=== PATIENT | female | born 1985 | race African-American/Black ===

== ENCOUNTER 2016-10-27 09:13 | Emergency (ER) | payer OTHER ==
[2016-10-27 09:18] VITALS: BP 109/67; PULSE 83; RESP 20; TEMP 98.7
--- NOTE | 2016-10-27 09:30 | ED ---
ENT HPI - General Chief complaint: Dental/Oral Stated complaint: Tooth Pain Time Seen by Provider: 10/27/16 09:19 Source: patient, RN notes reviewed Mode of arrival: ambulatory Limitations: no limitations - History of Present Illness Initial comments: 31-year-old female presents emergency Department chief complaint right lower dental pain. Patient states has been vomiting for last week. Patient states she's had all her teeth extracted except for one on the right lower she states that is cracked out and states that she feels it may be infected. Patient states she does wear dentures but cannot wear her lower because of the pain. Patient has fever or chills. Patient states that she is seen at [facility]. - Related Data Home Medications Medication Instructions Recorded Confirmed Acetaminophen Tab [Tylenol Tab] 1,000 mg PO Q6HR PRN 10/27/16 10/27/16 Previous Rx's Medication Instructions Recorded Acetaminophen-Codeine 300-30mg 1 tab PO Q4H PRN #20 tablet 10/27/16 [Tylenol #3] Penicillin V Potassium [Pen Vee K] 500 mg PO QID #40 tab 10/27/16 Allergies Allergy/AdvReac Type Severity Reaction Status Date / Time No Known Allergies Allergy Verified 10/27/16 09:35 Review of Systems ROS Statement: Those systems with pertinent positive or pertinent negative responses have been documented in the HPI. ROS Other: All systems not noted in ROS Statement are negative. Past Medical History Past Medical History: No Reported History Additional Past Medical History / Comment(s): UMBILCAL HERNIA History of Any Multi-Drug Resistant Organisms: None Reported Past Surgical History: Section Past Psychological History: No Psychological Hx Reported Smoking Status: Current every day smoker Past Alcohol Use History: None Reported Past Drug Use History: None Reported General Exam Limitations: no limitations General appearance: alert, in no apparent distress Head exam: Present: atraumatic, normocephalic, normal inspection ENT exam: Present: mucous membranes moist, TM's normal bilaterally, normal external ear exam. Absent: normal exam, normal oropharynx (Edentulous, right lower tooth fracture noted) Neck exam: Present: normal inspection, full ROM. Absent: tenderness, meningismus, lymphadenopathy Respiratory exam: Present: normal lung sounds bilaterally. Absent: respiratory distress, wheezes, rales, rhonchi, stridor Cardiovascular Exam: Present: regular rate, normal rhythm, normal heart sounds. Absent: systolic murmur, diastolic murmur, rubs, gallop, clicks Neurological exam: Present: alert, oriented X3, CN II-XII intact Skin exam: Present: warm, dry, intact, normal color. Absent: rash Course Vital Signs 10/27/16 09:14 Temperature 98.7 F Pulse Rate 83 Respiratory 20 Rate Blood Pressure 109/67 O2 Sat by Pulse 100 Oximetry Medical Decision Making - Medical Decision Making Patient presented for dental pain. She has a dental fracture and possible dental infection. Patient was placed on antibiotics, pain medication. She is advised follow-up with her dentist return parameters were discussed. Disposition Clinical Impression: Fracture of tooth, Toothache Disposition: HOME SELF-CARE Condition: Stable Instructions: Toothache (ED) Additional Instructions: Please return to the Emergency Department if symptoms worsen or any other concerns. Follow-up with your dentist as directed. Prescriptions: Acetaminophen-Codeine 300-30mg [Tylenol #3] 1 tab PO Q4H PRN #20 tablet PRN Reason: pain Penicillin V Potassium [Pen Vee K] 500 mg PO QID #40 tab Referrals: None,Stated [Primary Care Provider] - 1-2 days Time of Disposition: 09:30
== END 2016-10-27 09:35 | disposition home or self-care (01) ==
LOC: EC 09:13
DX: S02.5XXA Fracture of tooth (traumatic), initial encounter for closed fracture (principal); F17.200 Nicotine dependence, unspecified, uncomplicated; X58.XXXA Exposure to other specified factors, initial encounter
CPT/HCPCS: 99282

== ENCOUNTER 2016-12-07 12:24 | Emergency (ER) | payer OTHER ==
[2016-12-07 12:28] VITALS: BP 127/68; PULSE 91; RESP 16; TEMP 98.5
[2016-12-07] MEDS ORDERED: ACET/COD 300 MG/30 MG STARTER PACK 6 TAB BTL PO STA (12:39)
[2016-12-07] MEDS ORDERED: PENICILLIN VK 500MG STARTER 4 TAB BTL PO STA (12:39)
--- NOTE | 2016-12-07 12:43 | ED ---
ENT HPI - General Chief complaint: Dental/Oral Stated complaint: Tooth Pain Time Seen by Provider: 12/07/16 12:29 Source: patient, RN notes reviewed, old records reviewed Mode of arrival: ambulatory Limitations: no limitations - History of Present Illness Initial comments: Physical is 31-year-old female presents emergency Department chief complaint of right lower dental pain. Patient reports that she's had all of her teeth pulled it does wear dentures. She reports that over the past month and a half she's noticed that her wisdom tooth is came in and is cracked. She states that she does see a dentist in [place]. She reports that she has to find transportation unable to get to her appointment. She reports that she's had this been taking Motrin and Tylenol but is not helping with the pain. She was recently here for the same dental pain and was given prescription of antibiotic and pain medication. Patient reports she has completed the antibiotic was concerned that it is now still infected. Patient would just like to have the tooth pulled out. Patient denies any fever or chills, trismus, chest pain, shortness breath, nausea, vomiting or fevers. - Related Data Home Medications Medication Instructions Recorded Confirmed Acetaminophen Tab [Tylenol Tab] 1,000 mg PO Q6HR PRN 10/27/16 12/07/16 Previous Rx's Medication Instructions Recorded Acetaminophen-Codeine 300-30mg 1 tab PO Q6H PRN #15 tablet 12/07/16 [Tylenol #3] Penicillin V Potassium [Pen Vee K] 500 mg PO QID #40 tab 12/07/16 Allergies Allergy/AdvReac Type Severity Reaction Status Date / Time No Known Allergies Allergy Verified 12/07/16 12:26 Review of Systems ROS Statement: Those systems with pertinent positive or pertinent negative responses have been documented in the HPI. ROS Other: All systems not noted in ROS Statement are negative. Past Medical History Past Medical History: No Reported History Additional Past Medical History / Comment(s): UMBILCAL HERNIA History of Any Multi-Drug Resistant Organisms: None Reported Past Surgical History: Section Past Psychological History: No Psychological Hx Reported Smoking Status: Current every day smoker Past Alcohol Use History: None Reported Past Drug Use History: None Reported General Exam - General Exam Comments Initial Comments: Well-appearing 31-year-old female. No acute distress. Limitations: no limitations General appearance: alert, in no apparent distress Head exam: Present: atraumatic, normocephalic, normal inspection Eye exam: Present: normal appearance, PERRL, EOMI. Absent: scleral icterus, conjunctival injection, periorbital swelling ENT exam: Present: normal exam, mucous membranes moist. Absent: normal oropharynx (Patient has all of her teeth over the lower mouth pulled, except to tooth #32 is exposed and cracked.) Neck exam: Present: normal inspection. Absent: tenderness, meningismus, lymphadenopathy Respiratory exam: Present: normal lung sounds bilaterally. Absent: respiratory distress, wheezes, rales, rhonchi, stridor Cardiovascular Exam: Present: regular rate, normal rhythm, normal heart sounds. Absent: systolic murmur, diastolic murmur, rubs, gallop, clicks GI/Abdominal exam: Present: soft, normal bowel sounds. Absent: distended, tenderness, guarding, rebound, rigid Extremities exam: Present: normal inspection, full ROM, normal capillary refill. Absent: tenderness, pedal edema, joint swelling, calf tenderness Back exam: Present: normal inspection Neurological exam: Present: alert, oriented X3, CN II-XII intact Psychiatric exam: Present: normal affect, normal mood Skin exam: Present: warm, dry, intact, normal color. Absent: rash Course Vital Signs 12/07/16 12:26 Temperature 98.5 F Pulse Rate 91 Respiratory 16 Rate Blood Pressure 127/68 O2 Sat by Pulse 99 Oximetry Medical Decision Making - Medical Decision Making Patient is 31-year-old female presenting to the emergency department for pain. She was seen a month ago for similar complaint. Patient exposed exposed tooth # 32 and it is cracked. Has all the rest of her teeth pulled. Discussion is follow-up with dental clinic to have her tooth removed completely. Patient also advised to do teabags over the tooth. She will be discharged with pain medication and antibiotics. Discussed following up with the dentist surgeon as soon as possible. Patient agrees to treatment plan will comply. Return parameters were discussed. Disposition Clinical Impression: Pain, dental, Broken or cracked tooth, nontraumatic Disposition: HOME SELF-CARE Condition: Good Instructions: Toothache (ED) Additional Instructions: [facility] [id number] [place] [address] [phone] (existing clients only) For new clients: [phone] 1st consult: $50 (includes Xrays) Usually 30% less then private dentist for visits after. [employer] Have to pay $50 for Xrays anmd rest is covered. [phone] Prescriptions: Acetaminophen-Codeine 300-30mg [Tylenol #3] 1 tab PO Q6H PRN #15 tablet PRN Reason: Pain Penicillin V Potassium [Pen Vee K] 500 mg PO QID #40 tab Referrals: None,Stated [Primary Care Provider] - 1-2 days Fauzia Michel MD [STAFF PHYSICIAN] - 1-2 days Time of Disposition: 12:42
== END 2016-12-07 12:55 | disposition home or self-care (01) ==
LOC: EC 12:24
DX: K03.81 Cracked tooth (principal); K08.89 Other specified disorders of teeth and supporting structures; F17.200 Nicotine dependence, unspecified, uncomplicated
CPT/HCPCS: 99283

== ENCOUNTER 2017-01-02 11:52 | Emergency (ER) | payer OTHER ==
[2017-01-02 12:13] VITALS: BP 113/62; PULSE 70; RESP 16; TEMP 99.1
[2017-01-02] MEDS ORDERED: KETOROLAC 60 MG/2 ML VIAL IM STA (13:07)
[2017-01-02] MEDS ORDERED: ORPHENADRINE 30 MG/ML 2 ML VIAL IM STA (13:07)
--- NOTE | 2017-01-02 13:29 | ED ---
General Adult HPI - General Chief complaint: Back Pain/Injury Stated complaint: Back pain/injury Time Seen by Provider: 01/02/17 13:03 Source: patient, RN notes reviewed Mode of arrival: ambulatory Limitations: no limitations - History of Present Illness Initial comments: 31 yo female presents to the ER with cc of low back pain. Patient has a history of back pain and states she was catching her son and she noticed some back pain. This originally started on Thursday. She states she has tried over the counter medications without much relief. She denies any loss of bowel or bladder function. She denies any saddle anesthesia. she states it feel much like when her back has flared up in the past. She denies any actual trauma to the back it was simply catching her son. She denies any other injuries or symptoms. Patient denies any recent fever, chills, shortness of breath, chest pain, abdominal pain, nausea vomiting, numbness or tingling, dysuria or hematuria, constipation or diarrhea, headaches or visual changes, or any other current symptoms. - Related Data Home Medications Medication Instructions Recorded Confirmed Acetaminophen Tab [Tylenol Tab] 1,000 mg PO Q6HR PRN 10/27/16 12/07/16 Previous Rx's Medication Instructions Recorded Acetaminophen-Codeine 300-30mg 1 tab PO Q6H PRN #15 tablet 12/07/16 [Tylenol #3] Penicillin V Potassium [Pen Vee K] 500 mg PO QID #40 tab 12/07/16 Ibuprofen [Motrin] 600 mg PO Q6HR PRN #20 tab 01/02/17 Orphenadrine [Norflex] 100 mg PO Q12H #10 tablet.er 01/02/17 Allergies Allergy/AdvReac Type Severity Reaction Status Date / Time No Known Allergies Allergy Verified 01/02/17 12:10 Review of Systems ROS Statement: Those systems with pertinent positive or pertinent negative responses have been documented in the HPI. ROS Other: All systems not noted in ROS Statement are negative. Past Medical History Past Medical History: No Reported History Additional Past Medical History / Comment(s): UMBILCAL HERNIA History of Any Multi-Drug Resistant Organisms: None Reported Past Surgical History: Section Past Psychological History: No Psychological Hx Reported Smoking Status: Current every day smoker Past Alcohol Use History: None Reported Past Drug Use History: None Reported General Exam Limitations: no limitations General appearance: alert, in no apparent distress ENT exam: Present: normal exam, mucous membranes moist Neck exam: Present: normal inspection. Absent: tenderness, meningismus, lymphadenopathy Respiratory exam: Present: normal lung sounds bilaterally. Absent: respiratory distress, wheezes, rales, rhonchi, stridor Cardiovascular Exam: Present: regular rate, normal rhythm, normal heart sounds. Absent: systolic murmur, diastolic murmur, rubs, gallop, clicks Back exam: Present: normal inspection, full ROM, tenderness (lower lumbnar vertebra), vertebral tenderness. Absent: CVA tenderness (R), CVA tenderness (L) , muscle spasm, paraspinal tenderness, rash noted Neurological exam: Present: alert, oriented X3 Skin exam: Present: warm, dry, intact, normal color. Absent: rash Course Vital Signs 01/02/17 12:10 Temperature 99.1 F Pulse Rate 70 Respiratory 16 Rate Blood Pressure 113/62 O2 Sat by Pulse 100 Oximetry Medical Decision Making - Medical Decision Making 31 yo female presents with cc of what appears to be a lumbar strain. patient states it is much like her normal back pain. We treated patient with torodal and norflex and has had some improvement. We will discharged the patient home. discussed return parameters and follow up. all questions have been answered. patient in agreement with discharge. Disposition Clinical Impression: Lumbar strain Disposition: HOME SELF-CARE Condition: Stable Instructions: Lower Back Exercises (ED), Low Back Strain (ED) Additional Instructions: Please use medication as discussed. Please follow up with family doctor if symptoms have not improved over the next two days. Please return to the emergency room if your symptoms increase or worsen or for any other concerns. Prescriptions: Ibuprofen [Motrin] 600 mg PO Q6HR PRN #20 tab PRN Reason: Pain Orphenadrine [Norflex] 100 mg PO Q12H #10 tablet.er Referrals: Fauzia Michel MD [STAFF PHYSICIAN] - 1-2 days Time of Disposition: 13:28
== END 2017-01-02 13:40 | disposition home or self-care (01) ==
LOC: EC 11:52
DX: S39.012A Strain of muscle, fascia and tendon of lower back, initial encounter (principal); F17.200 Nicotine dependence, unspecified, uncomplicated; X58.XXXA Exposure to other specified factors, initial encounter
CPT/HCPCS: 99283; 96372 ×2; J2360; J1885

== ENCOUNTER 2017-02-11 09:23 | Emergency (ER) | payer OTHER ==
[2017-02-11 09:28] VITALS: RESP 20
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
[2017-02-11] MEDS ORDERED: IBUPROFEN 800 MG TAB PO STA (10:33)
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
[2017-02-11 10:49] VITALS: BP 126/56; PULSE 71; TEMP 98.1
--- NOTE | 2017-02-12 08:30 | CDI ---
Documentation Clarification OP Dear Espinoza Francisco, PAC Please do addendum to ED report for need a contusion location Thank you, Isaiah Valencia Double Back Operator If you have any questions, please contact Engineering Technologist at [phone] [facility]
== END 2017-02-11 10:45 | disposition home or self-care (01) ==
LOC: EC 09:23
DX: S06.0X0A Concussion without loss of consciousness, initial encounter (principal); S00.83XA Contusion of other part of head, initial encounter; S40.021A Contusion of right upper arm, initial encounter; B00.9 Herpesviral infection, unspecified; F17.200 Nicotine dependence, unspecified, uncomplicated; Y04.2XXA Assault by strike against or bumped into by another person, initial encounter
CPT/HCPCS: 70450; 99284

== ENCOUNTER 2017-04-07 15:46 | Emergency (ER) | payer OTHER ==
[2017-04-07 15:51] VITALS: RESP 18
[2017-04-07] MEDS ORDERED: IBUPROFEN 600 MG TAB PO STA (16:44)
[2017-04-07] MEDS ORDERED: ACETAMINOPHEN TAB 500 MG TAB PO STA (16:44)
--- NOTE | 2017-04-07 16:48 | ED ---
General Adult HPI - General Chief complaint: Abdominal Pain Stated complaint: headache, nausea, back pain Time Seen by Provider: 04/07/17 15:50 Source: patient, RN notes reviewed Mode of arrival: wheelchair Limitations: no limitations - History of Present Illness Initial comments: This is a 31-year-old female presents to the emergency department complaining of right upper quadrant and right flank pain. Patient states started last night and has continued today. Patient states she became nauseous and has vomited multiple times. Patient denies any diarrhea. Patient denies any chest pain difficulty breathing shortness of breath per patient denies any cough. Patient denies any dysuria hematuria or urinary frequency. Patient denies any back pain. Patient denies any neck stiffness or neck pain. Patient denies any rashes lesions. - Related Data Home Medications Medication Instructions Recorded Confirmed Ibuprofen [Motrin] 400 mg PO Q6HR PRN 04/07/17 04/07/17 Naproxen Sodium [Aleve] 440 mg PO Q12HR PRN 04/07/17 04/07/17 Previous Rx's Medication Instructions Recorded Ondansetron [Zofran] 4 mg PO Q6H PRN #10 tab 04/07/17 Sulfamethox-Tmp 800-160Mg [Bactrim 1 each PO Q12HR #14 tab 04/07/17 DS 800-160 mg] Allergies Allergy/AdvReac Type Severity Reaction Status Date / Time No Known Allergies Allergy Verified 04/07/17 16:45 Review of Systems ROS Statement: Those systems with pertinent positive or pertinent negative responses have been documented in the HPI. ROS Other: All systems not noted in ROS Statement are negative. Past Medical History Past Medical History: No Reported History Additional Past Medical History / Comment(s): UMBILCAL HERNIA History of Any Multi-Drug Resistant Organisms: None Reported Past Surgical History: Section Past Psychological History: No Psychological Hx Reported Smoking Status: Current every day smoker Past Alcohol Use History: None Reported Past Drug Use History: None Reported General Exam - General Exam Comments Initial Comments: GENERAL: Patient is well-developed and well-nourished. Patient is nontoxic and well- hydrated and is in mild distress. ENT: Neck is soft and supple. No significant lymphadenopathy is noted. Oropharynx is clear. Moist mucous membranes. Neck has full range of motion without eliciting any pain. EYES: The sclera were anicteric and conjunctiva were pink and moist. Extraocular movements were intact and pupils were equal round and reactive to light. Eyelids were unremarkable. PULMONARY: Unlabored respirations. Good breath sounds bilaterally. No audible rales rhonchi or wheezing was noted. CARDIOVASCULAR: There is a regular rate and rhythm without any murmurs gallops or rubs. ABDOMEN: Minimal right upper quadrant pain no rebound or guarding. No palpable organomegaly was noted. There is no palpable pulsatile mass. SKIN: Skin is clear with no lesions or rashes and otherwise unremarkable. NEUROLOGIC: Patient is alert and oriented x3. Cranial nerves II through XII are grossly intact. Motor and sensory are also intact. Normal speech, volume and content. Symmetrical smile. MUSCULOSKELETAL: Normal extremities with adequate strength and full range of motion. No lower extremity swelling or edema. No calf tenderness. LYMPHATICS: No significant lymphadenopathy is noted PSYCHIATRIC: Normal psychiatric evaluation. Limitations: no limitations Course Vital Signs 04/07/17 04/07/17 04/07/17 15:48 16:42 17:17 Temperature 99.8 F H 101.3 F H Pulse Rate 111 H 95 Respiratory 18 Rate Blood Pressure 99/64 O2 Sat by Pulse 100 Oximetry 04/07/17 17:57 Temperature 101.2 F H Pulse Rate 94 Respiratory Rate Blood Pressure O2 Sat by Pulse Oximetry Medical Decision Making - Lab Data Result diagrams: 04/07/17 17:06 04/07/17 17:06 Lab Results 04/07/17 04/07/17 04/07/17 Range/Units 17:06 17:06 17:06 WBC 5.3 (3.8-10.6) k/uL RBC 4.20 (3.80-5.40) m/uL Hgb 12.3 (11.4-16.0) gm/dL Hct 36.7 (34.0-46.0) % MCV 87.5 (80.0-100.0) fL MCH 29.3 (25.0-35.0) pg MCHC 33.5 (31.0-37.0) g/dL RDW 12.9 (11.5-15.5) % Plt Count 286 (150-450) k/uL Neutrophils % 66 % Lymphocytes % 18 % Monocytes % 7 % Eosinophils % 5 % Basophils % 1 % Neutrophils # 3.5 (1.3-7.7) k/uL Lymphocytes # 0.9 L (1.0-4.8) k/uL Monocytes # 0.4 (0-1.0) k/uL Eosinophils # 0.3 (0-0.7) k/uL Basophils # 0.0 (0-0.2) k/uL Sodium 134 L (137-145) mmol/L Potassium 4.1 (3.5-5.1) mmol/L Chloride 100 (98-107) mmol/L Carbon Dioxide 29 (22-30) mmol/L Anion Gap 5 mmol/L BUN 11 (7-17) mg/dL Creatinine 0.80 (0.52-1.04) mg/dL Est GFR (MDRD) Af Amer >60 (>60 ml/min/1.73 sqM) Est GFR (MDRD) Non-Af >60 (>60 ml/min/1.73 sqM) Glucose 78 (74-99) mg/dL Plasma Lactic Acid Raza 1.0 (0.7-2.0) mmol/L Calcium 8.8 (8.4-10.2) mg/dL Total Bilirubin 0.4 (0.2-1.3) mg/dL AST 59 H (14-36) U/L ALT 67 H (9-52) U/L Alkaline Phosphatase 74 (38-126) U/L Total Protein 6.5 (6.3-8.2) g/dL Albumin 3.6 (3.5-5.0) g/dL Urine Color Urine Appearance (Clear) Urine pH (5.0-8.0) Ur Specific [place] (1.001-1.035) Urine Protein (Negative) Urine Glucose (UA) (Negative) Urine Ketones (Negative) Urine Blood (Negative) Urine Nitrite (Negative) Urine Bilirubin (Negative) Urine Urobilinogen (<2.0) mg/dL Ur Leukocyte Esterase (Negative) Urine RBC (0-5) /hpf Urine WBC (0-5) /hpf Ur Squamous Epith Cells (0-4) /hpf Urine Mucus (None) /hpf Influenza Type A RNA (Not Detectd) Influenza Type B (PCR) (Not Detectd) 04/07/17 04/07/17 Range/Units 17:06 17:06 WBC (3.8-10.6) k/uL RBC (3.80-5.40) m/uL Hgb (11.4-16.0) gm/dL Hct (34.0-46.0) % MCV (80.0-100.0) fL MCH (25.0-35.0) pg MCHC (31.0-37.0) g/dL RDW (11.5-15.5) % Plt Count (150-450) k/uL Neutrophils % % Lymphocytes % % Monocytes % % Eosinophils % % Basophils % % Neutrophils # (1.3-7.7) k/uL Lymphocytes # (1.0-4.8) k/uL Monocytes # (0-1.0) k/uL Eosinophils # (0-0.7) k/uL Basophils # (0-0.2) k/uL Sodium (137-145) mmol/L Potassium (3.5-5.1) mmol/L Chloride (98-107) mmol/L Carbon Dioxide (22-30) mmol/L Anion Gap mmol/L BUN (7-17) mg/dL Creatinine (0.52-1.04) mg/dL Est GFR (MDRD) Af Amer (>60 ml/min/1.73 sqM) Est GFR (MDRD) Non-Af (>60 ml/min/1.73 sqM) Glucose (74-99) mg/dL Plasma Lactic Acid Raza (0.7-2.0) mmol/L Calcium (8.4-10.2) mg/dL Total Bilirubin (0.2-1.3) mg/dL AST (14-36) U/L ALT (9-52) U/L Alkaline Phosphatase (38-126) U/L Total Protein (6.3-8.2) g/dL Albumin (3.5-5.0) g/dL Urine Color Yellow Urine Appearance Cloudy H (Clear) Urine pH 5.5 (5.0-8.0) Ur Specific [place] 1.017 (1.001-1.035) Urine Protein 1+ H (Negative) Urine Glucose (UA) Negative (Negative) Urine Ketones Negative (Negative) Urine Blood Trace H (Negative) Urine Nitrite Negative (Negative) Urine Bilirubin Negative (Negative) Urine Urobilinogen <2.0 (<2.0) mg/dL Ur Leukocyte Esterase Large H (Negative) Urine RBC 5 (0-5) /hpf Urine WBC 40 H (0-5) /hpf Ur Squamous Epith Cells 7 H (0-4) /hpf Urine Mucus Few H (None) /hpf Influenza Type A RNA Not Detected (Not Detectd) Influenza Type B (PCR) Not Detected (Not Detectd) Disposition Clinical Impression: Urinary tract infection, Vomiting Disposition: HOME SELF-CARE Condition: Good Instructions: Urinary Tract Infection in Women (ED) Prescriptions: Ondansetron [Zofran] 4 mg PO Q6H PRN #10 tab PRN Reason: Nausea And Vomiting Sulfamethox-Tmp 800-160Mg [Bactrim DS 800-160 mg] 1 each PO Q12HR #14 tab Referrals: Asael Cardona MD [STAFF PHYSICIAN] - 1-2 days Time of Disposition: 19:02
[2017-04-07] MEDS: SODIUM CHLORIDE 0.9% 500 ML IV SCH (17:07)
[2017-04-07 17:23] LABS: Basophils % (A) 1 %; CH 29.9; CHCM 34.4; Eosinophils # (A) 0.3 k/uL (0-0.7); Eosinophils % (A) 5 %; HCT 36.7 % (34.0-46.0); HGB 12.3 gm/dL (11.4-16.0); Luc # (Auto) 0.16; Luc % (Auto) 3; Lymphocytes # (A) 0.9 k/uL (1.0-4.8); Lymphocytes % (A) 18 %; MCH 29.3 pg (25.0-35.0); MCHC 33.5 g/dL (31.0-37.0); MCV 87.5 fL (80.0-100.0); Mean Platelet Volume 7.4; Monocytes # (A) 0.4 k/uL (0-1.0); Monocytes % (A) 7 %; Neutrophils # (A) 3.5 k/uL (1.3-7.7); Neutrophils % (A) 66 %; RDW 12.9 % (11.5-15.5); WBC 5.3 k/uL (3.8-10.6); WBC (Perox) 5.56
[2017-04-07 17:27] LABS: Appearance,Urine Cloudy (Clear); Bilirubin,Urine Negative (Negative); Glucose,Urine (UA) Negative (Negative); Ketones,Urine Negative (Negative); Leukocyte Esterase,Urine Large (Negative); Mucus,Urine Few /hpf; Nitrite,Urine Negative (Negative); PH, Urine 5.5 (5.0-8.0); Particle Count 6961; Protein,Urine 1+ (Negative); RBC,Urine 5 /hpf (0-5); Specific Gravity,Urine 1.017 (1.001-1.035); Squamous Epithelial Cell,Urine 7 /hpf (0-4); UA Billing (MACRO vs. MICRO) MICRO; Urobilinogen,Urine <2.0 mg/dL (<2.0); WBC,Urine 40 /hpf (0-5)
[2017-04-07 17:45] LABS: ALT 67 U/L (9-52); AST 59 U/L (14-36); Alkaline Phosphatase 74 U/L (38-126); Anion Gap 5 mmol/L; Blood Urea Nitrogen 11 mg/dL (7-17); Calcium 8.8 mg/dL (8.4-10.2); Carbon Dioxide 29 mmol/L (22-30); Chloride 100 mmol/L (98-107); Glucose 78 mg/dL (74-99); Non-African American GFR(MDRD) >60 (>60 ml/min/1.73 sqM); Potassium 4.1 mmol/L (3.5-5.1); Sodium 134 mmol/L (137-145); Total Protein 6.5 g/dL (6.3-8.2)
[2017-04-07 18:03] LABS: Total Bilirubin 0.4 mg/dL (0.2-1.3)
[2017-04-07] MEDS ORDERED: cefTRIAXone IN SWFI 1,000 MG/10 ML SYRINGE IVP STA (18:20)
[2017-04-07] MEDS ORDERED: HYDROmorphone 1 MG/ML 1 ML SYRINGE IVP STA (18:25)
[2017-04-07] MEDS ORDERED: HYDROmorphone 0.5 MG/0.5 ML SYRINGE IVP STA (18:31)
[2017-04-07 19:20] VITALS: BP 98/53; PULSE 91; TEMP 101.1
== END 2017-04-07 19:20 | disposition home or self-care (01) ==
LOC: EC 15:46
DX: N39.0 Urinary tract infection, site not specified (principal); R11.2 Nausea with vomiting, unspecified; R51 Headache; F17.200 Nicotine dependence, unspecified, uncomplicated
CPT/HCPCS: 36415; 80053; 83605; 85025; 81001; 87040; 87086; 87502; 99284; 96374; 96375; 96361; J0696; J1170

== ENCOUNTER 2017-06-18 18:23 | Emergency (ER) | payer OTHER ==
[2017-06-18 18:50] VITALS: BP 138/81; PULSE 79; RESP 18; TEMP 98.5
--- NOTE | 2017-06-18 19:10 | ED ---
Upper Extremity HPI - General Chief Complaint: Extremity Injury, Upper Stated Complaint: RT ARM INJURY FROM FALL Time Seen by Provider: 06/18/17 18:53 Source: patient, RN notes reviewed Mode of arrival: ambulatory Limitations: no limitations - History of Present Illness Initial Comments: This is a 32-year-old female who presents to the emergency department with chief complaint of right wrist injury. Patient states that at approximately 3 PM this afternoon she was shoveling snow. She slipped on a patch of ice and fell landing on her right forearm. Patient states that pain is localized to the ulnar aspect of her right wrist and forearm. She describes the pain as a pulling sensation with any movement she makes. She denies any other injuries or trauma. Denies fever, chills, chest pain, shortness of breath, abdominal pain, nausea or vomiting, numbness or tingling, headache or vision changes. - Related Data Home Medications Medication Instructions Recorded Confirmed Acetaminophen [Tylenol Extra 1,000 mg PO BID PRN 06/18/17 06/18/17 Strength] Ibuprofen [Advil] 200 mg PO Q8HR PRN 06/18/17 06/18/17 Allergies Allergy/AdvReac Type Severity Reaction Status Date / Time No Known Allergies Allergy Verified 06/18/17 19:07 Review of Systems ROS Statement: Those systems with pertinent positive or pertinent negative responses have been documented in the HPI. ROS Other: All systems not noted in ROS Statement are negative. Past Medical History Past Medical History: No Reported History Additional Past Medical History / Comment(s): UMBILCAL HERNIA History of Any Multi-Drug Resistant Organisms: None Reported Past Surgical History: Section Past Psychological History: No Psychological Hx Reported Smoking Status: Current every day smoker Past Alcohol Use History: None Reported Past Drug Use History: None Reported General Exam - General Exam Comments Initial Comments: General: Awake and alert, well-developed; in no apparent distress. HEENT: Head atraumatic, normocephalic. Pupils are equal, round and reactive to light. Extraocular movements intact. Oropharynx moist without erythema or exudate. Neck: Supple. Normal ROM. Cardiovascular: Regular rate and rhythm. No murmurs, rubs or gallops. Chest symmetrical. Respiratory: Lungs clear to auscultation bilaterally. No wheezes, rales or rhonchi. Normal respiratory effort with no use of accessory muscles. Musculoskeletal: Normal active range of motion of right hand, wrist and elbow. There is tenderness on palpation of the ulnar aspect of right wrist. No snuffbox tenderness. Sensation is intact. Radial pulses are 2+ equal and palpable bilaterally. No swelling, erythema or bruising noted. Skin: [place], warm and dry without rashes or lesions. Neurological: Alert and oriented x3. CN II-XII grossly intact. Speech is fluent and answers are appropriate. No focal neuro deficits. Psychiatric: Normal mood and affect. No overt signs of depression or anxiety noted. Limitations: no limitations Course Vital Signs 06/18/17 18:47 Temperature 98.5 F Pulse Rate 79 Respiratory 18 Rate Blood Pressure 138/81 O2 Sat by Pulse 100 Oximetry Medical Decision Making - Medical Decision Making This is a 32-year-old female who presents to the emergency department with chief complaint of right wrist injury. Patient has complete normal range of motion of right upper extremity. There is no swelling or contusions noted. Sensation is intact. Radial pulses are 2+ equal and palpable bilaterally. Denies snuffbox tenderness. No obvious deformities. X-rays revealed no acute fractures or dislocations of the right hand, wrist, forearm or elbow. Patient requests narcotic medication. This is not warranted and patient was upset about this. She is displaying pain-medication seeking behavior. She is in no acute distress. She states that she will be going to [facility] for more x- rays. She will be discharged home. - Radiology Data Radiology results: report reviewed Right hand x-ray impression: There is no acute fracture or dislocation in the right hand. X-ray right forearm impression: There is no acute fracture or dislocation seen in the right radius or ulna. Disposition Clinical Impression: Contusion of right forearm Disposition: HOME SELF-CARE Condition: Good Instructions: Contusion in Adults (ED) Additional Instructions: Please follow up with primary care provider within 1-2 days. Return to emergency department if symptoms should worsen or any concerns arise. Referrals: None,Stated [Primary Care Provider] - 1-2 days Time of Disposition: 19:40
--- NOTE | 2017-06-18 19:14 | XR ---
EXAMINATION TYPE: XR forearm RT DATE OF EXAM: 06/18/2017 CLINICAL HISTORY: Pain after fall injury TECHNIQUE: Two views of the right forearm are obtained. COMPARISON: None. FINDINGS: There is no acute fracture or dislocation seen in the right radius or ulna. The right elb ow and wrist joints appear within normal limits. The overlying soft tissue appears within normal [place] its. IMPRESSION: There is no acute fracture or dislocation seen in the right radius or ulna.
--- NOTE | 2017-06-18 19:15 | XR ---
EXAMINATION TYPE: XR hand complete RT DATE OF EXAM: 06/18/2017 CLINICAL HISTORY: Right hand pain after fall injury today TECHNIQUE: Frontal, lateral and oblique images of the right hand are obtained. COMPARISON: Right hand xray November 08, 2014 FINDINGS: Incomplete extension of phalanges makes evaluation slightly suboptimal. There is no acute f racture/dislocation evident in the right hand. The joint spaces in the right hand appear within addy l limits. The overlying soft tissue appears unremarkable. IMPRESSION: There is no acute fracture or dislocation in the right hand.
[2017-06-18] MEDS ORDERED: IBUPROFEN 600 MG TAB PO STA (19:32)
== END 2017-06-18 19:46 | disposition home or self-care (01) ==
LOC: EC 18:23
DX: S50.11XA Contusion of right forearm, initial encounter (principal); F17.200 Nicotine dependence, unspecified, uncomplicated; W00.0XXA Fall on same level due to ice and snow, initial encounter; Y93.H1 Activity, digging, shoveling and raking; Y92.009 Unspecified place in unspecified non-institutional (private) residence as the place of occurrence of the external cause
CPT/HCPCS: 99283

== ENCOUNTER 2017-10-11 09:49 | Emergency (ER) | payer OTHER ==
[2017-10-11] MEDS ORDERED: cefTRIAXone 250 MG VIAL IM STA (11:13)
[2017-10-11] MEDS ORDERED: metroNIDAZOLE 500 MG TAB PO STA (11:14)
[2017-10-11] MEDS ORDERED: AZITHROMYCIN 500 MG TAB PO STA (11:14)
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
[2017-10-11 11:56] LABS: Appearance,Urine Cloudy (Clear); Bacteria,Urine Rare /hpf; Bilirubin,Urine Negative (Negative); Blood,Urine Negative (Negative); Budding Yeast,Urine Few /hpf; Color,Urine Yellow; Glucose,Urine (UA) Negative (Negative); Ketones,Urine Trace (Negative); Leukocyte Esterase,Urine Large (Negative); Mucus,Urine Many /hpf; Nitrite,Urine Negative (Negative); PH, Urine 5.5 (5.0-8.0); Protein,Urine Trace (Negative); RBC,Urine 7 /hpf (0-5); Specific Gravity,Urine 1.012 (1.001-1.035); Squamous Epithelial Cell,Urine 7 /hpf (0-4); Urobilinogen,Urine <2.0 mg/dL (<2.0); WBC,Urine 83 /hpf (0-5)
[2017-10-11 12:32] LABS: Hepatitis A AB IgM Index 0.01; Hepatitis A Antibody IgM NEGATIVE
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
[2017-10-11 13:28] VITALS: BP 127/62; PULSE 70; RESP 16; TEMP 98.2
[2017-10-12 13:44] LABS: Hepatitis B Core IgM Non-Reactive (Non-Reactive)
== END 2017-10-11 13:25 | disposition home or self-care (01) ==
LOC: EC 09:49
DX: S20.211A Contusion of right front wall of thorax, initial encounter (principal); S50.12XA Contusion of left forearm, initial encounter; S50.11XA Contusion of right forearm, initial encounter; S80.02XA Contusion of left knee, initial encounter; S70.11XA Contusion of right thigh, initial encounter; T76.21XA Adult sexual abuse, suspected, initial encounter; F17.200 Nicotine dependence, unspecified, uncomplicated
CPT/HCPCS: 36415; 80074; 81001; 81025; 71101; 99284; 96372; J0696

== ENCOUNTER 2018-02-24 09:23 | Emergency (ER) | payer OTHER ==
[2018-02-24] MEDS ORDERED: IPRATROPIUM-ALBUTEROL 3 ML NEB INHALATION STA (09:47)
--- NOTE | 2018-02-24 09:49 | ED ---
General Adult HPI - General Chief complaint: Upper Respiratory Infection Stated complaint: SOB Time Seen by Provider: 02/24/18 09:37 Source: patient, RN notes reviewed, old records reviewed Mode of arrival: wheelchair Limitations: no limitations - History of Present Illness Initial comments: Patient is a 32-year-old female presents emergency room states she will cough and congestion and body aches for the past week. Patient states that she's been taking ibuprofen with little relief. She reports she has pain and feels a tightness in her chest taking a deep breath. She does report she is a smoker. She states that she's had sinus congestion and sore throat.Patient denies any recent fever, chills, chest pain, back pain, abdominal pain, nausea vomiting, numbness or tingling, dysuria or hematuria, constipation or diarrhea, headaches or visual changes, or any other current symptoms - Related Data Home Medications Medication Instructions Recorded Confirmed Ibuprofen [Advil] 200 mg PO Q8HR PRN 06/18/17 02/24/18 Previous Rx's Medication Instructions Recorded Albuterol Inhaler [Ventolin Hfa 1 - 2 puff INHALATION RT-Q6H PRN 02/24/18 Inhaler] #1 inhaler Azithromycin [Zithromax] 250 mg PO DIRECTED #6 tab 02/24/18 Promethazine/Dextromethorphan 5 ml PO TID #120 ml 02/24/18 [Phenergan DM Syrup] predniSONE 50 mg PO DAILY #5 tab 02/24/18 Allergies Allergy/AdvReac Type Severity Reaction Status Date / Time No Known Allergies Allergy Verified 02/24/18 09:52 Review of Systems ROS Statement: Those systems with pertinent positive or pertinent negative responses have been documented in the HPI. ROS Other: All systems not noted in ROS Statement are negative. Past Medical History Past Medical History: No Reported History Additional Past Medical History / Comment(s): UMBILCAL HERNIA History of Any Multi-Drug Resistant Organisms: None Reported Past Surgical History: Section Past Psychological History: No Psychological Hx Reported Smoking Status: Current every day smoker Past Alcohol Use History: None Reported Past Drug Use History: None Reported General Exam - General Exam Comments Initial Comments: 32-year-old female. Alert and oriented. No significant distress. Limitations: no limitations General appearance: alert, in no apparent distress Head exam: Present: atraumatic, normocephalic, normal inspection Eye exam: Present: normal appearance, PERRL, EOMI. Absent: scleral icterus, conjunctival injection, periorbital swelling ENT exam: Present: normal exam, mucous membranes moist Neck exam: Present: normal inspection. Absent: tenderness, meningismus, lymphadenopathy Respiratory exam: Present: wheezes, other (Tender palpation over the right mid ribs.). Absent: normal lung sounds bilaterally, respiratory distress, rales, rhonchi, stridor Cardiovascular Exam: Present: regular rate, normal rhythm, normal heart sounds. Absent: systolic murmur, diastolic murmur, rubs, gallop, clicks GI/Abdominal exam: Present: soft, normal bowel sounds. Absent: distended, tenderness, guarding, rebound, rigid Extremities exam: Present: normal inspection, full ROM, normal capillary refill. Absent: tenderness, pedal edema, joint swelling, calf tenderness Back exam: Present: normal inspection Neurological exam: Present: alert Psychiatric exam: Present: normal affect, normal mood Skin exam: Present: warm, dry, intact, normal color. Absent: rash Course Vital Signs 02/24/18 02/24/18 02/24/18 09:24 10:11 10:28 Temperature 98.2 F Pulse Rate 95 104 H 98 Respiratory 18 20 Rate Blood Pressure 117/78 O2 Sat by Pulse 100 Oximetry Medical Decision Making - Medical Decision Making Patient is a 32-year-old female present to cough congestion shortness of breath. Patient reports right-sided mid back pain. Vital signs are stable. She states she has just diffuse body aches. Chest x-ray shows evidence of a right middle lobe pneumonia. She was given DuoNeb treatment. Patient will be given IM Rocephin, Solu-Medrol and by mouth and ago with codeine for coughing. I discussed the Patient needs to follow-up with primary care provider. We'll put the Patient on azithromycin and prolonged steroid. Discussed return parameters. - Radiology Data Radiology results: report reviewed Findings suspicious for medial segment right middle lobe pneumonia. Disposition Clinical Impression: Right middle lobe pneumonia Disposition: HOME SELF-CARE Condition: Good Additional Instructions: Advised tp follow-up with primary care physician. Return to emergency department if any alarming signs or symptoms occur. Prescriptions: Albuterol Inhaler [Ventolin Hfa Inhaler] 1 - 2 puff INHALATION RT-Q6H PRN #1 inhaler PRN Reason: Shortness Of Breath Azithromycin [Zithromax] 250 mg PO DIRECTED #6 tab predniSONE 50 mg PO DAILY #5 tab Promethazine/Dextromethorphan [Phenergan DM Syrup] 5 ml PO TID #120 ml Is patient prescribed a controlled substance at d/c from ED?: No Referrals: None,Stated [Primary Care Provider] - 1-2 days Rae Curiel MD [REFERRING] - 1-2 days Time of Disposition: 11:05
[2018-02-24] MEDS ORDERED: IBUPROFEN 600 MG TAB PO STA (09:56)
[2018-02-24] MEDS ORDERED: ACETAMINOPHEN TAB 325 MG TAB PO STA (09:56)
--- NOTE | 2018-02-24 10:25 | XR ---
EXAMINATION TYPE: XR chest 2V DATE OF EXAM: 02/24/2018 COMPARISON: 10/11/2017 HISTORY: 32-year-old female pain, shortness of breath, cough TECHNIQUE: PA and lateral views FINDINGS: The cardiomediastinal silhouette, aorta, and pulmonary vasculature are within normal limits. Silhouet ting of the right heart margin with increased medial right basilar opacity. No pleural effusion or pn eumothorax. IMPRESSION: Findings suspicious for medial segmental right middle lobe pneumonia.
[2018-02-24] MEDS ORDERED: cefTRIAXone 1,000 MG VIAL (IM USE) IM STA (10:38)
[2018-02-24] MEDS ORDERED: PROMETHAZ-COD 6.25-10 MG/5 ML 5 ML CUP PO STA (11:01)
[2018-02-24 11:27] VITALS: BP 127/87; PULSE 75; RESP 18; TEMP 98
== END 2018-02-24 11:25 | disposition home or self-care (01) ==
LOC: EC 09:23
DX: J18.1 Lobar pneumonia, unspecified organism (principal); F17.200 Nicotine dependence, unspecified, uncomplicated
CPT/HCPCS: 94640; 71046; 99285; 96372; J0696

== ENCOUNTER 2018-08-20 13:08 | Emergency (ER) | payer OTHER ==
[2018-08-20 13:20] VITALS: TEMP 98
--- NOTE | 2018-08-20 13:30 | ED ---
Overdose HPI - General Chief Complaint: Overdose Stated Complaint: OVERDOSE Time Seen by Provider: 08/20/18 13:25 Source: patient, EMS, RN notes reviewed, old records reviewed Mode of arrival: EMS Limitations: no limitations - History of Present Illness Initial Comments: This is a 33-year-old female the ER for evaluation. Patient resents today for evaluation regards to possible overdose. Concern of taking too many Flexeril. Patient has severe dental disease dental caries and lost all teeth but does have one tooth that she thinks may be now infected. Right back molar. Patient took for Flexeril denies any other taking medication no Tylenol no drugs or alcohol. Patient states she took this for pain but then became nervous tried to induce vomiting. Patient otherwise feels fine aside from anxiety at taking the medication. MD Complaint: accidental overdose (flexeril) -: hour(s) Intent: unknown (pain contyol tooth pain) How Overdose Was Discovered: called 911 Context: Accidental Overdose: medication error Treatments Prior to Arrival: none - Related Data Home Medications Medication Instructions Recorded Confirmed Flexeril Unknown Dose 4 tab PO ONCE 08/20/18 08/20/18 Previous Rx's Medication Instructions Recorded Penicillin V Potassium [Pen Vee K] 500 mg PO QID #40 tablet 08/20/18 Allergies Allergy/AdvReac Type Severity Reaction Status Date / Time No Known Allergies Allergy Verified 08/20/18 13:27 Review of Systems ROS Statement: Those systems with pertinent positive or pertinent negative responses have been documented in the HPI. ROS Other: All systems not noted in ROS Statement are negative. Past Medical History Past Medical History: No Reported History Additional Past Medical History / Comment(s): UMBILCAL HERNIA History of Any Multi-Drug Resistant Organisms: None Reported Past Surgical History: Section Past Psychological History: No Psychological Hx Reported Smoking Status: Current every day smoker Past Alcohol Use History: None Reported Past Drug Use History: None Reported General Exam Limitations: no limitations General appearance: alert, in no apparent distress Head exam: Present: atraumatic, normocephalic, normal inspection Eye exam: Present: normal appearance, PERRL, EOMI. Absent: scleral icterus, conjunctival injection, periorbital swelling ENT exam: Present: normal exam, mucous membranes moist Neck exam: Present: normal inspection. Absent: tenderness, meningismus, lymphadenopathy Respiratory exam: Present: normal lung sounds bilaterally. Absent: respiratory distress, wheezes, rales, rhonchi, stridor Cardiovascular Exam: Present: regular rate, normal rhythm, normal heart sounds. Absent: systolic murmur, diastolic murmur, rubs, gallop, clicks GI/Abdominal exam: Present: soft, normal bowel sounds. Absent: distended, tenderness, guarding, rebound, rigid Extremities exam: Present: normal inspection, full ROM, normal capillary refill. Absent: tenderness, pedal edema, joint swelling, calf tenderness Back exam: Present: normal inspection Neurological exam: Present: alert, oriented X3, CN II-XII intact Psychiatric exam: Present: normal affect, normal mood Skin exam: Present: warm, dry, intact, normal color. Absent: rash Course Vital Signs 08/20/18 13:12 Temperature 98 F Pulse Rate 79 Respiratory 18 Rate Blood Pressure 138/97 O2 Sat by Pulse 97 Oximetry - Reevaluation(s) Reevaluation #1: 08/20/18 13:57 Medical record reviewed Reevaluation #2: 08/20/18 13:57 Patient remains in no distress with no complaints Medical Decision Making - Medical Decision Making 33 female the ER for evaluation. Patient resents today for evaluation of taking too much flexeril. Patient be treated for dental abscess and can be discharged home - EKG Data -: EKG Interpreted by Me (EKG shows sinus rhythm rate of 73, MA 1:30, QRS 74, QTC 423) Disposition Clinical Impression: Accidental drug ingestion, Dental abscess Disposition: HOME SELF-CARE Condition: Good Instructions (If sedation given, give patient instructions): Dental Abscess (ED), Cyclobenzaprine (By mouth) Prescriptions: Penicillin V Potassium [Pen Vee K] 500 mg PO QID #40 tablet Is patient prescribed a controlled substance at d/c from ED?: No Referrals: Asael Cardona MD [Primary Care Provider] - 1-2 days
[2018-08-20] MEDS ORDERED: SODIUM CHLORIDE 0.9% 1,000 ML IV STA (13:48)
[2018-08-20] MEDS ORDERED: KETOROLAC 30 MG/ML 1 ML VIAL IVP STA (13:49)
[2018-08-20] MEDS ORDERED: AMPICILLIN-SULBACTAM 3 GM in SODIUM CHLORIDE 0.9% 100 ML IVPB STA (13:49)
[2018-08-20] MEDS ORDERED: ACET/COD 300 MG/30 MG STARTER PACK 6 TAB BTL PO STA (13:50)
[2018-08-20 14:36] LABS: Basophils % (A) 0 %; Eosinophils # (A) 0.1 k/uL (0-0.7); Eosinophils % (A) 1 %; HCT 36.4 % (34.0-46.0); HGB 12.5 gm/dL (11.4-16.0); Lymphocytes # (A) 1.5 k/uL (1.0-4.8); Lymphocytes % (A) 13 %; MCH 30.5 pg (25.0-35.0); MCHC 34.4 g/dL (31.0-37.0); MCV 88.7 fL (80.0-100.0); Mean Platelet Volume 7.1; Monocytes # (A) 0.4 k/uL (0-1.0); Monocytes % (A) 4 %; Neutrophils # (A) 8.8 k/uL (1.3-7.7); Neutrophils % (A) 80 %; Platelet Count 439 k/uL (150-450); RDW 14.1 % (11.5-15.5)
[2018-08-20 14:44] LABS: ALT 19 U/L (9-52); AST 18 U/L (14-36); Acetaminophen <10.0 ug/mL; Albumin 3.1 g/dL (3.5-5.0); Alcohol <10 mg/dL; Alkaline Phosphatase 59 U/L (38-126); Anion Gap 2 mmol/L; Blood Urea Nitrogen 8 mg/dL (7-17); Carbon Dioxide 28 mmol/L (22-30); Chloride 109 mmol/L (98-107); Creatine Kinase 137 U/L (30-135); Glucose 77 mg/dL (74-99); Lipase 40 U/L (23-300); Potassium 4.7 mmol/L (3.5-5.1); Salicylate <1.0 mg/dL; Sodium 139 mmol/L (137-145); Total Bilirubin 0.4 mg/dL (0.2-1.3); Total Protein 5.3 g/dL (6.3-8.2)
[2018-08-20 15:07] LABS: Amphetamine Screen,Urine Not Detected (NotDetected); Barbiturate Screen,Urine Not Detected (NotDetected); Benzodiazepines Screen,Urine Not Detected (NotDetected); Cocaine Screen,Urine Not Detected (NotDetected); Methadone Screen, Urine Not Detected (NotDetected); Opiate Screen,Urine Detected (NotDetected); Oxycodone Screen, Urine Not Detected (NotDetected); Phencyclidine Screen,Urine Not Detected (NotDetected); Tricyclic Antidepressant,Urine Not Detected (NotDetected); Urn Cannabinoid Scrn Detected (NotDetected)
[2018-08-20 15:54] VITALS: BP 129/84; PULSE 72; RESP 17
== END 2018-08-20 15:56 | disposition home or self-care (01) ==
LOC: EC 13:08
DX: K04.7 Periapical abscess without sinus (principal); T48.1X5A Adverse effect of skeletal muscle relaxants [neuromuscular blocking agents], initial encounter; F41.9 Anxiety disorder, unspecified; F17.200 Nicotine dependence, unspecified, uncomplicated; Z79.899 Other long term (current) drug therapy
CPT/HCPCS: 36415; 93005; 80053; 82550; 83690; 85025; 81025; 80306; 83520 ×2; 99285; 96365; 96375; 96361; G0480; J1885; J0295; 80320

== ENCOUNTER 2018-08-29 08:36 | Emergency (ER) | payer OTHER ==
[2018-08-29 08:52] VITALS: BP 120/76; PULSE 95; RESP 18; TEMP 98.5
[2018-08-29] MEDS ORDERED: ACET/COD 300 MG/30 MG STARTER PACK 6 TAB BTL PO STA (09:17)
[2018-08-29] MEDS ORDERED: PENICILLIN VK 500MG STARTER 4 TAB BTL PO STA (09:17)
--- NOTE | 2018-08-29 09:17 | ED ---
ENT HPI - General Chief complaint: Dental/Oral Stated complaint: med refill Time Seen by Provider: 08/29/18 09:02 Source: patient, RN notes reviewed Mode of arrival: ambulatory Limitations: no limitations - History of Present Illness Initial comments: 33-year-old female presented emergency from for recheck abdominal pain. Patient reports that she has a dentist appointment this upcoming week. Patient states she was not able to be seen because of sure week with Easter. Patient was given penicillin and codeine. Patient states that she is out. Patient reports no fevers or chills. She has right lower dental pain. - Related Data Home Medications Medication Instructions Recorded Confirmed Flexeril Unknown Dose 4 tab PO ONCE 08/20/18 08/20/18 Previous Rx's Medication Instructions Recorded Penicillin V Potassium [Pen Vee K] 500 mg PO QID #40 tablet 08/20/18 Penicillin V Potassium [Pen Vee K] 500 mg PO QID #40 tablet 08/29/18 Allergies Allergy/AdvReac Type Severity Reaction Status Date / Time No Known Allergies Allergy Verified 08/20/18 13:27 Review of Systems ROS Statement: Those systems with pertinent positive or pertinent negative responses have been documented in the HPI. ROS Other: All systems not noted in ROS Statement are negative. Past Medical History Past Medical History: No Reported History Additional Past Medical History / Comment(s): UMBILCAL HERNIA History of Any Multi-Drug Resistant Organisms: None Reported Past Surgical History: Section Past Psychological History: No Psychological Hx Reported Smoking Status: Current every day smoker Past Alcohol Use History: None Reported Past Drug Use History: None Reported General Exam Limitations: no limitations General appearance: alert, in no apparent distress Head exam: Present: atraumatic, normocephalic, normal inspection Eye exam: Present: normal appearance, PERRL, EOMI. Absent: scleral icterus, conjunctival injection, periorbital swelling ENT exam: Present: mucous membranes moist. Absent: normal oropharynx (Essentially edentulous, right lower dental fracture no abscess) Neck exam: Present: normal inspection, full ROM. Absent: tenderness, meningismus, lymphadenopathy Respiratory exam: Present: normal lung sounds bilaterally. Absent: respiratory distress, wheezes, rales, rhonchi, stridor Cardiovascular Exam: Present: regular rate, normal rhythm, normal heart sounds. Absent: systolic murmur, diastolic murmur, rubs, gallop, clicks Course Vital Signs 08/29/18 08:49 Temperature 98.5 F Pulse Rate 95 Respiratory 18 Rate Blood Pressure 120/76 O2 Sat by Pulse 98 Oximetry Medical Decision Making - Medical Decision Making 33-year-old female presented for dental pain. Patient be continued on antibiotics and follow-up with dentist this week. Return parameters were discussed. Disposition Clinical Impression: Fracture of tooth, Dental abscess Disposition: HOME SELF-CARE Condition: Stable Instructions (If sedation given, give patient instructions): Toothache (ED) Additional Instructions: Please return to the Emergency Department if symptoms worsen or any other concerns. Prescriptions: Penicillin V Potassium [Pen Vee K] 500 mg PO QID #40 tablet Is patient prescribed a controlled substance at d/c from ED?: No Referrals: Asael Cardona MD [Primary Care Provider] - 1-2 days Time of Disposition: 09:17
== END 2018-08-29 09:43 | disposition home or self-care (01) ==
LOC: EC 08:36
DX: S02.5XXA Fracture of tooth (traumatic), initial encounter for closed fracture (principal); K04.7 Periapical abscess without sinus; Z76.0 Encounter for issue of repeat prescription; F17.200 Nicotine dependence, unspecified, uncomplicated; Z79.899 Other long term (current) drug therapy; X58.XXXA Exposure to other specified factors, initial encounter
CPT/HCPCS: 99281

== ENCOUNTER 2018-11-13 13:09 | Emergency (ER) | payer OTHER ==
[2018-11-13] MEDS ORDERED: SODIUM CHLORIDE 0.9% 1,000 ML IV STA (13:49)
--- NOTE | 2018-11-13 13:50 | ED ---
Abdominal Pain HPI - General Chief Complaint: Abdominal Pain Stated Complaint: Abd Pain/Low Back Pain Time Seen by Provider: 11/13/18 13:43 Source: patient, RN notes reviewed, old records reviewed Mode of arrival: ambulatory Limitations: no limitations - History of Present Illness Initial Comments: This is a 33-year-old female the ER for nonspecific abdominal pain. Patient has presentation for evaluation of bowel pain no history of similar complaints. No history of abdominal surgery sites for . Patient has mild nausea no vomiting no change in bowel movements. No fevers. MD Complaint: abdominal pain -: days(s) Location: diffuse, epigastric, suprapubic Radiation: RUQ, epigastric, suprapubic Migration to: no migration Severity: mild Severity scale (1-10): 2 Quality: aching Consistency: constant Improves With: nothing, bowel movement - Related Data Home Medications Medication Instructions Recorded Confirmed Ibuprofen [Motrin] 800 mg PO Q6H PRN 11/13/18 11/13/18 Allergies Allergy/AdvReac Type Severity Reaction Status Date / Time No Known Allergies Allergy Verified 11/13/18 14:24 Review of Systems ROS Statement: Those systems with pertinent positive or pertinent negative responses have been documented in the HPI. ROS Other: All systems not noted in ROS Statement are negative. Past Medical History Past Medical History: No Reported History Additional Past Medical History / Comment(s): UMBILCAL HERNIA History of Any Multi-Drug Resistant Organisms: None Reported Past Surgical History: Section Past Psychological History: No Psychological Hx Reported Smoking Status: Current every day smoker Past Alcohol Use History: None Reported Past Drug Use History: None Reported General Exam Limitations: no limitations General appearance: alert, in no apparent distress Head exam: Present: atraumatic, normocephalic, normal inspection Eye exam: Present: normal appearance, PERRL, EOMI. Absent: scleral icterus, conjunctival injection, periorbital swelling ENT exam: Present: normal exam, mucous membranes moist Neck exam: Present: normal inspection. Absent: tenderness, meningismus, lymphadenopathy Respiratory exam: Present: normal lung sounds bilaterally. Absent: respiratory distress, wheezes, rales, rhonchi, stridor Cardiovascular Exam: Present: regular rate, normal rhythm, normal heart sounds. Absent: systolic murmur, diastolic murmur, rubs, gallop, clicks GI/Abdominal exam: Present: soft, normal bowel sounds. Absent: distended, tenderness, guarding, rebound, rigid Extremities exam: Present: normal inspection, full ROM, normal capillary refill. Absent: tenderness, pedal edema, joint swelling, calf tenderness Back exam: Present: normal inspection Neurological exam: Present: alert, oriented X3, CN II-XII intact Psychiatric exam: Present: normal affect, normal mood Skin exam: Present: warm, dry, intact, normal color. Absent: rash Course Vital Signs 11/13/18 11/13/18 11/13/18 13:32 15:26 16:14 Temperature 98.6 F 97.5 F L Pulse Rate 84 63 Respiratory 16 16 18 Rate Blood Pressure 126/83 144/87 O2 Sat by Pulse 100 100 Oximetry 11/13/18 17:00 Temperature Pulse Rate 67 Respiratory 16 Rate Blood Pressure 145/98 O2 Sat by Pulse 100 Oximetry Medical Decision Making - Medical Decision Making 23 female with nonspecific abdominal pain. CT are negative. labwork is normal patient can be discharged home - Lab Data Result diagrams: 11/13/18 14:25 11/13/18 14:25 Lab Results 11/13/18 11/13/18 11/13/18 Range/Units 14:25 14:25 14:25 WBC 7.0 (3.8-10.6) k/uL RBC 4.19 (3.80-5.40) m/uL Hgb 12.4 (11.4-16.0) gm/dL Hct 37.0 (34.0-46.0) % MCV 88.3 (80.0-100.0) fL MCH 29.5 (25.0-35.0) pg MCHC 33.4 (31.0-37.0) g/dL RDW 13.7 (11.5-15.5) % Plt Count 374 (150-450) k/uL Neutrophils % 56 % Lymphocytes % 34 % Monocytes % 4 % Eosinophils % 3 % Basophils % 0 % Neutrophils # 3.9 (1.3-7.7) k/uL Lymphocytes # 2.4 (1.0-4.8) k/uL Monocytes # 0.3 (0-1.0) k/uL Eosinophils # 0.2 (0-0.7) k/uL Basophils # 0.0 (0-0.2) k/uL Sodium 138 (137-145) mmol/L Potassium 5.3 H (3.5-5.1) mmol/L Chloride 107 (98-107) mmol/L Carbon Dioxide 27 (22-30) mmol/L Anion Gap 4 mmol/L BUN 12 (7-17) mg/dL Creatinine 0.62 (0.52-1.04) mg/dL Est GFR (CKD-EPI)AfAm >90 (>60 ml/min/1.73 sqM) Est GFR (CKD-EPI)NonAf >90 (>60 ml/min/1.73 sqM) Glucose 90 (74-99) mg/dL Plasma Lactic Acid Raza (0.7-2.0) mmol/L Calcium 8.9 (8.4-10.2) mg/dL Total Bilirubin 0.5 (0.2-1.3) mg/dL AST 28 (14-36) U/L ALT 21 (9-52) U/L Alkaline Phosphatase 59 (38-126) U/L Total Protein 6.1 L (6.3-8.2) g/dL Albumin 3.6 (3.5-5.0) g/dL Amylase 32 (30-110) U/L Lipase 28 (23-300) U/L Urine Color Urine Appearance (Clear) Urine pH (5.0-8.0) Ur Specific [place] (1.001-1.035) Urine Protein (Negative) Urine Glucose (UA) (Negative) Urine Ketones (Negative) Urine Blood (Negative) Urine Nitrite (Negative) Urine Bilirubin (Negative) Urine Urobilinogen (<2.0) mg/dL Ur Leukocyte Esterase (Negative) Urine HCG, Qual Not Detected (Not Detectd) Hepatitis A IgM Ab Hep Bs Antigen (Non-Reactive) Hep B Core IgM Ab (Non-Reactive) Hep C IgG Ab (Non-Reactive) 11/13/18 11/13/18 11/13/18 Range/Units 14:25 14:25 14:25 WBC (3.8-10.6) k/uL RBC (3.80-5.40) m/uL Hgb (11.4-16.0) gm/dL Hct (34.0-46.0) % MCV (80.0-100.0) fL MCH (25.0-35.0) pg MCHC (31.0-37.0) g/dL RDW (11.5-15.5) % Plt Count (150-450) k/uL Neutrophils % % Lymphocytes % % Monocytes % % Eosinophils % % Basophils % % Neutrophils # (1.3-7.7) k/uL Lymphocytes # (1.0-4.8) k/uL Monocytes # (0-1.0) k/uL Eosinophils # (0-0.7) k/uL Basophils # (0-0.2) k/uL Sodium (137-145) mmol/L Potassium (3.5-5.1) mmol/L Chloride (98-107) mmol/L Carbon Dioxide (22-30) mmol/L Anion Gap mmol/L BUN (7-17) mg/dL Creatinine (0.52-1.04) mg/dL Est GFR (CKD-EPI)AfAm (>60 ml/min/1.73 sqM) Est GFR (CKD-EPI)NonAf (>60 ml/min/1.73 sqM) Glucose (74-99) mg/dL Plasma Lactic Acid Raza 0.6 L (0.7-2.0) mmol/L Calcium (8.4-10.2) mg/dL Total Bilirubin (0.2-1.3) mg/dL AST (14-36) U/L ALT (9-52) U/L Alkaline Phosphatase (38-126) U/L Total Protein (6.3-8.2) g/dL Albumin (3.5-5.0) g/dL Amylase (30-110) U/L Lipase (23-300) U/L Urine Color Light Yellow Urine Appearance Clear (Clear) Urine pH 8.0 (5.0-8.0) Ur Specific [place] 1.010 (1.001-1.035) Urine Protein Negative (Negative) Urine Glucose (UA) Negative (Negative) Urine Ketones Negative (Negative) Urine Blood Negative (Negative) Urine Nitrite Negative (Negative) Urine Bilirubin Negative (Negative) Urine Urobilinogen <2.0 (<2.0) mg/dL Ur Leukocyte Esterase Negative (Negative) Urine HCG, Qual (Not Detectd) Hepatitis A IgM Ab Hep Bs Antigen Non-Reactive (Non-Reactive) Hep B Core IgM Ab Non-Reactive (Non-Reactive) Hep C IgG Ab Non-Reactive (Non-Reactive) 07/06/19 Range/Units 17:15 WBC (3.8-10.6) k/uL RBC (3.80-5.40) m/uL Hgb (11.4-16.0) gm/dL Hct (34.0-46.0) % MCV (80.0-100.0) fL MCH (25.0-35.0) pg MCHC (31.0-37.0) g/dL RDW (11.5-15.5) % Plt Count (150-450) k/uL Neutrophils % % Lymphocytes % % Monocytes % % Eosinophils % % Basophils % % Neutrophils # (1.3-7.7) k/uL Lymphocytes # (1.0-4.8) k/uL Monocytes # (0-1.0) k/uL Eosinophils # (0-0.7) k/uL Basophils # (0-0.2) k/uL Sodium (137-145) mmol/L Potassium (3.5-5.1) mmol/L Chloride (98-107) mmol/L Carbon Dioxide (22-30) mmol/L Anion Gap mmol/L BUN (7-17) mg/dL Creatinine (0.52-1.04) mg/dL Est GFR (CKD-EPI)AfAm (>60 ml/min/1.73 sqM) Est GFR (CKD-EPI)NonAf (>60 ml/min/1.73 sqM) Glucose (74-99) mg/dL Plasma Lactic Acid Raza (0.7-2.0) mmol/L Calcium (8.4-10.2) mg/dL Total Bilirubin (0.2-1.3) mg/dL AST (14-36) U/L ALT (9-52) U/L Alkaline Phosphatase (38-126) U/L Total Protein (6.3-8.2) g/dL Albumin (3.5-5.0) g/dL Amylase (30-110) U/L Lipase (23-300) U/L Urine Color Urine Appearance (Clear) Urine pH (5.0-8.0) Ur Specific [place] (1.001-1.035) Urine Protein (Negative) Urine Glucose (UA) (Negative) Urine Ketones (Negative) Urine Blood (Negative) Urine Nitrite (Negative) Urine Bilirubin (Negative) Urine Urobilinogen (<2.0) mg/dL Ur Leukocyte Esterase (Negative) Urine HCG, Qual (Not Detectd) Hepatitis A IgM Ab NEGATIVE Hep Bs Antigen (Non-Reactive) Hep B Core IgM Ab (Non-Reactive) Hep C IgG Ab (Non-Reactive) - Radiology Data Radiology results: report reviewed (CT head and pelvis and ultrasound right upper quadrant negative for acute disease), image reviewed Disposition Clinical Impression: Abdominal pain Disposition: HOME SELF-CARE Condition: Good Instructions (If sedation given, give patient instructions): Abdominal Pain (ED) Is patient prescribed a controlled substance at d/c from ED?: No Referrals: Asael Cardona MD [Primary Care Provider] - 1-2 days
[2018-11-13] MEDS ORDERED: KETOROLAC 30 MG/ML 1 ML VIAL IVP STA (13:57)
[2018-11-13] MEDS ORDERED: MORPHINE SULFATE 4 MG/ML SYRINGE IVP STA ×2 (13:57→16:41)
[2018-11-13 14:46] LABS: Basophils % (A) 0 %; Eosinophils # (A) 0.2 k/uL (0-0.7); Eosinophils % (A) 3 %; HGB 12.4 gm/dL (11.4-16.0); Lymphocytes # (A) 2.4 k/uL (1.0-4.8); Lymphocytes % (A) 34 %; MCH 29.5 pg (25.0-35.0); MCHC 33.4 g/dL (31.0-37.0); MCV 88.3 fL (80.0-100.0); Mean Platelet Volume 6.8; Monocytes # (A) 0.3 k/uL (0-1.0); Monocytes % (A) 4 %; Neutrophils # (A) 3.9 k/uL (1.3-7.7); Neutrophils % (A) 56 %; Platelet Count 374 k/uL (150-450); RBC 4.19 m/uL (3.80-5.40); RDW 13.7 % (11.5-15.5)
[2018-11-13 14:49] LABS: Appearance,Urine Clear (Clear); Bilirubin,Urine Negative (Negative); Blood,Urine Negative (Negative); Color,Urine Light Yellow; Glucose,Urine (UA) Negative (Negative); Ketones,Urine Negative (Negative); Leukocyte Esterase,Urine Negative (Negative); Nitrite,Urine Negative (Negative); Protein,Urine Negative (Negative); Urobilinogen,Urine <2.0 mg/dL (<2.0)
[2018-11-13 14:59] LABS: ALT 21 U/L (9-52); AST 28 U/L (14-36); African American GFR (CKD) >90 (>60 ml/min/1.73 sqM); Albumin 3.6 g/dL (3.5-5.0); Alkaline Phosphatase 59 U/L (38-126); Amylase 32 U/L (30-110); Anion Gap 4 mmol/L; Blood Urea Nitrogen 12 mg/dL (7-17); Calcium 8.9 mg/dL (8.4-10.2); Carbon Dioxide 27 mmol/L (22-30); Chloride 107 mmol/L (98-107); Glucose 90 mg/dL (74-99); Lipase 28 U/L (23-300); Sodium 138 mmol/L (137-145); Total Bilirubin 0.5 mg/dL (0.2-1.3); Total Protein 6.1 g/dL (6.3-8.2)
[2018-11-13 15:14] LABS: Potassium 5.3 mmol/L (3.5-5.1)
--- NOTE | 2018-11-13 15:48 | US ---
EXAMINATION TYPE: US gallbladder DATE OF EXAM: 11/13/2018 COMPARISON: NONE CLINICAL HISTORY: Pain. RUQ pain EXAM MEASUREMENTS: Liver Length: 17.9 cm Gallbladder Wall: 0.2 cm CBD: 0.3 cm Right Kidney: 11.9 x 4.5 x 4.6 cm Pancreas: wnl Liver: wnl Gallbladder: Hydropic 11.8 cm no stones seen. Evidence for sonographic Zelaya's sign: No CBD: wnl Right Kidney: wnl IMPRESSION: No gallstones or dilated ducts. No gallbladder wall thickening. Negative exam.
[2018-11-13 16:15] VITALS: TEMP 97.5
--- NOTE | 2018-11-13 16:33 | CT ---
EXAMINATION TYPE: CT abdomen pelvis w con DATE OF EXAM: 11/13/2018 COMPARISON: None HISTORY: Abdominal pain and nausea CT DLP: 653.6 mGycm Automated exposure control for dose reduction was used. TECHNIQUE: Helical acquisition of images was performed from the lung bases through the pelvis. CONTRAST: Performed without Oral Contrast and with IV Contrast, patient injected with 100 mL of Isovue 300. FINDINGS: There is mild subsegmental atelectasis at the left lung base. Heart size is normal. spleen stomach pancreas appear normal. Bile ducts are not dilated. There is mild periportal edema in the liver. There is no adrenal mass. Kidneys show satisfactory contrast opacification. There is no hydronephrosi s. Ureters are not dilated. There is no retroperitoneal adenopathy. There is no ascites. Bladder distends smoothly. Uterus is ant everted. There is no evidence of free air. There is no inguinal hernia. There is no sign of a pelvic mass. There is no mesenteric edema. Lumbar spine is intact. Bony pelvis is intact. There is no intestinal wall thickening. IMPRESSION: THERE IS PERIPORTAL EDEMA THAT COULD RELATE TO HEPATITIS. NO DILATED DUCTS.
[2018-11-13 17:11] VITALS: BP 145/98; PULSE 67; RESP 16
[2018-11-13 17:59] LABS: Hepatitis A AB IgM Index 0.02; Hepatitis A Antibody IgM NEGATIVE
[2018-11-13] MEDS ORDERED: ACET/COD 300 MG/30 MG STARTER PACK 6 TAB BTL PO STA (18:11)
[2018-11-13] MEDS ORDERED: ONDANSETRON 4 MG ODT STARTER PACK 2 TAB BTL PO STA (18:11)
[2018-11-13 22:48] LABS: Hepatitis B Core IgM Non-Reactive (Non-Reactive)
== END 2018-11-13 18:15 | disposition home or self-care (01) ==
LOC: EC 13:09
DX: R10.84 Generalized abdominal pain (principal); R11.0 Nausea; F17.200 Nicotine dependence, unspecified, uncomplicated; Z87.19 Personal history of other diseases of the digestive system
CPT/HCPCS: 36415; 80053; 80074; 82150; 83605; 83690; 85025; 81003; 81025; 87086; 87077; 87186; 76705; 74177; 99285; 96374; 96375; 96376; 96361 ×3; J2270; J1885; S0119; Q9967

== ENCOUNTER 2019-01-26 08:39 | Emergency (ER) | payer OTHER ==
[2019-01-26 08:53] VITALS: RESP 18; TEMP 98
[2019-01-26] MEDS ORDERED: ONDANSETRON 4 MG/2 ML VIAL IVP STA (09:53)
[2019-01-26] MEDS ORDERED: SODIUM CHLORIDE 0.9% 1,000 ML IV STA (09:53)
[2019-01-26] MEDS ORDERED: diphenhydrAMINE 50 MG/ML 1 ML VIAL IVP STA (09:53)
[2019-01-26] MEDS ORDERED: KETOROLAC 30 MG/ML 1 ML VIAL IVP STA (09:53)
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
[2019-01-26] MEDS ORDERED: traMADol 50 MG STARTER PACK 3 TAB BTL PO STA (11:53)
[2019-01-26 12:11] VITALS: BP 112/70; PULSE 78
== END 2019-01-26 12:10 | disposition home or self-care (01) ==
LOC: EC 08:39
DX: H92.02 Otalgia, left ear (principal); R51 Headache; F17.200 Nicotine dependence, unspecified, uncomplicated; Z87.820 Personal history of traumatic brain injury
CPT/HCPCS: 81025; 99284; 96374; 96375 ×2; 96361; J1200; J2405; J1885

== ENCOUNTER 2019-02-22 07:11 | Emergency (ER) | payer OTHER ==
[2019-02-22 07:16] VITALS: TEMP 98.8
[2019-02-22] MEDS ORDERED: METOCLOPRAMIDE 5 MG/ML 2 ML VIAL IVP STA (07:27)
[2019-02-22] MEDS ORDERED: SODIUM CHLORIDE 0.9% 1,000 ML IV STA (07:27)
[2019-02-22] MEDS ORDERED: KETOROLAC 30 MG/ML 1 ML VIAL IVP STA (07:27)
[2019-02-22] MEDS ORDERED: diphenhydrAMINE 50 MG/ML 1 ML VIAL IVP STA (07:27)
[2019-02-22] MEDS ORDERED: DEXAMETHASONE SOD PHOSPHATE 10 MG/ML 1 ML VIAL IV STA (07:28)
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
[2019-02-22 08:01] LABS: Basophils % (A) 1 %; Eosinophils # (A) 0.2 k/uL (0-0.7); Eosinophils % (A) 3 %; HCT 36.8 % (34.0-46.0); HGB 12.2 gm/dL (11.4-16.0); Lymphocytes # (A) 1.6 k/uL (1.0-4.8); Lymphocytes % (A) 33 %; MCH 29.8 pg (25.0-35.0); MCHC 33.2 g/dL (31.0-37.0); MCV 89.8 fL (80.0-100.0); Mean Platelet Volume 6.9; Monocytes # (A) 0.2 k/uL (0-1.0); Monocytes % (A) 4 %; Neutrophils # (A) 2.8 k/uL (1.3-7.7); Neutrophils % (A) 56 %; Platelet Count 257 k/uL (150-450); RDW 11.9 % (11.5-15.5); WBC 4.9 k/uL (3.8-10.6)
[2019-02-22 08:11] LABS: ALT 19 U/L (9-52); AST 18 U/L (14-36); African American GFR (CKD) >90 (>60 ml/min/1.73 sqM); Albumin 3.9 g/dL (3.5-5.0); Alkaline Phosphatase 61 U/L (38-126); Anion Gap 6 mmol/L; Blood Urea Nitrogen 11 mg/dL (7-17); Calcium 9.4 mg/dL (8.4-10.2); Carbon Dioxide 29 mmol/L (22-30); Chloride 104 mmol/L (98-107); Glucose 89 mg/dL (74-99); Potassium 3.9 mmol/L (3.5-5.1); Sodium 139 mmol/L (137-145); Total Bilirubin 0.5 mg/dL (0.2-1.3); Total Protein 6.7 g/dL (6.3-8.2)
[2019-02-22] MEDS ORDERED: traMADol 50 MG STARTER PACK 3 TAB BTL PO STA (08:44)
[2019-02-22 08:50] VITALS: BP 101/73; PULSE 73; RESP 16
== END 2019-02-22 08:48 | disposition home or self-care (01) ==
LOC: EC 07:11
DX: R51 Headache (principal); R11.0 Nausea; F17.200 Nicotine dependence, unspecified, uncomplicated; Z87.828 Personal history of other (healed) physical injury and trauma; Z86.69 Personal history of other diseases of the nervous system and sense organs; Z53.29 Procedure and treatment not carried out because of patient's decision for other reasons
CPT/HCPCS: 36415; 80053; 85025; 81025; 99283; 96374; 96375 ×3; 96361; J1200; J1100; J2765; J1885

== ENCOUNTER 2019-02-23 09:22 | Emergency (ER) | payer OTHER ==
[2019-02-23 09:35] VITALS: TEMP 98
[2019-02-23] MEDS ORDERED: SODIUM CHLORIDE 0.9% 500 ML 500 ML IV ONE (10:25)
[2019-02-23] MEDS ORDERED: METOCLOPRAMIDE 5 MG/ML 2 ML VIAL IVP STA (10:25)
[2019-02-23] MEDS ORDERED: diphenhydrAMINE 50 MG/ML 1 ML VIAL IVP STA (10:25)
[2019-02-23] MEDS ORDERED: KETOROLAC 30 MG/ML 1 ML VIAL IVP STA (10:25)
--- NOTE | 2019-02-23 11:23 | ED ---
Headache HPI - General Chief Complaint: Headache Stated Complaint: headache-revisit Time Seen by Provider: 02/23/19 09:55 Mode of arrival: ambulatory Limitations: no limitations - History of Present Illness Initial Comments: 33-year-old female presents emergency room for evaluation of headache. Patient states that she has had chronic migraines after multiple head injuries. Patient states she has not had a head injury over one year. Patient states that this is very typical of her headaches. She states is aching all over. She states she become sensitive to sounds and has some nausea. Patient denies any sudden onset of headache or this being the worst headache of her life she states she has had much worse headaches in the past. Patient states that she usually takes t ramadol for the pain and this helped she states she is out of this medication. Patient states the headache has been ongoing for 3 days. Patient states when this occurs she comes to emergency department for migraine cocktail usually takes it away. Patient states it didn't work for short amount time yesterday. Patient states she does have a scheduled appointment with her primary care provider. Patient denies any speech changes weakness of the upper or lower extremities gait changes vision loss diplopia neck pain or stiffness denies any fevers upper rest or symptoms. Remaining review of systems negative. Upon arrival patient appears well-nourished signs of acute distress. - Related Data Home Medications Medication Instructions Recorded Confirmed Acetaminophen Tab [Tylenol Tab] 1,000 mg PO Q6HR PRN 01/26/19 02/23/19 Ibuprofen [Motrin Ib] 800 mg PO Q6H PRN 01/26/19 02/23/19 traMADol HCL [Ultram] 50 mg PO BID PRN 02/23/19 02/23/19 Allergies Allergy/AdvReac Type Severity Reaction Status Date / Time No Known Allergies Allergy Verified 02/23/19 10:14 Review of Systems ROS Statement: Those systems with pertinent positive or pertinent negative responses have been documented in the HPI. ROS Other: All systems not noted in ROS Statement are negative. Past Medical History Past Medical History: No Reported History Additional Past Medical History / Comment(s): UMBILCAL HERNIA History of Any Multi-Drug Resistant Organisms: ESBL Date of last positivie culture/infection: 11/13/18 MDRO Source:: ESBL URINE Past Surgical History: Section Past Psychological History: No Psychological Hx Reported Smoking Status: Current every day smoker Past Alcohol Use History: Occasional Past Drug Use History: None Reported General Exam - General Exam Comments Initial Comments: General: The patient is awake and alert, in no distress, and does not appear acutely ill. Eye: +3 mm pupils are equal, round and reactive to light, extra-ocular movements are intact. No nystagmus. There is normal conjunctiva bilaterally. No signs of icterus. Ears, nose, mouth and throat: There are moist mucous membranes and no oral lesions. Neck: The neck is supple, there is no tenderness or JVD. Cardiovascular: There is a regular rate and rhythm. No murmur, rub or gallop is appreciated. Respiratory: Lungs are clear to auscultation, respirations are non-labored, breath sounds are equal. No wheezes, stridor, rales, or rhonchi. Musculoskeletal: Normal ROM, no tenderness. Strength 5/5. Sensation intact. Radial pulses equal bilaterally 2+. Neurological: A&O x 3. CN II-XII intact, There are no obvious motor or sensory deficits. Finger to nose [id number] smooth and coordinated. Gait shows no signs of ataxia. No pronator drift. No nuchal rigidity. Full strength of the upper and lower extremities equal comparison bilaterally with full sensation without deficits of the upper or lower extremities Skin: Skin is warm and dry and no rashes or lesions are noted. Psychiatric: Cooperative, appropriate mood & affect, normal judgment. Limitations: no limitations Course Vital Signs 02/23/19 09:32 Temperature 98 F Pulse Rate 79 Respiratory 18 Rate Blood Pressure 127/77 O2 Sat by Pulse 100 Oximetry Medical Decision Making - Medical Decision Making Very well-appearing 33-year-old female presents emergency department for evaluation of headache. Patient states very typical of her chronic headaches that she gets up to 3 times a week. Patientstates she usually he takes tramadol and is out of this medication. Patient states she was seen here yesterday for this complaint. She states it did go away and then it came back gradually. Patient states that she is not is concerned about the headache but feels she needs her medication. Patient refuses CT. Patient is no focal deficits. Patient appears well no signs of nuchal irritation. After administration of medication patient states her headache is gone requesting discharge. Discussed case with attending provider patient discharged appearing well return parameters and follow-up discussed. Disposition Clinical Impression: Headache Disposition: HOME SELF-CARE Condition: Good Instructions (If sedation given, give patient instructions): Acute Headache (ED) Additional Instructions: Please use medication as discussed. Please follow-up with family doctor in the next 2 days-recommend outpatient MRI. Please return to emergency room if the symptoms increase or worsen or for any other concerns. Is patient prescribed a controlled substance at d/c from ED?: No Referrals: Asael Cardona MD [Primary Care Provider] - 1-2 days Time of Disposition: 11:31
[2019-02-23] MEDS ORDERED: traMADol 50 MG STARTER PACK 3 TAB BTL PO STA (11:31)
[2019-02-23 12:03] VITALS: BP 145/76; PULSE 80; RESP 16
== END 2019-02-23 12:02 | disposition home or self-care (01) ==
LOC: EC 09:22
DX: R51 Headache (principal); R11.0 Nausea; F17.200 Nicotine dependence, unspecified, uncomplicated
CPT/HCPCS: 99283; 96374; 96375 ×2; 96361; J1200; J2765; J1885

== ENCOUNTER 2019-02-28 16:04 | Emergency (ER) | payer OTHER ==
[2019-02-28 16:30] VITALS: BP 144/93; PULSE 87; RESP 16; TEMP 98.5
[2019-02-28] MEDS ORDERED: KETOROLAC 60 MG/2 ML VIAL IM STA (17:12)
[2019-02-28] MEDS ORDERED: ACET/COD 300 MG/30 MG STARTER PACK 6 TAB BTL PO STA (17:12)
--- NOTE | 2019-02-28 17:17 | ED ---
Headache HPI - General Chief Complaint: Headache Stated Complaint: chronic migraines Time Seen by Provider: 02/28/19 16:47 Mode of arrival: ambulatory Limitations: no limitations - History of Present Illness Initial Comments: Patient is a 33-year-old female presenting to emergency Department with complaints of a headache 2 days. Patient has history of migraines and has been in the ER 2 times this month for same complaint. Patient is currently seeing her PCP for these headaches and was recently prescribed a short course of tramadol which did help with her headaches. Patient states she called her PCP today who were not able to help her and so she came back to the ER. Patient states she did not take the prescription as she thought she was told to take at and she is not able to get a refill on the prescription until . Patient denies any recent trauma to her head or falls. Patient states she has tried Tylenol and Motrin at home without relief of symptoms. Patient denies fever, chills, nausea, vomiting. Patient does have a follow-up with her PCP in 2 weeks. Patient has no other complaints at this time. Upon arrival to ER, vital signs are stable. - Related Data Home Medications Medication Instructions Recorded Confirmed Acetaminophen Tab [Tylenol Tab] 1,000 mg PO Q6HR PRN 01/26/19 02/28/19 Ibuprofen [Motrin Ib] 800 mg PO Q6H PRN 01/26/19 02/28/19 Naproxen Sodium [Aleve] 220 mg PO BID PRN 02/28/19 02/28/19 Allergies Allergy/AdvReac Type Severity Reaction Status Date / Time No Known Allergies Allergy Verified 02/28/19 16:30 Review of Systems ROS Statement: Those systems with pertinent positive or pertinent negative responses have been documented in the HPI. ROS Other: All systems not noted in ROS Statement are negative. Past Medical History Past Medical History: No Reported History Additional Past Medical History / Comment(s): UMBILCAL HERNIA. MIGRAINES History of Any Multi-Drug Resistant Organisms: ESBL Date of last positivie culture/infection: 11/13/18 MDRO Source:: ESBL URINE Past Surgical History: Section Past Psychological History: No Psychological Hx Reported Smoking Status: Current every day smoker Past Alcohol Use History: Occasional Past Drug Use History: None Reported General Exam - General Exam Comments Initial Comments: GENERAL: Well-appearing, well-nourished and in no acute distress. HEAD: Atraumatic, normocephalic. EYES: Pupils equal round and reactive to light, extraocular movements intact, sclera anicteric, conjunctiva are normal. ENT: TMs normal, nares patent, oropharynx clear without exudates. Moist mucous membranes. NECK: Normal range of motion, supple without lymphadenopathy or JVD. LUNGS: Breath sounds clear to auscultation bilaterally and equal. No wheezes rales or rhonchi. HEART: Regular rate and rhythm without murmurs, rubs or gallops. ABDOMEN: Soft, nontender, normoactive bowel sounds. No guarding, no rebound. No masses appreciated. EXTREMITIES: Normal range of motion, no pitting or edema. No clubbing or cyanosis. NEUROLOGICAL: Cranial nerves II through XII grossly intact. Normal speech, normal gait. PSYCH: Normal mood, normal affect. SKIN: Warm, Dry, normal turgor, no rashes or lesions noted. Limitations: no limitations Course Vital Signs 02/28/19 16:25 Temperature 98.5 F Pulse Rate 87 Respiratory 16 Rate Blood Pressure 144/93 O2 Sat by Pulse 98 Oximetry Medical Decision Making - Medical Decision Making Patient is a 33-year-old female presenting with a headache that is chronic nature. Patient is seeing her PCP for migraines. Patient has been in the ER twice previously in the last month for same complaint. Patient has follow-up appointment with her PCP in 2 weeks. Patient will be given Toradol as well as a Tylenol 3 starter pack in the ER. Patient is still refusing a CT of her head. Exam is normal today. Vital signs are normal. Patient is stable for discharge at this time. Patient is in agreement with this plan of care. Return parameters were discussed with the patient and she verbalized understanding. Disposition Clinical Impression: Headache Disposition: HOME SELF-CARE Condition: Stable Instructions (If sedation given, give patient instructions): Acute Headache ( ED) Additional Instructions: Please return to the Emergency Department if symptoms worsen or any other concerns. Follow-up with PCP as discussed. Is patient prescribed a controlled substance at d/c from ED?: No Referrals: Asael Cardona MD [Primary Care Provider] - 1-2 days
== END 2019-02-28 17:33 | disposition home or self-care (01) ==
LOC: EC 16:04
DX: G43.909 Migraine, unspecified, not intractable, without status migrainosus (principal); F17.200 Nicotine dependence, unspecified, uncomplicated
CPT/HCPCS: 96372; 99283; J1885

== ENCOUNTER 2019-03-14 10:07 | Emergency (ER) | payer OTHER ==
[2019-03-14 10:12] VITALS: BP 147/96; PULSE 88; RESP 20; TEMP 98.3
[2019-03-14] MEDS ORDERED: KETOROLAC 30 MG/ML 1 ML VIAL IVP STA (10:23)
[2019-03-14] MEDS ORDERED: SODIUM CHLORIDE 0.9% 1,000 ML IV STA (10:23)
--- NOTE | 2019-03-14 10:27 | ED ---
Headache HPI - General Chief Complaint: Headache Stated Complaint: JOSUE, headache Time Seen by Provider: 03/14/19 10:13 Mode of arrival: ambulatory Limitations: no limitations - History of Present Illness Initial Comments: Patient is a 33-year-old female presenting to emergency Department with complaints of a headache 4 days. Patient has been in the ER previous occasions for similar headache. Patient states she tried taking a leave for the last few days which has not helped. Patient is also complaining of mild shortness of breath that started 2 days ago. Patient states she noticed when she was walking upstairs that she was trying to catch her breath. Patient denies history of asthma or upper respiratory type symptoms. She has been sneezing a lot the last few days but no coughing, congestion, fever, chills. Patient also states she has some mild abdominal discomfort that started yesterday. Admits to history of 2 sections, and no other abdominal surgeries. Has had regular bowel movements. Patient denies nausea, vomiting, diarrhea. Patient has no other complaints at this time. Upon arrival to ER, vital signs are stable. - Related Data Home Medications Medication Instructions Recorded Confirmed Acetaminophen Tab [Tylenol Tab] 1,000 mg PO Q6HR PRN 01/26/19 03/14/19 Naproxen Sodium [Aleve] 220 mg PO BID PRN 02/28/19 03/14/19 traMADol HCL [Ultram] 50 mg PO TID PRN 03/14/19 03/14/19 Allergies Allergy/AdvReac Type Severity Reaction Status Date / Time No Known Allergies Allergy Verified 03/14/19 11:13 Review of Systems ROS Statement: Those systems with pertinent positive or pertinent negative responses have been documented in the HPI. ROS Other: All systems not noted in ROS Statement are negative. Past Medical History Past Medical History: No Reported History Additional Past Medical History / Comment(s): UMBILCAL HERNIA. MIGRAINES History of Any Multi-Drug Resistant Organisms: ESBL Date of last positivie culture/infection: 11/13/18 MDRO Source:: ESBL URINE Past Surgical History: Section Past Psychological History: No Psychological Hx Reported Smoking Status: Current every day smoker Past Alcohol Use History: Occasional Past Drug Use History: None Reported General Exam - General Exam Comments Initial Comments: GENERAL: Well-appearing, well-nourished and in no acute distress. HEAD: Atraumatic, normocephalic. EYES: Pupils equal round and reactive to light, extraocular movements intact, sclera anicteric, conjunctiva are normal. ENT: TMs normal, nares patent, oropharynx clear without exudates. Moist mucous membranes. NECK: Normal range of motion, supple without lymphadenopathy or JVD. LUNGS: Breath sounds clear to auscultation bilaterally and equal. No wheezes rales or rhonchi. HEART: Regular rate and rhythm without murmurs, rubs or gallops. ABDOMEN: Mild epigastric, right-sided abdominal discomfort. No right lower quadrant or left lower quadrant or suprapubic pain. Soft, normoactive bowel sounds. No guarding, no rebound. No masses appreciated. EXTREMITIES: Normal range of motion, no pitting or edema. No clubbing or cyanosis. NEUROLOGICAL: Cranial nerves II through XII grossly intact. Normal speech, normal gait. PSYCH: Normal mood, normal affect. SKIN: Warm, Dry, normal turgor, no rashes or lesions noted. Limitations: no limitations Course Vital Signs 03/14/19 10:09 Temperature 98.3 F Pulse Rate 88 Respiratory 20 Rate Blood Pressure 147/96 O2 Sat by Pulse 100 Oximetry Medical Decision Making - Medical Decision Making Patient is a 33 and her female presenting with a headache 4 days. Patient has been seen in the ER for the same complaint. Patient has been following up with her PCP and is waiting to get into a neurologist. Patient also states she has had some mild shortness of breath last 2 days going up and down stairs. Patient denies cough, fever, chills, nausea, vomiting. Patient is also complaining of mild epigastric and right-sided abdominal pain. Lab work is unremarkable today, including UA. Chest x-ray reveals no acute processes. Patient was given fluids, pain medication and reports improvement in symptoms. Patient is requesting to be discharged. Patient is requesting a referral to neurologist. Patient is stable for discharge at this time. Patient was given a Tylenol 3 starter pack for her headaches and will follow up with neurology. Patient is in agreement with this plan of care. Return parameters were discussed with the patient she verbalized understanding. Case discussed with Dr. Jiménez. - Lab Data Result diagrams: 03/14/19 10:56 03/14/19 10:56 Lab Results 03/14/19 03/14/19 03/14/19 Range/Units 10:56 10:56 10:56 WBC 7.6 (3.8-10.6) k/uL RBC 4.07 (3.80-5.40) m/uL Hgb 12.5 (11.4-16.0) gm/dL Hct 35.9 (34.0-46.0) % MCV 88.0 (80.0-100.0) fL MCH 30.6 (25.0-35.0) pg MCHC 34.8 (31.0-37.0) g/dL RDW 11.9 (11.5-15.5) % Plt Count 358 (150-450) k/uL Neutrophils % 64 % Lymphocytes % 27 % Monocytes % 5 % Eosinophils % 1 % Basophils % 0 % Neutrophils # 4.8 (1.3-7.7) k/uL Lymphocytes # 2.1 (1.0-4.8) k/uL Monocytes # 0.4 (0-1.0) k/uL Eosinophils # 0.1 (0-0.7) k/uL Basophils # 0.0 (0-0.2) k/uL Sodium 139 (137-145) mmol/L Potassium 4.1 (3.5-5.1) mmol/L Chloride 104 (98-107) mmol/L Carbon Dioxide 25 (22-30) mmol/L Anion Gap 10 mmol/L BUN 10 (7-17) mg/dL Creatinine 0.64 (0.52-1.04) mg/dL Est GFR (CKD-EPI)AfAm >90 (>60 ml/min/1.73 sqM) Est GFR (CKD-EPI)NonAf >90 (>60 ml/min/1.73 sqM) Glucose 84 (74-99) mg/dL Calcium 9.6 (8.4-10.2) mg/dL Total Bilirubin 0.8 (0.2-1.3) mg/dL AST 21 (14-36) U/L ALT 18 (9-52) U/L Alkaline Phosphatase 75 (38-126) U/L Total Protein 7.6 (6.3-8.2) g/dL Albumin 4.4 (3.5-5.0) g/dL Urine Color Urine Appearance (Clear) Urine pH (5.0-8.0) Ur Specific Herrick (1.001-1.035) Urine Protein (Negative) Urine Glucose (UA) (Negative) Urine Ketones (Negative) Urine Blood (Negative) Urine Nitrite (Negative) Urine Bilirubin (Negative) Urine Urobilinogen (<2.0) mg/dL Ur Leukocyte Esterase (Negative) Urine RBC (0-5) /hpf Urine WBC (0-5) /hpf Ur Squamous Epith Cells (0-4) /hpf Urine HCG, Qual Not Detected (Not Detectd) 03/14/19 Range/Units 10:56 WBC (3.8-10.6) k/uL RBC (3.80-5.40) m/uL Hgb (11.4-16.0) gm/dL Hct (34.0-46.0) % MCV (80.0-100.0) fL MCH (25.0-35.0) pg MCHC (31.0-37.0) g/dL RDW (11.5-15.5) % Plt Count (150-450) k/uL Neutrophils % % Lymphocytes % % Monocytes % % Eosinophils % % Basophils % % Neutrophils # (1.3-7.7) k/uL Lymphocytes # (1.0-4.8) k/uL Monocytes # (0-1.0) k/uL Eosinophils # (0-0.7) k/uL Basophils # (0-0.2) k/uL Sodium (137-145) mmol/L Potassium (3.5-5.1) mmol/L Chloride (98-107) mmol/L Carbon Dioxide (22-30) mmol/L Anion Gap mmol/L BUN (7-17) mg/dL Creatinine (0.52-1.04) mg/dL Est GFR (CKD-EPI)AfAm (>60 ml/min/1.73 sqM) Est GFR (CKD-EPI)NonAf (>60 ml/min/1.73 sqM) Glucose (74-99) mg/dL Calcium (8.4-10.2) mg/dL Total Bilirubin (0.2-1.3) mg/dL AST (14-36) U/L ALT (9-52) U/L Alkaline Phosphatase (38-126) U/L Total Protein (6.3-8.2) g/dL Albumin (3.5-5.0) g/dL Urine Color Yellow Urine Appearance Clear (Clear) Urine pH 7.5 (5.0-8.0) Ur Specific Herrick 1.008 (1.001-1.035) Urine Protein Negative (Negative) Urine Glucose (UA) Negative (Negative) Urine Ketones Negative (Negative) Urine Blood Moderate H (Negative) Urine Nitrite Negative (Negative) Urine Bilirubin Negative (Negative) Urine Urobilinogen <2.0 (<2.0) mg/dL Ur Leukocyte Esterase Negative (Negative) Urine RBC >182 H (0-5) /hpf Urine WBC 3 (0-5) /hpf Ur Squamous Epith Cells <1 (0-4) /hpf Urine HCG, Qual (Not Detectd) Disposition Clinical Impression: Headache, Abdominal pain Disposition: HOME SELF-CARE Condition: Stable Instructions (If sedation given, give patient instructions): Acute Headache (ED) Additional Instructions: Please return to the Emergency Department if symptoms worsen or any other concerns. Follow -Up with neurology as discussed. Is patient prescribed a controlled substance at d/c from ED?: No Referrals: Asael Cardona MD [Primary Care Provider] - 1-2 days Tiffany Herrera MD [STAFF PHYSICIAN] - 1-2 days
[2019-03-14 11:19] LABS: Basophils % (A) 0 %; Eosinophils # (A) 0.1 k/uL (0-0.7); Eosinophils % (A) 1 %; HCT 35.9 % (34.0-46.0); HGB 12.5 gm/dL (11.4-16.0); Lymphocytes # (A) 2.1 k/uL (1.0-4.8); Lymphocytes % (A) 27 %; MCH 30.6 pg (25.0-35.0); MCHC 34.8 g/dL (31.0-37.0); Mean Platelet Volume 6.1; Monocytes # (A) 0.4 k/uL (0-1.0); Monocytes % (A) 5 %; Neutrophils # (A) 4.8 k/uL (1.3-7.7); Neutrophils % (A) 64 %; Platelet Count 358 k/uL (150-450); RBC 4.07 m/uL (3.80-5.40); RDW 11.9 % (11.5-15.5); WBC 7.6 k/uL (3.8-10.6)
[2019-03-14] MEDS ORDERED: ONDANSETRON 4 MG/2 ML VIAL IVP STA (11:23)
[2019-03-14] MEDS ORDERED: MORPHINE SULFATE 2 MG/ML SYRINGE IVP ONE (11:23)
[2019-03-14 11:40] LABS: Appearance,Urine Clear (Clear); Bilirubin,Urine Negative (Negative); Blood,Urine Moderate (Negative); Color,Urine Yellow; Glucose,Urine (UA) Negative (Negative); Ketones,Urine Negative (Negative); Leukocyte Esterase,Urine Negative (Negative); Nitrite,Urine Negative (Negative); PH, Urine 7.5 (5.0-8.0); Protein,Urine Negative (Negative); RBC,Urine >182 /hpf (0-5); Specific Gravity,Urine 1.008 (1.001-1.035); Squamous Epithelial Cell,Urine <1 /hpf (0-4); Urobilinogen,Urine <2.0 mg/dL (<2.0)
--- NOTE | 2019-03-14 12:02 | XR ---
EXAMINATION TYPE: XR chest 2V DATE OF EXAM: 03/14/2019 COMPARISON: 02/24/2018 TECHNIQUE: PA and lateral views submitted. HISTORY: Shortness of breath FINDINGS: The lungs are clear and there is no pneumothorax, pleural effusion, or focal pneumonia. No overt fa ilure. Heart size normal. IMPRESSION: 1. No acute process.
[2019-03-14] MEDS ORDERED: PANTOPRAZOLE 40 MG/10 ML VIAL IVP STA (12:17)
[2019-03-14 12:27] LABS: ALT 18 U/L (9-52); AST 21 U/L (14-36); African American GFR (CKD) >90 (>60 ml/min/1.73 sqM); Albumin 4.4 g/dL (3.5-5.0); Alkaline Phosphatase 75 U/L (38-126); Anion Gap 10 mmol/L; Blood Urea Nitrogen 10 mg/dL (7-17); Calcium 9.6 mg/dL (8.4-10.2); Carbon Dioxide 25 mmol/L (22-30); Chloride 104 mmol/L (98-107); Glucose 84 mg/dL (74-99); Potassium 4.1 mmol/L (3.5-5.1); Sodium 139 mmol/L (137-145); Total Bilirubin 0.8 mg/dL (0.2-1.3); Total Protein 7.6 g/dL (6.3-8.2)
[2019-03-14] MEDS ORDERED: ACET/COD 300 MG/30 MG STARTER PACK 6 TAB BTL PO STA (12:43)
== END 2019-03-14 13:05 | disposition home or self-care (01) ==
LOC: EC 10:07
DX: R51 Headache (principal); R10.13 Epigastric pain; R06.02 Shortness of breath; K42.9 Umbilical hernia without obstruction or gangrene; F17.200 Nicotine dependence, unspecified, uncomplicated; Z86.69 Personal history of other diseases of the nervous system and sense organs
CPT/HCPCS: 36415; 80053; 85025; 81001; 81025; 71046; 99284; 96374; 96375 ×3; 96361; J2405; J1885; J2270; C9113

== ENCOUNTER 2019-03-17 11:38 | Emergency (ER) | payer OTHER ==
[2019-03-17] MEDS ORDERED: SODIUM CHLORIDE 0.9% 1,000 ML IV STA (12:37)
[2019-03-17] MEDS ORDERED: KETOROLAC 30 MG/ML 1 ML VIAL IVP STA (12:37)
[2019-03-17] MEDS ORDERED: METOCLOPRAMIDE 5 MG/ML 2 ML VIAL IVP STA (12:37)
[2019-03-17] MEDS ORDERED: ACETAMINOPHEN TAB 500 MG TAB PO STA (12:37)
[2019-03-17] MEDS ORDERED: IPRATROPIUM-ALBUTEROL 3 ML NEB INHALATION STA (12:39)
[2019-03-17] MEDS ORDERED: methylPREDNISolone SOD SUCCI 125 MG/2 ML VIAL IV STA (12:39)
[2019-03-17 13:22] LABS: Basophils # (A) 0.1 k/uL (0-0.2); Basophils % (A) 1 %; Eosinophils # (A) 0.1 k/uL (0-0.7); Eosinophils % (A) 1 %; HCT 35.8 % (34.0-46.0); HGB 12.3 gm/dL (11.4-16.0); Lymphocytes # (A) 1.3 k/uL (1.0-4.8); Lymphocytes % (A) 17 %; MCH 30.2 pg (25.0-35.0); MCHC 34.3 g/dL (31.0-37.0); MCV 87.9 fL (80.0-100.0); Mean Platelet Volume 6.7; Monocytes # (A) 0.4 k/uL (0-1.0); Monocytes % (A) 5 %; Neutrophils # (A) 5.6 k/uL (1.3-7.7); Neutrophils % (A) 75 %; Platelet Count 329 k/uL (150-450); RBC 4.07 m/uL (3.80-5.40); RDW 11.8 % (11.5-15.5); WBC 7.5 k/uL (3.8-10.6)
[2019-03-17 13:28] LABS: ALT 21 U/L (9-52); AST 20 U/L (14-36); African American GFR (CKD) >90 (>60 ml/min/1.73 sqM); Albumin 4.2 g/dL (3.5-5.0); Alkaline Phosphatase 71 U/L (38-126); Anion Gap 8 mmol/L; Blood Urea Nitrogen 7 mg/dL (7-17); Calcium 9.7 mg/dL (8.4-10.2); Carbon Dioxide 28 mmol/L (22-30); Chloride 103 mmol/L (98-107); Glucose 84 mg/dL (74-99); Potassium 4.8 mmol/L (3.5-5.1); Sodium 139 mmol/L (137-145); Total Bilirubin 0.5 mg/dL (0.2-1.3); Total Protein 7.2 g/dL (6.3-8.2)
--- NOTE | 2019-03-17 13:50 | XR ---
EXAMINATION TYPE: XR chest 2V DATE OF EXAM: 03/17/2019 COMPARISON: Chest x-ray 3 days ago. HISTORY: Cough for 2 days. TECHNIQUE: Frontal and lateral views of the chest are obtained. FINDINGS: There is no focal air space opacity, pleural effusion, or pneumothorax seen. The cardiac silhouette size is within normal limits. The osseous structures are intact. IMPRESSION: No suspicious acute pulmonary process. No significant change from prior.
[2019-03-17] MEDS ORDERED: ACET/COD 300 MG/30 MG STARTER PACK 6 TAB BTL PO STA (14:22)
--- NOTE | 2019-03-17 14:22 | ED ---
Headache HPI - General Chief Complaint: Headache Stated Complaint: Cough, Headache Time Seen by Provider: 03/17/19 12:15 Source: RN notes reviewed, old records reviewed Mode of arrival: ambulatory Limitations: no limitations - History of Present Illness Initial Comments: 33 year old female with cough, headache, fever and congestion. Was seen in ED 2 days ago and Dx with viral syndrome. Patient complains of migraine and hx of migraines. PAtient has no fever at this time. Denies vomiting, visual changes, chest pain, or back pain. MD Complaint: headache, "migraine" - Related Data Home Medications Medication Instructions Recorded Confirmed Acetaminophen Tab [Tylenol Tab] 1,000 mg PO Q6HR PRN 01/26/19 03/14/19 Naproxen Sodium [Aleve] 220 mg PO BID PRN 02/28/19 03/14/19 traMADol HCL [Ultram] 50 mg PO TID PRN 03/14/19 03/14/19 Previous Rx's Medication Instructions Recorded Azithromycin [Zithromax Z-pack] 250 mg PO DIRECTED #6 tab 03/17/19 predniSONE 10 mg PO DAILY #15 tab 03/17/19 Allergies Allergy/AdvReac Type Severity Reaction Status Date / Time No Known Allergies Allergy Verified 03/17/19 11:42 Review of Systems ROS Statement: Those systems with pertinent positive or pertinent negative responses have been documented in the HPI. ROS Other: All systems not noted in ROS Statement are negative. Past Medical History Past Medical History: No Reported History Additional Past Medical History / Comment(s): UMBILCAL HERNIA. MIGRAINES History of Any Multi-Drug Resistant Organisms: ESBL Date of last positivie culture/infection: 11/13/18 MDRO Source:: ESBL URINE Past Surgical History: Section Past Psychological History: No Psychological Hx Reported Smoking Status: Current every day smoker Past Alcohol Use History: Occasional Past Drug Use History: None Reported General Exam - General Exam Comments Initial Comments: 33 year old female, no distress. Limitations: no limitations General appearance: alert, in no apparent distress Head exam: Present: atraumatic, normocephalic, normal inspection Eye exam: Present: normal appearance, PERRL, EOMI. Absent: scleral icterus, conjunctival injection, periorbital swelling ENT exam: Present: normal exam, mucous membranes moist Neck exam: Present: normal inspection. Absent: tenderness, meningismus, lymphadenopathy Respiratory exam: Present: normal lung sounds bilaterally. Absent: respiratory distress, wheezes, rales, rhonchi, stridor Cardiovascular Exam: Present: regular rate, normal rhythm, normal heart sounds. Absent: systolic murmur, diastolic murmur, rubs, gallop, clicks Neurological exam: Present: alert, oriented X3, CN II-XII intact Psychiatric exam: Present: normal affect, normal mood Skin exam: Present: warm, dry, intact, normal color. Absent: rash Course Vital Signs 03/17/19 03/17/19 03/17/19 11:39 13:32 13:41 Temperature 98.3 F Pulse Rate 88 84 81 Respiratory 20 Rate Blood Pressure 115/78 O2 Sat by Pulse 99 Oximetry 03/17/19 14:44 Temperature 98.2 F Pulse Rate 89 Respiratory 18 Rate Blood Pressure 122/70 O2 Sat by Pulse 100 Oximetry Medical Decision Making - Medical Decision Making 33 year old female presents today for concern for migraine and cough. Patient given migraine cocktail and feels better. Some minor wheezing noted, given douneb with improvement of cough. CXR shows no acute process. patient will be started on steriods and antibiotics for bronchitis. Discussed return parameter discussed. - Lab Data Result diagrams: 03/17/19 13:10 03/17/19 13:10 Lab Results 03/17/19 03/17/19 Range/Units 13:10 13:10 WBC 7.5 (3.8-10.6) k/uL RBC 4.07 (3.80-5.40) m/uL Hgb 12.3 (11.4-16.0) gm/dL Hct 35.8 (34.0-46.0) % MCV 87.9 (80.0-100.0) fL MCH 30.2 (25.0-35.0) pg MCHC 34.3 (31.0-37.0) g/dL RDW 11.8 (11.5-15.5) % Plt Count 329 (150-450) k/uL Neutrophils % 75 % Lymphocytes % 17 % Monocytes % 5 % Eosinophils % 1 % Basophils % 1 % Neutrophils # 5.6 (1.3-7.7) k/uL Lymphocytes # 1.3 (1.0-4.8) k/uL Monocytes # 0.4 (0-1.0) k/uL Eosinophils # 0.1 (0-0.7) k/uL Basophils # 0.1 (0-0.2) k/uL Sodium 139 (137-145) mmol/L Potassium 4.8 (3.5-5.1) mmol/L Chloride 103 (98-107) mmol/L Carbon Dioxide 28 (22-30) mmol/L Anion Gap 8 mmol/L BUN 7 (7-17) mg/dL Creatinine 0.68 (0.52-1.04) mg/dL Est GFR (CKD-EPI)AfAm >90 (>60 ml/min/1.73 sqM) Est GFR (CKD-EPI)NonAf >90 (>60 ml/min/1.73 sqM) Glucose 84 (74-99) mg/dL Calcium 9.7 (8.4-10.2) mg/dL Total Bilirubin 0.5 (0.2-1.3) mg/dL AST 20 (14-36) U/L ALT 21 (9-52) U/L Alkaline Phosphatase 71 (38-126) U/L Total Protein 7.2 (6.3-8.2) g/dL Albumin 4.2 (3.5-5.0) g/dL 03/17/19 17:30 EKG shows normal sinus rhythm, nonspecific to the valley. Abnormal EKG noted. Ventricular rate of 83 bpm. Verbal is 134 seconds. Respirations 80 ms. QT QTC 34/421 ms. - Radiology Data Radiology results: report reviewed Normal CXR, negative for acute process. Disposition Clinical Impression: Headache, Bronchitis Disposition: HOME SELF-CARE Condition: Good Instructions (If sedation given, give patient instructions): Migraine Headache (ED), Acute Bronchitis (ED) Additional Instructions: Please use medication as discussed. Please follow up with family doctor if symptoms have not improved over the next two days. Please return to the emergency room if your symptoms increase or worsen or for any other concerns. Prescriptions: predniSONE 10 mg PO DAILY #15 tab Azithromycin [Zithromax Z-pack] 250 mg PO DIRECTED #6 tab Is patient prescribed a controlled substance at d/c from ED?: No Referrals: Asael Cardona MD [Primary Care Provider] - 1-2 days Time of Disposition: 14:21
[2019-03-17 14:45] VITALS: BP 122/70; PULSE 89; RESP 18; TEMP 98.2
== END 2019-03-17 14:52 | disposition home or self-care (01) ==
LOC: EC 11:38
DX: J40 Bronchitis, not specified as acute or chronic (principal); R51 Headache; F17.200 Nicotine dependence, unspecified, uncomplicated; Z86.69 Personal history of other diseases of the nervous system and sense organs
CPT/HCPCS: 36415; 94640; 80053; 85025; 71046; 99284; 96374; 96375 ×2; 96361; J2765; J2930; J1885

== ENCOUNTER 2019-04-03 12:49 | Emergency (ER) | payer OTHER ==
[2019-04-03 13:07] VITALS: BP 112/70; PULSE 81; RESP 18; TEMP 99.1
[2019-04-03] MEDS ORDERED: KETOROLAC 60 MG/2 ML VIAL IM STA (13:29)
[2019-04-03] MEDS ORDERED: ACET/COD 300 MG/30 MG STARTER PACK 6 TAB BTL PO STA (13:29)
--- NOTE | 2019-04-03 13:31 | ED ---
Headache HPI - General Chief Complaint: Headache Stated Complaint: Headache Time Seen by Provider: 04/03/19 13:11 Mode of arrival: ambulatory Limitations: no limitations - History of Present Illness Initial Comments: 33-year-old female presenting today for chief complaint of headache. Patient states she has chronic headaches. She states there is no changes today she states began yesterday. Patient states she is out of her tramadol. Patient states that her primary care provider discharged her from her practice from coming to the emergency department for headaches and medications. Patient states that she has had many previous imaging studies of her brain she states that they never find anything wrong and she is refusing any imaging studies today. Patient requesting one IM shot Toradol and then to be discharged as she is with her children. Patient denies fever or neck stiffness beats changes weakness of the upper or lower extremities changes in cognition or memory patient denies any other complaints. Patient appears well but arousable nontoxic vital signs stable - Related Data Home Medications Medication Instructions Recorded Confirmed Acetaminophen Tab [Tylenol Tab] 1,000 mg PO Q6HR PRN 01/26/19 03/14/19 Naproxen Sodium [Aleve] 220 mg PO BID PRN 02/28/19 03/14/19 traMADol HCL [Ultram] 50 mg PO TID PRN 03/14/19 03/14/19 Previous Rx's Medication Instructions Recorded Azithromycin [Zithromax Z-pack] 250 mg PO DIRECTED #6 tab 03/17/19 predniSONE 10 mg PO DAILY #15 tab 03/17/19 Biotin 300 mcg PO DAILY 30 Days #30 tablet 04/03/19 Multivitamin [Multivitamins Adult 1 each PO DAILY 30 Days #30 tablet 04/03/19 Gummies] Allergies Allergy/AdvReac Type Severity Reaction Status Date / Time No Known Allergies Allergy Verified 04/03/19 13:07 Review of Systems ROS Statement: Those systems with pertinent positive or pertinent negative responses have been documented in the HPI. ROS Other: All systems not noted in ROS Statement are negative. Past Medical History Past Medical History: No Reported History Additional Past Medical History / Comment(s): UMBILCAL HERNIA. MIGRAINES History of Any Multi-Drug Resistant Organisms: ESBL Date of last positivie culture/infection: 11/13/18 MDRO Source:: ESBL URINE Past Surgical History: Section Past Psychological History: No Psychological Hx Reported Smoking Status: Current every day smoker Past Alcohol Use History: Occasional Past Drug Use History: None Reported General Exam - General Exam Comments Initial Comments: General: The patient is awake and alert, in no distress, and does not appear acutely ill. Eye: +3 mm pupils are equal, round and reactive to light, extra-ocular movements are intact. No nystagmus. There is normal conjunctiva bilaterally. No signs of icterus. Ears, nose, mouth and throat: There are moist mucous membranes and no oral lesions. Neck: The neck is supple, there is no tenderness or JVD. Cardiovascular: There is a regular rate and rhythm. No murmur, rub or gallop is appreciated. Respiratory: Lungs are clear to auscultation, respirations are non-labored, breath sounds are equal. No wheezes, stridor, rales, or rhonchi. Musculoskeletal: Normal ROM, no tenderness. Strength 5/5. Sensation intact. Pulses equal bilaterally 2+. Neurological: A&O x 3. CN II-XII intact , There are no obvious motor or sensory deficits. Coordination appears grossly intact. Speech is normal. Skin: Skin is warm and dry and no rashes or lesions are noted. Psychiatric: Cooperative, appropriate mood & affect, normal judgment. Limitations: no limitations Course Vital Signs 04/03/19 04/03/19 13:04 13:48 Temperature 99.1 F 99.1 F Pulse Rate 81 81 Respiratory 18 18 Rate Blood Pressure 112/70 112/70 O2 Sat by Pulse 99 99 Oximetry Medical Decision Making - Medical Decision Making 33-year-old female presented for headache. Patient was treated symptomatically. Patient refused any imaging studies or further evaluation she states "there is never anything wrong" "this is my typical [place]" denies sudden onset of this being the worst headache of her life. No focal neurological deficits patient appears well and nontoxic no nuchal irritation. Patient given IM Toradol. Started pack of Tylenol No. 3 return parameters were discussed the patient was discharged appearing well Disposition Clinical Impression: Chronic headaches Disposition: HOME SELF-CARE Condition: Good Instructions (If sedation given, give patient instructions): Acute Headache (ED) Additional Instructions: Please use medication as discussed. Please follow-up with family doctor in the next 2 days.. Please return to emergency room if the symptoms increase or worsen or for any other concerns. Prescriptions: Biotin 300 mcg PO DAILY 30 Days #30 tablet Multivitamin [Multivitamins Adult Gummies] 1 each PO DAILY 30 Days #30 tablet Is patient prescribed a controlled substance at d/c from ED?: No Referrals: None,Stated [Primary Care Provider] - 1-2 days [facility] [NON-STAFF] - 1-2 days Time of Disposition: 13:31
== END 2019-04-03 13:48 | disposition home or self-care (01) ==
LOC: EC 12:49
DX: R51 Headache (principal); F17.200 Nicotine dependence, unspecified, uncomplicated; Z86.69 Personal history of other diseases of the nervous system and sense organs; Z53.29 Procedure and treatment not carried out because of patient's decision for other reasons
CPT/HCPCS: 99283; 96372; J1885

== ENCOUNTER 2019-04-15 13:54 | Emergency (ER) | payer OTHER ==
[2019-04-15 14:10] VITALS: RESP 16
[2019-04-15] MEDS ORDERED: KETOROLAC 30 MG/ML 1 ML VIAL IVP STA (14:59)
[2019-04-15] MEDS ORDERED: SODIUM CHLORIDE 0.9% 1,000 ML IV STA ×2 (14:59)
[2019-04-15] MEDS ORDERED: ONDANSETRON 4 MG/2 ML VIAL IVP STA (14:59)
[2019-04-15 15:53] LABS: Basophils % (A) 0 %; Eosinophils # (A) 0.2 k/uL (0-0.7); Eosinophils % (A) 5 %; HCT 33.3 % (34.0-46.0); HGB 11.3 gm/dL (11.4-16.0); Lymphocytes # (A) 2.2 k/uL (1.0-4.8); Lymphocytes % (A) 42 %; MCH 30.1 pg (25.0-35.0); MCHC 34.1 g/dL (31.0-37.0); MCV 88.3 fL (80.0-100.0); Monocytes # (A) 0.3 k/uL (0-1.0); Monocytes % (A) 6 %; Neutrophils # (A) 2.3 k/uL (1.3-7.7); Neutrophils % (A) 45 %; Platelet Count 329 k/uL (150-450); RBC 3.77 m/uL (3.80-5.40); RDW 12.2 % (11.5-15.5); WBC 5.2 k/uL (3.8-10.6)
[2019-04-15 16:01] LABS: INR 0.9 (<1.2); Prothrombin Time 9.8 sec (9.0-12.0)
[2019-04-15 16:03] LABS: Appearance,Urine Clear (Clear); Bilirubin,Urine Negative (Negative); Blood,Urine Large (Negative); Color,Urine Light Red; Glucose,Urine (UA) Negative (Negative); Ketones,Urine Negative (Negative); Leukocyte Esterase,Urine Trace (Negative); Nitrite,Urine Negative (Negative); Protein,Urine 1+ (Negative); RBC,Urine >182 /hpf (0-5); Specific Gravity,Urine 1.012 (1.001-1.035); Urobilinogen,Urine <2.0 mg/dL (<2.0); WBC,Urine 65 /hpf (0-5)
--- NOTE | 2019-04-15 16:04 | XR ---
EXAMINATION TYPE: XR KUB DATE OF EXAM: 04/15/2019 3:59 PM CLINICAL HISTORY: Right flank pain and hematuria. Abdominal pain for order. TECHNIQUE: Two Upright KUB images of the abdomen are obtained. COMPARISON: CT November 13, 2018. FINDINGS: Scattered gas is seen in non-distended stomach and small bowel loops. Gas and fecal materia l is seen in non-distended colon. There is no visceromegaly, pneumoperitoneum, or abnormal calcificat ion appreciated. The lung bases are clear and the osseous structures are intact. IMPRESSION: Overall nonobstructive bowel gas pattern. No definitive nephrolithiasis.
[2019-04-15] MEDS ORDERED: MORPHINE SULFATE 4 MG/ML SYRINGE IVP STA (16:06)
[2019-04-15 16:10] LABS: ALT 19 U/L (9-52); AST 21 U/L (14-36); African American GFR (CKD) >90 (>60 ml/min/1.73 sqM); Albumin 3.7 g/dL (3.5-5.0); Alkaline Phosphatase 77 U/L (38-126); Amylase 37 U/L (30-110); Anion Gap 4 mmol/L; Blood Urea Nitrogen 6 mg/dL (7-17); Calcium 9.3 mg/dL (8.4-10.2); Carbon Dioxide 31 mmol/L (22-30); Chloride 103 mmol/L (98-107); Glucose 99 mg/dL (74-99); Non-African American GFR(CKD) >90 (>60 ml/min/1.73 sqM); Potassium 4.4 mmol/L (3.5-5.1); Sodium 138 mmol/L (137-145); Total Bilirubin 0.3 mg/dL (0.2-1.3); Total Protein 6.4 g/dL (6.3-8.2)
--- NOTE | 2019-04-15 16:27 | ED ---
Abdominal Pain HPI - General Chief Complaint: Abdominal Pain Stated Complaint: Urinating blood Time Seen by Provider: 04/15/19 14:53 Source: patient, RN notes reviewed, old records reviewed Mode of arrival: ambulatory Limitations: no limitations - History of Present Illness Initial Comments: Patient is a 33-year-old female presents return today and she would've nausea and vomiting and right-sided flank pain and dysuria as well as bloody urine. LMP was this week. She has been having bloody urine for 2 days, and initially thought it was related to end of menstrual cycle. She denies history of kidney stones. She is here with 2 sons. - Related Data Home Medications Medication Instructions Recorded Confirmed Acetaminophen Tab [Tylenol Tab] 1,000 mg PO Q6HR PRN 01/26/19 03/14/19 Naproxen Sodium [Aleve] 220 mg PO BID PRN 02/28/19 03/14/19 traMADol HCL [Ultram] 50 mg PO TID PRN 03/14/19 03/14/19 Previous Rx's Medication Instructions Recorded Azithromycin [Zithromax Z-pack] 250 mg PO DIRECTED #6 tab 03/17/19 predniSONE 10 mg PO DAILY #15 tab 03/17/19 Biotin 300 mcg PO DAILY 30 Days #30 tablet 04/03/19 Multivitamin [Multivitamins Adult 1 each PO DAILY 30 Days #30 tablet 04/03/19 Gummies] Cephalexin [Keflex] 500 mg PO Q6H #40 cap 04/15/19 HYDROcodone/APAP 5-325MG [[place] 1 tab PO Q6HR PRN 3 Days #12 tab 04/15/19 5-325] Ketorolac [Toradol] 10 mg PO Q6HR #12 tab 04/15/19 Ondansetron Odt [Zofran Odt] 4 mg PO Q8HR PRN #12 tab 04/15/19 Allergies Allergy/AdvReac Type Severity Reaction Status Date / Time No Known Allergies Allergy Verified 04/03/19 13:07 Review of Systems ROS Statement: Those systems with pertinent positive or pertinent negative responses have been documented in the HPI. ROS Other: All systems not noted in ROS Statement are negative. Past Medical History Past Medical History: No Reported History Additional Past Medical History / Comment(s): UMBILCAL HERNIA. MIGRAINES History of Any Multi-Drug Resistant Organisms: ESBL Date of last positivie culture/infection: 11/13/18 MDRO Source:: ESBL URINE Past Surgical History: Section Past Psychological History: No Psychological Hx Reported Smoking Status: Current every day smoker Past Alcohol Use History: Occasional Past Drug Use History: None Reported General Exam - General Exam Comments Initial Comments: 33 year old female, mild to moderate discomfort. Limitations: no limitations General appearance: alert, in no apparent distress Head exam: Present: atraumatic, normocephalic, normal inspection Eye exam: Present: normal appearance, PERRL, EOMI. Absent: scleral icterus, conjunctival injection, periorbital swelling ENT exam: Present: normal exam, mucous membranes moist Neck exam: Present: normal inspection. Absent: tenderness, meningismus, lymphadenopathy Respiratory exam: Present: normal lung sounds bilaterally. Absent: respiratory distress, wheezes, rales, rhonchi, stridor Cardiovascular Exam: Present: regular rate, normal rhythm, normal heart sounds. Absent: systolic murmur, diastolic murmur, rubs, gallop, clicks GI/Abdominal exam: Present: soft, tenderness (R cva and Rlq tenderness), normal bowel sounds. Absent: distended, guarding, rebound, rigid Extremities exam: Present: normal inspection, full ROM, normal capillary refill. Absent: tenderness, pedal edema, joint swelling, calf tenderness Back exam: Present: normal inspection Neurological exam: Present: alert, oriented X3, CN II-XII intact Psychiatric exam: Present: normal affect, normal mood Course Vital Signs 04/15/19 04/15/19 14:07 18:04 Temperature 98.1 F 98 F Pulse Rate 83 76 Respiratory 16 16 Rate Blood Pressure 109/74 112/70 O2 Sat by Pulse 100 98 Oximetry Medical Decision Making - Medical Decision Making 33 year old female with hematuria, R sided flank pain. Given IV fluids and labs obtained. UA is frankly bloody. Culture to be completed, given IV rocephin.CT shows no sign of renal stone, however on my interpretation there may be a 3mm stone at R UVJ. Discussed findings with Dr. Dinero. Patient can be treated with pain medication and follow up with PCP and urology. - Lab Data Result diagrams: 04/15/19 15:27 04/15/19 15:27 Lab Results 04/15/19 04/15/19 04/15/19 Range/Units 15:27 15:27 15:27 WBC 5.2 (3.8-10.6) k/uL RBC 3.77 L (3.80-5.40) m/uL Hgb 11.3 L (11.4-16.0) gm/dL Hct 33.3 L (34.0-46.0) % MCV 88.3 (80.0-100.0) fL MCH 30.1 (25.0-35.0) pg MCHC 34.1 (31.0-37.0) g/dL RDW 12.2 (11.5-15.5) % Plt Count 329 (150-450) k/uL Neutrophils % 45 % Lymphocytes % 42 % Monocytes % 6 % Eosinophils % 5 % Basophils % 0 % Neutrophils # 2.3 (1.3-7.7) k/uL Lymphocytes # 2.2 (1.0-4.8) k/uL Monocytes # 0.3 (0-1.0) k/uL Eosinophils # 0.2 (0-0.7) k/uL Basophils # 0.0 (0-0.2) k/uL PT 9.8 (9.0-12.0) sec INR 0.9 (<1.2) APTT 26.0 (22.0-30.0) sec Sodium 138 (137-145) mmol/L Potassium 4.4 (3.5-5.1) mmol/L Chloride 103 (98-107) mmol/L Carbon Dioxide 31 H (22-30) mmol/L Anion Gap 4 mmol/L BUN 6 L (7-17) mg/dL Creatinine 0.60 (0.52-1.04) mg/dL Est GFR (CKD-EPI)AfAm >90 (>60 ml/min/1.73 sqM) Est GFR (CKD-EPI)NonAf >90 (>60 ml/min/1.73 sqM) Glucose 99 (74-99) mg/dL Calcium 9.3 (8.4-10.2) mg/dL Total Bilirubin 0.3 (0.2-1.3) mg/dL AST 21 (14-36) U/L ALT 19 (9-52) U/L Alkaline Phosphatase 77 (38-126) U/L Total Protein 6.4 (6.3-8.2) g/dL Albumin 3.7 (3.5-5.0) g/dL Amylase 37 (30-110) U/L Lipase 44 (23-300) U/L Urine Color Urine Appearance (Clear) Urine pH (5.0-8.0) Ur Specific [place] (1.001-1.035) Urine Protein (Negative) Urine Glucose (UA) (Negative) Urine Ketones (Negative) Urine Blood (Negative) Urine Nitrite (Negative) Urine Bilirubin (Negative) Urine Urobilinogen (<2.0) mg/dL Ur Leukocyte Esterase (Negative) Urine RBC (0-5) /hpf Urine WBC (0-5) /hpf Urine HCG, Qual (Not Detectd) 04/15/19 04/15/19 Range/Units 15:27 15:27 WBC (3.8-10.6) k/uL RBC (3.80-5.40) m/uL Hgb (11.4-16.0) gm/dL Hct (34.0-46.0) % MCV (80.0-100.0) fL MCH (25.0-35.0) pg MCHC (31.0-37.0) g/dL RDW (11.5-15.5) % Plt Count (150-450) k/uL Neutrophils % % Lymphocytes % % Monocytes % % Eosinophils % % Basophils % % Neutrophils # (1.3-7.7) k/uL Lymphocytes # (1.0-4.8) k/uL Monocytes # (0-1.0) k/uL Eosinophils # (0-0.7) k/uL Basophils # (0-0.2) k/uL PT (9.0-12.0) sec INR (<1.2) APTT (22.0-30.0) sec Sodium (137-145) mmol/L Potassium (3.5-5.1) mmol/L Chloride (98-107) mmol/L Carbon Dioxide (22-30) mmol/L Anion Gap mmol/L BUN (7-17) mg/dL Creatinine (0.52-1.04) mg/dL Est GFR (CKD-EPI)AfAm (>60 ml/min/1.73 sqM) Est GFR (CKD-EPI)NonAf (>60 ml/min/1.73 sqM) Glucose (74-99) mg/dL Calcium (8.4-10.2) mg/dL Total Bilirubin (0.2-1.3) mg/dL AST (14-36) U/L ALT (9-52) U/L Alkaline Phosphatase (38-126) U/L Total Protein (6.3-8.2) g/dL Albumin (3.5-5.0) g/dL Amylase (30-110) U/L Lipase (23-300) U/L Urine Color Light Red Urine Appearance Clear (Clear) Urine pH 8.0 (5.0-8.0) Ur Specific [place] 1.012 (1.001-1.035) Urine Protein 1+ H (Negative) Urine Glucose (UA) Negative (Negative) Urine Ketones Negative (Negative) Urine Blood Large H (Negative) Urine Nitrite Negative (Negative) Urine Bilirubin Negative (Negative) Urine Urobilinogen <2.0 (<2.0) mg/dL Ur Leukocyte Esterase Trace H (Negative) Urine RBC >182 H (0-5) /hpf Urine WBC 65 H (0-5) /hpf Urine HCG, Qual Not Detected (Not Detectd) - Radiology Data Radiology results: report reviewed CT shows No sign of renal stone or obstruction, negative exam. KUB shows normal bowel gas pattern. Disposition Clinical Impression: UTI (urinary tract infection), Right flank pain Disposition: HOME SELF-CARE Condition: Good Instructions (If sedation given, give patient instructions): Flank Pain (ED) Additional Instructions: Please use medication as discussed. Please follow up with family doctor if symptoms have not improved over the next two days. Please return to the emergency room if your symptoms increase or worsen or for any other concerns. Prescriptions: Cephalexin [Keflex] 500 mg PO Q6H #40 cap HYDROcodone/APAP 5-325MG [[place] 5-325] 1 tab PO Q6HR PRN 3 Days #12 tab PRN Reason: Pain Ketorolac [Toradol] 10 mg PO Q6HR #12 tab Ondansetron Odt [Zofran Odt] 4 mg PO Q8HR PRN #12 tab PRN Reason: Pain Is patient prescribed a controlled substance at d/c from ED?: No Referrals: None,Stated [Primary Care Provider] - 1-[address] MD [STAFF PHYSICIAN] - 1-2 days Time of Disposition: 17:47
[2019-04-15] MEDS ORDERED: cefTRIAXone IN SWFI 1,000 MG/10 ML SYRINGE IVP STA (17:11)
[2019-04-15] MEDS ORDERED: MORPHINE SULFATE 2 MG/ML SYRINGE IVP ONE (17:11)
--- NOTE | 2019-04-15 17:35 | CT ---
EXAMINATION TYPE: CT abdomen pelvis wo con DATE OF EXAM: 04/15/2019 COMPARISON: 11/13/2018 HISTORY: Right sided pain with hematuria. CT DLP: 551.5 mGycm Automated exposure control for dose reduction was used. Multiple axial sections were obtained from the diaphragm to the floor the pelvis with no contrast. Lung bases are clear. There is no pleural effusion. Liver spleen pancreas appear normal. Bile ducts a re not dilated. There is no adrenal mass. Kidneys have normal size and contour. I see no hydronephrosis. Ureters are not dilated. There is no retroperitoneal adenopathy. Bladder is almost empty. There is no inguinal he rnia. Uterus is anteverted. There is no free fluid in the pelvis. There is no mesenteric edema. There is no ascites or free air. Cecum is in the midline pelvis. Append ix is not clearly seen. There is no sign of thickened appendix. There is broad-based umbilical hernia that contains fat and transverse colon. There is no sign of a bowel obstruction. Lumbar vertebra have normal alignment. Disc spaces are fairly normal. Posterior elements are intact. Bony pelvis is intact. IMPRESSION: No evidence of renal stone or obstruction. No sign of appendicitis. Negative exam.
[2019-04-15 18:04] VITALS: BP 112/70; PULSE 76; TEMP 98
== END 2019-04-15 18:10 | disposition home or self-care (01) ==
LOC: EC 13:54
DX: N39.0 Urinary tract infection, site not specified (principal); R11.2 Nausea with vomiting, unspecified; F17.200 Nicotine dependence, unspecified, uncomplicated; Z53.20 Procedure and treatment not carried out because of patient's decision for unspecified reasons
CPT/HCPCS: 99285; 96374; 96375 ×3; 96376; 96361; 36415; 80053; 82150; 83690; 85025; 85610; 81001; 85730; 81025; 87086; 74018; 74176; J2270 ×2; J2405; J0696; J1885

== ENCOUNTER 2019-06-06 10:09 | Emergency (ER) | payer OTHER ==
[2019-06-06 10:29] VITALS: BP 121/72; PULSE 69; TEMP 98.2
[2019-06-06] MEDS ORDERED: MORPHINE SULFATE 4 MG/ML SYRINGE IM STA (11:06)
[2019-06-06] MEDS ORDERED: METOCLOPRAMIDE 5 MG/ML 2 ML VIAL IM STA (11:06)
[2019-06-06] MEDS ORDERED: ACET/COD 300 MG/30 MG STARTER PACK 6 TAB BTL PO STA (11:06)
[2019-06-06 11:10] VITALS: RESP 20
--- NOTE | 2019-06-06 11:16 | ED ---
General Adult HPI - General Chief complaint: Headache Stated complaint: Headache Time Seen by Provider: 06/06/19 10:37 Source: patient, RN notes reviewed Mode of arrival: ambulatory Limitations: no limitations - History of Present Illness Initial comments: Patient is a pleasant 34-year-old female presenting to the emergency Department with complaints of headache. Onset of headache was a day or so ago. Headache is similar to previous migraines. Headache is moderate at this time. Patient states normally she takes Ultram or Tylenol 3 however does not have a primary care physician and requests this. Patient also requests a pain shot. No weakness or confusion. Patient has mild nausea however is not severe and does not want any medicine for this. Patient has had a couple episodes of diarrhea. Patient does have family member also with GI symptoms. Patient refuses IV fluids or blood work and just request pain medicine and discharged. Patient is here with her son who is also being evaluated. - Related Data Home Medications Medication Instructions Recorded Confirmed Acetaminophen Tab [Tylenol Tab] 1,000 mg PO Q6HR PRN 01/26/19 03/14/19 Naproxen Sodium [Aleve] 220 mg PO BID PRN 02/28/19 03/14/19 traMADol HCL [Ultram] 50 mg PO TID PRN 03/14/19 03/14/19 Previous Rx's Medication Instructions Recorded Azithromycin [Zithromax Z-pack] 250 mg PO DIRECTED #6 tab 03/17/19 predniSONE 10 mg PO DAILY #15 tab 03/17/19 Biotin 300 mcg PO DAILY 30 Days #30 tablet 04/03/19 Multivitamin [Multivitamins Adult 1 each PO DAILY 30 Days #30 tablet 04/03/19 Gummies] Cephalexin [Keflex] 500 mg PO Q6H #40 cap 04/15/19 HYDROcodone/APAP 5-325MG [[place] 1 tab PO Q6HR PRN 3 Days #12 tab 04/15/19 5-325] Ketorolac [Toradol] 10 mg PO Q6HR #12 tab 04/15/19 Ondansetron Odt [Zofran Odt] 4 mg PO Q8HR PRN #12 tab 04/15/19 Allergies Allergy/AdvReac Type Severity Reaction Status Date / Time No Known Allergies Allergy Verified 04/03/19 13:07 Review of Systems ROS Statement: Those systems with pertinent positive or pertinent negative responses have been documented in the HPI. ROS Other: All systems not noted in ROS Statement are negative. Constitutional: Denies: fever Eyes: Denies: eye pain ENT: Denies: ear pain Respiratory: Denies: cough Cardiovascular: Denies: chest pain Endocrine: Denies: fatigue Gastrointestinal: Reports: nausea, diarrhea. Denies: abdominal pain Genitourinary: Denies: dysuria Musculoskeletal: Denies: back pain Skin: Denies: rash Neurological: Reports: headache. Denies: weakness, confusion Past Medical History Past Medical History: No Reported History Additional Past Medical History / Comment(s): UMBILCAL HERNIA. MIGRAINES History of Any Multi-Drug Resistant Organisms: ESBL Date of last positivie culture/infection: 11/13/18 MDRO Source:: ESBL URINE Past Surgical History: Section Past Psychological History: No Psychological Hx Reported Smoking Status: Current every day smoker Past Alcohol Use History: Occasional Past Drug Use History: None Reported General Exam Limitations: no limitations General appearance: alert, in no apparent distress Head exam: Present: normocephalic Eye exam: Present: normal appearance, PERRL, EOMI ENT exam: Present: normal oropharynx Neck exam: Present: normal inspection Respiratory exam: Present: normal lung sounds bilaterally Cardiovascular Exam: Present: regular rate, normal rhythm GI/Abdominal exam: Present: soft, hernia (Small umbilical hernia that is easily reduced and nontender). Absent: tenderness Extremities exam: Present: normal inspection Neurological exam: Present: alert, oriented X3, CN II-XII intact. Absent: motor sensory deficit Expanded Neurological exam: Present: protecting the airway Speech: Present: fluid speech Cranial nerves: EOM's Intact: Normal Motor strength exam: RUE: 5, LUE: 5, RLE: 5, LLE: 5 Eye Response: (4) open spontaneously Motor Response: (6) obeys commands Verbal Response: (5) oriented Psychiatric exam: Present: normal affect, normal mood Skin exam: Present: normal color Course Vital Signs 06/06/19 10:25 Temperature 98.2 F Pulse Rate 69 Respiratory 18 Rate Blood Pressure 121/72 O2 Sat by Pulse 100 Oximetry Disposition Clinical Impression: Headache Disposition: HOME SELF-CARE Condition: Stable Instructions (If sedation given, give patient instructions): Migraine Headache (ED) Additional Instructions: Please follow-up with primary care physician in the next couple days for recheck. Return for increased pain, vomiting, weakness, uncontrolled diarrhea, worsening symptoms or other concerns. Is patient prescribed a controlled substance at d/c from ED?: No Referrals: Silvio Juarez [STAFF PHYSICIAN] - 1-2 days Jayson Nunes MD [STAFF PHYSICIAN] - 1-2 days Rae Curiel MD [REFERRING] - 1-2 days Time of Disposition: 11:15
== END 2019-06-06 11:55 | disposition home or self-care (01) ==
LOC: EC 10:09
DX: R51 Headache (principal); R11.0 Nausea; R19.7 Diarrhea, unspecified; K42.9 Umbilical hernia without obstruction or gangrene; F17.200 Nicotine dependence, unspecified, uncomplicated
CPT/HCPCS: 99283; 96372 ×2; J2270; J2765

== ENCOUNTER 2019-10-06 10:50 | Emergency (ER) | payer OTHER ==
[2019-10-06 11:04] VITALS: RESP 16; TEMP 97.8
[2019-10-06] MEDS ORDERED: SODIUM CHLORIDE 0.9% 500 ML 500 ML IV STA (11:04)
--- NOTE | 2019-10-06 11:23 | ED ---
General Adult HPI - General Chief complaint: Abdominal Pain Stated complaint: Abd pain Time Seen by Provider: 10/06/19 10:57 Source: patient, EMS, RN notes reviewed, old records reviewed Mode of arrival: EMS Limitations: no limitations - History of Present Illness Initial comments: 34-year-old female presenting for evaluation of lower abdominal pain and hematuria. Patient states her symptoms have been present for the past 4 days. She states that she has history of kidney stone. She denies significant flank pain. States the pain may be slightly worse on the left than the right. She reports dysuria. No vaginal discharge or vaginal bleeding. She denies current . She states she has had hematuria in the past. Pain is bilateral lower abdominal pain. No fever or chills. No vomiting. No diarrhea, normal bowel movements. - Related Data Home Medications Medication Instructions Recorded Confirmed Acetaminophen Tab [Tylenol Tab] 1,000 mg PO Q6HR PRN 01/26/19 03/14/19 Naproxen Sodium [Aleve] 220 mg PO BID PRN 02/28/19 03/14/19 traMADol HCL [Ultram] 50 mg PO TID PRN 03/14/19 03/14/19 Previous Rx's Medication Instructions Recorded Azithromycin [Zithromax Z-pack] 250 mg PO DIRECTED #6 tab 03/17/19 predniSONE 10 mg PO DAILY #15 tab 03/17/19 Biotin 300 mcg PO DAILY 30 Days #30 tablet 04/03/19 Multivitamin [Multivitamins Adult 1 each PO DAILY 30 Days #30 tablet 04/03/19 Gummies] Cephalexin [Keflex] 500 mg PO Q6H #40 cap 04/15/19 HYDROcodone/APAP 5-325MG [[place] 1 tab PO Q6HR PRN 3 Days #12 tab 04/15/19 5-325] Ketorolac [Toradol] 10 mg PO Q6HR #12 tab 04/15/19 Ondansetron Odt [Zofran Odt] 4 mg PO Q8HR PRN #12 tab 04/15/19 Cephalexin [Keflex] 500 mg PO Q12HR #20 cap 10/06/19 Ibuprofen [Motrin] 600 mg PO Q8HR PRN #24 tab 10/06/19 Allergies Allergy/AdvReac Type Severity Reaction Status Date / Time No Known Allergies Allergy Verified 04/03/19 13:07 Review of Systems ROS Statement: Those systems with pertinent positive or pertinent negative responses have been documented in the HPI. ROS Other: All systems not noted in ROS Statement are negative. Past Medical History Past Medical History: No Reported History Additional Past Medical History / Comment(s): UMBILCAL HERNIA. MIGRAINES History of Any Multi-Drug Resistant Organisms: ESBL Date of last positivie culture/infection: 11/13/18 MDRO Source:: ESBL URINE Past Surgical History: Section Past Psychological History: No Psychological Hx Reported Smoking Status: Current every day smoker Past Alcohol Use History: Occasional Past Drug Use History: None Reported General Exam Limitations: no limitations General appearance: alert, in no apparent distress Head exam: Present: atraumatic, normocephalic Eye exam: Present: normal appearance, PERRL ENT exam: Present: normal exam Neck exam: Present: normal inspection. Absent: tenderness, meningismus Respiratory exam: Present: normal lung sounds bilaterally. Absent: respiratory distress, wheezes Cardiovascular Exam: Present: regular rate, normal rhythm GI/Abdominal exam: Present: soft, tenderness (Mild lower abdominal tenderness). Absent: distended, guarding, rebound Extremities exam: Present: normal inspection, normal capillary refill. Absent: pedal edema, calf tenderness Back exam: Present: normal inspection. Absent: CVA tenderness (R), CVA tenderness (L) Neurological exam: Present: alert, oriented X3, CN II-XII intact. Absent: motor sensory deficit Psychiatric exam: Present: normal affect, normal mood Skin exam: Present: warm, dry, intact. Absent: cyanosis, diaphoretic Course Vital Signs 10/06/19 11:01 Temperature 97.8 F Pulse Rate 76 Respiratory 16 Rate Blood Pressure 121/71 O2 Sat by Pulse 99 Oximetry - Reevaluation(s) Reevaluation #1: 10/06/19 11:22 CT from April 2019, no hydronephrosis, no kidney stone, no significant abnormality. Medical Decision Making - Medical Decision Making 34-year-old female presenting with hematuria, lower abdominal pain. She is well-appearing, stable vitals, minimal tenderness, no rebound or guarding. Urinalysis is consistent with hematuria, concern for possible hemorrhagic cystitis. X-ray negative for obstruction or free air. CT results from April 2019 reviewed, there was no stone or acute findings at that time. I did discuss the findings with the patient and recommended that she follow up with her primary care physician and urologist. She started on antibiotic and given Motrin for pain. - Lab Data Result diagrams: 10/06/19 11:11 10/06/19 11:11 Lab Results 10/06/19 10/06/19 10/06/19 Range/Units 11:11 11:11 11:11 WBC 7.6 (3.8-10.6) k/uL RBC 3.86 (3.80-5.40) m/uL Hgb 11.9 (11.4-16.0) gm/dL Hct 34.2 (34.0-46.0) % MCV 88.4 (80.0-100.0) fL MCH 30.9 (25.0-35.0) pg MCHC 35.0 (31.0-37.0) g/dL RDW 12.6 (11.5-15.5) % Plt Count 369 (150-450) k/uL Neutrophils % 63 % Lymphocytes % 28 % Monocytes % 5 % Eosinophils % 2 % Basophils % 0 % Neutrophils # 4.8 (1.3-7.7) k/uL Lymphocytes # 2.1 (1.0-4.8) k/uL Monocytes # 0.4 (0-1.0) k/uL Eosinophils # 0.2 (0-0.7) k/uL Basophils # 0.0 (0-0.2) k/uL PT (9.0-12.0) sec INR (<1.2) APTT (22.0-30.0) sec Sodium (137-145) mmol/L Potassium (3.5-5.1) mmol/L Chloride (98-107) mmol/L Carbon Dioxide (22-30) mmol/L Anion Gap mmol/L BUN (7-17) mg/dL Creatinine (0.52-1.04) mg/dL Est GFR (CKD-EPI)AfAm (>60 ml/min/1.73 sqM) Est GFR (CKD-EPI)NonAf (>60 ml/min/1.73 sqM) Glucose (74-99) mg/dL Calcium (8.4-10.2) mg/dL Total Bilirubin (0.2-1.3) mg/dL AST (14-36) U/L ALT (4-34) U/L Alkaline Phosphatase (38-126) U/L Total Protein (6.3-8.2) g/dL Albumin (3.5-5.0) g/dL Amylase (30-110) U/L Lipase (23-300) U/L Urine Color Light Red Urine Appearance Clear (Clear) Urine pH 6.5 (5.0-8.0) Ur Specific [place] 1.016 (1.001-1.035) Urine Protein 1+ H (Negative) Urine Glucose (UA) Negative (Negative) Urine Ketones Negative (Negative) Urine Blood Large H (Negative) Urine Nitrite Negative (Negative) Urine Bilirubin Negative (Negative) Urine Urobilinogen <2.0 (<2.0) mg/dL Ur Leukocyte Esterase Moderate H (Negative) Urine RBC >182 H (0-5) /hpf Urine WBC 3 (0-5) /hpf Ur Squamous Epith Cells 2 (0-4) /hpf Urine Bacteria Rare H (None) /hpf Urine HCG, Qual Not Detected (Not Detectd) 10/06/19 10/06/19 Range/Units 11:11 11:11 WBC (3.8-10.6) k/uL RBC (3.80-5.40) m/uL Hgb (11.4-16.0) gm/dL Hct (34.0-46.0) % MCV (80.0-100.0) fL MCH (25.0-35.0) pg MCHC (31.0-37.0) g/dL RDW (11.5-15.5) % Plt Count (150-450) k/uL Neutrophils % % Lymphocytes % % Monocytes % % Eosinophils % % Basophils % % Neutrophils # (1.3-7.7) k/uL Lymphocytes # (1.0-4.8) k/uL Monocytes # (0-1.0) k/uL Eosinophils # (0-0.7) k/uL Basophils # (0-0.2) k/uL PT 10.0 (9.0-12.0) sec INR 1.0 (<1.2) APTT 24.5 (22.0-30.0) sec Sodium 135 L (137-145) mmol/L Potassium 5.2 H (3.5-5.1) mmol/L Chloride 104 (98-107) mmol/L Carbon Dioxide 27 (22-30) mmol/L Anion Gap 4 mmol/L BUN 15 (7-17) mg/dL Creatinine 0.67 (0.52-1.04) mg/dL Est GFR (CKD-EPI)AfAm >90 (>60 ml/min/1.73 sqM) Est GFR (CKD-EPI)NonAf >90 (>60 ml/min/1.73 sqM) Glucose 89 (74-99) mg/dL Calcium 9.1 (8.4-10.2) mg/dL Total Bilirubin 0.7 (0.2-1.3) mg/dL AST 24 (14-36) U/L ALT 15 (4-34) U/L Alkaline Phosphatase 79 (38-126) U/L Total Protein 7.0 (6.3-8.2) g/dL Albumin 4.0 (3.5-5.0) g/dL Amylase 51 (30-110) U/L Lipase 73 (23-300) U/L Urine Color Urine Appearance (Clear) Urine pH (5.0-8.0) Ur Specific [place] (1.001-1.035) Urine Protein (Negative) Urine Glucose (UA) (Negative) Urine Ketones (Negative) Urine Blood (Negative) Urine Nitrite (Negative) Urine Bilirubin (Negative) Urine Urobilinogen (<2.0) mg/dL Ur Leukocyte Esterase (Negative) Urine RBC (0-5) /hpf Urine WBC (0-5) /hpf Ur Squamous Epith Cells (0-4) /hpf Urine Bacteria (None) /hpf Urine HCG, Qual (Not Detectd) Disposition Clinical Impression: Abdominal pain, Hematuria Disposition: HOME SELF-CARE Condition: Good Instructions (If sedation given, give patient instructions): Abdominal Pain (ED), Hematuria (ED) Prescriptions: Cephalexin [Keflex] 500 mg PO Q12HR #20 cap Ibuprofen [Motrin] 600 mg PO Q8HR PRN #24 tab PRN Reason: Pain Is patient prescribed a controlled substance at d/c from ED?: No Referrals: Asael Cardona MD [Primary Care Provider] - 1-2 days Tristan Farah MD [STAFF PHYSICIAN] - 1-2 days Time of Disposition: 12:19
[2019-10-06] MEDS ORDERED: KETOROLAC 30 MG/ML 1 ML VIAL IVP STA (11:26)
--- NOTE | 2019-10-06 11:36 | XR ---
EXAMINATION TYPE: XR KUB DATE OF EXAM: 10/06/2019 Comparison: 04/15/2019 Clinical History: 34-year-old female abdominal pain Findings: Lung bases are clear. No evidence for free intraperitoneal air. No dilated small bowel or air-fluid levels. Scattered mild to moderate stool with air extending distally to the rectum. No suspicious calcifications. Impression: No evidence for free air or bowel obstruction. [id number] stool.
[2019-10-06 11:49] LABS: Partial Thromboplastin Time 24.5 sec (22.0-30.0)
[2019-10-06 11:51] LABS: Basophils % (A) 0 %; Eosinophils # (A) 0.2 k/uL (0-0.7); Eosinophils % (A) 2 %; HCT 34.2 % (34.0-46.0); HGB 11.9 gm/dL (11.4-16.0); Lymphocytes # (A) 2.1 k/uL (1.0-4.8); Lymphocytes % (A) 28 %; MCH 30.9 pg (25.0-35.0); MCV 88.4 fL (80.0-100.0); Mean Platelet Volume 8.1; Monocytes # (A) 0.4 k/uL (0-1.0); Monocytes % (A) 5 %; Neutrophils # (A) 4.8 k/uL (1.3-7.7); Neutrophils % (A) 63 %; Platelet Count 369 k/uL (150-450); RBC 3.86 m/uL (3.80-5.40); RDW 12.6 % (11.5-15.5); WBC 7.6 k/uL (3.8-10.6)
[2019-10-06 11:53] LABS: ALT 15 U/L (4-34); AST 24 U/L (14-36); African American GFR (CKD) >90 (>60 ml/min/1.73 sqM); Alkaline Phosphatase 79 U/L (38-126); Amylase 51 U/L (30-110); Anion Gap 4 mmol/L; Blood Urea Nitrogen 15 mg/dL (7-17); Calcium 9.1 mg/dL (8.4-10.2); Carbon Dioxide 27 mmol/L (22-30); Chloride 104 mmol/L (98-107); Glucose 89 mg/dL (74-99); Non-African American GFR(CKD) >90 (>60 ml/min/1.73 sqM); Potassium 5.2 mmol/L (3.5-5.1); Sodium 135 mmol/L (137-145); Total Bilirubin 0.7 mg/dL (0.2-1.3)
[2019-10-06 11:59] LABS: Appearance,Urine Clear (Clear); Bacteria,Urine Rare /hpf; Bilirubin,Urine Negative (Negative); Blood,Urine Large (Negative); Color,Urine Light Red; Glucose,Urine (UA) Negative (Negative); Ketones,Urine Negative (Negative); Leukocyte Esterase,Urine Moderate (Negative); Nitrite,Urine Negative (Negative); PH, Urine 6.5 (5.0-8.0); Protein,Urine 1+ (Negative); RBC,Urine >182 /hpf (0-5); Specific Gravity,Urine 1.016 (1.001-1.035); Squamous Epithelial Cell,Urine 2 /hpf (0-4); Urobilinogen,Urine <2.0 mg/dL (<2.0); WBC,Urine 3 /hpf (0-5)
[2019-10-06 12:56] VITALS: BP 132/76; PULSE 86
== END 2019-10-06 12:55 | disposition home or self-care (01) ==
LOC: EC 10:50
DX: R10.31 Right lower quadrant pain (principal); R10.32 Left lower quadrant pain; R31.9 Hematuria, unspecified; R30.0 Dysuria; F17.200 Nicotine dependence, unspecified, uncomplicated; Z87.19 Personal history of other diseases of the digestive system; Z87.442 Personal history of urinary calculi
CPT/HCPCS: 36415; 80053; 82150; 83690; 85025; 85610; 85730; 81001; 81025; 74018; 99285; 96374; 96361; J1885

== ENCOUNTER 2020-02-23 16:56 | Emergency (ER) | payer OTHER ==
[2020-02-23 17:21] VITALS: TEMP 98.9
[2020-02-23] MEDS ORDERED: SODIUM CHLORIDE 0.9% 1,000 ML IV ONE (17:28)
[2020-02-23 18:06] LABS: Basophils # (A) 0.1 k/uL (0-0.2); Basophils % (A) 1 %; Eosinophils # (A) 0.3 k/uL (0-0.7); Eosinophils % (A) 3 %; HGB 13.7 gm/dL (11.4-16.0); Lymphocytes # (A) 2.5 k/uL (1.0-4.8); Lymphocytes % (A) 27 %; MCH 31.3 pg (25.0-35.0); MCHC 34.3 g/dL (31.0-37.0); MCV 91.2 fL (80.0-100.0); Mean Platelet Volume 7.2; Monocytes # (A) 0.3 k/uL (0-1.0); Monocytes % (A) 4 %; Neutrophils % (A) 65 %; Platelet Count 337 k/uL (150-450); RBC 4.38 m/uL (3.80-5.40); WBC 9.2 k/uL (3.8-10.6)
[2020-02-23 18:13] LABS: Appearance,Urine Clear (Clear); Bilirubin,Urine Negative (Negative); Blood,Urine Large (Negative); Color,Urine Yellow; Glucose,Urine (UA) Negative (Negative); Ketones,Urine Negative (Negative); Leukocyte Esterase,Urine Moderate (Negative); Mucus,Urine Rare /hpf; Nitrite,Urine Negative (Negative); Potassium 4.7 mmol/L (3.5-5.1); Protein,Urine Trace (Negative); RBC,Urine 88 /hpf (0-5); Specific Gravity,Urine 1.016 (1.001-1.035); Squamous Epithelial Cell,Urine 3 /hpf (0-4); Urobilinogen,Urine <2.0 mg/dL (<2.0); WBC,Urine 21 /hpf (0-5)
[2020-02-23 18:14] LABS: ALT 13 U/L (4-34); AST 23 U/L (14-36); African American GFR (CKD) >90 (>60 ml/min/1.73 sqM); Albumin 4.3 g/dL (3.5-5.0); Alkaline Phosphatase 81 U/L (38-126); Anion Gap 6 mmol/L; Blood Urea Nitrogen 13 mg/dL (7-17); Calcium 9.9 mg/dL (8.4-10.2); Carbon Dioxide 30 mmol/L (22-30); Chloride 102 mmol/L (98-107); Glucose 116 mg/dL (74-99); Non-African American GFR(CKD) >90 (>60 ml/min/1.73 sqM); Sodium 138 mmol/L (137-145); Total Bilirubin 0.3 mg/dL (0.2-1.3); Total Protein 7.2 g/dL (6.3-8.2)
--- NOTE | 2020-02-23 18:27 | ED ---
General Adult HPI - General Chief complaint: Vaginal Bleeding Stated complaint: Poss Miscarriage Time Seen by Provider: 02/23/20 17:28 Source: patient, RN notes reviewed Mode of arrival: ambulatory Limitations: no limitations - History of Present Illness Initial comments: 34-year-old female presents to the emergency room for vaginal bleeding. Patient reports that her periods are irregular. Patient last had a period in December. She reports that today she is having vaginal bleeding 2 days. States it is not heavy but she is concerned she could have been as she did not have a period for a few months. Patient denies any abdominal pain, does admit to mild cramping at times.Patient has no other complaints at this time including shortness of breath, chest pain, abdominal pain, nausea or vomiting, headache, or visual changes. - Related Data Home Medications Medication Instructions Recorded Confirmed Acetaminophen Tab [Tylenol Tab] 1,000 mg PO Q6HR PRN 01/26/19 03/14/19 Naproxen Sodium [Aleve] 220 mg PO BID PRN 02/28/19 03/14/19 traMADol HCL [Ultram] 50 mg PO TID PRN 03/14/19 03/14/19 Previous Rx's Medication Instructions Recorded Azithromycin [Zithromax Z-pack (6 250 mg PO DIRECTED #6 tab 03/17/19 tabs)] predniSONE 10 mg PO DAILY #15 tab 03/17/19 Biotin 300 mcg PO DAILY 30 Days #30 tablet 04/03/19 Multivitamin [Multivitamins Adult 1 each PO DAILY 30 Days #30 tablet 04/03/19 Gummies] Cephalexin [Keflex] 500 mg PO Q6H #40 cap 04/15/19 HYDROcodone/APAP 5-325MG [[place] 1 tab PO Q6HR PRN 3 Days #12 tab 04/15/19 5-325] Ketorolac [Toradol] 10 mg PO Q6HR #12 tab 04/15/19 Ondansetron Odt [Zofran Odt] 4 mg PO Q8HR PRN #12 tab 04/15/19 Cephalexin [Keflex] 500 mg PO Q12HR #20 cap 10/06/19 Ibuprofen [Motrin] 600 mg PO Q8HR PRN #24 tab 10/06/19 Allergies Allergy/AdvReac Type Severity Reaction Status Date / Time No Known Allergies Allergy Verified 02/23/20 17:22 Review of Systems ROS Statement: Those systems with pertinent positive or pertinent negative responses have been documented in the HPI. ROS Other: All systems not noted in ROS Statement are negative. Past Medical History Past Medical History: No Reported History Additional Past Medical History / Comment(s): UMBILCAL HERNIA. MIGRAINES History of Any Multi-Drug Resistant Organisms: ESBL Date of last positivie culture/infection: 11/13/18 MDRO Source:: ESBL URINE Past Surgical History: Section Past Psychological History: No Psychological Hx Reported Smoking Status: Current every day smoker Past Alcohol Use History: Occasional Past Drug Use History: None Reported General Exam Limitations: no limitations General appearance: alert, in no apparent distress Head exam: Present: atraumatic, normocephalic, normal inspection Eye exam: Present: normal appearance, PERRL, EOMI. Absent: scleral icterus, conjunctival injection, periorbital swelling ENT exam: Present: normal exam, mucous membranes moist Neck exam: Present: normal inspection, full ROM. Absent: tenderness, meningismus, lymphadenopathy Respiratory exam: Present: normal lung sounds bilaterally. Absent: respiratory distress, wheezes, rales, rhonchi, stridor Cardiovascular Exam: Present: regular rate, normal rhythm, normal heart sounds. Absent: systolic murmur, diastolic murmur, rubs, gallop, clicks GI/Abdominal exam: Present: soft, normal bowel sounds. Absent: distended, ten derness, guarding, rebound, rigid Course Vital Signs 02/23/20 17:19 Temperature 98.9 F Pulse Rate 97 Respiratory 20 Rate Blood Pressure 132/84 O2 Sat by Pulse 100 Oximetry Medical Decision Making - Medical Decision Making Vitals are stable. CBC is unremarkable. Hemoglobin is 13.7. CMP is unremarkable. Urinalysis does show 8 red blood cells which is likely related to vaginal bleeding. White blood cells likely reflexive of red blood cells. Urine culture pending. Note urinary symptoms. HCG is negative. Patient likely experiencing her menstrual cycle. She will follow up with primary care. She will return here for any worsening symptoms. - Lab Data Result diagrams: 02/23/20 17:34 02/23/20 17:34 Lab Results 02/23/20 02/23/20 02/23/20 Range/Units 17:34 17:34 17:34 WBC 9.2 (3.8-10.6) k/uL RBC 4.38 (3.80-5.40) m/uL Hgb 13.7 (11.4-16.0) gm/dL Hct 40.0 (34.0-46.0) % MCV 91.2 (80.0-100.0) fL MCH 31.3 (25.0-35.0) pg MCHC 34.3 (31.0-37.0) g/dL RDW 12.0 (11.5-15.5) % Plt Count 337 (150-450) k/uL Neutrophils % 65 % Lymphocytes % 27 % Monocytes % 4 % Eosinophils % 3 % Basophils % 1 % Neutrophils # 6.0 (1.3-7.7) k/uL Lymphocytes # 2.5 (1.0-4.8) k/uL Monocytes # 0.3 (0-1.0) k/uL Eosinophils # 0.3 (0-0.7) k/uL Basophils # 0.1 (0-0.2) k/uL Sodium (137-145) mmol/L Potassium (3.5-5.1) mmol/L Chloride (98-107) mmol/L Carbon Dioxide (22-30) mmol/L Anion Gap mmol/L BUN (7-17) mg/dL Creatinine (0.52-1.04) mg/dL Est GFR (CKD-EPI)AfAm (>60 ml/min/1.73 sqM) Est GFR (CKD-EPI)NonAf (>60 ml/min/1.73 sqM) Glucose (74-99) mg/dL Calcium (8.4-10.2) mg/dL Total Bilirubin (0.2-1.3) mg/dL AST (14-36) U/L ALT (4-34) U/L Alkaline Phosphatase (38-126) U/L Total Protein (6.3-8.2) g/dL Albumin (3.5-5.0) g/dL Urine Color Yellow Urine Appearance Clear (Clear) Urine pH 6.0 (5.0-8.0) Ur Specific [place] 1.016 (1.001-1.035) Urine Protein Trace H (Negative) Urine Glucose (UA) Negative (Negative) Urine Ketones Negative (Negative) Urine Blood Large H (Negative) Urine Nitrite Negative (Negative) Urine Bilirubin Negative (Negative) Urine Urobilinogen <2.0 (<2.0) mg/dL Ur Leukocyte Esterase Moderate H (Negative) Urine RBC 88 H (0-5) /hpf Urine WBC 21 H (0-5) /hpf Ur Squamous Epith Cells 3 (0-4) /hpf Urine Mucus Rare H (None) /hpf Urine HCG, Qual Not Detected (Not Detectd) 02/23/20 Range/Units 17:34 WBC (3.8-10.6) k/uL RBC (3.80-5.40) m/uL Hgb (11.4-16.0) gm/dL Hct (34.0-46.0) % MCV (80.0-100.0) fL MCH (25.0-35.0) pg MCHC (31.0-37.0) g/dL RDW (11.5-15.5) % Plt Count (150-450) k/uL Neutrophils % % Lymphocytes % % Monocytes % % Eosinophils % % Basophils % % Neutrophils # (1.3-7.7) k/uL Lymphocytes # (1.0-4.8) k/uL Monocytes # (0-1.0) k/uL Eosinophils # (0-0.7) k/uL Basophils # (0-0.2) k/uL Sodium 138 (137-145) mmol/L Potassium 4.7 (3.5-5.1) mmol/L Chloride 102 (98-107) mmol/L Carbon Dioxide 30 (22-30) mmol/L Anion Gap 6 mmol/L BUN 13 (7-17) mg/dL Creatinine 0.70 (0.52-1.04) mg/dL Est GFR (CKD-EPI)AfAm >90 (>60 ml/min/1.73 sqM) Est GFR (CKD-EPI)NonAf >90 (>60 ml/min/1.73 sqM) Glucose 116 H (74-99) mg/dL Calcium 9.9 (8.4-10.2) mg/dL Total Bilirubin 0.3 (0.2-1.3) mg/dL AST 23 (14-36) U/L ALT 13 (4-34) U/L Alkaline Phosphatase 81 (38-126) U/L Total Protein 7.2 (6.3-8.2) g/dL Albumin 4.3 (3.5-5.0) g/dL Urine Color Urine Appearance (Clear) Urine pH (5.0-8.0) Ur Specific [place] (1.001-1.035) Urine Protein (Negative) Urine Glucose (UA) (Negative) Urine Ketones (Negative) Urine Blood (Negative) Urine Nitrite (Negative) Urine Bilirubin (Negative) Urine Urobilinogen (<2.0) mg/dL Ur Leukocyte Esterase (Negative) Urine RBC (0-5) /hpf Urine WBC (0-5) /hpf Ur Squamous Epith Cells (0-4) /hpf Urine Mucus (None) /hpf Urine HCG, Qual (Not Detectd) Disposition Clinical Impression: Vaginal bleeding Disposition: HOME SELF-CARE Condition: Good Instructions (If sedation given, give patient instructions): Dysmenorrhea (ED) Additional Instructions: Please follow up with primary care in 1-2 days. Please return to the emergency room for any worsening symptoms. Is patient prescribed a controlled substance at d/c from ED?: No Referrals: Rae Curiel MD [REFERRING] - 1-2 days Time of Disposition: 18:27
[2020-02-23 18:41] VITALS: BP 127/65; PULSE 82; RESP 18
== END 2020-02-23 18:35 | disposition home or self-care (01) ==
LOC: EC 16:56
DX: N93.9 Abnormal uterine and vaginal bleeding, unspecified (principal); F17.200 Nicotine dependence, unspecified, uncomplicated
CPT/HCPCS: 36415; 80053; 81001; 81025; 85025; 87077; 87086; 87186; 96360; 99284

== ENCOUNTER 2020-05-22 18:04 | Emergency (ER) | payer OTHER ==
[2020-05-22 18:19] VITALS: RESP 18
[2020-05-22] MEDS ORDERED: SODIUM CHLORIDE 0.9% 1,000 ML IV STA (18:48)
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
[2020-05-22 19:38] LABS: Basophils % (A) 1 %; Eosinophils # (A) 0.1 k/uL (0-0.7); Eosinophils % (A) 2 %; HCT 35.1 % (34.0-46.0); HGB 12.4 gm/dL (11.4-16.0); Lymphocytes # (A) 2.4 k/uL (1.0-4.8); Lymphocytes % (A) 33 %; MCH 31.1 pg (25.0-35.0); MCHC 35.5 g/dL (31.0-37.0); MCV 87.8 fL (80.0-100.0); Monocytes # (A) 0.4 k/uL (0-1.0); Monocytes % (A) 6 %; Neutrophils # (A) 4.1 k/uL (1.3-7.7); Platelet Count 340 k/uL (150-450); WBC 7.2 k/uL (3.8-10.6)
[2020-05-22 19:47] LABS: HCG,Qualitative Serum Not Detected
[2020-05-22 19:48] LABS: ALT 9 U/L (4-34); AST 18 U/L (14-36); African American GFR (CKD) >90 (>60 ml/min/1.73 sqM); Albumin 4.2 g/dL (3.5-5.0); Alkaline Phosphatase 72 U/L (38-126); Anion Gap 8 mmol/L; Blood Urea Nitrogen 17 mg/dL (7-17); Calcium 9.5 mg/dL (8.4-10.2); Carbon Dioxide 25 mmol/L (22-30); Chloride 104 mmol/L (98-107); Glucose 86 mg/dL (74-99); Non-African American GFR(CKD) >90 (>60 ml/min/1.73 sqM); Potassium 4.3 mmol/L (3.5-5.1); Sodium 137 mmol/L (137-145); Total Bilirubin 0.7 mg/dL (0.2-1.3); Total Protein 7.2 g/dL (6.3-8.2)
[2020-05-22 19:59] LABS: Appearance,Urine Turbid (Clear); Bacteria,Urine Many /hpf; Bilirubin,Urine Negative (Negative); Blood,Urine Small (Negative); Color,Urine Yellow; Glucose,Urine (UA) Negative (Negative); Hyaline Casts,Urine 9 /lpf (0-2); Ketones,Urine Negative (Negative); Leukocyte Esterase,Urine Large (Negative); Mucus,Urine Few /hpf; Nitrite,Urine Positive (Negative); Protein,Urine 1+ (Negative); RBC,Urine 10 /hpf (0-5); Specific Gravity,Urine 1.018 (1.001-1.035); Squamous Epithelial Cell,Urine 13 /hpf (0-4); Urobilinogen,Urine <2.0 mg/dL (<2.0); WBC,Urine >182 /hpf (0-5)
[2020-05-22 20:28] LABS: Prothrombin Time 10.5 sec (9.0-12.0)
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
[2020-05-22] MEDS ORDERED: ACET/COD 300 MG/30 MG STARTER PACK 6 TAB BTL PO STA (20:58)
[2020-05-22] MEDS ORDERED: SULFAMETH-TMP DS STARTER PACK 2 TAB BTL PO STA (20:58)
[2020-05-22 21:10] VITALS: BP 107/53; PULSE 79; TEMP 98.7
== END 2020-05-22 21:05 | disposition home or self-care (01) ==
LOC: EC 18:04
DX: S16.1XXA Strain of muscle, fascia and tendon at neck level, initial encounter (principal); R07.81 Pleurodynia; M54.5 Low back pain; N39.0 Urinary tract infection, site not specified; F17.200 Nicotine dependence, unspecified, uncomplicated; V43.52XA Car driver injured in collision with other type car in traffic accident, initial encounter; Y93.89 Activity, other specified; Y92.410 Unspecified street and highway as the place of occurrence of the external cause
CPT/HCPCS: 36415; 80053; 85025; 85610; 85730; 81001; 81025; 84703; 72125; 70450; 71260; 74177; 99284; 96360; Q9967

== ENCOUNTER 2020-05-23 17:04 | Inpatient (IN) | payer MEDICAID, OTHER ==
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
[2020-05-23 19:14] LABS: Amphetamine Screen,Urine Detected (NotDetected); Barbiturate Screen,Urine Not Detected (NotDetected); Benzodiazepines Screen,Urine Not Detected (NotDetected); Cocaine Screen,Urine Not Detected (NotDetected); Methadone Screen, Urine Not Detected (NotDetected); Opiate Screen,Urine Detected (NotDetected); Oxycodone Screen, Urine Not Detected (NotDetected); Phencyclidine Screen,Urine Not Detected (NotDetected); Tricyclic Antidepressant,Urine Not Detected (NotDetected); Urn Cannabinoid Scrn Detected (NotDetected)
[2020-05-23] MEDS ORDERED: LORazepam 2 MG/ML INJ IM STA (19:33)
[2020-05-23] MEDS ORDERED: HALOPERIDOL LACTATE 5 MG/ML 1 ML VIAL IM STA (19:45)
[2020-05-23] MEDS ORDERED: MAGNESIUM HYDROXIDE 2,400 MG/10 ML CUP PO PRN (22:16)
[2020-05-23] MEDS ORDERED: MAG HYDROX/AL HYDROX/SIMETH 30 ML CUP PO PRN (22:16)
[2020-05-23] MEDS ORDERED: LORazepam 2 MG/ML INJ IM PRN (22:21)
[2020-05-23] MEDS ORDERED: HALOPERIDOL LACTATE 5 MG/ML 1 ML VIAL IM PRN (22:24)
--- NOTE | 2020-05-24 00:20 | P.PN ---
Progress Note - Text Progress Note Date: 05/23/20 notified by RN regarding new consult , however patient has bee heavily medicated and inappropriate for evaluation at this time
[2020-05-24 08:10] LABS: Basophils % (A) 1 %; Eosinophils # (A) 0.1 k/uL (0-0.7); Eosinophils % (A) 1 %; HCT 35.9 % (34.0-46.0); HGB 12.6 gm/dL (11.4-16.0); Lymphocytes # (A) 2.3 k/uL (1.0-4.8); Lymphocytes % (A) 27 %; MCH 31.1 pg (25.0-35.0); MCV 88.8 fL (80.0-100.0); Mean Platelet Volume 7.1; Monocytes # (A) 0.4 k/uL (0-1.0); Monocytes % (A) 4 %; Neutrophils # (A) 5.7 k/uL (1.3-7.7); Neutrophils % (A) 66 %; Platelet Count 372 k/uL (150-450); RBC 4.04 m/uL (3.80-5.40); WBC 8.7 k/uL (3.8-10.6)
[2020-05-24 08:29] LABS: ALT 12 U/L (4-34); AST 34 U/L (14-36); African American GFR (CKD) >90 (>60 ml/min/1.73 sqM); Albumin 4.3 g/dL (3.5-5.0); Alkaline Phosphatase 71 U/L (38-126); Anion Gap 7 mmol/L; Blood Urea Nitrogen 13 mg/dL (7-17); Calcium 9.7 mg/dL (8.4-10.2); Carbon Dioxide 27 mmol/L (22-30); Chloride 105 mmol/L (98-107); Cholesterol 200 mg/dL (<200); Glucose 96 mg/dL (74-99); HDL Cholesterol 40 mg/dL (40-60); LDL Cholesterol,Calculated 144 mg/dL (0-99); Non-African American GFR(CKD) >90 (>60 ml/min/1.73 sqM); Potassium 4.2 mmol/L (3.5-5.1); Sodium 139 mmol/L (137-145); Total Protein 7.2 g/dL (6.3-8.2); Triglycerides 78 mg/dL (<150)
[2020-05-24] MEDS: SULFAMETHOX-TMP 800-160MG 1 EACH TAB PO SCH ×2 (08:58→17:31)
[2020-05-24] MEDS: NICOTINE 14MG/24HR PATCH TRANSDERM SCH (08:58)
--- NOTE | 2020-05-24 09:36 | P.HP ---
Psychiatric H&P - . H&P Date: 05/24/20 History & Physical: I attempted to complete remission assessment this morning. She would not get out of bed and answered questions with the statement "I'm okay." She would not talk about the reason for admission, her psychiatric history or other elements of a psychiatric admission assessment. Allergies Allergy/AdvReac Type Severity Reaction Status Date / Time No Known Allergies Allergy Verified 05/23/20 17:15 Vital Signs Temp 97.9 F 05/23/20 23:11 Pulse 112 H 05/23/20 23:11 Resp 18 05/23/20 23:11 BP 109/68 05/23/20 23:11 Pulse Ox 95 05/23/20 23:11 Intake & Output 05/23/20 05/24/20 05/24/20 18:59 06:59 18:59 Weight 72.575 kg Laboratory Last Values WBC 8.7 k/uL (3.8-10.6) 05/24/20 07:15 RBC 4.04 m/uL (3.80-5.40) 05/24/20 07:15 Hgb 12.6 gm/dL (11.4-16.0) 05/24/20 07:15 Hct 35.9 % (34.0-46.0) 05/24/20 07:15 MCV 88.8 fL (80.0-100.0) 05/24/20 07:15 MCH 31.1 pg (25.0-35.0) 05/24/20 07:15 MCHC 35.0 g/dL (31.0-37.0) 05/24/20 07:15 RDW 12.0 % (11.5-15.5) 05/24/20 07:15 Plt Count 372 k/uL (150-450) 05/24/20 07:15 MPV 7.1 05/24/20 07:15 Neutrophils % 66 % 05/24/20 07:15 Lymphocytes % 27 % 05/24/20 07:15 Monocytes % 4 % 05/24/20 07:15 Eosinophils % 1 % 05/24/20 07:15 Basophils % 1 % 05/24/20 07:15 Neutrophils # 5.7 k/uL (1.3-7.7) 05/24/20 07:15 Lymphocytes # 2.3 k/uL (1.0-4.8) 05/24/20 07:15 Monocytes # 0.4 k/uL (0-1.0) 05/24/20 07:15 Eosinophils # 0.1 k/uL (0-0.7) 05/24/20 07:15 Basophils # 0.0 k/uL (0-0.2) 05/24/20 07:15 Sodium 139 mmol/L (137-145) 05/24/20 07:15 Potassium 4.2 mmol/L (3.5-5.1) 05/24/20 07:15 Chloride 105 mmol/L (98-107) 05/24/20 07:15 Carbon Dioxide 27 mmol/L (22-30) 05/24/20 07:15 Anion Gap 7 mmol/L 05/24/20 07:15 BUN 13 mg/dL (7-17) 05/24/20 07:15 Creatinine 0.79 mg/dL (0.52-1.04) 05/24/20 07:15 Est GFR (CKD-EPI)AfAm >90 (>60 ml/min/1.73 sqM) 05/24/20 07:15 Est GFR (CKD-EPI)NonAf >90 (>60 ml/min/1.73 sqM) 05/24/20 07:15 Glucose 96 mg/dL (74-99) 05/24/20 07:15 Calcium 9.7 mg/dL (8.4-10.2) 05/24/20 07:15 Total Bilirubin 1.0 mg/dL (0.2-1.3) 05/24/20 07:15 AST 34 U/L (14-36) 05/24/20 07:15 ALT 12 U/L (4-34) 05/24/20 07:15 Alkaline Phosphatase 71 U/L (38-126) 05/24/20 07:15 Total Protein 7.2 g/dL (6.3-8.2) 05/24/20 07:15 Albumin 4.3 g/dL (3.5-5.0) 05/24/20 07:15 Triglycerides 78 mg/dL (<150) 05/24/20 07:15 Cholesterol 200 mg/dL (<200) H 05/24/20 07:15 LDL Cholesterol, Calc 144 mg/dL (0-99) H 05/24/20 07:15 HDL Cholesterol 40 mg/dL (40-60) 05/24/20 07:15 TSH 1.150 mIU/L (0.465-4.680) 05/24/20 07:15 Urine HCG, Qual Not Detected (Not Detectd) 05/23/20 17:45 Urine Opiates Screen Detected (NotDetected) H 05/23/20 17:45 Ur Oxycodone Screen Not Detected (NotDetected) 05/23/20 17:45 Urine Methadone Screen Not Detected (NotDetected) 05/23/20 17:45 Ur Propoxyphene Screen Not Detected (NotDetected) 05/23/20 17:45 Ur Barbiturates Screen Not Detected (NotDetected) 05/23/20 17:45 U Tricyclic Antidepress Not Detected (NotDetected) 05/23/20 17:45 Ur Phencyclidine Scrn Not Detected (NotDetected) 05/23/20 17:45 Ur Amphetamines Screen Detected (NotDetected) H 05/23/20 17:45 U Methamphetamines Scrn Not Detected (NotDetected) 05/23/20 17:45 U Benzodiazepines Scrn Not Detected (NotDetected) 05/23/20 17:45 Urine Cocaine Screen Not Detected (NotDetected) 05/23/20 17:45 U Marijuana (THC) Screen Detected (NotDetected) H 05/23/20 17:45 Coronavirus (PCR) Not Detected (Not Detectd) 05/23/20 21:12 05/24/20 09:35
[2020-05-24] MEDS: ACETAMINOPHEN TAB 325 MG TAB PO PRN (13:18)
[2020-05-24 14:15] LABS: Hemoglobin A1C 5.3 % (4.0-6.0)
[2020-05-24] MEDS ORDERED: KETOROLAC 15 MG/ML 1 ML VIAL IM STA (15:31)
--- NOTE | 2020-05-24 15:46 | P.MDCNMH ---
History of Present Illness H&P Date: 05/24/20 History of presenting illness Patient is a 34-year-old female with no known reported past medical history. She currently admitted undergoing a psychiatric evaluation. We were consulted on this patient for continued medical management. Pt was assessed at bedside and reported that she believes in the "great awakening" and that "greater mueller are trying to kill me." Patient reports having auditory hallucinations, but denies visual or tactile hallucinations. She denies having any suicidal or homicidal ideations. Patient reports she was seen on 05/22/20 and diagnosed with a UTI and started on Bactrim. Patient reports having a headache, denies any changes in vision or hearing, chest pain or palpitations, shortness of breath, abdominal pain, or experiencing any urinary frequency, urgency, or dysuia. Labs: CBC and BMP unremarkable. Lipid profile revealing a total cholesterol of 200 and an LDL of 144. Urinalysis turbid, positive for protein, blood, nitrites, leukocytes, 10 RBCs and greater than 182 WBCs with moderate WBC clumps. Urine hCG negative for . Urine drug screen positive for opioids, amphetamines, and marijuana. Review of systems Pertinent positives and negatives as discussed in HPI a complete review of systems was performed and all other systems are negative. Physical exam: General: non toxic, no distress, appears at stated age Derm: warm, dry Head: atraumatic, normocephalic, symmetric Eyes: EOMI, no lid lag, anicteric sclera Mouth: no lip lesion, mucus membranes moist Cardiovascular: S1S2 reg, no murmur, positive posterior tibial pulses bilaterally, Lungs: CTA bilateral, no rhonchi, no rales , no accessory muscle use Abdominal: soft, nontender to palpation, no guarding, no appreciable organomegaly Ext: no gross muscle atrophy, no edema, no contractures Neuro: Speech clear Psych: Anxious was paranoid behaviors. Plan of care: Acute psychosis -Patient admitted for psychiatric evaluation presenting with acute psychosis talking about the "great awakening" and that "greater mueller are trying to kill me." Patient reports auditory hallucinations. -UDS was positive for opioids, amphetamines, and marijuana. -Acute psychosis being managed by psychiatry. UTI, uncomplicated -Continue Bactrim [id number] milligrams tablets twice daily x 3 more days. Hyperlipidemia -Lipid profile revealing total cholesterol of 200 and LDL of 144. -Patient being placed on a Cardiac diet and to be encouraged to follow with diet and exercise daily with reevaluation of lipid profile by her PCP in 6 months. CODE STATUS: Full code Home medications reviewed and ordered. A total of 35 minutes was spent in the care of this patient with more than 50% of the time being spent in counseling and care coordination. Past Medical History Past Medical History: No Reported History Additional Past Medical History / Comment(s): UMBILCAL HERNIA. MIGRAINES History of Any Multi-Drug Resistant Organisms: ESBL Date of last positivie culture/infection: 11/13/18 MDRO Source:: ESBL URINE Past Surgical History: Section Past Psychological History: No Psychological Hx Reported Smoking Status: Current every day smoker Past Alcohol Use History: Occasional Past Drug Use History: None Reported Medications and Allergies Home Medications Medication Instructions Recorded Confirmed Type Sulfamethox-Tmp 800-160Mg [Bactrim 1 tab PO BID 05/23/20 05/23/20 History DS 800-160 mg] Allergies Allergy/AdvReac Type Severity Reaction Status Date / Time No Known Allergies Allergy Verified 05/23/20 17:15 Physical Exam Vitals: Vital Signs Temp Pulse Pulse Resp BP BP Pulse Ox 05/24/20 13:21 99 96/61 05/24/20 11:03 98.0 F 05/23/20 23:11 97.9 F 112 H 18 109/68 95 05/23/20 17:11 99.0 F 67 18 110/76 98 Cranial Nerve Examination - Cranial Nerves Cranial Nerve II- Optic: Intact Cranial Nerve III- Oculomotor: Intact Cranial Nerve IV- Trochlear: Intact Cranial Nerve V- Trigeminal: Intact Cranial Nerve - Abducens: Intact Cranial Nerve VII- Facial: Intact Cranial Nerve VIII- Auditory: Intact Cranial Nerve IX- Glossopharyngeal: Intact Cranial Nerve X- Vagus: Intact Cranial Nerve XI- Accessory: Intact Cranial Nerve XII- Hypoglossal: Intact Results CBC & Chem 7: 05/24/20 07:15 05/24/20 07:15 Labs: Abnormal Lab Results - Last 24 Hours (Table) 05/23/20 05/24/20 Range/Units 17:45 07:15 Cholesterol 200 H (<200) mg/dL LDL Cholesterol, Calc 144 H (0-99) mg/dL Urine Opiates Screen Detected H (NotDetected) Ur Amphetamines Screen Detected H (NotDetected) U Marijuana (THC) Screen Detected H (NotDetected)
[2020-05-24] MEDS: LORazepam 1 MG TAB PO PRN (20:52)
[2020-05-25] MEDS: haloperidoL 5 MG TAB PO PRN ×2 (01:04→16:28)
[2020-05-25] MEDS: SULFAMETHOX-TMP 800-160MG 1 EACH TAB PO SCH ×2 (06:29→19:28)
[2020-05-25] MEDS: NICOTINE 14MG/24HR PATCH TRANSDERM SCH (09:42)
[2020-05-25] MEDS: ACETAMINOPHEN TAB 325 MG TAB PO PRN (11:03)
[2020-05-25] MEDS: LORazepam 1 MG TAB PO PRN (11:34)
--- NOTE | 2020-05-25 11:56 | P.PN ---
Progress Note - Text Progress Note Date: 05/25/20 Interval History: Patient was seen lying in her bed this morning and was directable and agreeable to speak with science writer in the office. Patient appeared to have poor hygiene and grooming and appeared to be responding to internal stimuli today. She appeared to attempt to cooperate with the interview today. She was fairly illogical and was religiously preoccupied during conversation. She had loose associations and her thought process. She spoke about "something being wrong" and question teddy cannon if he knew what was going on. When asked why she came to the hospital she was fairly vague and change the subject. She spoke about living in a congregational. She denied using any drugs however her UDS was positive for opiates amphetamines and THC. She claimed that her mood is "fine" and denies any depression or anxiety today. She was agreeable to take medications today. She has poor insight and judgment. At this time patient denies any suicidal or homical ideations, intent or plan. Patient denies any auditory, visual hallucinations. Mental Status Exam: General Appearance: Patient appears to be normal stature, stated age is alert, directable, and responding to internal stimuli. Poor hygiene and grooming. Behavior: Patient is calmly seated without any agitated behavior. Staring around the room. Speech: Patient's speech is fluent and nonpressured. Mood/Affect: Mood is "fine", affect is congruent and constricted. Suicidality/Homicidality: Patient denies having any suicidal or homicidal ideation intent or plan. Perceptions: Patient denies any visual hallucinations and denies any auditory hallucinations Though content/process: Patient is illogical with loose associations. She is religiously preoccupied endorses some paranoia. Bizarre content. Memory and concentration: AOX3, grossly intact for the purposes of this session. Poor attention span. Judgment and insight: Poor Assessment Psychosis unspecified, rule out secondary to substance abuse Cannabis use disorder Opioid use disorder Stimulant abuse Nicotine dependence Plan: -Patient continues to meet criteria for inpatient psychiatric admission for symptom stabilization and safety. Patient has not signed adult voluntary form and medication consent and was placed in patient's chart. -Medications: . Patient is agreeable to start paliperidone 3 mg daily for psychosis today. -When necessary Ativan and Haldol for agitation/aggression. -NRT - nicotine patch -SW on board for discharge planning. Encouraged the patient to participate in milieu. Patient will have deferral with bag repairer today.
[2020-05-25] MEDS: PALIPERIDONE 3 MG TAB.ER.24 PO SCH (14:55)
[2020-05-26] MEDS: SULFAMETHOX-TMP 800-160MG 1 EACH TAB PO SCH ×2 (06:58→17:00)
[2020-05-26] MEDS: LORazepam 1 MG TAB PO PRN ×2 (07:04→21:07)
[2020-05-26] MEDS: PALIPERIDONE 3 MG TAB.ER.24 PO SCH (09:08)
[2020-05-26] MEDS: NICOTINE 14MG/24HR PATCH TRANSDERM SCH (09:08)
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
[2020-05-26] MEDS: ACETAMINOPHEN TAB 325 MG TAB PO PRN (17:00)
[2020-05-27] MEDS: SULFAMETHOX-TMP 800-160MG 1 EACH TAB PO SCH ×2 (06:47→18:08)
[2020-05-27 07:14] VITALS: RESP 16
[2020-05-27] MEDS: PALIPERIDONE 3 MG TAB.ER.24 PO SCH (08:04)
[2020-05-27] MEDS: NICOTINE 14MG/24HR PATCH TRANSDERM SCH (08:04)
[2020-05-27] MEDS: LORazepam 1 MG TAB PO PRN ×2 (12:04→20:02)
--- NOTE | 2020-05-27 15:16 | P.PN ---
Progress Note - Text Progress Note Date: 05/27/20 Clinical Problems: Brief psychotic disorder, rule out substance-induced psychotic disorder, rule out schizophreniform disorder, rule out depressive disorder with psychotic features, rule out amphetamine use disorder, rule out opiate use disorder Interim history: I reviewed the medical record and interviewed the patient. She reported feeling more "upbeat" and confident. She remains focused on discharge. We reviewed the circumstances that led to this hospitalization. She talked about having a spiritual experience that she described as the "great awakening". She felt frightened and thought she was hearing God's voice. She denied that she had similar experiences in the past and experiencing continued auditory hallucinations. We also talked about results of urine drug screen. She alleged that she was taking "pain medications" for tooth problems. Before she left the interview she requested if she can I could provide her with some pain medications. She also admitted to using Adderall although alleging she only used Adderall "a couple times" to stay awake. She became tearful during interview she about her family and her experiences growing up. This discussion was somewhat disjointed and difficult to follow. Gen. team was that she felt as though she was misjudged and unloved. Mental status exam: She presented as a thin casually groomed [id number] female who looked younger than her stated age. She made eye contact and attended the interview. She had a sad facial expression. She showed no abnormality of psychomotor activity. Gait was slow but steady. Her speech was spontaneous with normal rate and rhythm. Her affect was depressed. She denied suicidal ideation, wishes homicidal ideation. She was feelings of helplessness but denied hopelessness or worthlessness. She ruminated about dental problems and dental pain. She did not express paranoid ideation or delusions. Her thinking was concrete. Associations were coherent and logical. She denied current hallucinations and did not appear to be responding to internal stimuli. Assessment: I am still concerned that the psychotic experiences may be related to abuse of opiates and/or psychostimulants. Overall, she is moderately mentally ill and much improved from admission. Plan: Continue inpatient treatment. Safety precautions. Continue Invega 3 mg daily. Haldol and/or Ativan for anxiety, agitation or aggression. Encourage participation in therapeutic groups and activities. Evaluate clinical status response to treatment daily basis.
[2020-05-27 17:21] LABS: Appearance,Urine Cloudy (Clear); Bacteria,Urine Rare /hpf; Bilirubin,Urine Negative (Negative); Blood,Urine Large (Negative); Color,Urine Yellow; Glucose,Urine (UA) Negative (Negative); Ketones,Urine Negative (Negative); Leukocyte Esterase,Urine Large (Negative); Mucus,Urine Occasional /hpf; Nitrite,Urine Negative (Negative); Protein,Urine Trace (Negative); RBC,Urine 5 /hpf (0-5); Specific Gravity,Urine 1.018 (1.001-1.035); Squamous Epithelial Cell,Urine 3 /hpf (0-4); WBC,Urine 49 /hpf (0-5)
[2020-05-27] MEDS: ACETAMINOPHEN TAB 325 MG TAB PO PRN (18:09)
[2020-05-28] MEDS: SULFAMETHOX-TMP 800-160MG 1 EACH TAB PO SCH (08:18)
[2020-05-28] MEDS: PALIPERIDONE 3 MG TAB.ER.24 PO SCH (08:18)
[2020-05-28] MEDS: NICOTINE 14MG/24HR PATCH TRANSDERM SCH (08:18)
[2020-05-28] MEDS: ACETAMINOPHEN TAB 325 MG TAB PO PRN (11:00)
--- NOTE | 2020-05-28 11:01 | P.PN ---
Progress Note - Text Progress Note Date: 05/28/20 Clinical Problems: Brief psychotic disorder, rule out substance-induced psychotic disorder, rule out schizophreniform disorder, rule out depressive disorder with psychotic features, rule out amphetamine use disorder, rule out opiate use disorder Interim history: I reviewed the medical record, interviewed the patient and discussed her treatment and treatment plan during team meeting. She continues dependent or substance use or substance use problems. She superficially acknowledges that the symptoms that brought of the hospitalization may be due to using the opiate pain medications and Adderall. She denies problems or concerns other than discharge. She denied feeling depressed or having thoughts of or suicide. She denied experiencing auditory, visual or olfactory hallucinations. She slept 7 hours last night. She attends therapeutic groups and activities. Mental status exam: She presented as a thin casually groomed -[place] woman who looked younger than her stated age. She made eye contact and attended the interview. She had a bright facial expression. She showed no abnormality of psychomotor activity. Gait was slow but steady. Her speech was spontaneous with normal rate and rhythm. Her affect was bright, stable and appropriate. She denied suicidal ideation, wishes homicidal ideation. She was feelings of helplessness but denied hopelessness or worthlessness. She did not express paranoid ideation or delusions. Her thinking was abstract and her associations were coherent and logical. She denied current hallucinations and did not appear to be responding to internal stimuli. Assessment: She's been mentally ill is much improved from admission. She continues to minimize her substance use and the relationship between the use and her presentation to the psychiatric unit. Plan: Plan for discharge on 05/29/2020. Safety precautions. Continue Invega 3 mg daily. Haldol and/or Ativan for anxiety, agitation or aggression. Encourage participation in therapeutic groups and activities. Evaluate clinical status response to treatment daily basis.
[2020-05-28] MEDS: LORazepam 1 MG TAB PO PRN ×2 (11:21→19:09)
[2020-05-28] MEDS ORDERED: IBUPROFEN 600 MG TAB PO PRN (12:31)
[2020-05-28 18:57] VITALS: TEMP 97.1
[2020-05-29] MEDS ORDERED: MELATONIN 5 MG TABLET PO SCH (01:30)
[2020-05-29] MEDS ORDERED: MELATONIN 5 MG TABLET PO PRN (02:28)
[2020-05-29 06:29] VITALS: PULSE 67
[2020-05-29 07:03] VITALS: BP 97/66
[2020-05-29] MEDS: NICOTINE 14MG/24HR PATCH TRANSDERM SCH (07:40)
[2020-05-29] MEDS: PALIPERIDONE 3 MG TAB.ER.24 PO SCH (07:40)
[2020-05-29] MEDS ORDERED: LORazepam 0.5 MG TAB PO PRN (08:41)
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
== END 2020-05-29 10:51 | disposition home or self-care (01) | DRG 897 ==
LOC: EC 17:04 → 3MHU 22:11
PROVIDERS: ADMIT Psychiatry & Neurology Psychiatry; ATTEND Psychiatry & Neurology Psychiatry
DX: F15.259 Other stimulant dependence with stimulant-induced psychotic disorder, unspecified (principal); R45.851 Suicidal ideations; E78.5 Hyperlipidemia, unspecified; F11.10 Opioid abuse, uncomplicated; F17.200 Nicotine dependence, unspecified, uncomplicated; Z56.0 Unemployment, unspecified; Z59.0 Homelessness; Z20.822 Contact with and (suspected) exposure to COVID-19
CPT/HCPCS: 80053; 80061; 80306; 81001; 81025; 82075; 83036; 84443; 85025; 87635; 96372; 99285

== ENCOUNTER 2020-06-13 13:53 | Emergency (ER) | payer OTHER ==
[2020-06-13 14:10] VITALS: BP 123/84; PULSE 65; RESP 16; TEMP 98.5
[2020-06-13] MEDS ORDERED: ACET/COD 300 MG/30 MG STARTER PACK 6 TAB BTL PO STA (14:25)
[2020-06-13] MEDS ORDERED: diphenhydrAMINE 50 MG CAP PO STA (14:25)
[2020-06-13] MEDS ORDERED: ONDANSETRON 4 MG ODT STARTER PACK 2 TAB BTL PO STA (14:25)
[2020-06-13] MEDS ORDERED: KETOROLAC 15 MG/ML 1 ML VIAL IM STA (14:25)
[2020-06-13] MEDS ORDERED: diphenhydrAMINE 25 MG CAP PO STA (14:43)
--- NOTE | 2020-06-13 14:49 | ED ---
Headache HPI - General Chief Complaint: Headache Stated Complaint: Headache/neck and back pain Time Seen by Provider: 06/13/20 14:15 Mode of arrival: ambulatory Limitations: no limitations - History of Present Illness Initial Comments: 35-year-old feel presented for chronic and daily headache neck pain and back pain. Patient states everyday she has headaches or neck pain and back pain she states some days are worse than others and she isn't presents to ER. Patient states this is not the worst headache of her life she's had much worse she denies sudden onset states this lasted for the past few days. Dull aching all over her head. She denies any vomiting fevers she states her neck isn't stiff just painful without new characteristics. Patient denies any new falls trauma or injuries. Does adequate hydration therapy she denies any history of aneurysms. Patient denies any weakness sensation deficits vision loss diplopia or dizziness facial asymmetry or speech changes. Patient states that she is working getting a primary care provider for treatment patient is no additional complaints upon arrival she appears well nontoxic - Related Data Previous Rx's Medication Instructions Recorded Melatonin 5 mg PO HS PRN #30 tablet 05/29/20 Nicotine 14Mg/24Hr Patch [Habitrol] 1 patch TRANSDERM DAILY patch 05/29/20 Nicotine 14Mg/24Hr Patch [Habitrol] 1 patch TRANSDERM DAILY #28 patch 05/29/20 Paliperidone [Invega] 3 mg PO DAILY #30 tab.er.24 05/29/20 Allergies Allergy/AdvReac Type Severity Reaction Status Date / Time No Known Allergies Allergy Verified 06/13/20 14:10 Review of Systems ROS Statement: Those systems with pertinent positive or pertinent negative responses have been documented in the HPI. ROS Other: All systems not noted in ROS Statement are negative. Past Medical History Past Medical History: No Reported History Additional Past Medical History / Comment(s): UMBILCAL HERNIA. MIGRAINES History of Any Multi-Drug Resistant Organisms: ESBL Date of last positivie culture/infection: 11/13/18 MDRO Source:: ESBL URINE Past Surgical History: Section Past Psychological History: No Psychological Hx Reported Smoking Status: Former smoker Past Alcohol Use History: Occasional Past Drug Use History: None Reported General Exam - General Exam Comments Initial Comments: General: The patient is awake and alert, in no distress Eye: +3 mm pupils are equal, round and reactive to light, extra-ocular movements are intact. No nystagmus. There is normal conjunctiva bilaterally. No signs of icterus. Ears, nose, mouth and throat: There are moist mucous membranes and no oral lesions. Neck: The neck is supple, there is no tenderness or JVD. Cardiovascular: There is a regular rate and rhythm. No murmur, rub or gallop is appreciated. Respiratory: Lungs are clear to auscultation, respirations are non-labored, breath sounds are equal. No wheezes, stridor, rales, or rhonchi. Musculoskeletal: Normal ROM, no tenderness. Strength 5/5. Sensation intact. Radial and DP pulses equal bilaterally 2+. Neurological: A&O x 3. CN II-XII intact, memory intact to immediately, int [facility] recall. Able to follow simple verbal. Able to name a common object (flashlight). High quality, labial (pa) and lingual (la) speech. Low quality posterior pharynx/larynx (ga) voice sounds. Able to express general knowledge (days in a week). No hemineglect or inattention noted. Finger agnosia (-) and spatially oriented (identified L index finger touched R shoulder with L index finger).Light touch sensation present over the face, chest, abdomen, back, UE bilaterally, and LE bilaterally. Able to localize point during point localization b/l and extinction. No visible bulk atrophy, hypertrophy, fasciculations, or myoclonus of the UE or LE b/l. Full PROM in UE and LE b/l. Bilateral muscle strength 5/5 for the following muscles: deltoid, biceps, triceps, brachioradialis, wrist extensors/flexor, hip flexor, hip abductors/adductors, hamstrings, quadriceps, feet dorsiflexors/plantar flexors. Finger to nose, finger to the examiners finger, and heel to ansari coordinated and accurate b/l. Coordinated and even demonstration of hand flip, finger to thumb, and toe tap b/l. Gait is coordinated and even in stride.(-) pronator drift. No nuchal rigidity. (-) Brudzinskis and Kernig signs. Skin: Skin is warm and dry and no rashes or lesions are noted. Psychiatric: Cooperative, appropriate mood & affect, normal judgment. Limitations: no limitations Course Vital Signs 06/13/20 14:08 Temperature 98.5 F Pulse Rate 65 Respiratory 16 Rate Blood Pressure 123/84 O2 Sat by Pulse 100 Oximetry Medical Decision Making - Medical Decision Making patient has chronic back pain neck pain and headaches. Denies any significant acute changes states the same characteristic she states sometimes my left long she comes to the ER. Patient is no focalized neurological deficits. She is afebrile. Patient symptomatically treated she is requesting discharge. Patient was discharged appearing well and provided neurology consultation given that she states she has headaches every day. Disposition Clinical Impression: Chronic headache, Chronic back pain, Chronic neck pain Disposition: HOME SELF-CARE Condition: Good Instructions (If sedation given, give patient instructions): Acute Headache (ED) Additional Instructions: Please use medication as discussed. Please follow-up with family doctor in the next 2 days, recommend outpatient neurology follow-up for daily headaches. Please return to emergency room if the symptoms increase or worsen or for any other concerns. Is patient prescribed a controlled substance at d/c from ED?: No Referrals: None,Stated [Primary Care Provider] - 1-2 days Mustapha Herrera MD [REFERRING] - 1-2 days [facility] [NON-STAFF] - 1-2 days Time of Disposition: 14:48
== END 2020-06-13 14:56 | disposition home or self-care (01) ==
LOC: EC 13:53
DX: G89.29 Other chronic pain (principal); R51.9 Headache, unspecified; M54.2 Cervicalgia; M54.9 Dorsalgia, unspecified; Z87.891 Personal history of nicotine dependence
CPT/HCPCS: 99283; 96372; J1885; S0119

== ENCOUNTER 2020-06-15 01:38 | Emergency (ER) | payer OTHER ==
[2020-06-15 01:48] VITALS: RESP 18
[2020-06-15] MEDS ORDERED: KETOROLAC 15 MG/ML 1 ML VIAL IVP STA (02:07)
[2020-06-15] MEDS ORDERED: diphenhydrAMINE 50 MG/ML 1 ML VIAL IVP STA (02:07)
[2020-06-15] MEDS ORDERED: SODIUM CHLORIDE 0.9% 1,000 ML IV ONE (02:07)
--- NOTE | 2020-06-15 03:21 | ED ---
Headache HPI - General Chief Complaint: Headache Stated Complaint: Headache Time Seen by Provider: 06/15/20 01:41 Mode of arrival: ambulatory Limitations: no limitations - History of Present Illness Initial Comments: This patient is 35-year-old woman who presents with complaint that she has had a recurrence of migraine headache. She states that she has chronic history of migraine headaches and that this one is similar to usual. She states that she believes is because [facility] the other one and they're will not give her any peace or quiet. When further questioned, the patient states that. She feels somewhat down but not depressed and she is not having any suicidal ideation. MD Complaint: headache -: hour(s) Onset Description: gradual Location: right, left, frontal Severity: moderate Quality: aching, similar to previous headaches Consistency: constant Improves With: nothing Worsens With: none Context: occurred at rest Associated Symptoms: photophobia, sensitivity to sound Treatments Prior to Arrival: none - Related Data Previous Rx's Medication Instructions Recorded Melatonin 5 mg PO HS PRN #30 tablet 05/29/20 Nicotine 14Mg/24Hr Patch [Habitrol] 1 patch TRANSDERM DAILY patch 05/29/20 Nicotine 14Mg/24Hr Patch [Habitrol] 1 patch TRANSDERM DAILY #28 patch 05/29/20 Paliperidone [Invega] 3 mg PO DAILY #30 tab.er.24 05/29/20 Allergies Allergy/AdvReac Type Severity Reaction Status Date / Time No Known Allergies Allergy Verified 06/15/20 01:44 Review of Systems ROS Statement: Those systems with pertinent positive or pertinent negative responses have been documented in the HPI. ROS Other: All systems not noted in ROS Statement are negative. Constitutional: Denies: fever, chills, weakness Eyes: Denies: eye pain, vision change ENT: Denies: congestion Respiratory: Denies: cough Cardiovascular: Denies: chest pain, syncope Gastrointestinal: Denies: abdominal pain, nausea, vomiting Musculoskeletal: Denies: back pain Skin: Denies: rash Neurological: Reports: as per HPI, headache. Denies: weakness, numbness, paresthesias, confusion, abnormal gait Psychiatric: Denies: depression, auditory hallucinations, homicidal thoughts, suicidal thoughts Past Medical History Past Medical History: No Reported History Additional Past Medical History / Comment(s): UMBILCAL HERNIA. MIGRAINES History of Any Multi-Drug Resistant Organisms: ESBL Date of last positivie culture/infection: 11/13/18 MDRO Source:: ESBL URINE Past Surgical History: Section Past Psychological History: No Psychological Hx Reported Smoking Status: Former smoker, Never smoker, Smoker, current status unknown Past Alcohol Use History: None Reported Past Drug Use History: None Reported, Marijuana General Exam Limitations: no limitations General appearance: alert, in no apparent distress, anxious Head exam: Present: atraumatic, normocephalic Eye exam: Present: normal appearance, PERRL, EOMI. Absent: scleral icterus, conjunctival injection, nystagmus ENT exam: Present: normal oropharynx Neck exam: Present: normal inspection, full ROM. Absent: tenderness, meningismus Respiratory exam: Present: normal lung sounds bilaterally. Absent: respiratory distress, wheezes, rales, rhonchi, stridor Cardiovascular Exam: Present: regular rate, normal rhythm, normal heart sounds. Absent: systolic murmur, diastolic murmur, rubs, gallop Extremities exam: Present: normal inspection, normal capillary refill Neurological exam: Present: alert, oriented X3, CN II-XII intact. Absent: motor sensory deficit Skin exam: Present: warm, dry, intact, normal color. Absent: rash Course Vital Signs 06/15/20 06/15/20 01:44 03:40 Temperature 98.0 F 98.4 F Pulse Rate 92 68 Respiratory 18 18 Rate Blood Pressure 130/87 109/68 O2 Sat by Pulse 100 100 Oximetry Disposition Clinical Impression: Chronic headache Disposition: HOME SELF-CARE Condition: Good Instructions (If sedation given, give patient instructions): Migraine Headache (ED) Is patient prescribed a controlled substance at d/c from ED?: No Referrals: None,Stated [Primary Care Provider] - 1-2 days Tiffany Herrera MD [REFERRING] - 1-2 days
[2020-06-15 03:42] VITALS: BP 109/68; PULSE 68; TEMP 98.4
== END 2020-06-15 03:42 | disposition home or self-care (01) ==
LOC: EC 01:38
DX: G43.909 Migraine, unspecified, not intractable, without status migrainosus (principal); Z87.891 Personal history of nicotine dependence
CPT/HCPCS: 99283; 96374; 96375; 96361; J1200; J1885

== ENCOUNTER 2020-06-16 22:45 | Inpatient (IN) | payer MEDICAID, OTHER ==
[2020-06-16] MEDS ORDERED: Acetaminophen-Codeine 300-30mg TAB PO STA (23:11)
[2020-06-17 00:19] LABS: Amphetamine Screen,Urine Not Detected (NotDetected); Barbiturate Screen,Urine Not Detected (NotDetected); Benzodiazepines Screen,Urine Not Detected (NotDetected); Cocaine Screen,Urine Not Detected (NotDetected); Methadone Screen, Urine Not Detected (NotDetected); Opiate Screen,Urine Not Detected (NotDetected); Oxycodone Screen, Urine Not Detected (NotDetected); Phencyclidine Screen,Urine Not Detected (NotDetected); Tricyclic Antidepressant,Urine Not Detected (NotDetected); Urn Cannabinoid Scrn Detected (NotDetected)
[2020-06-17] MEDS ORDERED: LORazepam 2 MG/ML INJ IM STA (00:31)
--- NOTE | 2020-06-17 01:47 | ED ---
Psych HPI - General Chief Complaint: Psychiatric Symptoms Stated Complaint: Mental Health Time Seen by Provider: 06/16/20 22:54 Source: EMS Mode of arrival: EMS - History of Present Illness Initial Comments: 35-year-old female patient presents to the emergency department today with suicidal ideation. Patient is very anxious states she is afraid she is going to hurt herself. Patient states she believes someone is "out to get her". Patient states she has had suicidal thoughts in the past but never acted upon them. Denies any specific plan to take her life. States that she used to get Invega shots from [facility], but has not received one in a while. Patient denies any auditory or visual hallucinations. Denies any drug use or alcohol use. [facility] Denies any current physical symptoms or concerns. Denies chance of . - Related Data Previous Rx's Medication Instructions Recorded Melatonin 5 mg PO HS PRN #30 tablet 05/29/20 Nicotine 14Mg/24Hr Patch [Habitrol] 1 patch TRANSDERM DAILY patch 05/29/20 Nicotine 14Mg/24Hr Patch [Habitrol] 1 patch TRANSDERM DAILY #28 patch 05/29/20 Paliperidone [Invega] 3 mg PO DAILY #30 tab.er.24 05/29/20 Allergies Allergy/AdvReac Type Severity Reaction Status Date / Time No Known Allergies Allergy Verified 06/16/20 22:59 Review of Systems ROS Statement: Those systems with pertinent positive or pertinent negative responses have been documented in the HPI. ROS Other: All systems not noted in ROS Statement are negative. Past Medical History Past Medical History: No Reported History Additional Past Medical History / Comment(s): UMBILCAL HERNIA. MIGRAINES History of Any Multi-Drug Resistant Organisms: ESBL Date of last positivie culture/infection: 11/13/18 MDRO Source:: ESBL URINE Past Surgical History: Section Past Psychological History: No Psychological Hx Reported Smoking Status: Former smoker, Never smoker, Smoker, current status unknown Past Alcohol Use History: Occasional Past Drug Use History: None Reported, Marijuana General Exam Limitations: no limitations General appearance: alert, in no apparent distress, other (this is a well- developed, well-nourished adult female patient who seems to be anxious. ) Eye exam: Present: normal appearance, PERRL, EOMI. Absent: scleral icterus, conjunctival injection, periorbital swelling ENT exam: Present: normal exam, normal oropharynx, mucous membranes moist Respiratory exam: Present: normal lung sounds bilaterally. Absent: respiratory distress, wheezes, rales, rhonchi, stridor Cardiovascular Exam: Present: regular rate, normal rhythm, normal heart sounds. Absent: systolic murmur, diastolic murmur, rubs, gallop, clicks GI/Abdominal exam: Present: soft, normal bowel sounds. Absent: distended, tenderness, guarding, rebound, rigid Neurological exam: Present: alert, oriented X3, CN II-XII intact Psychiatric exam: Present: anxious, suicidal ideation. Absent: homicidal ideation Skin exam: Present: warm, dry, intact, normal color. Absent: rash Course Vital Signs 06/16/20 22:56 Temperature 98.5 F Pulse Rate 68 Respiratory 18 Rate Blood Pressure 94/59 O2 Sat by Pulse 98 Oximetry Medical Decision Making - Medical Decision Making 35 year-old female patient presents to the emergency department reporting suicidal ideation and increased anxiety. She was cleared medically and evaluated by emergency psychiatric services. It is felt she doesn't meet inpatient criteria at this time she'll be transferred to the mental health unit. Case discussed with my attending Dr. Peacock. - Lab Data Lab Results 06/16/20 06/16/20 Range/Units 23:25 23:25 Urine HCG, Qual Not Detected (Not Detectd) Urine Opiates Screen Not Detected (NotDetected) Ur Oxycodone Screen Not Detected (NotDetected) Urine Methadone Screen Not Detected (NotDetected) Ur Propoxyphene Screen Not Detected (NotDetected) Ur Barbiturates Screen Not Detected (NotDetected) U Tricyclic Antidepress Not Detected (NotDetected) Ur Phencyclidine Scrn Not Detected (NotDetected) Ur Amphetamines Screen Not Detected (NotDetected) U Methamphetamines Scrn Not Detected (NotDetected) U Benzodiazepines Scrn Not Detected (NotDetected) Urine Cocaine Screen Not Detected (NotDetected) U Marijuana (THC) Screen Detected H (NotDetected) Disposition Clinical Impression: Suicidal ideation, Anxiety Disposition: TRANSFER TO PSYCH HOSP/UNIT Condition: Serious Referrals: None,Stated [Primary Care Provider] - 1-2 days - Out of Hospital Transfer - Req. Specs Out of Hospital Transfer - Requested Specifics: Psychiatric Non-ICU ([facility])
[2020-06-17] MEDS ORDERED: MAG HYDROX/AL HYDROX/SIMETH 30 ML CUP PO PRN (02:44)
[2020-06-17] MEDS ORDERED: ACETAMINOPHEN TAB 325 MG TAB PO PRN (02:44)
[2020-06-17] MEDS ORDERED: MAGNESIUM HYDROXIDE 2,400 MG/10 ML CUP PO PRN (02:44)
[2020-06-17] MEDS ORDERED: HALOPERIDOL LACTATE 5 MG/ML 1 ML VIAL IM PRN (02:48)
[2020-06-17] MEDS ORDERED: LORazepam 2 MG/ML INJ IM PRN (02:48)
[2020-06-17] MEDS: haloperidoL 5 MG TAB PO PRN ×2 (03:22→20:47)
[2020-06-17 06:45] LABS: Basophils % (A) 1 %; Eosinophils % (A) 1 %; HCT 33.4 % (34.0-46.0); HGB 11.6 gm/dL (11.4-16.0); Lymphocytes % (A) 29 %; MCHC 34.6 g/dL (31.0-37.0); MCV 89.7 fL (80.0-100.0); Monocytes # (A) 0.3 k/uL (0-1.0); Monocytes % (A) 5 %; Neutrophils # (A) 4.6 k/uL (1.3-7.7); Neutrophils % (A) 65 %; Platelet Count 335 k/uL (150-450); RBC 3.73 m/uL (3.80-5.40); RDW 11.9 % (11.5-15.5)
[2020-06-17 08:10] LABS: ALT 11 U/L (4-34); AST 20 U/L (14-36); African American GFR (CKD) >90 (>60 ml/min/1.73 sqM); Albumin 3.8 g/dL (3.5-5.0); Alkaline Phosphatase 61 U/L (38-126); Anion Gap 5 mmol/L; Blood Urea Nitrogen 8 mg/dL (7-17); Calcium 9.4 mg/dL (8.4-10.2); Carbon Dioxide 29 mmol/L (22-30); Chloride 102 mmol/L (98-107); Cholesterol 167 mg/dL (<200); Glucose 92 mg/dL (74-99); HDL Cholesterol 55 mg/dL (40-60); LDL Cholesterol,Calculated 100 mg/dL (0-99); Non-African American GFR(CKD) >90 (>60 ml/min/1.73 sqM); Potassium 4.3 mmol/L (3.5-5.1); Sodium 136 mmol/L (137-145); Total Bilirubin 0.5 mg/dL (0.2-1.3); Total Protein 6.5 g/dL (6.3-8.2); Triglycerides 59 mg/dL (<150)
[2020-06-17] MEDS: NICOTINE 14MG/24HR PATCH TRANSDERM SCH ×2 (10:12→13:25)
[2020-06-17] MEDS ORDERED: ACETAMINOPHEN TAB 500 MG TAB PO PRN (10:34)
[2020-06-17] MEDS: PALIPERIDONE 6 MG TAB.ER.24 PO SCH (11:26)
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
[2020-06-17 14:15] LABS: Hemoglobin A1C 5.4 % (4.0-6.0)
[2020-06-17] MEDS: LORazepam 1 MG TAB PO PRN (17:53)
[2020-06-17 21:02] LABS: Appearance,Urine Clear (Clear); Bilirubin,Urine Negative (Negative); Blood,Urine Negative (Negative); Color,Urine Yellow; Glucose,Urine (UA) Negative (Negative); Ketones,Urine Negative (Negative); Leukocyte Esterase,Urine Moderate (Negative); Mucus,Urine Occasional /hpf; Nitrite,Urine Negative (Negative); Protein,Urine Negative (Negative); RBC,Urine 1 /hpf (0-5); Squamous Epithelial Cell,Urine 1 /hpf (0-4); Urobilinogen,Urine <2.0 mg/dL (<2.0); WBC,Urine 15 /hpf (0-5)
[2020-06-18] MEDS ORDERED: NAPROXEN 250 MG TAB PO STA (01:18)
[2020-06-18] MEDS ORDERED: SUMAtriptan succinate 25 MG TAB PO STA (01:18)
--- NOTE | 2020-06-18 01:35 | P.MDCNMH ---
History of Present Illness H&P Date: 06/17/20 Chief Complaint: medical evaluation 35 year old female patient comes in due to suicidal ideation and paranoid thoughts. patient claims that she is compliant with her meds, she gets invega shots. patient complaining of headache, she has history of migraine , right sided, throbbing headache. no nausea or vomiting, claims to have photophobia but denies any hallucinations. she denies any fever, chills, URI symptoms, GI changes she is requesting norco or tylenol #3 for her headache Review of Systems Pertinent positives as noted in HPI. All other systems were reviewed and are negative Past Medical History Past Medical History: No Reported History Additional Past Medical History / Comment(s): UMBILCAL HERNIA. MIGRAINES History of Any Multi-Drug Resistant Organisms: ESBL Date of last positivie culture/infection: 11/13/18 MDRO Source:: ESBL URINE Past Surgical History: Section Past Psychological History: No Psychological Hx Reported Smoking Status: Former smoker, Never smoker, Smoker, current status unknown Past Alcohol Use History: Occasional Past Drug Use History: None Reported, Marijuana - Past Family History family Family Medical History: No Reported History Medications and Allergies Home Medications Medication Instructions Recorded Confirmed Type Melatonin 5 mg PO HS PRN #30 tablet 05/29/20 06/17/20 Rx Nicotine 14Mg/24Hr Patch [Habitrol] 1 patch TRANSDERM DAILY patch 05/29/20 Rx Nicotine 14Mg/24Hr Patch [Habitrol] 1 patch TRANSDERM DAILY #28 patch 05/29/20 06/17/20 Rx Paliperidone [Invega] 3 mg PO DAILY #30 tab.er.24 05/29/20 06/17/20 Rx Allergies Allergy/AdvReac Type Severity Reaction Status Date / Time No Known Allergies Allergy Verified 06/17/20 03:45 Physical Exam Vitals: Vital Signs Temp Pulse Resp BP Pulse Ox 06/17/20 13:05 97.5 F L 06/17/20 03:08 97.4 F L 89 16 135/94 98 Intake and Output 06/17/20 06/17/20 06/18/20 14:59 22:59 06:59 Other: Weight 52.1 kg Constitutional: No acute distress, conversant, pleasant Eyes: Anicteric sclerae, moist conjunctiva, Pupils equal round reactive to light ENMT: NC/AT Oropharynx clear, no erythema, or exudates Neck: Supple, FROM, no masses, or JVD No carotid bruits No thyromegaly Lungs: Clear to auscultation Clear to percussion Normal respiratory effort, no accessory muscle use Cardiovascular: Heart regular in rate and rhythm, No murmurs, gallops, or rubs No peripheral edema Abdominal: Soft Nontender, no guarding, rebound or rigidity Abdomen moving with respiration Normoactive bowel sounds No hepatomegaly, No splenomegaly No palpable mass No abdominal wall hernia noted Skin: Normal temperature, tone, texture, turgor No induration No subcutaneous nodules No rash, lesions No ulcers Extremities: No digital cyanosis No clubbing Pedal pulses intact and symmetrical Radial pulses intact and symmetrical No calf tenderness Psychiatric: Alert and oriented to person, place and time Neuro Muscles Strength 5/5 in all 4 extremities Sensation to light touch grossly present throughout Cranial nerves II-XII grossly intact No focal sensory deficits Lymphatics: no palpable cervical or supraclavicular , or inguinal lymph nodes Cranial Nerve Examination - Cranial Nerves Cranial Nerve II- Optic: Intact Cranial Nerve III- Oculomotor: Intact Cranial Nerve IV- Trochlear: Intact Cranial Nerve V- Trigeminal: Intact Cranial Nerve - Abducens: Intact Cranial Nerve VII- Facial: Intact Cranial Nerve VIII- Auditory: Intact Cranial Nerve IX- Glossopharyngeal: Intact Cranial Nerve X- Vagus: Intact Cranial Nerve XI- Accessory: Intact Cranial Nerve XII- Hypoglossal: Intact Results CBC & Chem 7: 06/17/20 05:52 06/17/20 05:52 Labs: Abnormal Lab Results - Last 24 Hours (Table) 06/17/20 06/17/20 06/17/20 Range/Units 05:52 05:52 20:30 RBC 3.73 L (3.80-5.40) m/uL Hct 33.4 L (34.0-46.0) % Sodium 136 L (137-145) mmol/L LDL Cholesterol, Calc 100 H (0-99) mg/dL Ur Leukocyte Esterase Moderate H (Negative) Urine WBC 15 H (0-5) /hpf Urine Mucus Occasional H (None) /hpf Assessment and Plan Assessment: suicidal thoughts, paranoid ideation management per psych migraine headache sumatriptan , and naprosyn once labs reviewed Thank you for allowing us to participate in the care of this patient. We will follow peripherally. Do not hesitate to contact us with questions. Someone can be reached from the [facility] hospitalist group at all hours of the day at [phone].
[2020-06-18] MEDS: NICOTINE 14MG/24HR PATCH TRANSDERM SCH (08:32)
[2020-06-18] MEDS: PALIPERIDONE 6 MG TAB.ER.24 PO SCH (08:32)
[2020-06-18] MEDS: LORazepam 1 MG TAB PO PRN ×2 (10:31→20:15)
--- NOTE | 2020-06-18 12:19 | P.PN ---
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 She is a 35-year-old -[place] female who presented to the psychiatric unit voluntarily with complaints of feeling depressed, having suicidal thoughts and paranoia. She told the admitting psychiatrist that she feels as though someone was "out to get her." I was unable to fully understand the reason for presentation to the Medical Center. She complained that she was being harassed by other [facility]. She talked about wanting to be "positive" but the other residents were "negative". However the social science manager called the shelters and they referred her to the Medical Center because she was restless, hyperactive and displaying pressured speech. She complained of sedation from the increased dose of Invega. She feels depressed but denied having thoughts of or suicide. She complains of generalized objective anxiety. She denied experiencing auditory, visual or olfactory hallucinations, ideas reference, thought insertion, thought broadcasting or thought control. She described general paranoid thoughts about other residents at the prison but did not express a clear paranoid delusional belief. Her UDS was positive only for marijuana. Mental status exam: She presented as a casually groomed 35-year-old [place] female who was pleasant on approach. She made eye contact and attended to interview. She had no prominent physical abnormalities. She had a blunted but bright facial expression. She was alert and oriented to person, place and time. She was a bit unsteady on her feet but showed no abnormal involuntary movements. Her speech was spontaneous with normal rate, rhythm and volume. Her affect was bright, stable and appropriate. She denied suicidal ideation and wishes. She denied homicidal ideation. She denied feeling hopeless, helpless or worthless. She ruminated about being able to return to the prison. She did not express clear ideas reference or delusional thoughts. As noted above she has paranoid ideation. Her thinking was concrete but her associations were coherent, logical and goal directed. She did not demonstrate clang associations, perseveration or neologisms. She denied hallucinations and did not appear to be responding to internal stimuli. Assessment: Her history suggestive of a primary mood or psychotic disorder since UDS was negative for drugs with the exception of marijuana. Plan: Continue inpatient treatment. Safety precautions. Continue Invega 6 mg daily. Social work to coordinate discharge and aftercare. Encourage participation in therapeutic groups and activities. Evaluate clinical status response to treatment daily basis.
[2020-06-19 06:41] VITALS: BP 93/55; PULSE 61; RESP 16; TEMP 98.2
[2020-06-19] MEDS: NICOTINE 14MG/24HR PATCH TRANSDERM SCH (08:28)
[2020-06-19] MEDS: PALIPERIDONE 6 MG TAB.ER.24 PO SCH (08:29)
[2020-06-19] MEDS ORDERED: LORazepam 0.5 MG TAB PO PRN (08:30)
--- NOTE | 2020-06-19 11:17 | P.DS ---
Providers Date of admission: 06/17/20 02:38 Attending physician: Asael Harrell MD Consults: 06/17/20 02:44 Consult Physician Routine Consulting Provider: Elsie Physician Consult Reason/Comments: H and P Do you want consulting provider notified?: Yes, Notify in am Primary care physician: Stated None - Discharge Diagnosis(es) (1) Acute psychosis Current Visit: No Status: Acute (2) Amphetamine use disorder, moderate Current Visit: No Status: Acute (3) Cannabis use disorder, mild, abuse Current Visit: Yes Status: Acute Hospital Course: HISTORY: She is a 35-year-old -[place] female who presented to the psychiatric unit voluntarily with complaints of panic attack, feeling depressed, having suicidal thoughts and paranoia. She told the admitting psychiatrist that she feels as though someone was "out to get her." I was unable to fully understand the reason for presentation to the Medical Center. She complained that she was being harassed by other [facility] at the [facility]. She talked about wanting to be "positive" but the other residents were "negative". However the social media manager called the shelters and they referred her to the Medical Center because she was restless, hyperactive and displaying pressured speech. This was her second admission to our unit. She was discharge on 06/10/2020 with the diagnosis of amphetamine induced psychotic disorder, amphetamine use disorder and opioid use disorder. She was [facility] a [facility]. She alleged that she was compliant with the medication and when she began feeling "unwell" she doubles the dose of the Invega and ran out of the medication. She began feeling distressed when she exhausted her supply of Invega. She denied that she had relapsed to methamphetamine. She felt depressed but denied having thoughts of or suicide. She complains of generalized subjective anxiety. She denied experiencing auditory, visual or olfactory hallucinations, ideas reference, thought insertion, thought broadcasting or thought control. She described general paranoid thoughts about other residents at the [facility] but did not express a clear paranoid delusional belief. Her UDS was positive only for marijuana. HOSPITAL COURSE: We admitted her to psychiatric unit voluntarily under the care of this database report writer. Reportedly comprehensive biopsychosocial assessment. The data security consultant gyroscopic instrument mechanic completed initial physical exam and medical history and only diagnosed migraine headaches and recommended sumatriptan when necessary. We increased her dose of Invega to 6 mg daily. She experienced temporary sedation from increased dose. She displayed no abnormal behavior, agitation or signs or complaints of psychosis. She was not restless, agitated or impulsive. She denied suicidal ideation or wishes. She frequently requested when necessary Ativan and at times appeared overly sedated (we then reduced the when necessary dose to 0.5 mg). She also attempted to obtain prescription of Ativan at discharge. She intermittently attended therapeutic groups and activities. She posed no management problem and had no episodes of behavioral dyscontrol. MENTAL STATUS ON DISCHARGE: She presented as a casually groomed 35-year-old [place] female who was pleasant on approach. She made eye contact and attended to interview. She had no prominent physical abnormalities. She had a blunted but bright facial expression. She was alert and oriented to person, place and time. She showed no abnormal involuntary movements. Her speech was spontaneous with normal rate, rhythm and volume. Her affect was bright, stable and appropriate. She denied suicidal ideation and wishes. She denied homicidal ideation. She denied feeling hopeless, helpless or worthless. She ruminated about being able to return to the [facility]. She did not express clear ideas reference or delusional thoughts. As noted above she has paranoid ideation. Her thinking was concrete but her associations were coherent, logical and goal directed. She did not demonstrate clang associations, perseveration or neologisms. She denied hallucinations and did not appear to be responding to internal stimuli. DISPOSITION: She will [facility]. She is a follow- up appointment with [facility]. Her discharge medications are Invega 6 mg daily, Habitrol 14 mg daily and melatonin 5 mg at bedtime when necessary. Patient Condition at Discharge: Stable Plan - Discharge Summary New Discharge Prescriptions: New Paliperidone [Invega] 6 mg PO DAILY #30 tab.er.24 Continue Melatonin 5 mg PO HS PRN #30 tablet PRN Reason: See Comments Nicotine 14Mg/24Hr Patch [Habitrol] 1 patch TRANSDERM DAILY #28 patch Discontinued Paliperidone [Invega] 3 mg PO DAILY #30 tab.er.24 Nicotine 14Mg/24Hr Patch [Habitrol] 1 patch TRANSDERM DAILY #28 patch Discharge Medication List Melatonin 5 mg PO HS PRN #30 tablet 05/29/20 [Rx] Nicotine 14Mg/24Hr Patch [Habitrol] 1 patch TRANSDERM DAILY #28 patch 06/19/20 [Rx] Paliperidone [Invega] 6 mg PO DAILY #30 tab.er.24 06/19/20 [Rx] Follow up Appointment(s)/Referral(s): None,Stated [Primary Care Provider] - 1-2 days Patient Instructions/Handouts: Help Prevent Suicide (DC) Activity/Diet/Wound Care/Special Instructions: Activity and diet as tolerated. Avoid the use of street drugs and alcohol. Take all medications as prescribed. When you are in need of refills on your medications please contact your medical provider and/or outpatient psychiatrist to have this done. Please go to scheduled outpatient appointment for aftercare treatment. If symptoms return or become worse, call the crisis line at and/or go to the nearest emergency room for evaluation. Discharge Disposition: HOME SELF-CARE
== END 2020-06-19 15:00 | disposition home or self-care (01) | DRG 885 ==
LOC: EC 22:45 → 3MHU 06-17 02:38
PROVIDERS: ADMIT Psychiatry & Neurology Psychiatry; ATTEND Psychiatry & Neurology Psychiatry
DX: F23 Brief psychotic disorder (principal); R45.851 Suicidal ideations; G43.909 Migraine, unspecified, not intractable, without status migrainosus; F11.11 Opioid abuse, in remission; F15.21 Other stimulant dependence, in remission; Z20.822 Contact with and (suspected) exposure to COVID-19; K42.9 Umbilical hernia without obstruction or gangrene; F41.0 Panic disorder [episodic paroxysmal anxiety]; F32.9 Major depressive disorder, single episode, unspecified; F12.10 Cannabis abuse, uncomplicated; Z56.0 Unemployment, unspecified; Z59.0 Homelessness; Z79.899 Other long term (current) drug therapy; Z87.891 Personal history of nicotine dependence
CPT/HCPCS: 80053; 80061; 80306; 81001; 81025; 82075; 83036; 84443; 85025; 87635; 96372; 99285

== ENCOUNTER 2020-06-23 14:52 | Emergency (ER) | payer OTHER ==
[2020-06-23 15:02] VITALS: RESP 16; TEMP 98
[2020-06-23] MEDS ORDERED: KETOROLAC 15 MG/ML 1 ML VIAL IM STA (15:10)
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
[2020-06-23] MEDS ORDERED: ACET/COD 300 MG/30 MG STARTER PACK 6 TAB BTL PO STA (15:57)
[2020-06-23 16:07] VITALS: BP 122/68; PULSE 68
== END 2020-06-23 16:00 | disposition home or self-care (01) ==
LOC: EC 14:52
DX: S16.1XXA Strain of muscle, fascia and tendon at neck level, initial encounter (principal); S39.012A Strain of muscle, fascia and tendon of lower back, initial encounter; M54.6 Pain in thoracic spine; Z87.891 Personal history of nicotine dependence; V49.40XA Driver injured in collision with unspecified motor vehicles in traffic accident, initial encounter; Y92.410 Unspecified street and highway as the place of occurrence of the external cause
CPT/HCPCS: 72082; 99284; 96372; J1885

== ENCOUNTER 2020-07-05 16:53 | Emergency (ER) | payer OTHER ==
[2020-07-05 16:57] VITALS: BP 112/79; PULSE 77; RESP 18; TEMP 98.1
[2020-07-05] MEDS ORDERED: DIAZEPAM 5 MG/ML 2 ML INJ IM STA (17:19)
[2020-07-05] MEDS ORDERED: KETOROLAC 15 MG/ML 1 ML VIAL IM STA (17:20)
--- NOTE | 2020-07-05 17:20 | ED ---
Headache HPI - General Chief Complaint: Headache Stated Complaint: Migraine Time Seen by Provider: 07/05/20 16:58 Source: patient, RN notes reviewed Mode of arrival: ambulatory Limitations: no limitations - History of Present Illness Initial Comments: 35-year-old female presents emergency Department chief complaint of migraine. Patient has chronic headaches states is her typical headache does not resolve with Tylenol. Patient states that she has no social nausea vomiting slight photophobia. No focal weakness no dizziness no significant fevers chills neck pain back pain. Patient denies any other complaints. Patient has complete workup in the past with urology for migraines. - Related Data Previous Rx's Medication Instructions Recorded Melatonin 5 mg PO HS PRN #30 tablet 05/29/20 Nicotine 14Mg/24Hr Patch [Habitrol] 1 patch TRANSDERM DAILY #28 patch 06/19/20 Paliperidone [Invega] 6 mg PO DAILY #30 tab.er.24 06/19/20 Allergies Allergy/AdvReac Type Severity Reaction Status Date / Time No Known Allergies Allergy Verified 07/05/20 16:55 Review of Systems ROS Statement: Those systems with pertinent positive or pertinent negative responses have been documented in the HPI. ROS Other: All systems not noted in ROS Statement are negative. Past Medical History Past Medical History: No Reported History Additional Past Medical History / Comment(s): UMBILCAL HERNIA. MIGRAINES History of Any Multi-Drug Resistant Organisms: ESBL Date of last positivie culture/infection: 11/13/18 MDRO Source:: ESBL URINE Past Surgical History: Section Past Psychological History: No Psychological Hx Reported Smoking Status: Current every day smoker Past Alcohol Use History: None Reported Past Drug Use History: Marijuana - Past Family History family Family Medical History: No Reported History General Exam Limitations: no limitations General appearance: alert, in no apparent distress Head exam: Present: atraumatic, normocephalic, normal inspection Eye exam: Present: normal appearance, PERRL, EOMI. Absent: scleral icterus, conjunctival injection, periorbital swelling ENT exam: Present: normal exam, normal oropharynx, mucous membranes moist, TM's normal bilaterally Neck exam: Present: normal inspection, full ROM. Absent: tenderness, meningismus, lymphadenopathy Respiratory exam: Present: normal lung sounds bilaterally. Absent: respiratory distress, wheezes, rales, rhonchi, stridor Cardiovascular Exam: Present: regular rate, normal rhythm, normal heart sounds. Absent: systolic murmur, diastolic murmur, rubs, gallop, clicks GI/Abdominal exam: Present: soft, normal bowel sounds. Absent: distended, tenderness, guarding, rebound, rigid Neurological exam: Present: alert, oriented X3, CN II-XII intact, reflexes normal. Absent: motor sensory deficit Skin exam: Present: warm, dry, intact, normal color. Absent: rash Course Vital Signs 07/05/20 16:55 Temperature 98.1 F Pulse Rate 77 Respiratory 18 Rate Blood Pressure 112/79 O2 Sat by Pulse 95 Oximetry Medical Decision Making - Medical Decision Making Patient has no red flag symptoms. Patient is neurologically intact. Patient discharged stable condition return parameters were discussed. Disposition Clinical Impression: Migraine headache Disposition: HOME SELF-CARE Condition: Stable Instructions (If sedation given, give patient instructions): Acute Headache (ED) Additional Instructions: Please return to the Emergency Department if symptoms worsen or any other concerns. Is patient prescribed a controlled substance at d/c from ED?: No Referrals: None,Stated [Primary Care Provider] - 1-2 days Time of Disposition: 17:20
== END 2020-07-05 17:39 | disposition home or self-care (01) ==
LOC: EC 16:53
DX: G43.909 Migraine, unspecified, not intractable, without status migrainosus (principal); F17.200 Nicotine dependence, unspecified, uncomplicated
CPT/HCPCS: 99283; 96372 ×2; J3360; J1885

== ENCOUNTER 2020-08-08 15:04 | Emergency (ER) | payer OTHER ==
[2020-08-08 15:34] VITALS: BP 105/65; PULSE 77; RESP 20; TEMP 98.5
[2020-08-08] MEDS ORDERED: KETOROLAC 15 MG/ML 1 ML VIAL IM STA (16:22)
--- NOTE | 2020-08-08 17:11 | ED ---
ENT HPI - General Chief complaint: ENT Stated complaint: Headache,Body Aches Time Seen by Provider: 08/08/20 16:00 Source: patient Mode of arrival: ambulatory Limitations: no limitations - History of Present Illness Initial comments: Patient is a 35-year-old female presenting to the emergency department complaining of a headache and body aches that started today. Patient states she was exposed to Covid and would like to be tested as well. She does have history of headaches and this feels similar in nature. She denies any fevers or chills, no cough or shortness of breath, no chest pain, no abdominal pain. She denies any nausea or vomiting or changes in her vision. She has no further complaints at this time. She denies being . Upon arrival to the ER her vital signs stable. - Related Data Previous Rx's Medication Instructions Recorded Melatonin 5 mg PO HS PRN #30 tablet 05/29/20 Nicotine 14Mg/24Hr Patch [Habitrol] 1 patch TRANSDERM DAILY #28 patch 06/19/20 Paliperidone [Invega] 6 mg PO DAILY #30 tab.er.24 06/19/20 Allergies Allergy/AdvReac Type Severity Reaction Status Date / Time No Known Allergies Allergy Verified 08/08/20 15:34 Review of Systems ROS Statement: Those systems with pertinent positive or pertinent negative responses have been documented in the HPI. ROS Other: All systems not noted in ROS Statement are negative. Past Medical History Past Medical History: No Reported History Additional Past Medical History / Comment(s): UMBILCAL HERNIA. MIGRAINES History of Any Multi-Drug Resistant Organisms: ESBL Date of last positivie culture/infection: 11/13/18 MDRO Source:: ESBL URINE Past Surgical History: Section Past Psychological History: No Psychological Hx Reported Smoking Status: Current every day smoker Past Alcohol Use History: None Reported Past Drug Use History: Marijuana - Past Family History family Family Medical History: No Reported History General Exam - General Exam Comments Initial Comments: GENERAL: Patient is well-developed and well-nourished. Patient is nontoxic and in no acute distress. HEAD: Atraumatic, normocephalic. EYES: Pupils equal round and reactive to light, extraocular movements intact, sclera anicteric, conjunctiva are normal. Eyelids were unremarkable. ENT: TMs normal, nares patent, oropharynx clear without exudates. Moist mucous membranes. NECK: Normal range of motion, supple without lymphadenopathy or JVD. LUNGS: Unlabored respirations. Breath sounds clear to auscultation bilaterally and equal. No wheezes rales or rhonchi. HEART: Regular rate and rhythm without murmurs, rubs or gallops. ABDOMEN: Soft, nontender, normoactive bowel sounds. No guarding, no rebound. No masses appreciated. : Deferred MUSCULOSKELETAL: Normal extremities with adequate strength and normal range of motion, no pitting or edema. No clubbing or cyanosis. NEUROLOGICAL: Patient is alert and oriented x 3. Motor and sensory are also intact. Cranial nerves II through XII grossly intact. Symmetrical smile. Normal speech, normal gait. PSYCH: Normal mood, normal affect. SKIN: Warm, Dry, normal turgor, no rashes or lesions noted. Limitations: no limitations Course Vital Signs 08/08/20 15:31 Temperature 98.5 F Pulse Rate 77 Respiratory 20 Rate Blood Pressure 105/65 O2 Sat by Pulse 100 Oximetry Medical Decision Making - Medical Decision Making Patient is a 35-year-old female presenting with a headache and body aches since this morning. She does have history of migraines and this feels similar nature. She also requesting Covid test secondary to exposure. Her vital signs are stable, exam is unremarkable. Rapid Covid test is not detected. Patient was given Toradol for her headache. Patient is stable for discharge. Patient is in agreement with this plan of care. Return parameters were discussed with the patient and they verbalized understanding. Case discussed with Dr. De La Vega. - Lab Data Lab Results 08/08/20 Range/Units 15:36 Coronavirus (PCR) Not Detected (Not Detectd) Disposition Clinical Impression: Headache Disposition: HOME SELF-CARE Condition: Stable Instructions (If sedation given, give patient instructions): Acute Headache (ED) Additional Instructions: Please return to the Emergency Department if symptoms worsen or any other concerns. COVID test is negative. May take Tylenol or Motrin for any discomfort. Follow-up with your family doctor. Is patient prescribed a controlled substance at d/c from ED?: No Referrals: None,Stated [Primary Care Provider] - 1-2 days
== END 2020-08-08 17:26 | disposition home or self-care (01) ==
LOC: EC 15:04
DX: R51.9 Headache, unspecified (principal); Z20.822 Contact with and (suspected) exposure to COVID-19; F17.200 Nicotine dependence, unspecified, uncomplicated
CPT/HCPCS: 87635; 99284; 96372; J1885

== ENCOUNTER 2020-10-02 17:40 | Emergency (ER) | payer OTHER ==
[2020-10-02 17:48] VITALS: BP 107/73; PULSE 62; RESP 18; TEMP 98
--- NOTE | 2020-10-02 18:43 | ED ---
ENT HPI - General Chief complaint: ENT Stated complaint: Bug in ear/Headache Time Seen by Provider: 10/02/20 18:00 Source: patient Mode of arrival: ambulatory Limitations: no limitations - History of Present Illness Initial comments: Patient is a 35-year-old female presenting to emergency Department with complaints of a possible bug in her left ear. She states she felt a bug flew into her ear yesterday, she heard a buzzing around. She states she flushed her ear with water last night. She states today she continues to have some mild irritation and feels like her ear is still draining the water. She denies any dizziness or lightheadedness, no fevers or chills. She has very minimal pain of her left ear. She has no further complaints. - Related Data Previous Rx's Medication Instructions Recorded Melatonin 5 mg PO HS PRN #30 tablet 05/29/20 Nicotine 14Mg/24Hr Patch [Habitrol] 1 patch TRANSDERM DAILY #28 patch 06/19/20 Paliperidone [Invega] 6 mg PO DAILY #30 tab.er.24 06/19/20 Allergies Allergy/AdvReac Type Severity Reaction Status Date / Time No Known Allergies Allergy Verified 10/02/20 17:48 Review of Systems ROS Statement: Those systems with pertinent positive or pertinent negative responses have been documented in the HPI. ROS Other: All systems not noted in ROS Statement are negative. Past Medical History Past Medical History: No Reported History Additional Past Medical History / Comment(s): UMBILCAL HERNIA. MIGRAINES History of Any Multi-Drug Resistant Organisms: ESBL Date of last positivie culture/infection: 11/13/18 MDRO Source:: ESBL URINE Past Surgical History: Section Past Psychological History: No Psychological Hx Reported Smoking Status: Current every day smoker Past Alcohol Use History: None Reported Past Drug Use History: Marijuana - Past Family History family Family Medical History: No Reported History General Exam - General Exam Comments Initial Comments: GENERAL: Patient is well-developed and well-nourished. Patient is nontoxic and in no acute distress. HEAD: Atraumatic, normocephalic. EYES: Pupils equal round and reactive to light, extraocular movements intact, sclera anicteric, conjunctiva are normal. Eyelids were unremarkable. ENT: TMs normal, nares patent, oropharynx clear without exudates. Moist mucous membranes. NECK: Normal range of motion, supple without lymphadenopathy or JVD. LUNGS: Unlabored respirations. Breath sounds clear to auscultation bilaterally and equal. No wheezes rales or rhonchi. HEART: Regular rate and rhythm without murmurs, rubs or gallops. ABDOMEN: Soft, nontender, normoactive bowel sounds. No guarding, no rebound. No masses appreciated. : Deferred MUSCULOSKELETAL: Normal extremities with adequate strength and normal range of motion, no pitting or edema. No clubbing or cyanosis. NEUROLOGICAL: Patient is alert and oriented x 3. Normal speech, normal gait. PSYCH: Normal mood, normal affect. SKIN: Warm, Dry, normal turgor, no rashes or lesions noted. Limitations: no limitations Course Vital Signs 10/02/20 17:46 Temperature 98 F Pulse Rate 62 Respiratory 18 Rate Blood Pressure 107/73 O2 Sat by Pulse 100 Oximetry Medical Decision Making - Medical Decision Making Patient is a 35-year-old female here with complaints of a possible bug in her left ear. On exam, both for ears appear normal, no foreign objects seen. I discussed these findings with the patient. Recommend following up with her PCP as needed. She is stable for discharge. Disposition Clinical Impression: Ear pain, left Disposition: HOME SELF-CARE Condition: Stable Instructions (If sedation given, give patient instructions): Normal Exam (ED) Additional Instructions: Please return to the Emergency Department if symptoms worsen or any other concerns. Ear exam is normal today, no foreign objects seen in your ears. Is patient prescribed a controlled substance at d/c from ED?: No Referrals: None,Stated [Primary Care Provider] - 1-2 days Time of Disposition: 18:43
== END 2020-10-02 18:52 | disposition home or self-care (01) ==
LOC: EC 17:40
DX: H92.02 Otalgia, left ear (principal); R51.9 Headache, unspecified; F17.200 Nicotine dependence, unspecified, uncomplicated; F12.90 Cannabis use, unspecified, uncomplicated
CPT/HCPCS: 99283

== ENCOUNTER 2021-02-20 10:48 | Emergency (ER) | payer OTHER ==
[2021-02-20] MEDS ORDERED: ACETAMINOPHEN TAB 325 MG TAB PO STA (11:48)
[2021-02-20 12:15] LABS: Basophils % (A) 0 %; Eosinophils # (A) 0.2 k/uL (0-0.7); Eosinophils % (A) 2 %; HCT 38.7 % (34.0-46.0); HGB 13.3 gm/dL (11.4-16.0); Lymphocytes # (A) 2.1 k/uL (1.0-4.8); Lymphocytes % (A) 25 %; MCH 30.5 pg (25.0-35.0); MCHC 34.4 g/dL (31.0-37.0); MCV 88.9 fL (80.0-100.0); Mean Platelet Volume 7.2; Monocytes # (A) 0.4 k/uL (0-1.0); Monocytes % (A) 5 %; Neutrophils # (A) 5.6 k/uL (1.3-7.7); Neutrophils % (A) 67 %; Platelet Count 378 k/uL (150-450); RBC 4.36 m/uL (3.80-5.40); RDW 12.3 % (11.5-15.5); WBC 8.4 k/uL (3.8-10.6)
[2021-02-20 12:38] LABS: ALT 11 U/L (4-34); AST 22 U/L (14-36); African American GFR (CKD) >90 (>60 ml/min/1.73 sqM); Albumin 4.3 g/dL (3.5-5.0); Alkaline Phosphatase 81 U/L (38-126); Amylase 52 U/L (30-110); Anion Gap 7 mmol/L; Blood Urea Nitrogen 14 mg/dL (7-17); Calcium 9.9 mg/dL (8.4-10.2); Carbon Dioxide 25 mmol/L (22-30); Chloride 103 mmol/L (98-107); Glucose 92 mg/dL (74-99); Lipase 54 U/L (23-300); Non-African American GFR(CKD) >90 (>60 ml/min/1.73 sqM); Potassium 4.5 mmol/L (3.5-5.1); Sodium 135 mmol/L (137-145); Total Bilirubin 0.5 mg/dL (0.2-1.3); Total Protein 7.4 g/dL (6.3-8.2)
[2021-02-20 12:45] LABS: Amorphous Sediment,Urine Rare /hpf; Appearance,Urine Cloudy (Clear); Bacteria,Urine Rare /hpf; Bilirubin,Urine Negative (Negative); Blood,Urine Large (Negative); Color,Urine Yellow; Glucose,Urine (UA) Negative (Negative); Ketones,Urine Negative (Negative); Leukocyte Esterase,Urine Moderate (Negative); Mucus,Urine Few /hpf; Nitrite,Urine Negative (Negative); PH, Urine 5.5 (5.0-8.0); Protein,Urine Trace (Negative); RBC,Urine >182 /hpf (0-5); Specific Gravity,Urine 1.017 (1.001-1.035); Squamous Epithelial Cell,Urine 3 /hpf (0-4); Urobilinogen,Urine <2.0 mg/dL (<2.0); WBC,Urine 10 /hpf (0-5)
[2021-02-20] MEDS ORDERED: cefTRIAXone IN SWFI 1,000 MG/10 ML SYRINGE IVP STA (12:52)
--- NOTE | 2021-02-20 12:57 | ED ---
Female Urogenital HPI - General Chief complaint: Urogenital Stated complaint: Urinate Blood Time Seen by Provider: 02/20/21 11:40 Source: patient, RN notes reviewed Mode of arrival: ambulatory Limitations: no limitations - History of Present Illness Initial comments: Patient is a 35-year-old female that presents to emergency room complaining of mild hematuria for the past. Patient was she does have a history of urinary tract infections. She denied any abdominal discomfort or pain. She was otherwise a well-appearing 35-year-old female chest pain. She denied any chest pain first breath headache nausea vomiting diarrhea constipation fever fatigue chills. - Related Data Previous Rx's Medication Instructions Recorded Melatonin 5 mg PO HS PRN #30 tablet 05/29/20 Nicotine 14Mg/24Hr Patch [Habitrol] 1 patch TRANSDERM DAILY #28 patch 06/19/20 Paliperidone [Invega] 6 mg PO DAILY #30 tab.er.24 06/19/20 Cephalexin [Keflex] 500 mg PO Q6HR #40 cap 02/20/21 Allergies Allergy/AdvReac Type Severity Reaction Status Date / Time No Known Allergies Allergy Verified 02/20/21 11:13 Review of Systems ROS Statement: Those systems with pertinent positive or pertinent negative responses have been documented in the HPI. ROS Other: All systems not noted in ROS Statement are negative. Past Medical History Past Medical History: No Reported History Additional Past Medical History / Comment(s): UMBILCAL HERNIA. MIGRAINES History of Any Multi-Drug Resistant Organisms: ESBL Date of last positivie culture/infection: 11/13/18 MDRO Source:: ESBL URINE Past Surgical History: Section Past Psychological History: No Psychological Hx Reported Smoking Status: Current every day smoker Past Alcohol Use History: None Reported Past Drug Use History: Marijuana - Past Family History family Family Medical History: No Reported History General Exam Limitations: no limitations General appearance: alert, in no apparent distress Head exam: Present: atraumatic, normocephalic, normal inspection Eye exam: Present: normal appearance, PERRL, EOMI. Absent: scleral icterus, conjunctival injection, periorbital swelling ENT exam: Present: normal exam, mucous membranes moist Neck exam: Present: normal inspection Respiratory exam: Present: normal lung sounds bilaterally. Absent: respiratory distress, wheezes, rales, rhonchi, stridor Cardiovascular Exam: Present: regular rate, normal rhythm, normal heart sounds. Absent: systolic murmur, diastolic murmur, rubs, gallop, clicks GI/Abdominal exam: Present: soft, normal bowel sounds. Absent: distended, tenderness, guarding, rebound, rigid Extremities exam: Present: normal inspection, full ROM, normal capillary refill. Absent: tenderness, pedal edema, joint swelling, calf tenderness Neurological exam: Present: alert, oriented X3 Psychiatric exam: Present: normal affect, normal mood Skin exam: Present: warm, dry, intact, normal color. Absent: rash Course Vital Signs 02/20/21 11:13 Temperature 100.1 F H Pulse Rate 79 Respiratory 16 Rate Blood Pressure 112/81 O2 Sat by Pulse 99 Oximetry Medical Decision Making - Medical Decision Making 35-year-old female complaining of hematuria with urinary frequency and discomfort. Basic labs ordered. Labs: CBC CMP unremarkable, urinalysis shows moderate red blood cells and 10 white blood cells. 1 g Rocephin ordered. [facility] Case discussed with Dr. Dinero, patient discharge home. - Lab Data Result diagrams: 02/20/21 12:01 02/20/21 12:01 Lab Results 02/20/21 02/20/21 02/20/21 Range/Units 12:01 12:01 12:11 WBC 8.4 (3.8-10.6) k/uL RBC 4.36 (3.80-5.40) m/uL Hgb 13.3 (11.4-16.0) gm/dL Hct 38.7 (34.0-46.0) % MCV 88.9 (80.0-100.0) fL MCH 30.5 (25.0-35.0) pg MCHC 34.4 (31.0-37.0) g/dL RDW 12.3 (11.5-15.5) % Plt Count 378 (150-450) k/uL MPV 7.2 Neutrophils % 67 % Lymphocytes % 25 % Monocytes % 5 % Eosinophils % 2 % Basophils % 0 % Neutrophils # 5.6 (1.3-7.7) k/uL Lymphocytes # 2.1 (1.0-4.8) k/uL Monocytes # 0.4 (0-1.0) k/uL Eosinophils # 0.2 (0-0.7) k/uL Basophils # 0.0 (0-0.2) k/uL Sodium 135 L (137-145) mmol/L Potassium 4.5 (3.5-5.1) mmol/L Chloride 103 (98-107) mmol/L Carbon Dioxide 25 (22-30) mmol/L Anion Gap 7 mmol/L BUN 14 (7-17) mg/dL Creatinine 0.71 (0.52-1.04) mg/dL Est GFR (CKD-EPI)AfAm >90 (>60 ml/min/1.73 sqM) Est GFR (CKD-EPI)NonAf >90 (>60 ml/min/1.73 sqM) Glucose 92 (74-99) mg/dL Calcium 9.9 (8.4-10.2) mg/dL Total Bilirubin 0.5 (0.2-1.3) mg/dL AST 22 (14-36) U/L ALT 11 (4-34) U/L Alkaline Phosphatase 81 (38-126) U/L Total Protein 7.4 (6.3-8.2) g/dL Albumin 4.3 (3.5-5.0) g/dL Amylase 52 (30-110) U/L Lipase 54 (23-300) U/L Urine Color Yellow Urine Appearance Cloudy H (Clear) Urine pH 5.5 (5.0-8.0) Ur Specific [place] 1.017 (1.001-1.035) Urine Protein Trace H (Negative) Urine Glucose (UA) Negative (Negative) Urine Ketones Negative (Negative) Urine Blood Large H (Negative) Urine Nitrite Negative (Negative) Urine Bilirubin Negative (Negative) Urine Urobilinogen <2.0 (<2.0) mg/dL Ur Leukocyte Esterase Moderate H (Negative) Urine RBC >182 H (0-5) /hpf Urine WBC 10 H (0-5) /hpf Ur Squamous Epith Cells 3 (0-4) /hpf Amorphous Sediment Rare H (None) /hpf Urine Bacteria Rare H (None) /hpf Urine Mucus Few H (None) /hpf Disposition Clinical Impression: Urinary tract infection Disposition: HOME SELF-CARE Condition: Stable Instructions (If sedation given, give patient instructions): Urinary Tract Infection in Women (ED) Additional Instructions: Please return to the Emergency Department if symptoms worsen or any other concerns. Follow-up primary care 1-2 days. Take antibiotics as prescribed until complete. Prescriptions: Cephalexin [Keflex] 500 mg PO Q6HR #40 cap Is patient prescribed a controlled substance at d/c from ED?: No Referrals: None,Stated [Primary Care Provider] - 1-2 days Time of Disposition: 12:57
[2021-02-20 13:20] VITALS: BP 133/79; PULSE 102; RESP 19; TEMP 98.9
== END 2021-02-20 13:20 | disposition home or self-care (01) ==
LOC: EC 10:48
DX: N39.0 Urinary tract infection, site not specified (principal); F17.200 Nicotine dependence, unspecified, uncomplicated
CPT/HCPCS: 36415; 80053; 82150; 83690; 85025; 81001; 99283; 96374; J0696

== ENCOUNTER 2021-02-26 05:17 | Inpatient (IN) | payer MEDICAID, OTHER ==
--- NOTE | 2021-02-26 05:28 | ED ---
Psych HPI - General Chief Complaint: Psychiatric Symptoms Stated Complaint: Mental health Time Seen by Provider: 02/26/21 05:18 Source: patient, RN notes reviewed, old records reviewed Mode of arrival: ambulatory - History of Present Illness MD Complaint: suicidal ideation -: hour(s) Associated Psychiatric Symptoms: depression, suicidal ideation History of same: Yes Quality: constant Improves With: none Associated Symptoms: denies other symptoms Treatments Prior to Arrival: placed on mental health hold If Self Harm: admits thoughts of self harm - Related Data Previous Rx's Medication Instructions Recorded Melatonin 5 mg PO HS PRN #30 tablet 05/29/20 Nicotine 14Mg/24Hr Patch [Habitrol] 1 patch TRANSDERM DAILY #28 patch 06/19/20 Paliperidone [Invega] 6 mg PO DAILY #30 tab.er.24 06/19/20 Cephalexin [Keflex] 500 mg PO Q6HR #40 cap 02/20/21 Allergies Allergy/AdvReac Type Severity Reaction Status Date / Time No Known Allergies Allergy Verified 02/26/21 05:26 Review of Systems ROS Statement: Those systems with pertinent positive or pertinent negative responses have been documented in the HPI. ROS Other: All systems not noted in ROS Statement are negative. Past Medical History Past Medical History: No Reported History Additional Past Medical History / Comment(s): UMBILCAL HERNIA. MIGRAINES History of Any Multi-Drug Resistant Organisms: ESBL Date of last positivie culture/infection: 11/13/18 MDRO Source:: ESBL URINE Past Surgical History: Section Past Psychological History: No Psychological Hx Reported Smoking Status: Current every day smoker Past Alcohol Use History: Daily Past Drug Use History: Marijuana, Prescription Drug Abuse - Past Family History family Family Medical History: No Reported History General Exam Limitations: no limitations General appearance: alert, in no apparent distress Head exam: Present: atraumatic, normocephalic, normal inspection Eye exam: Present: normal appearance, PERRL, EOMI. Absent: scleral icterus, conjunctival injection, periorbital swelling ENT exam: Present: normal exam, mucous membranes moist Neck exam: Present: normal inspection. Absent: tenderness, meningismus, lymphadenopathy Respiratory exam: Present: normal lung sounds bilaterally. Absent: respiratory distress, wheezes, rales, rhonchi, stridor Cardiovascular Exam: Present: regular rate, normal rhythm, normal heart sounds. Absent: systolic murmur, diastolic murmur, rubs, gallop, clicks GI/Abdominal exam: Present: soft, normal bowel sounds. Absent: distended, tenderness, guarding, rebound, rigid Extremities exam: Present: normal inspection, full ROM, normal capillary refill. Absent: tenderness, pedal edema, joint swelling, calf tenderness Back exam: Present: normal inspection Neurological exam: Present: alert, oriented X3, CN II-XII intact Psychiatric exam: Present: normal affect, normal mood Skin exam: Present: warm, dry, intact, normal color. Absent: rash Course Vital Signs 02/26/21 05:23 Temperature 97.5 F L Pulse Rate 84 Respiratory 18 Rate Blood Pressure 122/88 O2 Sat by Pulse 94 L Oximetry - Reevaluation(s) Reevaluation #1: 02/26/21 05:42 medical record is reviewed 02/26/21 05:42 medically clear for psychiatry Disposition Referrals: None,Stated [Primary Care Provider] - 1-2 days
[2021-02-26] MEDS ORDERED: LORazepam 1 MG TAB PO STA (05:50)
[2021-02-26] MEDS ORDERED: ACETAMINOPHEN TAB 325 MG TAB PO PRN (06:50)
[2021-02-26] MEDS ORDERED: LORazepam 1 MG TAB PO PRN (06:50)
[2021-02-26] MEDS ORDERED: MAGNESIUM HYDROXIDE 2,400 MG/10 ML CUP PO PRN (06:50)
[2021-02-26] MEDS ORDERED: MAG HYDROX/AL HYDROX/SIMETH 30 ML CUP PO PRN (06:50)
[2021-02-26] MEDS ORDERED: LORazepam 2 MG/ML INJ IM PRN (06:54)
[2021-02-26 06:55] LABS: Amphetamine Screen,Urine Not Detected (NotDetected); Barbiturate Screen,Urine Not Detected (NotDetected); Benzodiazepines Screen,Urine Not Detected (NotDetected); Cocaine Screen,Urine Not Detected (NotDetected); Methadone Screen, Urine Not Detected (NotDetected); Opiate Screen,Urine Detected (NotDetected); Oxycodone Screen, Urine Not Detected (NotDetected); Phencyclidine Screen,Urine Not Detected (NotDetected); Tricyclic Antidepressant,Urine Not Detected (NotDetected); Urn Cannabinoid Scrn Detected (NotDetected)
[2021-02-26] MEDS ORDERED: HALOPERIDOL LACTATE 5 MG/ML 1 ML VIAL IM PRN (06:55)
[2021-02-26] MEDS ORDERED: haloperidoL 5 MG TAB PO PRN (06:55)
[2021-02-26 07:52] LABS: Appearance,Urine Cloudy (Clear); Bilirubin,Urine Negative (Negative); Blood,Urine Large (Negative); Color,Urine Light Red; Glucose,Urine (UA) Negative (Negative); Ketones,Urine Negative (Negative); Leukocyte Esterase,Urine Small (Negative); Mucus,Urine Occasional /hpf; Nitrite,Urine Negative (Negative); Protein,Urine 1+ (Negative); RBC,Urine >182 /hpf (0-5); Specific Gravity,Urine 1.016 (1.001-1.035); Urobilinogen,Urine <2.0 mg/dL (<2.0); WBC,Urine 16 /hpf (0-5)
[2021-02-26 08:03] VITALS: RESP 16
[2021-02-26] MEDS: NICOTINE 14MG/24HR PATCH TRANSDERM SCH (08:36)
[2021-02-26] MEDS ORDERED: FLUoxetine HCL 20 MG CAP PO STA (12:17)
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
[2021-02-26] MEDS ORDERED: IBUPROFEN 800 MG TAB PO PRN (13:25)
[2021-02-26] MEDS ORDERED: PALIPERIDONE 3 MG TAB.ER.24 PO SCH (21:00)
--- NOTE | 2021-02-26 22:17 | P.PN ---
Progress Note - Text Progress Note Date: 02/26/21 The patient was sedated and could not be evaluated. Will attempt again tomorrow.
[2021-02-27 06:29] VITALS: BP 128/75; PULSE 88; TEMP 97.4
[2021-02-27 07:49] LABS: ALT 9 U/L (4-34); AST 19 U/L (14-36); African American GFR (CKD) >90 (>60 ml/min/1.73 sqM); Albumin 3.7 g/dL (3.5-5.0); Alkaline Phosphatase 90 U/L (38-126); Anion Gap 5 mmol/L; Blood Urea Nitrogen 14 mg/dL (7-17); Calcium 9.7 mg/dL (8.4-10.2); Carbon Dioxide 29 mmol/L (22-30); Chloride 103 mmol/L (98-107); Glucose 102 mg/dL (74-99); Non-African American GFR(CKD) >90 (>60 ml/min/1.73 sqM); Potassium 4.3 mmol/L (3.5-5.1); Sodium 137 mmol/L (137-145); Total Bilirubin 0.8 mg/dL (0.2-1.3); Total Protein 6.7 g/dL (6.3-8.2)
[2021-02-27 08:01] LABS: Basophils % (A) 0 %; Eosinophils # (A) 0.2 k/uL (0-0.7); Eosinophils % (A) 2 %; HCT 37.9 % (34.0-46.0); Lymphocytes # (A) 2.1 k/uL (1.0-4.8); Lymphocytes % (A) 31 %; MCH 31.1 pg (25.0-35.0); MCHC 34.4 g/dL (31.0-37.0); MCV 90.4 fL (80.0-100.0); Mean Platelet Volume 7.3; Monocytes # (A) 0.3 k/uL (0-1.0); Monocytes % (A) 4 %; Neutrophils % (A) 61 %; Platelet Count 356 k/uL (150-450); RBC 4.19 m/uL (3.80-5.40); RDW 12.6 % (11.5-15.5); WBC 6.6 k/uL (3.8-10.6)
[2021-02-27] MEDS: NICOTINE 14MG/24HR PATCH TRANSDERM SCH (08:13)
[2021-02-27] MEDS ORDERED: FLUoxetine HCL 10 MG CAP PO SCH (09:00)
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
[2021-02-27 12:07] LABS: Chol/HDL Ratio 3.18 Ratio; LDL Cholesterol,Calculated 72.9 mg/dL (0.0-131.0)
== END 2021-02-27 13:10 | disposition home or self-care (01) | DRG 885 ==
LOC: EC 05:17 → 3MHU 06:47
PROVIDERS: ADMIT Psychiatry & Neurology Psychiatry; ATTEND Psychiatry & Neurology Psychiatry
DX: F33.3 Major depressive disorder, recurrent, severe with psychotic symptoms (principal); R45.851 Suicidal ideations; F11.10 Opioid abuse, uncomplicated; Z20.822 Contact with and (suspected) exposure to COVID-19; F12.10 Cannabis abuse, uncomplicated; F43.10 Post-traumatic stress disorder, unspecified; F17.200 Nicotine dependence, unspecified, uncomplicated; Z79.899 Other long term (current) drug therapy; Z86.69 Personal history of other diseases of the nervous system and sense organs; Z87.19 Personal history of other diseases of the digestive system; Z86.19 Personal history of other infectious and parasitic diseases; Z98.891 History of uterine scar from previous surgery; Z62.810 Personal history of physical and sexual abuse in childhood; Z98.890 Other specified postprocedural states; Z71.51 Drug abuse counseling and surveillance of drug abuser
CPT/HCPCS: 80053; 80061; 80306; 81001; 82075; 83036; 84443; 85025; 87635; 99284

== ENCOUNTER 2021-04-12 14:38 | Emergency (ER) | payer OTHER ==
[2021-04-12 15:25] VITALS: BP 121/85; PULSE 79; RESP 18; TEMP 99
== END 2021-04-12 17:29 | disposition left against medical advice (07) ==
LOC: EC 14:38
DX: R20.2 Paresthesia of skin (principal); Z53.21 Procedure and treatment not carried out due to patient leaving prior to being seen by health care provider
CPT/HCPCS: 93005; 99499

== ENCOUNTER 2021-07-19 15:21 | Emergency (ER) | payer OTHER ==
[2021-07-19 15:30] VITALS: BP 118/72; PULSE 84; RESP 20; TEMP 100.2
[2021-07-19] MEDS ORDERED: ONDANSETRON 4 MG/2 ML VIAL IM STA (16:34)
[2021-07-19] MEDS ORDERED: KETOROLAC 15 MG/ML 1 ML VIAL IM STA (16:34)
--- NOTE | 2021-07-19 17:04 | ED ---
Headache HPI - General Chief Complaint: Headache Stated Complaint: headache Time Seen by Provider: 07/19/21 16:25 Source: patient, RN notes reviewed Mode of arrival: ambulatory Limitations: no limitations - History of Present Illness Initial Comments: This is a 36-year-old female with a past medical history of migraines who presents to the emergency department for what she states is a migraine. Denies any auras, eye pain, or visual changes. States that this feels like her typical migraines, and she usually comes to the emergency department for treatment with Toradol. Would not describe this as the worst headache of her life. She often has Benadryl and Toradol, she would like to avoid Benadryl at this time, as she has to drive her children home and does not want to be sleepy. She also states that she is nauseous, but denies any vomiting. MD Complaint: "migraine" - Related Data Previous Rx's Medication Instructions Recorded Ondansetron Odt [Zofran Odt] 4 mg PO Q8HR PRN #20 tab 07/19/21 Allergies Allergy/AdvReac Type Severity Reaction Status Date / Time No Known Allergies Allergy Verified 07/19/21 17:52 Review of Systems ROS Statement: Those systems with pertinent positive or pertinent negative responses have been documented in the HPI. ROS Other: All systems not noted in ROS Statement are negative. Constitutional: Denies: fever, chills Eyes: Denies: eye pain, eye discharge, vision change ENT: Denies: ear pain, throat pain Respiratory: Denies: cough, dyspnea Cardiovascular: Denies: chest pain, palpitations Gastrointestinal: Reports: nausea. Denies: abdominal pain, vomiting, diarrhea Genitourinary: Denies: urgency, dysuria Skin: Denies: rash, lesions Neurological: Reports: headache. Denies: weakness Past Medical History Past Medical History: No Reported History Additional Past Medical History / Comment(s): UMBILCAL HERNIA. MIGRAINES History of Any Multi-Drug Resistant Organisms: ESBL, Other MDRO Date of last positivie culture/infection: 11/13/18 MDRO Source:: ESBL URINE Past Surgical History: Section Past Psychological History: Depression Smoking Status: Current every day smoker Past Alcohol Use History: Rare Past Drug Use History: None Reported, Marijuana, Prescription Drug Abuse - Past Family History family Family Medical History: No Reported History General Exam Limitations: no limitations General appearance: alert, in no apparent distress Head exam: Present: atraumatic, normocephalic, normal inspection Eye exam: Present: normal appearance, PERRL, EOMI. Absent: scleral icterus, conjunctival injection, periorbital swelling Respiratory exam: Present: normal lung sounds bilaterally. Absent: respiratory distress, wheezes, rales, rhonchi, stridor Cardiovascular Exam: Present: regular rate, normal rhythm, normal heart sounds. Absent: systolic murmur, diastolic murmur, rubs, gallop, clicks Neurological exam: Present: alert, oriented X3, CN II-XII intact Psychiatric exam: Present: normal affect, normal mood Skin exam: Present: warm, dry, intact, normal color. Absent: rash Course Vital Signs 07/19/21 15:28 Temperature 100.2 F H Pulse Rate 84 Respiratory 20 Rate Blood Pressure 118/72 O2 Sat by Pulse 99 Oximetry Medical Decision Making - Medical Decision Making This is a 36-year-old female who presents to the emergency department with a migraine. Symptoms are consistent with her typical migraines, she does not have any visual changes or eye pain, nor does she have any evidence of conjunctivitis. This is also not worse headache of her life, therefore no imaging or laboratory studies will be ordered at this time. IM Toradol and IM Zofran provided to control the patient's symptoms. After treatment, she states that she felt significantly improved. She did eat a turkey sandwich without any difficulty. Prescription for Zofran and sent to the pharmacy and starter pack for Tylenol No. 3 provided. Discussed with the patient doing additional work up, such as testing her for Covid and influenza, as she does have a slightly elevated temperature and nausea associated with the migraine. Patient declined this despite my recommendations. Return precautions reviewed in depth, the patient is instructed to return to the emergency department if symptoms worsen or do not improve. Patient verbalized understanding. This case was discussed in detail with the attending ED physician. Presentation, findings, and treatment plan discussed in detail as well. Disposition Clinical Impression: Migraine headache Disposition: HOME SELF-CARE Instructions (If sedation given, give patient instructions): Migraine Headache (ED) Additional Instructions: Return to the emergency department if symptoms worsen or don't improve. Follow up with your primary care provider in 1-2 days. Prescriptions: Ondansetron Odt [Zofran Odt] 4 mg PO Q8HR PRN #20 tab PRN Reason: Nausea And Vomiting Is patient prescribed a controlled substance at d/c from ED?: No Referrals: None,Stated [Primary Care Provider] - 1-2 days
[2021-07-19] MEDS ORDERED: ACET/COD 300 MG/30 MG STARTER PACK 6 TAB BTL PO STA (18:21)
== END 2021-07-19 18:36 | disposition home or self-care (01) ==
LOC: EC 15:21
DX: G43.909 Migraine, unspecified, not intractable, without status migrainosus (principal); F17.200 Nicotine dependence, unspecified, uncomplicated
CPT/HCPCS: 99283; 96372; J2405; J1885

== ENCOUNTER 2021-08-05 22:45 | Inpatient (IN) | payer MEDICAID, OTHER ==
--- NOTE | 2021-08-06 00:46 | ED ---
Psych HPI - General Chief Complaint: Psychiatric Symptoms Stated Complaint: Mental health Time Seen by Provider: 08/05/21 23:28 Source: patient, RN notes reviewed, old records reviewed Mode of arrival: ambulatory Limitations: no limitations - History of Present Illness Initial Comments: This is a 36-year-old female to the emergency department for evaluation. Patient presents today for evaluation regards to psychiatric evaluation. Patient here before this time to claw her eyes out MD Complaint: altered mental status -: unknown Associated Psychiatric Symptoms: racing thoughts History of same: Yes Quality: intermittent, getting worse Improves With: none Worsens With: none, other Associated Symptoms: denies other symptoms Treatments Prior to Arrival: placed on mental health hold If Self Harm: admits thoughts of self harm - Related Data Previous Rx's Medication Instructions Recorded Ondansetron Odt [Zofran Odt] 4 mg PO Q8HR PRN #20 tab 07/19/21 Allergies Allergy/AdvReac Type Severity Reaction Status Date / Time No Known Allergies Allergy Verified 08/05/21 23:12 Review of Systems ROS Statement: Those systems with pertinent positive or pertinent negative responses have been documented in the HPI. ROS Other: All systems not noted in ROS Statement are negative. Past Medical History Past Medical History: No Reported History Additional Past Medical History / Comment(s): UMBILCAL HERNIA. MIGRAINES History of Any Multi-Drug Resistant Organisms: ESBL, Other MDRO Date of last positivie culture/infection: 11/13/18 MDRO Source:: ESBL URINE Past Surgical History: Section Past Psychological History: Depression Smoking Status: Current every day smoker Past Alcohol Use History: Rare Past Drug Use History: None Reported, Marijuana, Prescription Drug Abuse - Past Family History family Family Medical History: No Reported History General Exam General appearance: alert, in no apparent distress Head exam: Present: atraumatic, normocephalic, normal inspection Eye exam: Present: normal appearance, PERRL, EOMI. Absent: scleral icterus, conjunctival injection, periorbital swelling ENT exam: Present: normal exam, mucous membranes moist Neck exam: Present: normal inspection. Absent: tenderness, meningismus, lymphadenopathy Respiratory exam: Present: normal lung sounds bilaterally. Absent: respiratory distress, wheezes, rales, rhonchi, stridor Cardiovascular Exam: Present: regular rate, normal rhythm, normal heart sounds. Absent: systolic murmur, diastolic murmur, rubs, gallop, clicks GI/Abdominal exam: Present: soft, normal bowel sounds. Absent: distended, tenderness, guarding, rebound, rigid Extremities exam: Present: normal inspection, full ROM, normal capillary refill. Absent: tenderness, pedal edema, joint swelling, calf tenderness Back exam: Present: normal inspection Neurological exam: Present: alert, oriented X3, CN II-XII intact Psychiatric exam: Present: normal affect, normal mood Skin exam: Present: warm, dry, intact, normal color. Absent: rash Course Vital Signs 08/05/21 23:10 Temperature 97.9 F Pulse Rate 85 Respiratory 19 Rate Blood Pressure 113/78 O2 Sat by Pulse 98 Oximetry - Reevaluation(s) Reevaluation #1: 08/06/21 00:45 Medical record is reviewed 08/06/21 00:45 Medical clear for psychiatric evaluation Medical Decision Making - Medical Decision Making 36 female to the emergency department for psychiatric evaluation. Patient be admitted for psychiatric evaluation and treatment Disposition Clinical Impression: Migraine headache, Depression, Acute psychosis Disposition: TRANSFER TO PSYCH HOSP/UNIT Condition: Fair Is patient prescribed a controlled substance at d/c from ED?: No Referrals: None,Stated [Primary Care Provider] - 1-2 days
[2021-08-06] MEDS ORDERED: IBUPROFEN 800 MG TAB PO STA (03:50)
[2021-08-06] MEDS ORDERED: ACETAMINOPHEN TAB 500 MG TAB PO STA (03:50)
[2021-08-06] MEDS ORDERED: LORazepam 2 MG/ML INJ IM STA (04:09)
[2021-08-06] MEDS ORDERED: MAGNESIUM HYDROXIDE 2,400 MG/10 ML CUP PO PRN (06:29)
[2021-08-06] MEDS ORDERED: MAG HYDROX/AL HYDROX/SIMETH 30 ML CUP PO PRN (06:29)
[2021-08-06] MEDS ORDERED: LORazepam 2 MG/ML INJ IM PRN ×2 (06:32→14:57)
[2021-08-06] MEDS ORDERED: HALOPERIDOL LACTATE 5 MG/ML 1 ML VIAL IM PRN (06:33)
[2021-08-06] MEDS: ACETAMINOPHEN TAB 325 MG TAB PO PRN (08:31)
[2021-08-06] MEDS: LORazepam 1 MG TAB PO PRN ×2 (08:31→14:05)
[2021-08-06] MEDS ORDERED: KETOROLAC 15 MG/ML 1 ML VIAL IM STA (08:37)
[2021-08-06] MEDS: NICOTINE 14MG/24HR PATCH TRANSDERM SCH (10:29)
[2021-08-06] MEDS ORDERED: LORazepam 1 MG TAB PO PRN (14:57)
[2021-08-06] MEDS ORDERED: hydrOXYzine HCL 50 MG/ML 1 ML VIAL IM PRN (15:07)
--- NOTE | 2021-08-06 15:08 | P.HP ---
Psychiatric H&P - . H&P Date: 08/06/21 History & Physical: Allergies Allergy/AdvReac Type Severity Reaction Status Date / Time No Known Allergies Allergy Verified 08/06/21 06:05 Vital Signs Temp 98.3 F 08/06/21 09:00 Pulse 67 08/06/21 09:00 Resp 18 08/06/21 09:56 BP 95/63 08/06/21 09:00 Pulse Ox 100 08/06/21 09:00 Intake & Output 08/05/21 08/06/21 08/06/21 18:59 06:59 18:59 Weight 79.379 kg Laboratory Last Values Coronavirus (PCR) Not Detected (Not Detectd) 08/06/21 04:25 08/06/21 15:08 IDENTIFYING DATA: Patient is a single, unemployed, 36-year-old female with significant history of PTSD, depression, and bipolar disorder presents emergency department for chief complaint of auditory hallucinations and suicidal ideation. HPI: Patient presented to the hospital on 08/05/2021, brought into the emergency department by herself due to auditory hallucinations. As previous report, the patient reported that she was hearing voices telling her to "claw her eyes out." She also reported the voices are telling her that she was going to feel "the wrath of God and that God is angry at her." She reports feeling hopeless and has been crying every day. She reports that she has been lacking significant support and has been feeling suicidal. She was subsequently admitted to the psychiatric unit. Upon evaluation the psychiatric unit, the patient does report that she has been feeling increasingly depressed and expressing worsening auditory hallucinations for the past month. She reports that she has not been in adherent with her medications and she was last discharged from our psychiatric unit in February. She is unable to recall when she last took her Invega and her Prozac. The patient does report that she has been feeling increasingly stressed due to her lack of finances and her inability to hold a job. that she has been fired her in June. She expresses concern as to how she is able to afford her housing and her food. She reports that while she was psychotic, she ended up throwing out much of her belongings and food. The patient does endorse significant symptoms of depression including hopelessness, helplessness, crying episodes, anhedonia, decreased attention and grooming, difficulty with sleep, and suicidal ideation. She continues to deny any prior suicide attempts in the past. The patient does not endorse any significant symptoms of bipolar disorder. The patient does admit to illicit substance use. She reports that she uses illicit Vicodin and states her last use was approximately a month ago. She also reports marijuana use however was unable to state when she last smoked marijuana. PAST PSYCHIATRIC HISTORY: Patient has previous diagnoses of major depressive disorder with psychotic features, PTSD, bipolar disorder, and depression. The patient has been prescribed Invega over the last 3 hospitalizations however has been nonadherent with treatment. She is also been nonadherent with outpatient follow-ups with [facility]. Patient denies any history of suicide attempts in the past. PMH: Past Medical History: No Reported History Additional Past Medical History / Comment(s): UMBILCAL HERNIA. MIGRAINES History of Any Multi-Drug Resistant Organisms: ESBL, Other MDRO Date of last positivie culture/infection: 11/13/18 MDRO Source:: ESBL URINE Past Surgical History: Section Past Psychological History: Depression Smoking Status: Current every day smoker Past Alcohol Use History: Rare Past Drug Use History: None Reported, Marijuana, Prescription Drug Abuse ALLERGIES: NO KNOWN DRUG ALLERGIES CHEMICAL DEPENDENCY HISTORY: The patient admits to illicit opiate use. She uses Vicodin illicitly. She also admits to marijuana use. She smokes 5-10 cigarettes per day. She denies any heavy alcohol use. FAMILY PSYCHIATRIC/SUBSTANCE USE HISTORY: No reported history. SOCIAL HISTORY: Patient was born and raised in [place]. She currently lives in [place]. She has 2 children out of wedlock or in the care of their father. She graduated from high school. 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 She reports that she has been able to get her own apartment and has been living there by herself. MENTAL STATUS EXAM: General Appearance: Patient appears to be stated age is alert, directable, and attempts to cooperate. Patient appears to have fair hygiene and grooming. Patient is wearing glasses. Behavior: Patient is seated without any agitated behavior. Eye contact is appropriate. Speech: Patient's speech is fluent and nonpressured. Mood/Affect: Patient reports their mood is depressed, affect is congruent and blunted. Suicidality/Homicidality: Patient denies having any homicidal ideation intent or plan. However the patient does endorse suicidal ideation. Perceptions: Patient denies any visual hallucinations but the patient endorses auditory hallucinations but Though content/process: There is no evidence of any delusional thought content and thought process is linear and goal-directed. Patient is medication seeking. Memory and concentration: AOX3, grossly intact for the purposes of this session. Can spell "WORLD" backwards Judgment and insight: Fair STRENGTHS/WEAKNESSES: Strength is that the patient is resilient and in good health. Weaknesses that patient engages in polysubstance use and is nonadherent with treatment. She also lacks social supports. INTELLECT: average IMPRESSIONS: Major depressive disorder, recurrent, severe, with mood congruent psychotic features Opiate use disorder Cannabis use disorder Nicotine dependence PLAN: -Patient is admitted under voluntary status to [facility] for stabilization of psychiatric symptoms and safety. Patient signed adult voluntary form and medication consent and is placed in patient's chart. -Medications : Will start patient on Invega 3 mg by mouth at bedtime for psychosis Cymbalta 20 mg by mouth twice a day for depression and for neuropathic pain -Vistaril and Haldol PRN for agitation/aggression - patient is medicine medication seeking. -Patient was counselled on substance abuse and desired to cut back on use -Patient was informed of the risks, benefits and side effects of the medication and patient verbally consented to taking the medications. Patient signed med consent form and was placed in chart. -Internal Medicine consult to perform medical evaluation and physical. -NRT - nicotine patch -SW on board for discharge planning. Encourage patient to participate in groups to work on coping skills. 08/06/21 15:08
[2021-08-06] MEDS: hydrOXYzine pamoate 25 MG CAP PO PRN (15:19)
[2021-08-06] MEDS: haloperidoL 5 MG TAB PO PRN (15:19)
--- NOTE | 2021-08-06 16:17 | P.MDCNMH ---
History of Present Illness H&P Date: 08/06/21 Chief Complaint: Medical Management 36-year-old woman with medical history of obesity, depression presented for suicidal ideation as well as subsequent depression. She also has a history of multiple substance abuse. Medicine was consulted by psychiatry team for medical management. Patient has no complaints at this time except for history of migraines and some mild back pain which is chronic and normal for her. She denies fevers, chills, nausea, vomiting, chest pain, palpitations, syncopal, presyncope, cough, dyspnea, abdominal pain, constipation, diarrhea, dysuria, dyschezia,/weakness of extremities. Patient is afebrile, 106/74, heart rate 76, 97% on room air. Her Covid test was negative. All Systems reviewed and pertinent positives and negatives noted in HPI, all other symptoms are negative Gen: awake, alert HEENT: normocephalic, atraumatic, good hearing acuity, moist mucous membranes Resp: good air exchange, breathing comfortably with no accessory muscle use CVS: good distal perfusion x 4, GI: soft, NTTP, ND : no SPT, no CVAT, barone catheter not present MSK: no pitting edema, no clubbing Neuro: non-focal, moving all extremities Psych: cooperative, euthymic mood Labs reviewed, no images for review Assessment/plan: Obesity class I, BMI 31 -Recommend outpatient weight loss referral -Requires screening for diabetes, hypothyroidism, hyperlipidemia Depression, suicidal ideation Polysubstance abuse -Management per primary team Thank you for this consult. A member of our team is available 01/12 should any issues or questions arise, please recheck via perfect serve. Past Medical History Past Medical History: No Reported History Additional Past Medical History / Comment(s): UMBILCAL HERNIA. MIGRAINES History of Any Multi-Drug Resistant Organisms: ESBL, Other MDRO Date of last positivie culture/infection: 11/13/18 MDRO Source:: ESBL URINE Past Surgical History: Section Past Psychological History: Depression Smoking Status: Current every day smoker Past Alcohol Use History: Rare Past Drug Use History: None Reported, Marijuana, Prescription Drug Abuse - Past Family History family Family Medical History: No Reported History Medications and Allergies Home Medications Medication Instructions Recorded Confirmed Type Ondansetron Odt [Zofran Odt] 4 mg PO Q8HR PRN #20 tab 07/19/21 08/06/21 Rx Allergies Allergy/AdvReac Type Severity Reaction Status Date / Time No Known Allergies Allergy Verified 08/06/21 06:05 Physical Exam Osteopathic Statement: *. No significant issues noted on an osteopathic structural exam other than those noted in the History and Physical/Consult. Vitals: Vital Signs Temp Pulse Pulse Resp BP BP Pulse Ox 08/06/21 15:58 106/74 08/06/21 15:54 97.4 F L 76 20 97 08/06/21 09:56 18 08/06/21 09:00 98.3 F 67 18 95/63 100 08/05/21 23:10 97.9 F 85 19 113/78 98 Intake and Output 08/06/21 08/06/21 08/06/21 06:59 14:59 22:59 Other: Weight 79.379 kg Cranial Nerve Examination - Cranial Nerves Cranial Nerve II- Optic: Intact Cranial Nerve III- Oculomotor: Intact Cranial Nerve IV- Trochlear: Intact Cranial Nerve V- Trigeminal: Intact Cranial Nerve - Abducens: Intact Cranial Nerve VII- Facial: Intact Cranial Nerve VIII- Auditory: Intact Cranial Nerve IX- Glossopharyngeal: Intact Cranial Nerve X- Vagus: Intact Cranial Nerve XI- Accessory: Intact Cranial Nerve XII- Hypoglossal: Intact
[2021-08-06] MEDS ORDERED: PALIPERIDONE 3 MG TAB.ER.24 PO SCH (21:00)
[2021-08-06] MEDS: DULoxetine HCL 20 MG CAPSULE.DR PO SCH (21:28)
[2021-08-07] MEDS: DULoxetine HCL 20 MG CAPSULE.DR PO SCH ×2 (09:11→20:47)
[2021-08-07] MEDS: NICOTINE 14MG/24HR PATCH TRANSDERM SCH (09:11)
--- NOTE | 2021-08-07 10:22 | P.PN ---
Progress Note - Text Progress Note Date: 08/07/21 Interval History: Patient was seen wandering the hallways and was directable and agreeable to speak with lead technical writer in the office. The patient expresses that she is feeling very good today. She reports that she was upset that she did not have the appropriate products for her hair. She was advised that she can speak with the patient advocate regarding this. The patient states that she has ideas of how to make the psychiatric unit more beneficial for patients. She then goes on a significant tension which leads to her discussing her grandmother which was not relevant to the initial topic at hand. The patient does admit to racing thoughts and a flight of ideas. She is currently denying any suicidal or homicidal ideation, intention, and/or plan. She is not reporting any auditory or visual hallucinations. She is denying any paranoia or other delusions. The patient has been adherent to medications and is not reporting any significant side effects at this time. Currently, the patient is asking for discharge. She reports that she has had no issues with her sleep or her appetite. We discussed the possible transition to Invega Sustenna due to her significant history of nonadherence to treatment. Patient states that she would like to think about this. Mental Status Exam: General Appearance: Patient appears to be stated age is alert and cooperative. At times she is difficult to direct Behavior: Patient is calmly seated without any agitated behavior. Speech: Patient's speech is spontaneous, fluent, and hyperverbal. Mood/Affect: Mood is "Feeling really good." Affect is expansive. Suicidality/Homicidality: Patient denies having any suicidal or homicidal ideation intent or plan. Perceptions: Patient denies any visual hallucinations and denies any auditory hallucinations Though content/process: Flight of ideas is evident. No delusional thought content is endorsed. Memory and concentration: AOX3, grossly intact for the purposes of this session Judgment and insight: Improving mildly Vital Signs Temp 97.5 F L 08/07/21 06:34 Pulse 61 08/07/21 06:34 Resp 16 08/07/21 06:34 BP 102/55 08/07/21 06:34 Pulse Ox 97 08/06/21 15:54 Assessment Schizoaffective disorder, bipolar type Hobbies disorder Cannabis use disorder Nicotine dependence Plan: -Patient continues to meet criteria for inpatient psychiatric admission for symptom stabilization and safety. Patient has signed adult voluntary form and medication consent and was placed in patient's chart. -Medications: Increase Invega to 6 mg by mouth at bedtime for psychosis. Plan is to transition the patient to Invega Sustenna. Continue Cymbalta 20 mg by mouth twice a day for depression and for neuropathic pain -When necessary Vistaril on Haldol for agitation/aggression. -NRT - nicotine patch -SW on board for discharge planning. Encouraged the patient to participate in milieu.
[2021-08-07 12:57] LABS: Basophils % (A) 1 %; Eosinophils # (A) 0.1 k/uL (0-0.7); Eosinophils % (A) 1 %; HCT 43.5 % (34.0-46.0); HGB 13.9 gm/dL (11.4-16.0); Lymphocytes # (A) 2.5 k/uL (1.0-4.8); Lymphocytes % (A) 33 %; MCH 29.8 pg (25.0-35.0); MCV 93.1 fL (80.0-100.0); Mean Platelet Volume 7.7; Monocytes # (A) 0.5 k/uL (0-1.0); Monocytes % (A) 7 %; Neutrophils # (A) 4.3 k/uL (1.3-7.7); Neutrophils % (A) 57 %; Platelet Count 398 k/uL (150-450); RBC 4.68 m/uL (3.80-5.40); RDW 12.3 % (11.5-15.5); WBC 7.6 k/uL (3.8-10.6)
[2021-08-07 13:11] LABS: ALT 20 U/L (4-34); AST 28 U/L (14-36); African American GFR (CKD) >90 (>60 ml/min/1.73 sqM); Albumin 4.5 g/dL (3.5-5.0); Alkaline Phosphatase 77 U/L (38-126); Anion Gap 8 mmol/L; Blood Urea Nitrogen 12 mg/dL (7-17); Calcium 9.4 mg/dL (8.4-10.2); Carbon Dioxide 26 mmol/L (22-30); Chloride 101 mmol/L (98-107); Glucose 73 mg/dL (74-99); Non-African American GFR(CKD) >90 (>60 ml/min/1.73 sqM); Potassium 5.3 mmol/L (3.5-5.1); Sodium 135 mmol/L (137-145); Total Bilirubin 0.8 mg/dL (0.2-1.3); Total Protein 7.4 g/dL (6.3-8.2)
[2021-08-07 13:59] LABS: Appearance,Urine Cloudy (Clear); Bilirubin,Urine Negative (Negative); Blood,Urine Negative (Negative); Color,Urine Yellow; Glucose,Urine (UA) Negative (Negative); Ketones,Urine 1+ (Negative); Leukocyte Esterase,Urine Large (Negative); Mucus,Urine Occasional /hpf; Nitrite,Urine Negative (Negative); PH, Urine 5.5 (5.0-8.0); Protein,Urine Trace (Negative); RBC,Urine 3 /hpf (0-5); Specific Gravity,Urine 1.016 (1.001-1.035); Squamous Epithelial Cell,Urine 3 /hpf (0-4); Urobilinogen,Urine <2.0 mg/dL (<2.0); WBC,Urine 25 /hpf (0-5)
[2021-08-07 14:12] LABS: Amphetamine Screen,Urine Not Detected (NotDetected); Barbiturate Screen,Urine Not Detected (NotDetected); Benzodiazepines Screen,Urine Detected (NotDetected); Cocaine Screen,Urine Not Detected (NotDetected); Methadone Screen, Urine Not Detected (NotDetected); Opiate Screen,Urine Detected (NotDetected); Oxycodone Screen, Urine Not Detected (NotDetected); Phencyclidine Screen,Urine Not Detected (NotDetected); Tricyclic Antidepressant,Urine Not Detected (NotDetected); Urn Cannabinoid Scrn Detected (NotDetected)
[2021-08-07] MEDS: PALIPERIDONE 6 MG TAB.ER.24 PO SCH (20:47)
[2021-08-08] MEDS: NICOTINE 14MG/24HR PATCH TRANSDERM SCH (09:02)
[2021-08-08] MEDS: DULoxetine HCL 20 MG CAPSULE.DR PO SCH (09:03)
[2021-08-08] MEDS ORDERED: PALIPERIDONE 3 MG TAB.ER.24 PO STA (09:17)
--- NOTE | 2021-08-08 12:05 | P.PN ---
Progress Note - Text Progress Note Date: 08/08/21 Interval History: Patient was seen wandering the hallways and was directable and agreeable to speak with process description writer in the office. The patient expresses that she is not feeling well today. She reports she has been impatient and irritable towards others. She does state she is missing her son's birthday today. She however reports she does not feel stable to go. She denies any current suicidal or homicidal ideation, intention, and/or plan. She denies any auditory or visual hallucinations. She reports no paranoia. She does present with sabianism preoccupation this provider "I feel like I'm in hell fire. I'm not a bad person right?" When asked to further explain, the patient states that she believes that God is mad at her. She is otherwise adherent with her medications and reports that the Cymbalta was causing her to feel drowsy. She wishes to discontinue this medication at this time. Mental Status Exam: General Appearance: Patient appears to be stated age is alert and cooperative. At times she is difficult to direct Behavior: Patient is calmly seated without any agitated behavior. Speech: Patient's speech is spontaneous, fluent, and hyperverbal. Slightly pressured today. Mood/Affect: Mood is "not feeling good." Affect is expansive and somewhat bizarre. Suicidality/Homicidality: Patient denies having any suicidal or homicidal ideation intent or plan. Perceptions: Patient denies any visual hallucinations and denies any auditory hallucinations Though content/process: Flight of ideas is evident. No delusional thought content is endorsed. Memory and concentration: AOX3, grossly intact for the purposes of this session Judgment and insight: Improving mildly Vital Signs Temp 97.5 F L 08/08/21 06:47 Pulse 84 08/08/21 06:47 Resp 18 08/08/21 06:47 BP 106/69 08/08/21 06:47 Pulse Ox 98 08/08/21 06:47 Assessment Schizoaffective disorder, bipolar type Hobbies disorder Cannabis use disorder Nicotine dependence Plan: -Patient continues to meet criteria for inpatient psychiatric admission for symptom stabilization and safety. Patient has signed adult voluntary form and medication consent and was placed in patient's chart. -Medications: Discontinue Cymbalta. Increase Invega to 3 mg by mouth every morning and 6 mg by mouth at bedtime for mood stabilization/psychosis. Plan is to transition her to [facility]. -When necessary Vistaril on Haldol for agitation/aggression. -NRT - nicotine patch -SW on board for discharge planning. Encouraged the patient to participate in milieu.
[2021-08-08] MEDS: PALIPERIDONE 6 MG TAB.ER.24 PO SCH (20:55)
[2021-08-09] MEDS: NICOTINE 14MG/24HR PATCH TRANSDERM SCH ×2 (08:00→09:49)
[2021-08-09] MEDS ORDERED: PALIPERIDONE 3 MG TAB.ER.24 PO SCH (09:00)
--- NOTE | 2021-08-09 11:29 | P.PN ---
Progress Note - Text Progress Note Date: 08/09/21 Interval History: Patient was seen wandering the hallways and was directable and agreeable to speak with copy writer in the office. The patient reports that she has been experiencing as a side effect of the invega and that has been causing her some distress. She is currently not reporting any suicidal or homicidal ideation or plan. She is not reporting any auditory or visual hallucinations. She is denying any paranoia or other delusions. She is currently expressing some feelings of guilt with her being admitted. She is otherwise adherent with her medication but does express concern about the Invega. She is wishing to switch medication. Mental Status Exam: General Appearance: Patient appears to be stated age is alert, directable, and cooperative. Behavior: Patient is calmly seated without any agitated behavior. Speech: Patient's speech is spontaneous, fluent, and less hyperverbal today. Mood/Affect: Mood is "doing okay." Affect appears to be euthymic with appropriate range. Suicidality/Homicidality: Patient denies having any suicidal or homicidal ideation intent or plan. Perceptions: Patient denies any visual hallucinations and denies any auditory hallucinations Though content/process: Patient reports that her thoughts were linear and logical have slowed down significantly. Memory and concentration: AOX3, grossly intact for the purposes of this session Judgment and insight: Improving mildly Vital Signs Temp 97.6 F 08/09/21 06:43 Pulse 72 08/09/21 06:43 Resp 14 08/09/21 06:43 BP 96/49 08/09/21 06:43 Pulse Ox 98 08/09/21 06:43 Assessment Schizoaffective disorder, bipolar type Hobbies disorder Cannabis use disorder Nicotine dependence Plan: -Patient continues to meet criteria for inpatient psychiatric admission for symptom stabilization and safety. Patient has signed adult voluntary form and medication consent and was placed in patient's chart. -Medications: Discontinue Invega due to concerns for side effects (). Will start Abilify 5 mg and titrate over the weekend to 15 mg at bedtime for psychosis/mood stabilization. -When necessary Vistaril on Haldol for agitation/aggression. -NRT - nicotine patch -SW on board for discharge planning. Encouraged the patient to participate in milieu.
[2021-08-09] MEDS: ACETAMINOPHEN TAB 325 MG TAB PO PRN (18:20)
[2021-08-09] MEDS ORDERED: ARIPiprazole 5 MG TAB PO SCH (21:00)
[2021-08-09] MEDS: haloperidoL 5 MG TAB PO PRN (21:49)
[2021-08-09] MEDS: hydrOXYzine pamoate 25 MG CAP PO PRN (22:43)
[2021-08-10] MEDS: NICOTINE 14MG/24HR PATCH TRANSDERM SCH (08:01)
[2021-08-10] MEDS ORDERED: BENZTROPINE MESYLATE 0.5 MG TAB PO STA (13:42)
[2021-08-10] MEDS ORDERED: BENZTROPINE 2 MG/2 ML AMP IM STA (15:59)
--- NOTE | 2021-08-10 16:04 | P.PN ---
Progress Note - Text Progress Note Date: 08/10/21 36-year-old woman with significant history of PTSD, depression, and bipolar disorder [place] [facility] [place]inations, suicidal ideation and lack of support. Interval history Patient complains of jaw tightness since yesterday night. She reports feeling anxious about her going to swimming [employer]. She says she has fear of dying and thinks of different ways of dying. She claims to have taken a PRN medications yesterday night to help her sleep. 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 Mental Status Exam: General Appearance: Patient appears to be stated age is alert, directable, and cooperative. Behavior: Patient is calmly seated without any agitated behavior. Speech: Patient's speech is spontaneous, fluent, goal directed. Mood/Affect: Mood is "better." Affect appropriate range. Suicidality/Homicidality: Patient denies having any suicidal or homicidal ideation intent or plan. Perceptions: Patient denies any visual hallucinations and denies any auditory hallucinations Though content/process: Patient reports that her thoughts were linear and logical have slowed down significantly. Memory and concentration: AOX3, grossly intact for the purposes of this session Judgment and insight: Improving mildly Assessment Schizoaffective disorder, bipolar type Hobbies disorder Cannabis use disorder Nicotine dependence Plan: -Patient continues to meet criteria for inpatient psychiatric admission for symptom stabilization and safety. Patient has signed adult voluntary form and medication consent and was placed in patient's chart. -Medications: Will start cogentin 0.5mg po daily for jaw tightness Will reduce the dose of abilify from 10mg po daily to 5mg po to minimize side effects. When necessary Vistaril on Haldol for agitation/aggression. -NRT - nicotine patch - on board for discharge planning. Encouraged the patient to participate in milieu. Patient continue to complain about jaw tightness even after taking 0.5mg of cogentin. Patient to receive cogentin 0.5mg IM now, 4pm or side effects. Will discontiue abilify until her jaw tightness resolves, then she can be restarted on it with a low dose with a gradual titration to avoid side effects.
[2021-08-10] MEDS: hydrOXYzine pamoate 25 MG CAP PO PRN (20:02)
[2021-08-10] MEDS ORDERED: ARIPiprazole 10 MG TAB PO SCH (21:00)
[2021-08-11] MEDS: NICOTINE 14MG/24HR PATCH TRANSDERM SCH (07:49)
--- NOTE | 2021-08-11 14:52 | P.PN ---
Progress Note - Text Progress Note Date: 08/11/21 36-year-old woman with significant history of PTSD, depression, and bipolar disorder [place] [facility] [place], suicidal ideation and lack of support. Interval history Patient reported cogentin shot has helped her. She stated she got scared yesterday when her jaw got tight and felt as if she was going to eat her tongue. she reports bringing herself to the hospital because is god is mad at her and pouring his wrath on her. She says she is working on improving her relationship with good , says she reading her bible more. She says her son has sickle cell disease with large heart. Says her son received three blood transfusions already. She says she wants to go home. She reports feeling anxious about her children. She reports feeling sad and guilty and it is her fault that her son is suffering from sickle cell diseasae. She says she has sickle cell trait and her also has sickle cell trait. She also reports feeling sad about her family not being close, says all her family members were very close before but not anymore. Due to her developing jaw tightness, swollen tongue with difficulty talking her abilify was discontinued yesterday. She responded well to cogentin. Mental Status Exam: General Appearance: Patient appears to be stated age is alert, directable, and cooperative. Behavior: Patient is calm and cooperative. Speech: Patient's speech is spontaneous, fluent, goal directed. Mood/Affect: Mood is "good." Affect appropriate range. Suicidality/Homicidality: Patient denies having any suicidal or homicidal ideation intent or plan. Perceptions: Patient denies any visual hallucinations and denies any auditory hallucinations Though content/process: thoughts were linear and coherent Memory and concentration: AOX3, grossly intact for the purposes of this session Judgment and insight: Improving mildly Assessment Schizoaffective disorder, bipolar type Hobbies disorder Cannabis use disorder Nicotine dependence Plan: -Patient continues to meet criteria for inpatient psychiatric admission for symptom stabilization and safety. Patient has signed adult voluntary form and medication consent and was placed in patient's chart. -Medications: Due to her developing jaw tightness, swollen tongue with difficulty talking her abilify was discontinued yesterday. She responded well to cogentin. Continue cogentin along with antipsychotic if needed. Consider starting her back on antipsychotic at a low dose. Titrate the dose based on her tolerability and effectiveness. When necessary Vistaril on Haldol for agitation/aggression. -NRT - nicotine patch -SW on board for discharge planning. Encouraged the patient to participate in milieu.
[2021-08-11] MEDS: hydrOXYzine pamoate 25 MG CAP PO PRN (20:46)
[2021-08-11] MEDS ORDERED: ARIPiprazole 15 MG TAB PO SCH (21:00)
[2021-08-11] MEDS ORDERED: BENZTROPINE MESYLATE 0.5 MG TAB PO SCH (21:00)
[2021-08-12 06:46] VITALS: BP 110/74; PULSE 63; RESP 16; TEMP 97.1
[2021-08-12] MEDS: NICOTINE 14MG/24HR PATCH TRANSDERM SCH (08:56)
[2021-08-12] MEDS: ACETAMINOPHEN TAB 325 MG TAB PO PRN (10:53)
--- NOTE | 2021-08-12 13:55 | P.DS ---
Providers Date of admission: 08/06/21 06:26 Expected date of discharge: 08/12/21 Attending physician: Ceferino Aquino MD Consults: 08/06/21 06:29 Consult Physician Routine Consulting Provider: Elsie Crandall Consult Reason/Comments: History and physical Do you want consulting provider notified?: Yes, Notify in am Primary care physician: Stated None - Discharge Diagnosis(es) (1) Schizoaffective disorder Status: Acute Priority: High (2) Opioid use disorder Status: Chronic Priority: Medium (3) Cannabis use disorder, mild, abuse Status: Chronic Priority: Medium (4) Nicotine dependence Status: Chronic Priority: Medium Hospital Course: Admission HPI: Patient is a single, unemployed, 36-year-old female with significant history of PTSD, depression, and bipolar disorder presents emergency department for chief complaint of auditory hallucinations and suicidal ideation. Patient presented to the hospital on 08/05/2021, brought into the emergency department by herself due to auditory hallucinations. As previous report, the patient reported that she was hearing voices telling her to "claw her eyes out." She also reported the voices are telling her that she was going to feel "the wrath of God and that God is angry at her." She reports feeling hopeless and has been crying every day. She reports that she has been lacking significant support and has been feeling suicidal. She was subsequently admitted to the psychiatric unit. Upon evaluation the psychiatric unit, the patient does report that she has been feeling increasingly depressed and expressing worsening auditory hallucinations for the past month. She reports that she has not been in adherent with her medications and she was last discharged from our psychiatric unit in February. She is unable to recall when she last took her Invega and her Prozac. The patient does report that she has been feeling increasingly stressed due to her lack of finances and her inability to hold a job. that she has been fired her in June. She expresses concern as to how she is able to afford her housing and her food. She reports that while she was psychotic, she ended up throwing out much of her belongings and food. The patient does endorse significant symptoms of depression including hopelessness, helplessness, crying episodes, anhedonia, decreased attention and grooming, difficulty with sleep, and suicidal ideation. She continues to deny any prior suicide attempts in the past. The patient does not endorse any significant symptoms of bipolar disorder. The patient does admit to illicit substance use. She reports that she uses illicit Vicodin and states her last use was approximately a month ago. She also reports marijuana use however was unable to state when she last smoked marijuana. Patient has previous diagnoses of major depressive disorder with psychotic features, PTSD, bipolar disorder, and depression. The patient has been prescribed Invega over the last 3 hospitalizations however has been nonadherent with treatment. She is also been nonadherent with outpatient follow-ups with [facility]. Patient denies any history of suicide attempts in the past. Hospital course: Upon admission to the unit patient was initially presenting with some paranoia as well as some manic symptoms. Patient was however directable and agreeable to commence treatment. Patient got along well with other patients on the unit and followed unit protocol. Patient was compliant with the medications and denied any side effects throughout hospital course. Patient was started on Invega and Cymbalta for management of psychosis as well as depression. Patient spoke of her stressors and engaged in therapy both group and individual. Patient was also seen by medical team for history and physical exam. Patient initially was doing well with the Invega however reported that she was expressing as a side effect of medication. She is therefore transitioned to Abilify. Initial plan is to transition the patient to a long-acting injectable medication. However, with the Abilify, the patient did report that she developed some jaw tightness and swelling of her tongue. This medication was then discontinued and the patient wished to return back to being on Invega. She reported to this provider that she would rather have the side effect of than deal with mood instability and would like to taking Invega instead. The patient was also agreeable to transition for long-acting injectable however she was informed that she can do this in the outpatient setting when she follows up with her outpatient appointments. The patient displayed significant improvement in regards to mood lability, psychotic symptoms, and tolerance of her medications. On the day of discharge, the patient is not reporting any suicidal or homicidal ideation, intention, and/or plan. She is denying any auditory or visual hallucinations. She reports no paranoia or other delusions. The patient has been in adherent with her medications and is not reporting any significant side effects at this time. The patient denies any access to firearms or other weapons. The patient was counseled at length on the importance of medication adherence and appropriate outpatient follow-up. The patient does have a significant history of substance abuse however was counseled at great length on the importance of abstaining from all substances, especially illicit opiates. The patient was informed of the risks of using illicit opiates including psychosis as well as respiratory depression and even . The patient was offered however declined inpatient substance-abuse rehabilitation. Prior to discharge, phentermine will be arranged by social work case manager to answer any questions and ensure safety. Mental status exam: General Appearance: Patient appears to be stated age is alert, pleasant, and cooperative. Patient is in no acute distress and has fair hygiene and grooming Behavior: Patient is calmly seated without any agitated behavior. Speech: Patient's speech is fluent and nonpressured. Mood/Affect: Patient reports their mood is "much better", affect is congruent and euthymic to bright. Suicidality/Homicidality: Patient denies having any suicidal or homicidal ideation intent or plan. Perceptions: Patient denies any auditory or visual hallucinations. Though content/process: There is no evidence of any delusional thought content and thought process is linear and goal-directed. Patient is future oriented. Memory and concentration: AOX3, grossly intact for the purposes of this session. Can spell "WORLD" backwards correctly. Judgment and insight: Improved with guarded prognosis Vital Signs Temp 97.1 F L 08/12/21 06:45 Pulse 63 08/12/21 06:45 Resp 16 08/12/21 06:45 BP 110/74 08/12/21 06:45 Pulse Ox 98 08/12/21 06:45 Intake & Output 08/11/21 08/12/21 08/12/21 18:59 06:59 18:59 Weight 76.9 kg Laboratory Results WBC 7.6 k/uL (3.8-10.6) 08/07/21 11:28 RBC 4.68 m/uL (3.80-5.40) 08/07/21 11:28 Hgb 13.9 gm/dL (11.4-16.0) 08/07/21 11:28 Hct 43.5 % (34.0-46.0) 08/07/21 11:28 MCV 93.1 fL (80.0-100.0) 08/07/21 11:28 MCH 29.8 pg (25.0-35.0) 08/07/21 11:28 MCHC 32.0 g/dL (31.0-37.0) 08/07/21 11:28 RDW 12.3 % (11.5-15.5) 08/07/21 11:28 Plt Count 398 k/uL (150-450) 08/07/21 11:28 MPV 7.7 08/07/21 11:28 Neutrophils % 57 % 08/07/21 11:28 Lymphocytes % 33 % 08/07/21 11:28 Monocytes % 7 % 08/07/21 11:28 Eosinophils % 1 % 08/07/21 11:28 Basophils % 1 % 08/07/21 11:28 Neutrophils # 4.3 k/uL (1.3-7.7) 08/07/21 11:28 Lymphocytes # 2.5 k/uL (1.0-4.8) 08/07/21 11:28 Monocytes # 0.5 k/uL (0-1.0) 08/07/21 11:28 Eosinophils # 0.1 k/uL (0-0.7) 08/07/21 11:28 Basophils # 0.0 k/uL (0-0.2) 08/07/21 11:28 Sodium 135 mmol/L (137-145) L 08/07/21 11:28 Potassium 5.3 mmol/L (3.5-5.1) H 08/07/21 11:28 Chloride 101 mmol/L (98-107) 08/07/21 11:28 Carbon Dioxide 26 mmol/L (22-30) 08/07/21 11:28 Anion Gap 8 mmol/L 08/07/21 11:28 BUN 12 mg/dL (7-17) 08/07/21 11:28 Creatinine 0.74 mg/dL (0.52-1.04) 08/07/21 11:28 Est GFR (CKD-EPI)AfAm >90 (>60 ml/min/1.73 sqM) 08/07/21 11:28 Est GFR (CKD-EPI)NonAf >90 (>60 ml/min/1.73 sqM) 08/07/21 11:28 Glucose 73 mg/dL (74-99) L 08/07/21 11:[address] Glu mg/dL 101 08/07/21 11:28 Hemoglobin A1c 5.2 % (0.0-6.0) 08/07/21 11:28 Calcium 9.4 mg/dL (8.4-10.2) 08/07/21 11:28 Total Bilirubin 0.8 mg/dL (0.2-1.3) 08/07/21 11:28 AST 28 U/L (14-36) 08/07/21 11: ALT 20 U/L (4-34) 08/07/21 11:28 Alkaline Phosphatase 77 U/L (38-126) 08/07/21 11:28 Total Protein 7.4 g/dL (6.3-8.2) 08/07/21 11: Albumin 4.5 g/dL (3.5-5.0) 08/07/21 11: TSH 0.391 mIU/L (0.465-4.680) L 08/07/21 11:28 Urine Color Yellow 08/07/21 13:00 Urine Appearance Cloudy (Clear) H 08/07/21 13:00 Urine pH 5.5 (5.0-8.0) 08/07/21 13:00 Ur Specific [place] 1.016 (1.001-1.035) 08/07/21 13:00 Urine Protein Trace (Negative) H 08/07/21 13:00 Urine Glucose (UA) Negative (Negative) 08/07/21 13:00 Urine Ketones 1+ (Negative) H 08/07/21 13:00 Urine Blood Negative (Negative) 08/07/21 13:00 Urine Nitrite Negative (Negative) 08/07/21 13:00 Urine Bilirubin Negative (Negative) 08/07/21 13:00 Urine Urobilinogen <2.0 mg/dL (<2.0) 08/07/21 13:00 Ur Leukocyte Esterase Large (Negative) H 08/07/21 13:00 Urine RBC 3 /hpf (0-5) 08/07/21 13:00 Urine WBC 25 /hpf (0-5) H 08/07/21 13:00 Ur Squamous Epith Cells 3 /hpf (0-4) 08/07/21 13:00 Urine Mucus Occasional /hpf (None) H 08/07/21 13:00 Urine Opiates Screen Detected (NotDetected) H 08/07/21 13:12 Ur Oxycodone Screen Not Detected (NotDetected) 08/07/21 13:12 Urine Methadone Screen Not Detected (NotDetected) 08/07/21 13:12 Ur Propoxyphene Screen Not Detected (NotDetected) 08/07/21 13:12 Ur Barbiturates Screen Not Detected (NotDetected) 08/07/21 13:12 U Tricyclic Antidepress Not Detected (NotDetected) 08/07/21 13:12 Ur Phencyclidine Scrn Not Detected (NotDetected) 08/07/21 13:12 Ur Amphetamines Screen Not Detected (NotDetected) 08/07/21 13:12 U Methamphetamines Scrn Not Detected (NotDetected) 08/07/21 13:12 U Benzodiazepines Scrn Detected (NotDetected) H 08/07/21 13:12 Urine Cocaine Screen Not Detected (NotDetected) 08/07/21 13:12 U Marijuana (THC) Screen Detected (NotDetected) H 08/07/21 13:12 Coronavirus (PCR) Not Detected (Not Detectd) 08/06/21 04:25 Impression: Schizoaffective Disorder Opiate use disorder Cannabis use disorder Nicotine dependence Plan: -Continue with discharge today as patient has improved and stabilized psychiatrically and is not currently an imminent threat to self and/or others. Patient will remain at chronically elevated risk for harm to self and/or others due to her impulsivity and polysubstance abuse. -Continue medications: Cogentin 0.5 mg by mouth at bedtime for EPS Vistaril 50 mg by mouth at bedtime when necessary for insomnia Habitrol patches for nicotine cessation Invega 6 g by mouth at bedtime for mood stabilization/psychosis -Patient was counseled on the need for medication compliance and appropriate follow-up at mental health and also primary care for medical issues. Patient verbalized understanding and agreed. -Social work to arrange for and conduct family meeting to ensure safety upon discharge and answer any questions/concerns. Social work also to arrange for patients follow up appointments with [facility] for psychiatric care along with follow up with primary care provider. -Patient counseled on abstaining from recreational drugs and marijuana and alcohol. Was informed/educated on the adverse effects on their physical and mental health. Patient verbally agreed and understood. Patient was offered substance abuse treatment however declined at this time. -Patient was instructed to return to the hospital or seek immediate medical care if their psychiatric or medical symptoms do worsen or reoccur. -Psychoeducation and supportive therapy provided to patient. Risks and benefits of pharmacological treatment versus the risks and benefits of nontreatment weight and discussed. Informed consent discussion held. Common side effects of psychotropics discussed such as, but not limited to headache, GI disturbance, sexual dysfunction, movement disorders, sedation, and orthostatic hypotension. Life threatening and blackbox warnings of prescribed medications also discussed. Potential risks of operating a vehicle or heavy machinery discussed with patient at length. Advised on importance of compliance and a reliable and responsible manner. Patient advised to review FDA consumer labeling of all medications prior to taking. Patient verbalized understanding of potential risks, and agrees with current treatment plan. Patient advised to medically contact physician/emergency personnel if any acute changes in condition occur. Allergies Allergy/AdvReac Type Severity Reaction Status Date / Time No Known Allergies Allergy Verified 08/06/21 06:05 Patient Condition at Discharge: Stable Plan - Discharge Summary New Discharge Prescriptions: New Benztropine Mesylate [Cogentin] 0.5 mg PO HS 30 Days tab hydrOXYzine pamoate [Vistaril] 50 mg PO HS PRN 30 Days cap PRN Reason: Insomnia Nicotine 14Mg/24Hr Patch [Habitrol] 1 patch TRANSDERM DAILY 30 Days patch Paliperidone [Invega] 6 mg PO HS 30 Days tab Discontinued Ondansetron Odt [Zofran Odt] 4 mg PO Q8HR PRN #20 tab PRN Reason: Nausea And Vomiting Discharge Medication List Benztropine Mesylate [Cogentin] 0.5 mg PO HS 30 Days tab 08/12/21 [Rx] Nicotine 14Mg/24Hr Patch [Habitrol] 1 patch TRANSDERM DAILY 30 Days patch 08/12/21 [Rx] Paliperidone [Invega] 6 mg PO HS 30 Days tab 08/12/21 [Rx] hydrOXYzine pamoate [Vistaril] 50 mg PO HS PRN 30 Days cap 08/12/21 [Rx] Follow up Appointment(s)/Referral(s): [facility] [Outside] - 08/22/21 9:00 am (08/22 w/ Candy @ [facility]- 9:00am 08/27 w/ Dr. Garcia @ [facility]- 12:30pm) [facility] Patient Instructions/Handouts: How to Stop Smoking (ED), Schizoaffective Disorder (DC) Activity/Diet/Wound Care/Special Instructions: Activity and diet as tolerated. Avoid the use of street drugs and alcohol. Take all medications as prescribed. When you are in need of refills on your medications please contact your medical provider and/or outpatient psychiatrist to have this done. Please go to scheduled outpatient appointment for aftercare treatment. If symptoms return or become worse, call the crisis line at and/or go to the nearest emergency room for evaluation Discharge Disposition: HOME SELF-CARE
== END 2021-08-12 11:38 | disposition home or self-care (01) | DRG 885 ==
LOC: EC 22:45 → 3MHU 08-06 06:26
PROVIDERS: ADMIT Psychiatry & Neurology Psychiatry; ATTEND Psychiatry & Neurology Psychiatry
DX: F25.0 Schizoaffective disorder, bipolar type (principal); R45.851 Suicidal ideations; F17.210 Nicotine dependence, cigarettes, uncomplicated; F11.10 Opioid abuse, uncomplicated; F12.10 Cannabis abuse, uncomplicated; F43.10 Post-traumatic stress disorder, unspecified; G43.909 Migraine, unspecified, not intractable, without status migrainosus; G47.00 Insomnia, unspecified; Z56.0 Unemployment, unspecified; Z79.899 Other long term (current) drug therapy; Z20.822 Contact with and (suspected) exposure to COVID-19; Z71.51 Drug abuse counseling and surveillance of drug abuser; Z98.890 Other specified postprocedural states; Z86.19 Personal history of other infectious and parasitic diseases
CPT/HCPCS: 80053; 80306; 81001; 82075; 83036; 84443; 85025; 87635; 96372; 99285

== ENCOUNTER 2022-03-10 20:25 | Emergency (ER) | payer OTHER ==
[2022-03-10 20:39] VITALS: RESP 18; TEMP 98.9
[2022-03-10] MEDS ORDERED: KETOROLAC 15 MG/ML 1 ML VIAL IM STA (23:59)
[2022-03-10] MEDS ORDERED: PROCHLORPERAZINE 10 MG TAB PO STA (23:59)
--- NOTE | 2022-03-11 | ED ---
Headache HPI - General Chief Complaint: Headache Stated Complaint: Migraine Time Seen by Provider: 03/10/22 23:53 Source: RN notes reviewed, old records reviewed Mode of arrival: ambulatory Limitations: no limitations - History of Present Illness Initial Comments: This is a 36-year-old female to the emergency department for evaluation. Patient presents today for evaluation of what she describes as migraine headache history of migraines presenting for migraine headache currently. Patient has no injury or trauma. No fevers. Admits increased anxiety over sons illness as of late as well as living situation. Patient has no other complaint aside from migraine headache. MD Complaint: headache, "migraine" -: hour(s) Onset Description: gradual Location: frontal Severity: moderate Severity scale (1-10): 7 Quality: aching, throbbing Consistency: constant Improves With: nothing Worsens With: none Context: occurred at rest Associated Symptoms: nausea Other Symptoms: other (0) Treatments Prior to Arrival: none - Related Data Previous Rx's Medication Instructions Recorded Benztropine Mesylate [Cogentin] 0.5 mg PO HS 30 Days tab 08/12/21 Nicotine 14Mg/24Hr Patch [Habitrol] 1 patch TRANSDERM DAILY 30 Days 08/12/21 patch Paliperidone [Invega] 6 mg PO HS 30 Days tab 08/12/21 hydrOXYzine pamoate [Vistaril] 50 mg PO HS PRN 30 Days cap 08/12/21 Allergies Allergy/AdvReac Type Severity Reaction Status Date / Time No Known Allergies Allergy Verified 03/10/22 20:39 Review of Systems ROS Statement: Those systems with pertinent positive or pertinent negative responses have been documented in the HPI. ROS Other: All systems not noted in ROS Statement are negative. Past Medical History Past Medical History: No Reported History Additional Past Medical History / Comment(s): UMBILCAL HERNIA. MIGRAINES History of Any Multi-Drug Resistant Organisms: ESBL, Other MDRO Date of last positivie culture/infection: 11/13/18 MDRO Source:: ESBL URINE Past Surgical History: Section Past Psychological History: Depression Smoking Status: Current every day smoker Past Alcohol Use History: Rare Past Drug Use History: None Reported, Marijuana, Prescription Drug Abuse - Past Family History family Family Medical History: No Reported History General Exam Limitations: no limitations General appearance: alert, in no apparent distress Head exam: Present: atraumatic, normocephalic, normal inspection Eye exam: Present: normal appearance, PERRL, EOMI. Absent: scleral icterus, conjunctival injection, periorbital swelling ENT exam: Present: normal exam, mucous membranes moist Neck exam: Present: normal inspection. Absent: tenderness, meningismus, lymphadenopathy Respiratory exam: Present: normal lung sounds bilaterally. Absent: respiratory distress, wheezes, rales, rhonchi, stridor Cardiovascular Exam: Present: regular rate, normal rhythm, normal heart sounds. Absent: systolic murmur, diastolic murmur, rubs, gallop, clicks GI/Abdominal exam: Present: soft, normal bowel sounds. Absent: distended, tenderness, guarding, rebound, rigid Extremities exam: Present: normal inspection, full ROM, normal capillary refill. Absent: tenderness, pedal edema, joint swelling, calf tenderness Back exam: Present: normal inspection Neurological exam: Present: alert, oriented X3, CN II-XII intact Psychiatric exam: Present: normal affect, normal mood Skin exam: Present: warm, dry, intact, normal color. Absent: rash Course Vital Signs 03/10/22 20:37 Temperature 98.9 F Pulse Rate 74 Respiratory 18 Rate Blood Pressure 130/76 O2 Sat by Pulse 99 Oximetry - Reevaluation(s) Reevaluation #1: 03/11/22 00:06 Medical record is reviewed Reevaluation #2: 03/11/22 01:06 Patient's headache is resolved Reevaluation #3: 03/11/22 01:06 Patient informed results and questions answered Medical Decision Making - Medical Decision Making 36 female to the emergency department for evaluation patient presents today for evaluation of headache migraine headache described as migraine pain is controlled patient can be discharged home Disposition Clinical Impression: Headache, Migraine headache Disposition: HOME SELF-CARE Condition: Good Instructions (If sedation given, give patient instructions): Acute Headache (ED) Is patient prescribed a controlled substance at d/c from ED?: No Referrals: Jayson Nunes MD [Primary Care Provider] - 1-2 days Time of Disposition: :10
[2022-03-11 00:41] VITALS: BP 106/54; PULSE 71
== END 2022-03-11 02:00 | disposition home or self-care (01) ==
LOC: EC 20:25
DX: G43.909 Migraine, unspecified, not intractable, without status migrainosus (principal); F32.A Depression, unspecified; F17.200 Nicotine dependence, unspecified, uncomplicated; F12.90 Cannabis use, unspecified, uncomplicated; Z79.899 Other long term (current) drug therapy
CPT/HCPCS: 99283; 96372; S0183; J1885

== ENCOUNTER 2022-05-24 19:31 | Emergency (ER) | payer OTHER ==
[2022-05-24 19:38] VITALS: BP 147/70; PULSE 85; RESP 16; TEMP 98.3
[2022-05-24] MEDS ORDERED: KETOROLAC 15 MG/ML 1 ML VIAL IVP STA (19:50)
[2022-05-24] MEDS ORDERED: METOCLOPRAMIDE 5 MG/ML 2 ML VIAL IVP STA (19:50)
[2022-05-24] MEDS ORDERED: SODIUM CHLORIDE 0.9% 1,000 ML IV STA (19:50)
[2022-05-24] MEDS ORDERED: diphenhydrAMINE 50 MG/ML 1 ML VIAL IVP STA (19:50)
--- NOTE | 2022-05-24 19:52 | ED ---
Headache HPI - General Chief Complaint: Headache Stated Complaint: migraine Time Seen by Provider: 05/24/22 19:42 Source: patient, RN notes reviewed Mode of arrival: ambulatory Limitations: no limitations - History of Present Illness Initial Comments: Patient is a 36-year-old -[place] female presenting to the emergency room with complaints of ongoing headache for the last 4 days with varying intensities. She reports associated nausea and vomiting yesterday but no nausea or vomiting today. She reports that symptoms are debilitating at times causing her to not be able to complete her activities of daily living. She has a history of migraines and reports that she has had headaches similar to her symptoms previously but reports that it has not responded to oral medications at home. She denies any focal neurological deficits, she has blurred vision due to the need to wear glasses and not having them available to her but denies any changes in her blurred vision. She denies any aggravating factors 4 days ago prior to the start of her headache. She denies any other symptoms including any chest pain, shortness of breath, abdominal pain, fevers or chills. In addition to her migraine history she has a past medical history significant for bipolar depression, PTSD, schizoaffective disorder and she is a smoker. - Related Data Previous Rx's Medication Instructions Recorded Benztropine Mesylate [Cogentin] 0.5 mg PO HS 30 Days tab 08/12/21 Nicotine 14Mg/24Hr Patch [Habitrol] 1 patch TRANSDERM DAILY 30 Days 08/12/21 patch Paliperidone [Invega] 6 mg PO HS 30 Days tab 08/12/21 hydrOXYzine pamoate [Vistaril] 50 mg PO HS PRN 30 Days cap 08/12/21 Allergies Allergy/AdvReac Type Severity Reaction Status Date / Time No Known Allergies Allergy Verified 05/24/22 19:36 Review of Systems ROS Statement: Those systems with pertinent positive or pertinent negative responses have been documented in the HPI. ROS Other: All systems not noted in ROS Statement are negative. Past Medical History Additional Past Medical History / Comment(s): UMBILCAL HERNIA. MIGRAINES History of Any Multi-Drug Resistant Organisms: ESBL, Other MDRO Date of last positivie culture/infection: 11/13/18 MDRO Source:: ESBL URINE Past Surgical History: Section Past Psychological History: Bipolar, Depression, PTSD, Schizoaffective Disorder Smoking Status: Current every day smoker Past Alcohol Use History: Rare Past Drug Use History: None Reported, Marijuana, Prescription Drug Abuse - Past Family History family Family Medical History: No Reported History General Exam - General Exam Comments Initial Comments: GENERAL: No acute distress, well developed, well nourished. HEENT: Normocephalic, atraumatic. Pupils equal, round, reactive to light. Moist mucous membranes. LUNGS: No respiratory distress. Clear to auscultation, no adventitious sounds, no use of accessory muscles. HEART: Regular rate and rhythm without murmur, rub, or gallop. ABDOMEN: Normal bowel sounds. Soft, non-tender, non-distended. BACK: Normal inspection. EXTREMITIES: No edema. No tenderness. Moves all extremities. NEUROLOGIC: Alert & oriented x 3. CN II-XII grossly intact. PSYCHIATRIC: Normal affect and behavior. DERMATOLOGIC: Skin intact, without rashes or lesions noted. Limitations: no limitations Course Vital Signs 05/24/22 19:36 Temperature 98.3 F Pulse Rate 85 Respiratory 16 Rate Blood Pressure 147/70 O2 Sat by Pulse 97 Oximetry Medical Decision Making - Medical Decision Making Was pt. sent in by a medical professional or institution (, PA, NURSE SANE, urgent care, hospital, or long-term...) When possible be specific @ -No Did you speak to anyone other than the patient for history (EMS, parent, family, police, friend...)? What history was obtained from this source @ -No Did you review nursing and triage notes (agree or disagree)? Why? @ -I reviewed and agree with nursing and triage notes Were old charts reviewed (outside hosp., previous admission, EMS record, old EKG, old radiological studies, urgent care reports/EKG's, long-term records)? Report findings @ -No old charts were reviewed Differential Diagnosis (chest pain, altered mental status, abdominal pain women, abdominal pain men, vaginal bleeding, weakness, fever, dyspnea, syncope, headache, dizziness, GI bleed, back pain, seizure, CVA, palpatations, mental health)? @ -Differential Headache: Migraine, tension, cluster, carbon monoxide, central venous thrombosis, pension karma temporal arteritis, acute closure glaucoma, intercranial hemorrhage, mastoiditis, sinusitis, head injury, this is not meant to be an all-inclusive list. EKG interpreted by me (3pts min.). @ -None done X-rays interpreted by me (1pt min.). @ -None done CT interpreted by me (1pt min.). @ -None done U/S interpreted by me (1pt. min.). @ -None done What testing was considered but not performed or refused? (CT, X-rays, U/S, labs)? Why? @ -Computed tomography scan of brain considered but deferred due to previous headache/migraine diagnosis with similar characteristics without any focal neurological deficits. Laboratory studies of CBC CMP and urinalysis considered but deferred due to hemodynamically stable. What meds were considered but not given or refused? Why? @ -Benadryl ordered as part of migraine cocktail and refused by patient due to concerns for drowsiness from medication. Did you discuss the management of the patient with other professionals (professionals i.e. , PA, NURSE SANE, lab, RT, psych nurse, medical social consultant, warp splitter, teacher, financial aid officer, rn case manager hospice)? Give summary @ -No Was smoking cessation discussed for >3mins.? @ -I discussed smoking cessation for greater than 3 minutes. The risk of smoking were discussed with the patient including but not limited to risks of cancer, stroke, coronary artery disease and COPD. Also discussed with patient were multiple methods of quitting smoking. Lastly we discussed the financial cost of smoking. Was critical care preformed (if so, how long)? @ -No Were there social determinants of health that impacted care today? How? (Homelessness, low income, unemployed, alcoholism, drug addiction, transportation, low edu. Level, literacy, decrease access to med. care, correction, rehab)? @ -No Was there de-escalation of care discussed even if they declined (Discuss DNR or withdrawal of care, Hospice)? DNR status @ -No What co-morbidities impacted this encounter? (DM, HTN, Smoking, COPD, CAD, Cancer, CVA, ARF, Chemo, Hep., AIDS, mental health diagnosis, sleep apnea, morbid obesity)? @ -Migraine history Was patient admitted / discharged? Hospital course, mention meds given and route, prescriptions, significant lab abnormalities, going to OR and other pertinent info. @ -36-year-old -[place] female presenting with a headache for 4 days consistent with previous migraines without any focal neurological deficits. No indication for diagnostic imaging or laboratory studies at this time. Will give migraine cocktail of IV fluids, IV Benadryl, IV Reglan and IV Toradol and monitor response. Benadryl portion of cocktail refused by patient due to concern of drowsiness. Patient responded well to migraine cocktail with improvement in symptoms. She is requesting a Tylenol 3 for headache treatment at home for return of symptoms or worsening of symptoms again. Patient has previously tolerated his regimen in the past. Will give Tylenol 3 starter pack. Will discharge home in stable condition with Tylenol 3 starter pack to utilize for headache as needed and follow-up with her primary care provider. Undiagnosed new problem with uncertain prognosis? @ -No Drug Therapy requiring intensive monitoring for toxicity (Heparin, Nitro, Insulin, Cardizem)? @ -No Were any procedures done? @ -No Diagnosis/symptom? @ -Headache Acute, or Chronic, or Acute on Chronic? @ -Acute on chronic Uncomplicated (without systemic symptoms) or Complicated (systemic symptoms)? @ -Uncomplicated Side effects of treatment? @ -No Exacerbation, Progression, or Severe Exacerbation? @ -No Poses a threat to life or bodily function? How? (Chest pain, USA, MS, pneumonia, PE, COPD, DKA, ARF, appy, cholecystitis, CVA, Diverticulitis, Homicidal, Suicidal, threat to staff... and all critical care pts) @ -No Dr. Gallegos Disposition Clinical Impression: Migraine headache Disposition: HOME SELF-CARE Condition: Stable Instructions (If sedation given, give patient instructions): Migraine Headache (ED) Additional Instructions: Please take Tylenol No. 3 starter pack for headaches as needed, do not take other Tylenol doses when you take Tylenol 3. May alternate with doses of [id number] ibuprofen as needed. Smoking sensation and avoidance of caffeinated products encouraged. Please follow-up with your primary care provider. Please return to the Emergency Department if symptoms worsen or any other concerns. Is patient prescribed a controlled substance at d/c from ED?: No Referrals: Jayson Nnues MD [Primary Care Provider] - 1-2 days Time of Disposition: 21:14
[2022-05-24] MEDS ORDERED: ACET/COD 300 MG/30 MG STARTER PACK 6 TAB BTL PO STA (21:12)
== END 2022-05-24 21:27 | disposition home or self-care (01) ==
LOC: EC 19:31
DX: G43.909 Migraine, unspecified, not intractable, without status migrainosus (principal); F17.200 Nicotine dependence, unspecified, uncomplicated; F12.90 Cannabis use, unspecified, uncomplicated
CPT/HCPCS: 99283; 96374; 96375; 96361; J2765; J1885

== ENCOUNTER 2022-11-11 11:36 | Inpatient (IN) | payer MEDICAID, OTHER ==
--- NOTE | 2022-11-11 12:33 | ED ---
General Adult HPI - General Source: RN notes reviewed, old records reviewed - History of Present Illness -: hour(s) Radiation: non-radiation Severity scale (1-10): 7 Quality: aching Consistency: constant Improves with: none Worsens with: none Associated Symptoms: denies other symptoms Treatments Prior to Arrival: none <Freddy Elizabeth - Last Filed: 11/11/22 14:39> - General Source: patient, RN notes reviewed Mode of arrival: ambulatory Limitations: no limitations <Franchesca Goins - Last Filed: 11/11/22 19:17> - General Chief complaint: Psychiatric Symptoms Stated complaint: Mental Health Time Seen by Provider: 11/11/22 11:52 - History of Present Illness Initial comments: 37-year-old -[place] female with no significant past medical history presents to the emergency department with a chief complaint of psychiatric evaluation. Patient reports that she has had a stressful life since she was 6 years old. She reports the results in 2 to have increased stress at home" cannot do it anymore. I don't trust anybody and [place] no one helps me." She is admitting to suicidal ideation however she has no known plan. She reports that she has attempted suicide in the past by taking pills and overdosing. She denies homicidal ideation. She denies visual or auditory hallucinations. She does report having some alcohol use prior to arrival. (Franchesca Goins) - Related Data Home Medications Medication Instructions Recorded Confirmed HYDROcodone/APAP 7.5-325MG [[place] 1 tab PO BID PRN 11/11/22 11/11/22 7.5-325] Allergies Allergy/AdvReac Type Severity Reaction Status Date / Time No Known Allergies Allergy Verified 11/11/22 12:29 Review of Systems ROS Other: All systems not noted in ROS Statement are negative. <Freddy Elizabeth - Last Filed: 11/11/22 14:39> ROS Other: All systems not noted in ROS Statement are negative. <Franchesca Goins - Last Filed: 11/11/22 19:17> ROS Statement: Those systems with pertinent positive or pertinent negative responses have been documented in the HPI. Past Medical History Past Medical History: No Reported History Additional Past Medical History / Comment(s): UMBILCAL HERNIA. MIGRAINES History of Any Multi-Drug Resistant Organisms: ESBL, Other MDRO Date of last positivie culture/infection: 11/13/18 MDRO Source:: ESBL URINE Past Surgical History: Section Past Psychological History: Bipolar, Depression, PTSD, Schizoaffective Disorder Smoking Status: Current every day smoker Past Alcohol Use History: Rare Past Drug Use History: None Reported, Marijuana, Prescription Drug Abuse - Past Family History family Family Medical History: No Reported History <Franchesca Goins - Last Filed: 11/11/22 19:17> General Exam General appearance: alert, in no apparent distress, anxious Head exam: Present: atraumatic, normocephalic, normal inspection Eye exam: Present: normal appearance, PERRL, EOMI. Absent: scleral icterus, conjunctival injection, periorbital swelling ENT exam: Present: normal exam, mucous membranes moist Neck exam: Present: normal inspection. Absent: tenderness, meningismus, lymphadenopathy Respiratory exam: Present: normal lung sounds bilaterally. Absent: respiratory distress, wheezes, rales, rhonchi, stridor Cardiovascular Exam: Present: normal rhythm, tachycardia, normal heart sounds. Absent: systolic murmur, diastolic murmur, rubs, gallop, clicks GI/Abdominal exam: Present: soft, normal bowel sounds. Absent: distended, tenderness, guarding, rebound, rigid Extremities exam: Present: normal inspection, full ROM, normal capillary refill. Absent: tenderness, pedal edema, joint swelling, calf tenderness Back exam: Present: normal inspection Neurological exam: Present: alert, oriented X3, CN II-XII intact Psychiatric exam: Present: normal affect, normal mood Skin exam: Present: warm, dry, intact, normal color. Absent: rash <Freddy Elizabeth - Last Filed: 11/11/22 14:39> Limitations: no limitations <Franchesca Goins - Last Filed: 11/11/22 19:17> - General Exam Comments Initial Comments: General: Alert, in no acute distress, patient tearful during history Head: atraumatic normocephalic. Eyes PERRL, EOMI intact, mucous membranes moist Respiratory: Lungs clear to auscultation bilaterally Cardiovascular: Heart rate regular rate and rhythm Abdominal: Soft without guarding or rebound Extremities: Normal inspection with full range of motion and normal capillary refill Neuroogic: alert and oriented 3, CN II-XII intact, able to ambulate with steady gait Skin: warm dry and intact with normal color Psychologic: Labile affect (Franchesca Goins) Course <Freddy Elizabeth - Last Filed: 11/11/22 14:39> <Franchesca Goins - Last Filed: 11/11/22 19:17> Vital Signs 11/11/22 11:48 Temperature 97.2 F L Pulse Rate 136 H Respiratory 18 Rate Blood Pressure 126/82 O2 Sat by Pulse 97 Oximetry - Reevaluation(s) Reevaluation #1: 11/11/22 13:56 Case discussed with EPS RN that he believes the patient meets inpatient criteria. (Franchesca Goins) Reevaluation #2: 11/11/22 14:31 Patient with increasing agitation and screaming and aching all. Haldol and Ativan ordered. Dr. Acosta, to assume care of the patient pending psychiatric admission. 11/11/22 14:57 (Franchesca Goins) Reevaluation #3: 11/11/22 14:40 medical record is reviewed 11/11/22 14:40 medically clear for psychiatry (Freddy Elizabeth) Reevaluation #4: 11/11/22 14:43 Child protective services is called requesting child placement (Freddy Elizabeth) Procedures - Restraint - Face to Face Restraint Occurrence 1 Patient's Immediate Situation: Endangers self safety, Endangers others' safety, Endangers staff safety Patient's Reaction to the Intervention: Uncooperative, Angry, Hostile, Belligerent Patient's Medical & Behavioral Condition: Awake, Anxious, Agitated, Paranoid Need to Continue or Terminate Restraint or Seclusion: Continue Face to Face Eval of Restraint Date: 11/11/22 Face to Face Eval of Restraint Time: 14:15 <Freddy Elizabeth - Last Filed: 11/11/22 14:39> Medical Decision Making <Freddy Elizabeth - Last Filed: 11/11/22 14:39> <Franchesca Goins - Last Filed: 11/11/22 19:17> - Medical Decision Making 37 female to the ER for evaluation. Patient presents for psychiatric evaluation. Patient will be admitted for psychiatric evaluation and treatment (Freddy Elizabeth) Was pt. sent in by a medical professional or institution (DENISE Hedrick, JOURNEYMAN PAINTER, urgent care, hospital, or group home...) When possible be specific @ -[No] Did you speak to anyone other than the patient for history (EMS, parent, family, police, friend...)? What history was obtained from this source @ -[No] Did you review nursing and triage notes (agree or disagree)? Why? @ -[I reviewed and agree with nursing and triage notes] Were old charts reviewed (outside hosp., previous admission, EMS record, old EKG, old radiological studies, urgent care reports/EKG's, group home records)? Report findings @ -[No old charts were reviewed] Differential Diagnosis (chest pain, altered mental status, abdominal pain women, abdominal pain men, vaginal bleeding, weakness, fever, dyspnea, syncope, headache, dizziness, GI bleed, back pain, seizure, CVA, palpatations, mental health, musculoskeletal)? @ -[not applicable] EKG interpreted by me (3pts min.). @ -[As above] X-rays interpreted by me (1pt min.). @ -[None done] CT interpreted by me (1pt min.). @ -[None done] U/S interpreted by me (1pt. min.). @ -[None done] What testing was considered but not performed or refused? (CT, X-rays, U/S, labs)? Why? @ -[None] What meds were considered but not given or refused? Why? @ -[None] Did you discuss the management of the patient with other professionals (professionals i.e. DENISE Hedrick, JOURNEYMAN PAINTER, lab, RT, psych nurse, social welfare administrator, licensed nuclear operator, teacher, agricultural loan officer, nurse case management)? Give summary @ -[No] Was smoking cessation discussed for >3mins.? @ -[No] Was critical care preformed (if so, how long)? @ -[No] Were there social determinants of health that impacted care today? How? (Homelessness, low income, unemployed, alcoholism, drug addiction, transportation, low edu. Level, literacy, decrease access to med. care, correction, rehab)? @ -[No] Was there de-escalation of care discussed even if they declined (Discuss DNR or withdrawal of care, Hospice)? DNR status @ -[No] What co-morbidities impacted this encounter? (DM, HTN, Smoking, COPD, CAD, Cancer, CVA, ARF, Chemo, Hep., AIDS, mental health diagnosis, sleep apnea, morbid obesity)? @ -[None] Was patient admitted / discharged? Hospital course, mention meds given and route, prescriptions, significant lab abnormalities, going to OR and other pertinent info. @ -Psychiatric admission. This is a 37-year-old -[place] female who presents to the emergency department with psychiatric evaluation. Patient had a thorough history and physical exam performed on the ED. Initially patient was calm and cooperative and answers questions appropriately. Patient became increasingly agitated during the course of the ED. She was seen and evaluated by EPS who believes the patient needs inpatient management. Haldol and Ativan were given for agitation. Case is signed out to Dr. Lopez For continuation of care. Undiagnosed new problem with uncertain prognosis? @ -[No] Drug Therapy requiring intensive monitoring for toxicity (Heparin, Nitro, Insulin, Cardizem)? @ -[No] Were any procedures done? @ -[No] Diagnosis/symptom? @ -Major Depression with Psychosis Symptoms Acute, or Chronic, or Acute on Chronic? @ -Acute Uncomplicated (without systemic symptoms) or Complicated (systemic symptoms)? @ -Complicated Side effects of treatment? @ -[No] Exacerbation, Progression, or Severe Exacerbation? @ -[No] Poses a threat to life or bodily function? How? (Chest pain, USA, [place], pneumonia, PE, COPD, DKA, ARF, appy, cholecystitis, CVA, Diverticulitis, Homicidal, Suicidal, threat to staff... and all critical care pts) @ -High likelihood (Franchesca Goins) - Lab Data Lab Results 11/11/22 Range/Units 17:01 Influenza Type A (PCR) Not Detected (Not Detectd) Influenza Type B (PCR) Not Detected (Not Detectd) RSV (PCR) Not Detected (Not Detectd) SARS-CoV-2 (PCR) Not Detected (Not Detectd) Disposition <Freddy Elizabeth - Last Filed: 11/11/22 14:39> Time of Disposition: 13:57 <Franchesca Goins - Last Filed: 11/11/22 19:17> Clinical Impression: Major depressive disorder with psychotic features Disposition: ADMITTED IP TO THIS HOSP Condition: Stable Referrals: Jayson Nunes MD [Primary Care Provider] - 1-2 days
[2022-11-11] MEDS ORDERED: HALOPERIDOL LACTATE 5 MG/ML 1 ML VIAL IM STA (14:18)
[2022-11-11] MEDS ORDERED: LORazepam 2 MG/ML INJ IM STA (14:18)
[2022-11-11] MEDS ORDERED: HYDROcodone/APAP 5-325MG 1 EACH TAB PO STA (19:34)
[2022-11-11 20:12] LABS: Amphetamine Screen,Urine Not Detected (NotDetected); Barbiturate Screen,Urine Not Detected (NotDetected); Benzodiazepines Screen,Urine Detected (NotDetected); Cocaine Screen,Urine Detected (NotDetected); Methadone Screen, Urine Not Detected (NotDetected); Opiate Screen,Urine Not Detected (NotDetected); Oxycodone Screen, Urine Not Detected (NotDetected); Phencyclidine Screen,Urine Not Detected (NotDetected); Tricyclic Antidepressant,Urine Not Detected (NotDetected); Urn Cannabinoid Scrn Detected (NotDetected)
[2022-11-11] MEDS ORDERED: ZIPRASIDONE 20 MG VIAL IM STA (20:14)
[2022-11-11] MEDS ORDERED: IBUPROFEN 600 MG TAB PO PRN (21:39)
[2022-11-11] MEDS ORDERED: MAG HYDROX/AL HYDROX/SIMETH 30 ML CUP PO PRN (21:39)
[2022-11-11] MEDS ORDERED: ACETAMINOPHEN TAB 325 MG TAB PO PRN (21:39)
[2022-11-11] MEDS ORDERED: MAGNESIUM HYDROXIDE 2,400 MG/30 ML CUP PO PRN (21:39)
[2022-11-11] MEDS ORDERED: LORazepam 2 MG/ML INJ IM PRN (21:43)
[2022-11-11] MEDS ORDERED: diphenhydrAMINE 25 MG CAP PO PRN (21:44)
[2022-11-11] MEDS ORDERED: diphenhydrAMINE 50 MG/ML 1 ML VIAL IM PRN (21:44)
[2022-11-12] MEDS ORDERED: chlorproMAZINE 25 MG/ML 2 ML AMP IM PRN
[2022-11-12] MEDS ORDERED: chlorproMAZINE 25 MG TAB PO PRN
[2022-11-12] MEDS ORDERED: risperiDONE 1 MG TAB PO SCH (09:00)
[2022-11-12 10:00] LABS: Basophils % (A) 0 %; Eosinophils # (A) 0.1 k/uL (0-0.7); Eosinophils % (A) 1 %; HCT 38.9 % (34.0-46.0); HGB 13.3 gm/dL (11.4-16.0); Lymphocytes # (A) 1.7 k/uL (1.0-4.8); Lymphocytes % (A) 21 %; MCH 29.9 pg (25.0-35.0); MCHC 34.1 g/dL (31.0-37.0); MCV 87.6 fL (80.0-100.0); Mean Platelet Volume 7.9; Monocytes # (A) 0.4 k/uL (0-1.0); Monocytes % (A) 5 %; Neutrophils # (A) 5.8 k/uL (1.3-7.7); Neutrophils % (A) 72 %; Platelet Count 319 k/uL (150-450); RBC 4.45 m/uL (3.80-5.40); RDW 12.7 % (11.5-15.5); WBC 8.1 k/uL (3.8-10.6)
[2022-11-12 10:11] LABS: ALT 20 U/L (4-34); AST 30 U/L (14-36); African American GFR (CKD) >90 (>60 ml/min/1.73 sqM); Albumin 4.2 g/dL (3.5-5.0); Alkaline Phosphatase 95 U/L (38-126); Anion Gap 10 mmol/L; Blood Urea Nitrogen 11 mg/dL (7-17); Calcium 9.4 mg/dL (8.4-10.2); Carbon Dioxide 24 mmol/L (22-30); Chloride 103 mmol/L (98-107); Glucose 80 mg/dL (74-99); Non-African American GFR(CKD) >90 (>60 ml/min/1.73 sqM); Potassium 4.2 mmol/L (3.5-5.1); Sodium 137 mmol/L (137-145); Total Bilirubin 0.8 mg/dL (0.2-1.3); Total Protein 7.2 g/dL (6.3-8.2)
[2022-11-12] MEDS: NICOTINE 14MG/24HR PATCH TRANSDERM SCH ×2 (10:12→11:45)
[2022-11-12] MEDS: LORazepam 1 MG TAB PO PRN ×2 (11:27→20:08)
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
--- NOTE | 2022-11-12 14:26 | P.MDCNMH ---
History of Present Illness H&P Date: 11/12/22 History of present illness; Patient is a 37-year-old -Thai female with a significant history of PTSD, opiate use disorder, cannabis use disorder, and bipolar disorder who presented to the hospital on 11/11/2022 with psychotic symptoms. Patient stated that she has a lot of stress going on in her personal life. Patient states that she could not take it anymore and wants help. Patient also exhibited suicidal ideations although she has no known plan .She denies any auditory or visual hallucinations. Denies any homicidal thoughts. Laboratory in the ER showed sodium 1, potassium 4.2, BUN 11, creatinine 0.73, urine drug screen was positive for benzodiazepines, cocaine and marijuana Patient was admitted to inpatient psych REVIEW OF SYSTEMS: CONSTITUTIONAL: No fever, no malaise, no fatigue. HEENT: No recent visual problems or hearing problems. Denied any sore throat. CARDIOVASCULAR: No chest pain, orthopnea, PND, no palpitations, no syncope. PULMONARY: No shortness of breath, no cough, no hemoptysis. GASTROINTESTINAL: No diarrhea, no nausea, no vomiting, no abdominal pain. NEUROLOGICAL: No headaches, no weakness, no numbness. HEMATOLOGICAL: Denies any bleeding or petechiae. GENITOURINARY: Denies any burning micturition, frequency, or urgency. MUSCULOSKELETAL/RHEUMATOLOGICAL: Denies any joint pain, swelling, or any muscle pain. ENDOCRINE: Denies any polyuria or polydipsia. The rest of the 14-point review of systems is negative. PHYSICAL EXAMINATION: GENERAL: The patient is alert and oriented x3, not in any acute distress. Well developed, well nourished. HEENT: Pupils are round and equally reacting to light. EOMI. No scleral icterus. No conjunctival pallor. Normocephalic, atraumatic. No pharyngeal erythema. No thyromegaly. CARDIOVASCULAR: S1 and S2 present. No murmurs, rubs, or gallops. PULMONARY: Chest is clear to auscultation, no wheezing or crackles. ABDOMEN: Soft, nontender, nondistended, normoactive bowel sounds. No palpable organomegaly. MUSCULOSKELETAL: No joint swelling or deformity. EXTREMITIES: No cyanosis, clubbing, or pedal edema. NEUROLOGICAL: Gross neurological examination did not reveal any focal deficits. SKIN: No rashes. Assessment and plan Acute psychosis Polysubstance abuse Suicide precautions Elopement precautions Psych meds per psychiatry team Past Medical History Past Medical History: No Reported History Additional Past Medical History / Comment(s): UMBILCAL HERNIA. MIGRAINES History of Any Multi-Drug Resistant Organisms: ESBL, Other MDRO Date of last positivie culture/infection: 11/13/18 MDRO Source:: ESBL URINE Past Surgical History: Section Past Psychological History: Bipolar, Depression, PTSD, Schizoaffective Disorder Smoking Status: Current every day smoker Past Alcohol Use History: Rare Past Drug Use History: None Reported, Marijuana, Prescription Drug Abuse - Past Family History family Family Medical History: No Reported History Medications and Allergies Home Medications Medication Instructions Recorded Confirmed Type HYDROcodone/APAP 7.5-325MG [[place] 1 tab PO BID PRN 11/11/22 11/11/22 History 7.5-325] Allergies Allergy/AdvReac Type Severity Reaction Status Date / Time No Known Allergies Allergy Verified 11/11/22 12:29 Physical Exam Vitals: Vital Signs Temp Pulse Resp BP 11/12/22 06:36 97.4 F L 131 H 16 140/67 Cranial Nerve Examination - Cranial Nerves Cranial Nerve II- Optic: Intact (Cranial nerves II through XII intact) Cranial Nerve III- Oculomotor: Intact Cranial Nerve IV- Trochlear: Intact Cranial Nerve V- Trigeminal: Intact Cranial Nerve - Abducens: Intact Cranial Nerve VII- Facial: Intact Cranial Nerve VIII- Auditory: Intact Cranial Nerve IX- Glossopharyngeal: Intact Cranial Nerve X- Vagus: Intact Cranial Nerve XI- Accessory: Intact Cranial Nerve XII- Hypoglossal: Intact Results CBC & Chem 7: 11/12/22 09:06 11/12/22 09:06 Labs: Abnormal Lab Results - Last 24 Hours (Table) 11/11/22 Range/Units 19:33 U Benzodiazepines Scrn Detected H (NotDetected) Urine Cocaine Screen Detected H (NotDetected) U Marijuana (THC) Screen Detected H (NotDetected)
[2022-11-12] MEDS: HYDROcodone/APAP 7.5-325MG 1 EACH TAB PO PRN (16:29)
[2022-11-12] MEDS: risperiDONE 2 MG TAB PO SCH (20:09)
[2022-11-13] MEDS: HYDROcodone/APAP 7.5-325MG 1 EACH TAB PO PRN ×2 (06:44→13:28)
[2022-11-13 07:09] VITALS: PULSE 124
[2022-11-13] MEDS: NICOTINE 14MG/24HR PATCH TRANSDERM SCH (08:17)
[2022-11-13] MEDS: risperiDONE 1 MG TAB PO SCH (08:17)
[2022-11-13] MEDS ORDERED: risperiDONE 90 MG SYR KIT (NO COST) PHARMACY STOCK SQ ONE (09:27)
--- NOTE | 2022-11-13 10:31 | P.PN ---
Progress Note - Text Progress Note Date: 11/13/22 Interval History: Patient was seen wandering the hallways and was directable and agreeable to speak with magnetic tape typewriter operator in the office. Currently, the patient is reporting that she is feeling significantly better. She is currently denying any suicidal or homicidal ideation, intention, and/or plan. She is not reporting any auditory or visual hallucinations. She denies any paranoia or other delusions. She has been adherent with her medication and reports no side effects. The patient does admit to using cocaine. She states it "must have been a week or so ago." She is in agreement for a MATHEW Risperidone perseris injection. She is expressing a desire for discharge to be reunited with her children. Mental Status Exam: General Appearance: Patient appears to be stated age is alert, directable, and cooperative. Behavior: Patient is calmly seated without any agitated behavior. Speech: Patient's speech is fluent and nonpressured. Mood/Affect: Mood is improving mildly, affect is congruent and friendly. Suicidality/Homicidality: Patient denies having any suicidal or homicidal ideation intent or plan. Perceptions: Patient denies any visual hallucinations and denies any auditory hallucinations Though content/process: There is no evidence of any delusional thought content and thought process is linear and goal-directed. Memory and concentration: AOX3, grossly intact for the purposes of this session Judgment and insight: Improving mildly Vital Signs Temp 97.7 F 11/13/22 06:00 Pulse 124 H 11/13/22 06:00 Resp 20 11/13/22 06:00 BP 116/69 11/13/22 06:00 Pulse Ox 100 11/13/22 06:00 FiO2 Laboratory Results WBC 8.1 k/uL (3.8-10.6) 11/12/22 09:06 RBC 4.45 m/uL (3.80-5.40) 11/12/22 09:06 Hgb 13.3 gm/dL (11.4-16.0) 11/12/22 09:06 Hct 38.9 % (34.0-46.0) 11/12/22 09:06 MCV 87.6 fL (80.0-100.0) 11/12/22 09:06 MCH 29.9 pg (25.0-35.0) 11/12/22 09:06 MCHC 34.1 g/dL (31.0-37.0) 11/12/22 09:06 RDW 12.7 % (11.5-15.5) 11/12/22 09:06 Plt Count 319 k/uL (150-450) 11/12/22 09:06 MPV 7.9 11/12/22 09:06 Neutrophils % 72 % 11/12/22 09:06 Lymphocytes % 21 % 11/12/22 09:06 Monocytes % 5 % 11/12/22 09:06 Eosinophils % 1 % 11/12/22 09:06 Basophils % 0 % 11/12/22 09:06 Neutrophils # 5.8 k/uL (1.3-7.7) 11/12/22 09:06 Lymphocytes # 1.7 k/uL (1.0-4.8) 11/12/22 09:06 Monocytes # 0.4 k/uL (0-1.0) 11/12/22 09:06 Eosinophils # 0.1 k/uL (0-0.7) 11/12/22 09:06 Basophils # 0.0 k/uL (0-0.2) 11/12/22 09:06 Sodium 137 mmol/L (137-145) 11/12/22 09:06 Potassium 4.2 mmol/L (3.5-5.1) 11/12/22 09:06 Chloride 103 mmol/L (98-107) 11/12/22 09:06 Carbon Dioxide 24 mmol/L (22-30) 11/12/22 09:06 Anion Gap 10 mmol/L 11/12/22 09:06 BUN 11 mg/dL (7-17) 11/12/22 09:06 Creatinine 0.73 mg/dL (0.52-1.04) 11/12/22 09:06 Est GFR (CKD-EPI)AfAm >90 (>60 ml/min/1.73 sqM) 11/12/22 09:06 Est GFR (CKD-EPI)NonAf >90 (>60 ml/min/1.73 sqM) 11/12/22 09:06 Glucose 80 mg/dL (74-99) 11/12/22 09:[address] Glu mg/dL 111 mg/dL 11/12/22 09:06 Hemoglobin A1c 5.5 % (<=6.0) 11/12/22 09:06 Calcium 9.4 mg/dL (8.4-10.2) 11/12/22 09:06 Total Bilirubin 0.8 mg/dL (0.2-1.3) 11/12/22 09:06 AST 30 U/L (14-36) 11/12/22 09:06 ALT 20 U/L (4-34) 11/12/22 09:06 Alkaline Phosphatase 95 U/L (38-126) 11/12/22 09:06 Total Protein 7.2 g/dL (6.3-8.2) 11/12/22 09:06 Albumin 4.2 g/dL (3.5-5.0) 11/12/22 09:06 TSH 0.761 mIU/L (0.465-4.680) 11/12/22 09:06 Urine Opiates Screen Not Detected (NotDetected) 11/11/22 19:33 Ur Oxycodone Screen Not Detected (NotDetected) 11/11/22 19:33 Urine Methadone Screen Not Detected (NotDetected) 11/11/22 19:33 Ur Propoxyphene Screen Not Detected (NotDetected) 11/11/22 19:33 Ur Barbiturates Screen Not Detected (NotDetected) 11/11/22 19:33 U Tricyclic Antidepress Not Detected (NotDetected) 11/11/22 19:33 Ur Phencyclidine Scrn Not Detected (NotDetected) 11/11/22 19:33 Ur Amphetamines Screen Not Detected (NotDetected) 11/11/22 19:33 U Methamphetamines Scrn Not Detected (NotDetected) 11/11/22 19:33 U Benzodiazepines Scrn Detected (NotDetected) H 11/11/22 19:33 Urine Cocaine Screen Detected (NotDetected) H 11/11/22 19:33 U Marijuana (THC) Screen Detected (NotDetected) H 11/11/22 19:33 Influenza Type A (PCR) Not Detected (Not Detectd) 11/11/22 17:01 Influenza Type B (PCR) Not Detected (Not Detectd) 11/11/22 17:01 RSV (PCR) Not Detected (Not Detectd) 11/11/22 17:01 SARS-CoV-2 (PCR) Not Detected (Not Detectd) 11/11/22 17:01 Assessment Substance-induced bipolar disorder Bipolar 2 disorder, mixed episode Cannabis use disorder Opiate use disorder Nicotine dependence Plan: -Patient continues to meet criteria for inpatient psychiatric admission for symptom stabilization and safety. Patient has signed adult voluntary form and medication consent and was placed in patient's chart. -Medications: Administer Risperidone perseris 90 mg SQ today. Discontinue oral risperdal -When necessary Thorazine and ativan for agitation/aggression. -NRT - nicotine patch -SW on board for discharge planning. Encouraged the patient to participate in milieu.
[2022-11-13] MEDS: LORazepam 1 MG TAB PO PRN (17:29)
[2022-11-13] MEDS ORDERED: NICOTINE GUM (POLACRILEX) 2 MG GUM BUCCAL PRN (18:14)
[2022-11-13] MEDS: risperiDONE 2 MG TAB PO SCH (20:12)
[2022-11-14 07:03] VITALS: BP 109/67; RESP 17; TEMP 97
[2022-11-14] MEDS: risperiDONE 1 MG TAB PO SCH (08:55)
[2022-11-14] MEDS: NICOTINE 14MG/24HR PATCH TRANSDERM SCH (08:55)
[2022-11-14] MEDS: HYDROcodone/APAP 7.5-325MG 1 EACH TAB PO PRN (10:54)
[2022-11-14] MEDS: LORazepam 1 MG TAB PO PRN (12:27)
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
--- NOTE | 2022-11-15 23:06 | PN ---
PROGRESS NOTE DATE OF SERVICE: 11/14/2022 CHIEF COMPLAINT: Acute psychosis. HISTORY OF PRESENT ILLNESS: This lady is doing well and expects to go home today. She is having no problems. She is not having any further hallucinations and the depression is under control. PHYSICAL EXAMINATION: CHEST: Clear. CARDIAC: Normal. ABDOMEN: Soft. IMPRESSION: Psychosis, depression, and hallucinations. PLAN: Home today. MMODL / IJN: [id number] /
== END 2022-11-14 13:33 | disposition home or self-care (01) | DRG 773 ==
LOC: EC 11:36 → 3MHU 21:29
PROVIDERS: ADMIT Psychiatry & Neurology Psychiatry; ATTEND Psychiatry & Neurology Psychiatry
DX: F13.24 Sedative, hypnotic or anxiolytic dependence with sedative, hypnotic or anxiolytic-induced mood disorder (principal); F31.81 Bipolar II disorder; G43.909 Migraine, unspecified, not intractable, without status migrainosus; R45.851 Suicidal ideations; Z20.822 Contact with and (suspected) exposure to COVID-19; Z56.0 Unemployment, unspecified; Z91.51 Personal history of suicidal behavior; F43.10 Post-traumatic stress disorder, unspecified; F25.9 Schizoaffective disorder, unspecified; F14.10 Cocaine abuse, uncomplicated; F12.10 Cannabis abuse, uncomplicated; F11.10 Opioid abuse, uncomplicated; F17.210 Nicotine dependence, cigarettes, uncomplicated; Z71.6 Tobacco abuse counseling; Z71.51 Drug abuse counseling and surveillance of drug abuser
CPT/HCPCS: 80053; 80306; 82075; 83036; 84443; 85025; 87636; 96372; 99285

== ENCOUNTER 2022-12-15 11:20 | Inpatient (IN) | payer MEDICAID, OTHER ==
--- NOTE | 2022-12-15 12:20 | ED ---
General Adult HPI - General Chief complaint: Psychiatric Symptoms Stated complaint: mental health/petition Time Seen by Provider: 12/15/22 11:29 Source: patient, police Mode of arrival: ambulatory Limitations: no limitations - History of Present Illness Initial comments: Dictation was produced using wmbly dictation software. please excuse any gram matical, word or spelling errors. Chief Complaint: 37-year-old female presents to the emergency department for psychiatric evaluation History of Present Illness: Patient is 37-year-old female presents emergency department for psychiatric evaluation she was apparently trying to unlock doors around the parking lot at [facility]. Patient reports that she was looking for disease to drive. According to law enforcement patient was making delusional statements concerning for psychiatric process. She denies any complaints at this time. The ROS documented in this emergency department record has been reviewed and confirmed by me. Those systems with pertinent positive or negative responses have been documented in the HPI. All other systems are other negative and/or noncontributory. - Related Data Home Medications Medication Instructions Recorded Confirmed HYDROcodone/APAP 7.5-325MG [[place] 1 tab PO BID PRN 11/11/22 12/15/22 7.5-325] Allergies Allergy/AdvReac Type Severity Reaction Status Date / Time No Known Allergies Allergy Verified 12/15/22 13:38 Review of Systems ROS Statement: Those systems with pertinent positive or pertinent negative responses have been documented in the HPI. ROS Other: All systems not noted in ROS Statement are negative. Past Medical History Past Medical History: No Reported History Additional Past Medical History / Comment(s): UMBILCAL HERNIA. MIGRAINES History of Any Multi-Drug Resistant Organisms: ESBL, Other MDRO Date of last positivie culture/infection: 11/13/18 MDRO Source:: ESBL URINE Past Surgical History: Section Past Psychological History: Bipolar, Depression, PTSD, Schizoaffective Disorder Smoking Status: Current every day smoker Past Alcohol Use History: Rare Past Drug Use History: None Reported, Marijuana, Prescription Drug Abuse - Past Family History family Family Medical History: No Reported History General Exam - General Exam Comments Initial Comments: PHYSICAL EXAM: General Impression: Alert and oriented x3, not in acute distress HEENT: Normocephalic atraumatic, extra-ocular movements intact, pupils equal and reactive to light bilaterally, mucous membranes moist. Cardiovascular: Heart regular rate and rhythm Chest: Able to complete full sentences, no retractions, no tachypnea Musculoskeletal: no peripheral edema Motor: no focal deficits noted Neurological: CN II-XII grossly intact, no focal motor or sensory deficits noted Skin: Intact with no visualized rashes Psych: Tangential speech Limitations: no limitations Course Vital Signs 12/15/22 11:23 Temperature 98.3 F Pulse Rate 105 H Respiratory 18 Rate Blood Pressure 123/89 O2 Sat by Pulse 100 Oximetry Medical Decision Making - Medical Decision Making Was pt. sent in by a medical professional or institution (, PA, L[employer] ARMORED [employer] OFFICER, urgent care, hospital, or skilled nursing...) When possible be specific @ -No Did you speak to anyone other than the patient for history (EMS, parent, family, police, friend...)? What history was obtained from this source @ -No Did you review nursing and triage notes (agree or disagree)? Why? @ -I reviewed and agree with nursing and triage notes Were old charts reviewed (outside hosp., previous admission, EMS record, old EKG, old radiological studies, urgent care reports/EKG's, skilled nursing records)? Report findings @ -No old charts were reviewed Differential Diagnosis (chest pain, altered mental status, abdominal pain women, abdominal pain men, vaginal bleeding, musculoskeletal, weakness, fever, dyspnea, syncope, headache, dizziness, GI bleed, back pain, seizure, CVA, palpatations, mental health)? @ -Differential Mental Health: Depression, anxiety, bipolar, psychosis, schizophrenia, borderline personality, situational depression, adjustment disorder, behavioral disorder, brain tumor, malingering, substance abuse, encephalopathy, medication reaction, dementia, hypothyroidism, degenerative neurologic disorder, lupus.... This is not meant to be all-inclusive list EKG interpreted by me (3pts min.). @ -None done X-rays interpreted by me (1pt min.). @ -None done CT interpreted by me (1pt min.). @ -None done U/S interpreted by me (1pt. min.). @ -None done What testing was considered but not performed or refused? (CT, X-rays, U/S, labs)? Why? @ -None What meds were considered but not given or refused? Why? @ -None Did you discuss the management of the patient with other professionals (professionals i.e. , PA, L[employer] ARM[employer]ED [employer] OFFICER, lab, RT, psych nurse, child welfare social worker, supervisor trust accounts, teacher, parcel post officer, social work case manager)? Give summary @ -No Was smoking cessation discussed for >3mins.? @ -No Was critical care preformed (if so, how long)? @ -No Were there social determinants of health that impacted care today? How? (Homelessness, low income, unemployed, alcoholism, drug addiction, transportation, low edu. Level, literacy, decrease access to med. care, fpc, rehab)? @ -No Was there de-escalation of care discussed even if they declined (Discuss DNR or withdrawal of care, Hospice)? DNR status @ -No What co-morbidities impacted this encounter? (DM, HTN, Smoking, COPD, CAD, Cancer, CVA, ARF, Chemo, Hep., AIDS, mental health diagnosis, sleep apnea, morbid obesity)? @ -None Was patient admitted / discharged? Hospital course, mention meds given and r oute, prescriptions, significant lab abnormalities, going to OR and other pertinent info. @ -37-year-old female with extensive history of psychiatric disease presents for psychiatric evaluation. Vital signs stable. Patient showing signs of psychosis. Patient physically well-appearing she has no physical complaints. Bilateral by psych services will be admitted to inpatient psych Undiagnosed new problem with uncertain prognosis? @ -No Drug Therapy requiring intensive monitoring for toxicity (Heparin, Nitro, Insulin, Cardizem)? @ -No Were any procedures done? @ -No Diagnosis/symptom? Acute, or Chronic, or Acute on Chronic? Uncomplicated (without systemic symptoms) or Complicated (systemic symptoms)? @ - Psychosis Side effects of treatment? @ -No Exacerbation, Progression, or Severe Exacerbation? @ -No Poses a threat to life or bodily function? How? (Chest pain, [place], NC, pneumonia, PE, COPD, DKA, ARF, appy, cholecystitis, CVA, Diverticulitis, Homicidal, Suicidal, threat to staff... and all critical care pts) @ -No Disposition Clinical Impression: Psychosis Disposition: ADMITTED IP TO THIS [facility] Condition: Fair Referrals: Jayson Nunes MD [Primary Care Provider] - 1-2 days Decision Time: 15:28
[2022-12-15] MEDS ORDERED: LORazepam 1 MG TAB PO STA (15:35)
[2022-12-15 16:32] LABS: Appearance,Urine Cloudy (Clear); Bacteria,Urine Rare /hpf; Bilirubin,Urine Negative (Negative); Blood,Urine Negative (Negative); Color,Urine Yellow; Glucose,Urine (UA) Negative (Negative); Ketones,Urine 1+ (Negative); Leukocyte Esterase,Urine Negative (Negative); Mucus,Urine Occasional /hpf; Nitrite,Urine Negative (Negative); Protein,Urine Trace (Negative); RBC,Urine 2 /hpf (0-5); Specific Gravity,Urine 1.016 (1.001-1.035); Squamous Epithelial Cell,Urine 11 /hpf (0-4); WBC,Urine 3 /hpf (0-5)
[2022-12-15 16:33] LABS: Basophils % (A) 0 %; Eosinophils # (A) 0.1 k/uL (0-0.7); Eosinophils % (A) 1 %; HCT 40.1 % (34.0-46.0); HGB 13.8 gm/dL (11.4-16.0); Lymphocytes # (A) 2.1 k/uL (1.0-4.8); Lymphocytes % (A) 19 %; MCH 30.1 pg (25.0-35.0); MCHC 34.4 g/dL (31.0-37.0); MCV 87.3 fL (80.0-100.0); Mean Platelet Volume 7.7; Monocytes # (A) 0.6 k/uL (0-1.0); Monocytes % (A) 6 %; Neutrophils # (A) 7.8 k/uL (1.3-7.7); Neutrophils % (A) 72 %; Platelet Count 391 k/uL (150-450); RBC 4.59 m/uL (3.80-5.40); RDW 12.4 % (11.5-15.5); WBC 10.8 k/uL (3.8-10.6)
[2022-12-15 16:40] LABS: ALT 16 U/L (4-34); AST 22 U/L (14-36); African American GFR (CKD) >90 (>60 ml/min/1.73 sqM); Albumin 4.7 g/dL (3.5-5.0); Alkaline Phosphatase 93 U/L (38-126); Anion Gap 13 mmol/L; Blood Urea Nitrogen 16 mg/dL (7-17); Calcium 9.8 mg/dL (8.4-10.2); Carbon Dioxide 24 mmol/L (22-30); Chloride 100 mmol/L (98-107); Glucose 146 mg/dL (74-99); Non-African American GFR(CKD) >90 (>60 ml/min/1.73 sqM); Sodium 137 mmol/L (137-145); Total Bilirubin 0.7 mg/dL (0.2-1.3); Total Protein 8.2 g/dL (6.3-8.2)
[2022-12-15] MEDS ORDERED: MAG HYDROX/AL HYDROX/SIMETH 30 ML CUP PO PRN (17:26)
[2022-12-15] MEDS ORDERED: MAGNESIUM HYDROXIDE 2,400 MG/30 ML CUP PO PRN (17:26)
[2022-12-15] MEDS ORDERED: LORazepam 2 MG/ML INJ IM PRN (17:29)
[2022-12-15] MEDS ORDERED: HALOPERIDOL LACTATE 5 MG/ML 1 ML VIAL IM PRN (17:30)
[2022-12-15] MEDS: ACETAMINOPHEN TAB 325 MG TAB PO PRN (20:26)
[2022-12-15] MEDS: LORazepam 1 MG TAB PO PRN (20:27)
[2022-12-16] MEDS: LORazepam 1 MG TAB PO PRN ×3 (03:45→20:32)
[2022-12-16] MEDS: haloperidoL 5 MG TAB PO PRN ×3 (03:45→20:32)
[2022-12-16] MEDS: ACETAMINOPHEN TAB 325 MG TAB PO PRN ×2 (09:45→15:30)
[2022-12-16 12:14] LABS: Chol/HDL Ratio 5.01 Ratio; LDL Cholesterol,Calculated 152.9 mg/dL (0.0-131.0); VLDL Calculation 17.56 mg/dL (5.00-40.00)
[2022-12-16 12:23] VITALS: BMI 29.7
--- NOTE | 2022-12-16 13:14 | P.HP ---
Psychiatric H&P - . H&P Date: 12/16/22 History & Physical: Allergies Allergy/AdvReac Type Severity Reaction Status Date / Time No Known Allergies Allergy Verified 12/15/22 13:38 Vital Signs Temp 97.8 F 12/16/22 06:04 Pulse 108 H 12/16/22 09:48 Resp 18 12/16/22 06:04 BP 100/65 12/16/22 09:48 Pulse Ox 98 12/16/22 06:04 FiO2 Intake & Output 12/15/22 12/16/22 12/16/22 18:59 06:59 18:59 Weight 83.007 kg 76.1 kg 76.1 kg Laboratory Last Values WBC 10.8 k/uL (3.8-10.6) H 12/15/22 16:19 RBC 4.59 m/uL (3.80-5.40) 12/15/22 16:19 Hgb 13.8 gm/dL (11.4-16.0) 12/15/22 16:19 Hct 40.1 % (34.0-46.0) 12/15/22 16:19 MCV 87.3 fL (80.0-100.0) 12/15/22 16:19 MCH 30.1 pg (25.0-35.0) 12/15/22 16:19 MCHC 34.4 g/dL (31.0-37.0) 12/15/22 16:19 RDW 12.4 % (11.5-15.5) 12/15/22 16:19 Plt Count 391 k/uL (150-450) 12/15/22 16:19 MPV 7.7 12/15/22 16:19 Neutrophils % 72 % 12/15/22 16:19 Lymphocytes % 19 % 12/15/22 16:19 Monocytes % 6 % 12/15/22 16:19 Eosinophils % 1 % 12/15/22 16:19 Basophils % 0 % 12/15/22 16:19 Neutrophils # 7.8 k/uL (1.3-7.7) H 12/15/22 16:19 Lymphocytes # 2.1 k/uL (1.0-4.8) 12/15/22 16:19 Monocytes # 0.6 k/uL (0-1.0) 12/15/22 16:19 Eosinophils # 0.1 k/uL (0-0.7) 12/15/22 16:19 Basophils # 0.0 k/uL (0-0.2) 12/15/22 16:19 Sodium 137 mmol/L (137-145) 12/15/22 15:25 Potassium 4.0 mmol/L (3.5-5.1) 12/15/22 15:25 Chloride 100 mmol/L (98-107) 12/15/22 15:25 Carbon Dioxide 24 mmol/L (22-30) 12/15/22 15:25 Anion Gap 13 mmol/L 12/15/22 15:25 BUN 16 mg/dL (7-17) 12/15/22 15:25 Creatinine 0.79 mg/dL (0.52-1.04) 12/15/22 15:25 Est GFR (CKD-EPI)AfAm >90 (>60 ml/min/1.73 sqM) 12/15/22 15:25 Est GFR (CKD-EPI)NonAf >90 (>60 ml/min/1.73 sqM) 12/15/22 15:25 Glucose 146 mg/dL (74-99) H 12/15/22 15:[address] Glu mg/dL 126 mg/dL 12/15/22 16:19 Hemoglobin A1c 6.0 % (<=6.0) 12/15/22 16:19 Calcium 9.8 mg/dL (8.4-10.2) 12/15/22 15:25 Total Bilirubin 0.7 mg/dL (0.2-1.3) 12/15/22 15:25 AST 22 U/L (14-36) 12/15/22 15:25 ALT 16 U/L (4-34) 12/15/22 15:25 Alkaline Phosphatase 93 U/L (38-126) 12/15/22 15:25 Total Protein 8.2 g/dL (6.3-8.2) 12/15/22 15:25 Albumin 4.7 g/dL (3.5-5.0) 12/15/22 15:25 Triglycerides 87.80 mg/dL (0.00-149.00) 12/15/22 15:25 Cholesterol 213.00 mg/dL (0.00-200.00) H 12/15/22 15:25 LDL Cholesterol, Calc 152.9 mg/dL (0.0-131.0) H 12/15/22 15:25 VLDL Cholesterol, Calc 17.56 mg/dL (5.00-40.00) 12/15/22 15:25 HDL Cholesterol 42.50 mg/dL (40.00-60.00) 12/15/22 15:25 Cholesterol/HDL Ratio 5.01 Ratio 12/15/22 15:25 Urine Color Yellow 12/15/22 15:58 Urine Appearance Cloudy (Clear) H 12/15/22 15:58 Urine pH 6.0 (5.0-8.0) 12/15/22 15:58 Ur Specific [place] 1.016 (1.001-1.035) 12/15/22 15:58 Urine Protein Trace (Negative) H 12/15/22 15:58 Urine Glucose (UA) Negative (Negative) 12/15/22 15:58 Urine Ketones 1+ (Negative) H 12/15/22 15:58 Urine Blood Negative (Negative) 12/15/22 15:58 Urine Nitrite Negative (Negative) 12/15/22 15:58 Urine Bilirubin Negative (Negative) 12/15/22 15:58 Urine Urobilinogen 2.0 mg/dL (<2.0) 12/15/22 15:58 Ur Leukocyte Esterase Negative (Negative) 12/15/22 15:58 Urine RBC 2 /hpf (0-5) 12/15/22 15:58 Urine WBC 3 /hpf (0-5) 12/15/22 15:58 Ur Squamous Epith Cells 11 /hpf (0-4) H 12/15/22 15:58 Urine Bacteria Rare /hpf (None) H 12/15/22 15:58 Urine Mucus Occasional /hpf (None) H 12/15/22 15:58 Coronavirus (PCR) Not Detected (Not Detectd) 12/15/22 16:19 12/16/22 13:13 IDENTIFYING DATA: Patient is a 37-year-old -[place] female with significant history of PTSD, opiate use disorder, cannabis use disorder, and bipolar disorder, who presented to our hospital on 12/15/2022 for acute psychotic behavior. HPI: Patient presented to the hospital on 12/15/2022, brought in by police after displaying acute psychotic and manic behavior. The patient was noted to be in the [facility] parking lot attempting to break into cars. Workers at [facility] caught her in action and she began to be very aggressive. She presented with delusions and paranoia. She was subsequently brought into the emergency department where she was noted to be very religiously preoccupied and very suspicious. As per discussion with the patient's family, the patient has also been noncompliant with any treatment since she left the psychiatric unit this past November. She has not been taking any of her medications. She has been leaving her sons alone who are 7 and 11 years old in the home. Upon admission on the psychiatric unit, the patient continues to display acute manic behavior. She is unable to provide a clear history of events leading up to position. She appears to be religiously preoccupied and is nonlinear in her speech. She states that she does not require any medications. She has been nonadherent with any outpatient follow-up. She did receive risperidone perseris during her last admission but states she did not take any one since then. PAST PSYCHIATRIC HISTORY: Patient has previous diagnoses of major depressive disorder, PTSD, bipolar disorder, and polysubstance abuse. She was last discharged in a regimen of risperidone perseris which was due on 12/11/2022. She was last hospitalized on a psychiatric unit on 11/11/2022 for 3 days. She is nonadherent with her outpatient follow-up with [facility]. She does have a history of prior attempts at suicide by overdose. PMH: Past Medical History: No Reported History Additional Past Medical History / Comment(s): UMBILCAL HERNIA. MIGRAINES History of Any Multi-Drug Resistant Organisms: ESBL, Other MDRO Date of last positivie culture/infection: 11/13/18 MDRO Source:: ESBL URINE Past Surgical History: Section Past Psychological History: Bipolar, Depression, PTSD, Schizoaffective Disorder Smoking Status: Current every day smoker Past Alcohol Use History: Rare Past Drug Use History: None Reported, Marijuana, Prescription Drug Abuse ALLERGIES: NO KNOWN DRUG ALLERGIES CHEMICAL DEPENDENCY HISTORY: Patient is unable to provide any clear history of substance abuse at this time. However, from her previous admission she does report daily Vicodin use. She also has a history of marijuana and cocaine abuse. FAMILY PSYCHIATRIC/SUBSTANCE USE HISTORY: No reported family psychiatric history. SOCIAL HISTORY: Patient was born and raised in [place], [place]. She currently lives in [place] with her 2 sons ages 7 and 11. She graduated from high school. She is currently unemployed. MENTAL STATUS EXAM: General Appearance: Patient appears to be stated age is alert, however difficult to direct, and intermittently cooperative. Patient appears to have poor hygiene and grooming. Behavior: Patient displays elevated psychomotor activity. Speech: Patient's speech is pressured, nonlinear, nonsensical, tangential. Mood/Affect: Patient reports their mood is "I'm okay," affect is expansive. Psychotic Suicidality/Homicidality: Patient is not endorsing any suicidal or homicidal ideation Perceptions: Patient appears to be endorsing both auditory and visual hallucinations. Though content/process: Patient is responding to internal stimuli. She displays grandiosity, paranoia, and adventism preoccupation per Memory and concentration: Grossly poor at this time Judgment and insight: Very poor STRENGTHS/WEAKNESSES: Unable to identify patient's strengths at this time. Weaknesses are her polysubstance abuse and history of nonadherence with treatment. INTELLECT: average IMPRESSIONS: Bipolar 1 disorder, manic episode, with psychotic features Rule out cocaine use disorder Cannabis use disorder Opiate use disorder Nicotine dependence PLAN: -Patient is admitted under involuntary status to [facility] for stabilization of psychiatric symptoms and safety. A second certification was completed and along with petition will be filed for court. -Medications : Will start patient on Restart Risperdal 1 mg by mouth twice a day for acute psychosis -Ativan and Haldol PRN for agitation/aggression -Patient was counselled on substance abuse however is not able to appreciate therapy at this time. -Patient was informed of the risks, benefits and side effects of the medication and patient verbally consented to taking the medications. -Internal Medicine consult to perform medical evaluation and physical. -NRT - nicotine patch -SW on board for discharge planning. Encourage patient to participate in groups to work on coping skills. 12/16/22 13:14
[2022-12-16] MEDS: risperiDONE 1 MG TAB PO SCH (20:32)
--- NOTE | 2022-12-17 02:32 | CONS ---
CONSULTATION CHIEF COMPLAINT: Acute psychosis. HISTORY OF PRESENT ILLNESS: This is the first known psych admission. She has been followed in the office and was last in November. She apparently developed some emotional difficulties and was admitted. I am not aware of the details. REVIEW OF SYSTEMS: She denies headaches, chest pain, abdominal pain, etc. PAST medical history, family history personal and social histories reveal that she is currently on Chantix. ALLERGIES: She is allergic to metronidazole and tramadol. SOCIAL HISTORY: She does smoke and states she is a nondrinker. PHYSICAL EXAMINATION: VITAL SIGNS: Blood pressure is 121/64 with a pulse of 79, respirations 27, and she is afebrile. GENERAL: She appeared to be slender and had no complaints. HEAD, EARS, EYES, NOSE, MOUTH AND THROAT: Normal. CHEST: Clear. CARDIAC: Normal. No murmurs. ABDOMEN: Soft, nontender. EXTREMITIES: Normal. NEUROLOGIC: She is intact. DIAGNOSES: She is admitted to the hospital with diagnoses, Depression and acute psychosis. RECOMMENDATIONS: None. MMODL / IJN: [id number] /
[2022-12-17] MEDS: risperiDONE 1 MG TAB PO SCH (07:27)
[2022-12-17] MEDS: LORazepam 1 MG TAB PO PRN (08:31)
[2022-12-17] MEDS: haloperidoL 5 MG TAB PO PRN (09:40)
--- NOTE | 2022-12-17 14:24 | P.PN ---
Progress Note - Text Progress Note Date: 12/17/22 Interval History: Patient was seen wandering the hallways and was directable and agreeable to speak with fiction and nonfiction prose writer in the office. The patient approached this provider multiple times throughout the day inquiring about discharge. She informs this provider that she wants to return to her children. Her insight is very poor and she is unable to realize how psychotic she was presenting yesterday in the day before. She maintains that she was looking for "a belonging of mine, a elizondo" when she was checking vehicles at [facility]. She goes on a bizarre tangent stating that she believes she saw a car that belonged to Jamshid Mojica. She has been adherent with her medication is not reporting any significant side effects at this time. She is denying any suicidal or homicidal ideation, intention, and/or plan. She was informed that she has been petitioned and certified due to her history of nonadherence with treatment and the severity of her mental illness. The patient does have a history of illicit Vicodin use. However, the patient is denying any substance abuse. Mental Status Exam: General Appearance: Patient appears to be stated age is alert, irritable, but attempts to cooperate. Behavior: Patient is constantly pacing. She is often knocking on this provider's office door throughout the day. Speech: Patient's speech is fluent and nonpressured. Mood/Affect: Mood is "I need to leave," affect is irritable and demanding Suicidality/Homicidality: Patient reports no suicidal or homicidal ideation. Perceptions: Patient reports no auditory or visual hallucinations Though content/process: The patient does endorse some bizarre delusional thought content and ideas of reference Memory and concentration: Mildly improving Judgment and insight: Very poor Vital Signs Temp 97.2 F L 12/17/22 06:41 Pulse 144 H 12/17/22 06:41 Resp 16 12/17/22 06:41 BP 106/68 12/17/22 06:41 Pulse Ox 98 12/17/22 06:41 FiO2 Intake & Output 12/16/22 12/17/22 12/17/22 18:59 06:59 18:59 Weight 76.1 kg Assessment Bipolar 1 disorder, manic episode, with psychotic features Rule out cocaine use disorder Cannabis use disorder Opiate use disorder Nicotine dependence Plan: -Patient continues to meet criteria for inpatient psychiatric admission for symptom stabilization and safety. Patient has been petitioned and certified. -Medications: Increase Risperdal to 2 mg by mouth twice a day for mood stabilization/psychosis. Plan to transition patient back to long-acting injectable medication. -UDS is pending -When necessary Ativan and Haldol for agitation/aggression. Vistaril for anxiety -NRT - nicotine patch -SW on board for discharge planning. Encouraged the patient to participate in milieu.
[2022-12-17] MEDS: hydrOXYzine pamoate 25 MG CAP PO PRN (14:57)
[2022-12-17] MEDS: NICOTINE 14MG/24HR PATCH TRANSDERM SCH (16:01)
[2022-12-17] MEDS: risperiDONE 2 MG TAB PO SCH (21:41)
[2022-12-18] MEDS: NICOTINE 14MG/24HR PATCH TRANSDERM SCH (06:34)
[2022-12-18] MEDS: haloperidoL 5 MG TAB PO PRN (07:40)
[2022-12-18] MEDS: risperiDONE 2 MG TAB PO SCH ×2 (08:14→19:59)
[2022-12-18] MEDS ORDERED: PALIPERIDONE IM 234 MG/1.5 ML SYG IM STA (09:33)
--- NOTE | 2022-12-18 12:35 | P.PN ---
Progress Note - Text Progress Note Date: 12/18/22 Interval History: Patient was seen wandering the hallways and was directable and agreeable to speak with hand sign writer in the office. The patient reports that she was looking for God. She maintains that she is feeling better now and continues to request discharge. She was informed of her diagnosis of bipolar disorder with psychotic features. Patient expresses more understanding about this condition today. She is currently not reporting any suicidal or homicidal ideation, intention and/or plan. She reports no auditory or visual hallucinations currently. She does state bizarre statements and judgment made during the interview including "I feel like things are the signs of the end times." When confronted about this, the patient states "never mind I don't think it is the end times." She is agreeable to receiving the long-acting injection of Invega Sustenna today. She was unhappy with risperidone perseris because of the subcutaneous vector. Mental Status Exam: General Appearance: Patient appears to be stated age is alert, and cooperative Behavior: Patient is seated upright in her chair without any agitated behavior Speech: Patient's speech is fluent and nonpressured. Mood/Affect: Mood is "I think I've been looking for God," affect is euthymic but at times bizarre. Suicidality/Homicidality: Patient reports no suicidal or homicidal ideation. Perceptions: Patient reports no auditory or visual hallucinations Though content/process: The patient does endorse some bizarre delusional thought content and ideas of reference . Christian preoccupation. Memory and concentration: Mildly improving Judgment and insight: Mildly improving Vital Signs Temp 98.3 F 12/18/22 06:47 Pulse 107 H 12/18/22 10:10 Resp 20 12/18/22 10:10 BP 102/68 12/18/22 10:10 Pulse Ox 95 12/18/22 06:47 FiO2 Assessment Bipolar 1 disorder, manic episode, with psychotic features Rule out cocaine use disorder Cannabis use disorder Opiate use disorder Nicotine dependence Plan: -Patient continues to meet criteria for inpatient psychiatric admission for symptom stabilization and safety. Patient has deferred mental health court. -Medications: Administer Invega Sustenna 234 mg IM today. Continue Risperdal 2 mg by mouth twice a day for psychosis -UDS is pending -When necessary Ativan and Haldol for agitation/aggression. Vistaril for anxiety. -NRT - nicotine patch -SW on board for discharge planning. Encouraged the patient to participate in milieu.
[2022-12-18] MEDS: hydrOXYzine pamoate 25 MG CAP PO PRN (14:23)
[2022-12-18] MEDS ORDERED: DIVALPROEX ER 250 MG TAB.ER.24H PO SCH (21:00)
[2022-12-19] MEDS: NICOTINE 14MG/24HR PATCH TRANSDERM SCH (06:35)
[2022-12-19 07:12] VITALS: BP 103/59; PULSE 81; RESP 17; TEMP 97.9
[2022-12-19] MEDS: risperiDONE 2 MG TAB PO SCH (07:48)
--- NOTE | 2022-12-19 12:18 | P.DS ---
Providers Date of admission: 12/15/22 17:21 Expected date of discharge: 12/19/22 Attending physician: Ceferino Aquino MD Consults: 12/15/22 17:26 Consult Physician Routine Consulting Provider: Jayson Nunes Consult Reason/Comments: medical management Do you want consulting provider notified?: Yes Primary care physician: Jayson Nunes - Discharge Diagnosis(es) (1) Severe manic bipolar 1 disorder with psychotic behavior Current Visit: Yes Status: Acute Priority: High (2) Opioid use disorder Current Visit: Yes Status: Chronic Priority: High (3) Cannabis use disorder, mild, abuse Current Visit: Yes Status: Chronic Priority: Medium (4) Nicotine dependence Current Visit: Yes Status: Chronic Priority: Low Hospital Course: Admission HPI: Patient is a 37-year-old -[place] female with significant history of PTSD, opiate use disorder, cannabis use disorder, and bipolar disorder, who presented to our hospital on 12/15/2022 for acute psychotic behavior. Patient presented to the hospital on 12/15/2022, brought in by police after displaying acute psychotic and manic behavior. The patient was noted to be in the [facility] parking lot attempting to break into cars. Workers at [facility] caught her in action and she began to be very aggressive. She presented with delusions and paranoia. She was subsequently brought into the emergency department where she was noted to be very religiously preoccupied and very suspicious. As per discussion with the patient's family, the patient has also been noncompliant with any treatment since she left the psychiatric unit this past November. She has not been taking any of her medications. She has been leaving her sons alone who are 7 and 11 years old in the home. Upon admission on the psychiatric unit, the patient continues to display acute manic behavior. She is unable to provide a clear history of events leading up to position. She appears to be religiously preoccupied and is nonlinear in her speech. She states that she does not require any medications. She has been nonadherent with any outpatient follow-up. She did receive risperidone perseris during her last admission but states she did not take any one since then. Patient has previous diagnoses of major depressive disorder, PTSD, bipolar disorder, and polysubstance abuse. She was last discharged in a regimen of risperidone perseris which was due on 12/11/2022. She was last hospitalized on a psychiatric unit on 11/11/2022 for 3 days. She is nonadherent with her outpatient follow-up with [facility]. She does have a history of prior attempts at suicide by overdose. Hospital course: Upon admission to the unit patient was initially presenting as overtly psychotic, manic and grandiose, and religiously preoccupied. The patient was petitioned and certified and second clinical certificate was filled out for the court. The patient was also started on a regimen of risperidone in order to address mood stability and psychosis. The patient has been noted throughout the hospitalization to constantly be asking for Ativan. Therefore, her Ativan was discontinued due to concerns for abuse and the patient was started on a regimen of Vistaril when necessary for anxiety. Furthermore, the patient was educated on how narcotic medications which she is prescribed from her primary care provider may also contributed to her psychotic episodes. The patient's Risperdal was gradually titrated. With the titration of the medication, the patient displayed improved insight, judgment, and reality testing. She was also transition to Invega Sustenna on 12/18/2022 due to her history of nonadherence with treatment. Depakote was also added to her regimen to address her concerns for migraine as well as for mood stabilization. She developed better insight and judgment and became more future and goal oriented. On the day of discharge, the patient is not reporting any suicidal or homicidal ideation, intention, and/or plan. She is not reporting any auditory or visual hallucinations. She is denying any paranoia or other delusions. She is not reporting any baptism preoccupation. The patient was counseled at length on the importance of medication adherence and appropriate outpatient follow-up. The patient does have a significant history of substance abuse and was counseled at great length on abstaining from all substances including alcohol, tobacco, marijuana, narcotics, and all other substances of abuse. She is not reporting any medical issues or concerns on the day of discharge and denies any chest pain, shortness of breath, palpitations, headache, nausea, vomiting, constipation, diarrhea, akathisia, or tardive dyskinesia. As the patient no longer met criteria for continued inpatient psychiatric hospitalization, she was subsequently discharged after appropriate safety planning. Mental status exam: General Appearance: Patient appears to be stated age is alert, pleasant, and cooperative. Patient is in no acute distress and has fair hygiene and grooming Behavior: Patient is calmly seated without any agitated behavior. Speech: Patient's speech is fluent and nonpressured. Mood/Affect: Patient reports their mood is "much better", affect is congruent and euthymic to bright. Suicidality/Homicidality: Patient reports no suicidal or homicidal ideation. Perceptions: Patient denies any auditory or visual hallucinations. Though content/process: There is no evidence of any delusional thought content and thought process is linear and goal-directed. Patient is future and goal oriented. Memory and concentration: AOX3, grossly intact for the purposes of this session. Can spell "WORLD" backwards correctly. Judgment and insight: Improved with guarded prognosis Impression: Bipolar 1 disorder, manic episode, with psychotic features Cannabis use disorder Opiate use disorder Nicotine dependence Plan: -Continue with discharge today as patient has improved and stabilized psychiatrically and is not currently an imminent threat to self and/or others. Patient will remain at chronically elevated risk for harm to self and/or others due to her history of nonadherence with treatment, her severe mental illness, and polysubstance abuse. -Continue medications: Invega Sustenna 234 mg IM was administered on 12/18/2022. She is scheduled to receive 156 mg IM on 12/25/2022. Depakote ER 750 mg daily at bedtime mood stabilization Vistaril when necessary for anxiety -Patient was counseled on the need for medication compliance and appropriate follow-up at mental health and also primary care for medical issues. Patient verbalized understanding and agreed. -Social work to arrange for and conduct family meeting to ensure safety upon discharge and answer any questions/concerns. Social work also to arrange for patients follow up appointments with [facility] for psychiatric care along with follow up with primary care provider. -Patient counseled on abstaining from recreational drugs and marijuana and alcohol. Was informed/educated on the adverse effects on their physical and mental health. Patient verbally agreed and understood. Patient was offered substance abuse treatment however declined at this time. -Patient was instructed to return to the hospital or seek immediate medical care if their psychiatric or medical symptoms do worsen or reoccur. -Psychoeducation and supportive therapy provided to patient. Risks and benefits of pharmacological treatment versus the risks and benefits of nontreatment weighed and discussed. Informed consent discussion held. Common side effects of psychotropics discussed such as, but not limited to headache, GI disturbance, sexual dysfunction, movement disorders, sedation, and orthostatic hypotension. Life threatening and blackbox warnings of prescribed medications also discussed. Potential risks of operating a vehicle or heavy machinery discussed with patient at length. Advised on importance of compliance and a reliable and responsible manner. Patient advised to review FDA consumer labeling of all medications prior to taking. Patient verbalized understanding of potential risks, and agrees with current treatment plan. Patient advised to medically contact physician/emergency personnel if any acute changes in condition occur. Vital Signs Temp 97.9 F 12/19/22 07:11 Pulse 81 12/19/22 07:11 Resp 17 12/19/22 07:11 BP 103/59 12/19/22 07:11 Pulse Ox 97 12/19/22 07:11 FiO2 Intake & Output 12/18/22 12/19/22 12/19/22 18:59 06:59 18:59 Weight 76.1 kg Laboratory Results WBC 10.8 k/uL (3.8-10.6) H 12/15/22 16:19 RBC 4.59 m/uL (3.80-5.40) 12/15/22 16:19 Hgb 13.8 gm/dL (11.4-16.0) 12/15/22 16:19 Hct 40.1 % (34.0-46.0) 12/15/22 16:19 MCV 87.3 fL (80.0-100.0) 12/15/22 16:19 MCH 30.1 pg (25.0-35.0) 12/15/22 16:19 MCHC 34.4 g/dL (31.0-37.0) 12/15/22 16:19 RDW 12.4 % (11.5-15.5) 12/15/22 16:19 Plt Count 391 k/uL (150-450) 12/15/22 16:19 MPV 7.7 12/15/22 16:19 Neutrophils % 72 % 12/15/22 16:19 Lymphocytes % 19 % 12/15/22 16:19 Monocytes % 6 % 12/15/22 16:19 Eosinophils % 1 % 12/15/22 16:19 Basophils % 0 % 12/15/22 16:19 Neutrophils # 7.8 k/uL (1.3-7.7) H 12/15/22 16:19 Lymphocytes # 2.1 k/uL (1.0-4.8) 12/15/22 16:19 Monocytes # 0.6 k/uL (0-1.0) 12/15/22 16:19 Eosinophils # 0.1 k/uL (0-0.7) 12/15/22 16:19 Basophils # 0.0 k/uL (0-0.2) 12/15/22 16:19 Sodium 137 mmol/L (137-145) 12/15/22 15:25 Potassium 4.0 mmol/L (3.5-5.1) 12/15/22 15:25 Chloride 100 mmol/L (98-107) 12/15/22 15:25 Carbon Dioxide 24 mmol/L (22-30) 12/15/22 15:25 Anion Gap 13 mmol/L 12/15/22 15:25 BUN 16 mg/dL (7-17) 12/15/22 15:25 Creatinine 0.79 mg/dL (0.52-1.04) 12/15/22 15:25 Est GFR (CKD-EPI)AfAm >90 (>60 ml/min/1.73 sqM) 12/15/22 15:25 Est GFR (CKD-EPI)NonAf >90 (>60 ml/min/1.73 sqM) 12/15/22 15:25 Glucose 146 mg/dL (74-99) H 12/15/22 15:[address] Glu mg/dL 126 mg/dL 12/15/22 16:19 Hemoglobin A1c 6.0 % (<=6.0) 12/15/22 16:19 Calcium 9.8 mg/dL (8.4-10.2) 12/15/22 15:25 Total Bilirubin 0.7 mg/dL (0.2-1.3) 12/15/22 15:25 AST 22 U/L (14-36) 12/15/22 15:25 ALT 16 U/L (4-34) 12/15/22 15:25 Alkaline Phosphatase 93 U/L (38-126) 12/15/22 15:25 Total Protein 8.2 g/dL (6.3-8.2) 12/15/22 15:25 Albumin 4.7 g/dL (3.5-5.0) 12/15/22 15:25 Triglycerides 87.80 mg/dL (0.00-149.00) 12/15/22 15:25 Cholesterol 213.00 mg/dL (0.00-200.00) H 12/15/22 15:25 LDL Cholesterol, Calc 152.9 mg/dL (0.0-131.0) H 12/15/22 15:25 VLDL Cholesterol, Calc 17.56 mg/dL (5.00-40.00) 12/15/22 15:25 HDL Cholesterol 42.50 mg/dL (40.00-60.00) 12/15/22 15:25 Cholesterol/HDL Ratio 5.01 Ratio 12/15/22 15:25 Urine Color Yellow 12/15/22 15:58 Urine Appearance Cloudy (Clear) H 12/15/22 15:58 Urine pH 6.0 (5.0-8.0) 12/15/22 15:58 Ur Specific [place] 1.016 (1.001-1.035) 12/15/22 15:58 Urine Protein Trace (Negative) H 12/15/22 15:58 Urine Glucose (UA) Negative (Negative) 12/15/22 15:58 Urine Ketones 1+ (Negative) H 12/15/22 15:58 Urine Blood Negative (Negative) 12/15/22 15:58 Urine Nitrite Negative (Negative) 12/15/22 15:58 Urine Bilirubin Negative (Negative) 12/15/22 15:58 Urine Urobilinogen 2.0 mg/dL (<2.0) 12/15/22 15:58 Ur Leukocyte Esterase Negative (Negative) 12/15/22 15:58 Urine RBC 2 /hpf (0-5) 12/15/22 15:58 Urine WBC 3 /hpf (0-5) 12/15/22 15:58 Ur Squamous Epith Cells 11 /hpf (0-4) H 12/15/22 15:58 Urine Bacteria Rare /hpf (None) H 12/15/22 15:58 Urine Mucus Occasional /hpf (None) H 12/15/22 15:58 Coronavirus (PCR) Not Detected (Not Detectd) 12/15/22 16:19 Allergies Allergy/AdvReac Type Severity Reaction Status Date / Time No Known Allergies Allergy Verified 12/15/22 13:38 Patient Condition at Discharge: Stable Plan - Discharge Summary Discharge Rx Participant: Yes New Discharge Prescriptions: New Paliperidone IM [Invega Sustenna] 156 mg IM QMONTHLY 1 Days #1 each hydrOXYzine pamoate [Vistaril] 25 mg PO TID PRN 30 Days #90 cap PRN Reason: Anxiety Divalproex ER [Depakote ER] 750 mg PO HS 30 Days #90 tab Discontinued HYDROcodone/APAP 7.5-325MG [[place] 7.5-325] 1 tab PO BID PRN PRN Reason: Pain Discharge Medication List Divalproex ER [Depakote ER] 750 mg PO HS 30 Days #90 tab 12/19/22 [Rx] Paliperidone IM [Invega Sustenna] 156 mg IM QMONTHLY 1 Days #1 each 12/19/22 [Rx ] hydrOXYzine pamoate [Vistaril] 25 mg PO TID PRN 30 Days #90 cap 12/19/22 [Rx] Follow up Appointment(s)/Referral(s): [facility] [Outside] - 12/22/22 3:00 pm (Deandra Sexton to 12-22-22 at 3:00. 12/25/2022 10:30AM - 11:30AM JOSE PASTRANA ) Jayson Nunes MD [Primary Care Provider] - 1-2 days Patient Instructions/Handouts: Bipolar Disorder (DC) Activity/Diet/Wound Care/Special Instructions: Avoid the use of street drugs and alcohol. Take all medications as prescribed. When you are in need of refills on your medications, please contact your medical provider and/or outpatient psychiatrist/provider to have this done. Please go to your scheduled outpatient appointment for aftercare treatment. If symptoms return or become worse, call the crisis line at and/or go to the nearest emergency room for evaluation. National Suicide Hotline 988. Discharge Disposition: HOME SELF-CARE
== END 2022-12-19 13:24 | disposition home or self-care (01) | DRG 753 ==
LOC: EC 11:20 → 3MHU 17:21
PROVIDERS: ADMIT Psychiatry & Neurology Psychiatry; ATTEND Psychiatry & Neurology Psychiatry
DX: F31.2 Bipolar disorder, current episode manic severe with psychotic features (principal); F11.10 Opioid abuse, uncomplicated; F17.200 Nicotine dependence, unspecified, uncomplicated; F43.10 Post-traumatic stress disorder, unspecified; F12.10 Cannabis abuse, uncomplicated; Z20.822 Contact with and (suspected) exposure to COVID-19; Z56.0 Unemployment, unspecified; Z79.899 Other long term (current) drug therapy; Z91.199 Patient's noncompliance with other medical treatment and regimen due to unspecified reason; Z88.8 Allergy status to other drugs, medicaments and biological substances
CPT/HCPCS: 36415; 80053; 80061; 81001; 82075; 83036; 85025; 87635; 99285

== ENCOUNTER 2023-11-12 15:42 | Inpatient (IN) | payer MEDICAID, OTHER ==
--- NOTE | 2023-11-12 16:38 | ED ---
Psych HPI - General Chief Complaint: Psychiatric Symptoms Stated Complaint: Mental Health Time Seen by Provider: 11/12/23 15:47 Source: EMS Mode of arrival: EMS - History of Present Illness Initial Comments: This patient is a 38-year-old woman with history of previous mood disorder who presents to have evaluation for depression. She admits occasional suicidal ideation. MD Complaint: suicidal ideation, feels depressed -: year(s) Associated Psychiatric Symptoms: depression, suicidal ideation History of same: Yes Quality: intermittent Improves With: none Worsens With: none Associated Symptoms: denies other symptoms - Related Data Home Medications Medication Instructions Recorded Confirmed Cyanocobalamin [Vitamin B-12 1,000 mcg SQ Q30D 11/12/23 11/12/23 Injection] HYDROcodone/APAP 7.5-325MG [[place] 1 tab PO DAILY 11/12/23 11/12/23 7.5-325] Previous Rx's Medication Instructions Recorded Atorvastatin [Lipitor] 40 mg PO DAILY 30 Days #30 tab 11/18/23 Nicotine 14Mg/24Hr Patch [Habitrol] 1 patch TRANSDERM DAILY 30 Days 11/18/23 #30 patch fluPHENAZine [Prolixin] 5 mg PO BID 30 Days #60 tab 11/18/23 Allergies Allergy/AdvReac Type Severity Reaction Status Date / Time No Known Allergies Allergy Verified 11/12/23 18:02 Review of Systems ROS Statement: Those systems with pertinent positive or pertinent negative responses have been documented in the HPI. ROS Other: All systems not noted in ROS Statement are negative. Constitutional: Denies: fever, weakness Eyes: Denies: vision change Respiratory: Denies: cough, dyspnea Cardiovascular: Denies: chest pain, palpitations, edema Gastrointestinal: Denies: abdominal pain, vomiting, diarrhea Genitourinary: Denies: dysuria, hematuria Musculoskeletal: Denies: back pain Skin: Denies: rash Neurological: Denies: headache, weakness Psychiatric: Reports: depression, suicidal thoughts. Denies: auditory hallucinations, visual hallucinations, homicidal thoughts Past Medical History Past Medical History: No Reported History Additional Past Medical History / Comment(s): UMBILCAL HERNIA. MIGRAINES History of Any Multi-Drug Resistant Organisms: ESBL, Other MDRO Date of last positivie culture/infection: 11/13/18 MDRO Source:: ESBL URINE Past Surgical History: Section Past Psychological History: Bipolar, Depression, PTSD, Schizoaffective Disorder Smoking Status: Current every day smoker Past Alcohol Use History: Rare Past Drug Use History: None Reported, Marijuana, Prescription Drug Abuse - Past Family History family Family Medical History: No Reported History General Exam Limitations: no limitations General appearance: alert, in no apparent distress Head exam: Present: atraumatic, normocephalic Eye exam: Present: normal appearance. Absent: scleral icterus, conjunctival injection Neck exam: Present: normal inspection Respiratory exam: Present: normal lung sounds bilaterally. Absent: respiratory distress, wheezes, rales, rhonchi, stridor, accessory muscle use Cardiovascular Exam: Present: regular rate, normal rhythm, normal heart sounds. Absent: systolic murmur, diastolic murmur, rubs, gallop GI/Abdominal exam: Present: soft. Absent: distended, tenderness, guarding, rebound, rigid, mass Extremities exam: Present: normal inspection, normal capillary refill Neurological exam: Present: alert Psychiatric exam: Present: depressed, manic, suicidal ideation, other (Patient does display disorganized thought processes and some hyperreligious, delusional thought content). Absent: agitated, anxious, flat affect, homicidal ideation Skin exam: Present: warm, dry, intact, normal color. Absent: rash Course Vital Signs 11/12/23 11/12/23 11/12/23 15:43 20:20 20:24 Temperature 99.3 F 97.4 F L Pulse Rate 112 H 86 Pulse Rate [ 92 Left] Respiratory 20 18 17 Rate Blood Pressure 106/70 130/86 Blood Pressure 134/83 [Right Arm] O2 Sat by Pulse 98 96 99 Oximetry Medical Decision Making - Medical Decision Making Was pt. sent in by a medical professional or institution (, PA, [employer], urgent care, hospital, or [facility]...) When possible be specific @ -[No] Did you speak to anyone other than the patient for history (EMS, parent, family, police, friend...)? What history was obtained from this source @ -[No] Did you review nursing and triage notes (agree or disagree)? Why? @ -[I reviewed and agree with nursing and triage notes] Were old charts reviewed (outside hosp., previous admission, EMS record, old EKG, old radiological studies, urgent care reports/EKG's, [facility] records)? Report findings @ -[No old charts were reviewed] Differential Diagnosis (chest pain, altered mental status, abdominal pain women, abdominal pain men, vaginal bleeding, weakness, fever, dyspnea, syncope, headache, dizziness, GI bleed, back pain, seizure, CVA, palpatations, mental hea lth, musculoskeletal)? @ -[Differential Mental Health Depression, anxiety, bipolar, psychosis, schizophrenia, borderline personality, situational depression, adjustment disorder, behavioral disorder, brain tumor, malingering, substance abuse, encephalopathy, medication reaction, dementia, hypothyroidism, degenerative neurologic disorder, lupus.... This is not meant to be all-inclusive list EKG interpreted by me (3pts min.). @ -[As above] X-rays interpreted by me (1pt min.). @ -[None done] CT interpreted by me (1pt min.). @ -[None done] U/S interpreted by me (1pt. min.). @ -[None done] What testing was considered but not performed or refused? (CT, X-rays, U/S, labs)? Why? @ -[None] What meds were considered but not given or refused? Why? @ -[None] Did you discuss the management of the patient with other professionals (professionals i.e. , PA, [employer], lab, RT, psych nurse, social work associate, cloth mercerizer back tender, teacher, protection officer, pillowcase cutter)? Give summary @ -[Case discussed with EPS personnel who saw the patient and discussed with psychiatrist and will have admitted for further inpatient mental health treatment Was smoking cessation discussed for >3mins.? @ -[No] Was critical care preformed (if so, how long)? @ -[No] Were there social determinants of health that impacted care today? How? (Homelessness, low income, unemployed, alcoholism, drug addiction, transportation, low edu. Level, literacy, decrease access to med. care, group home, rehab)? @ -[No] Was there de-escalation of care discussed even if they declined (Discuss DNR or withdrawal of care, Hospice)? DNR status @ -[No] What co-morbidities impacted this encounter? (DM, HTN, Smoking, COPD, CAD, Cancer, CVA, ARF, Chemo, Hep., AIDS, mental health diagnosis, sleep apnea, morbid obesity)? @ -[Underlying mood disorder Was patient admitted / discharged? Hospital course, mention meds given and route, prescriptions, significant lab abnormalities, going to OR and other pertinent info. @ -[See above Undiagnosed new problem with uncertain prognosis? @ -[No] Drug Therapy requiring intensive monitoring for toxicity (Heparin, Nitro, Insulin, Cardizem)? @ -[No] Were any procedures done? @ -[No] Diagnosis/symptom? @ -[Mood disorder Acute suicidal ideation Acute, or Chronic, or Acute on Chronic? @ -[Acute Uncomplicated (without systemic symptoms) or Complicated (systemic symptoms)? @ -[Uncomplicated Side effects of treatment? @ -[No] Exacerbation, Progression, or Severe Exacerbation? @ -[No] Poses a threat to life or bodily function? How? (Chest pain, [place], [place], pneumonia, PE, COPD, DKA, ARF, appy, cholecystitis, CVA, Diverticulitis, Homicidal, Suicidal, threat to staff... and all critical care pts) @ -[Yes there is risk of progression to suicide attempts/completion - Lab Data Result diagrams: 11/14/23 08:36 11/14/23 08:36 Lab Results 11/12/23 Range/Units 18:01 SARS-CoV-2 (PCR) Not Detected (Not Detectd) Disposition Clinical Impression: Suicidal ideation, Mood disorder Disposition: TRANSFER TO PSYCH HOSP/UNIT Condition: Fair Is patient prescribed a controlled substance at d/c from ED?: No
[2023-11-12] MEDS ORDERED: ACETAMINOPHEN TAB 325 MG TAB PO PRN (20:25)
[2023-11-12] MEDS ORDERED: MAGNESIUM HYDROXIDE 2,400 MG/30 ML CUP PO PRN (20:25)
[2023-11-12] MEDS ORDERED: MAG HYDROX/AL HYDROX/SIMETH 355 ML BOTTLE PO PRN (20:25)
[2023-11-12] MEDS: LORazepam 1 MG TAB PO PRN (21:36)
[2023-11-12] MEDS: ARIPiprazole 5 MG TAB PO SCH (21:36)
[2023-11-12] MEDS: haloperidoL 5 MG TAB PO PRN (23:25)
[2023-11-12] MEDS: HYDROcodone/APAP 5-325MG 1 EACH TAB PO PRN (23:25)
[2023-11-13] MEDS: HALOPERIDOL LACTATE 5 MG/ML 1 ML VIAL IM PRN (04:55)
[2023-11-13] MEDS: LORazepam 2 MG/ML INJ IM PRN (04:56)
[2023-11-13] MEDS: ATORVASTATIN 40 MG TAB PO SCH (09:15)
[2023-11-13] MEDS: NICOTINE 14MG/24HR PATCH TRANSDERM SCH (09:16)
--- NOTE | 2023-11-13 11:33 | P.HP ---
Psychiatric H&P - . H&P Date: 11/13/23 History & Physical: Allergies Allergy/AdvReac Type Severity Reaction Status Date / Time No Known Allergies Allergy Verified 11/12/23 18:02 Vital Signs Temp 97.4 F L 11/12/23 20:24 Pulse 92 11/12/23 20:24 Resp 17 11/12/23 20:24 BP 134/83 11/12/23 20:24 Pulse Ox 99 11/12/23 20:24 FiO2 Intake & Output 11/12/23 11/13/23 11/13/23 18:59 06:59 18:59 Weight 90.718 kg 85.899 kg Laboratory Last Values SARS-CoV-2 (PCR) Not Detected (Not Detectd) 11/12/23 18:01 11/13/23 09:05 IDENTIFYING DATA: Patient is a Patient is a 38-year-old -[place]ian female with significant history of PTSD, opiate use disorder, cannabis use disorder, and bipolar disorder. She lives alone in an apartment. Single, receives SSD HPI: Patient presented to the hospital on 11/11. As per EPS note, "Upon assessment pt appears unkempt, disheleved. Pt was pacing the room and unable to sit still. Pt was very animated and has a louder tone and passion during conversation. Pt is disorganized, thought blocking, tangential, and has loose associations. Pt could not truly verbalize why she was brought to the ER. She would start to say that she got into a verbal altercation with her and then say, "can I ask you a question", and then speak about God. Pt believes that a witch kidnapped her and states that she was hearing voices but then would not start what they were or describe them in any way. She would carry to the next subject and lacks focus. Pt has an illogical train of thought. Pt would make statements during conversation like, "It's been my own my whole life...I probably won't here tonight....I don't know good versus evil". These would be out of context in conversation. Pt states that she has not slept in a few days, she could not state the last time she slept. She states she has a lack of motivation and not eating but was seen eating her lunch tray and drinking. Pt is religiously occupied during conversation. Pt would not give consent for RN to re ach out to anyone to see what events took place prior to ER. Shannon RN in ER states that she was able to speak with her mother earlier and she was not willing to come to the hospital to petition, she was just calling to inform of her arrival and they feel she is not doing well. Pt admits to SI but pt would not verbalize a plan but states, "I'd rather not be here anymore". Pt was making Homicidal statements towards others. Pt states, "I don't believe in murder" but then was making hypothetical statements about killing her family members and those who have hurt he emotionally. "I could shot them, or hurt them real good". She states that her mother took her children away from her and "everyone thinks I am worthless and nothing, no one can fix me". Pt denies any medical issues, denies access to guns or weapons but RN is unable to confirm this. Pt denies the use of drugs. She does admit to occasionally etoh use. BAT today was 0.046. Pt does admit to taking Adderall 20mg QD that are not hers. Pt is closed with [facility] and has not received her Abilify Maintena 400mg since 06/05/23 per [place]." Upon todays assessment, she states that a higher power brought her in. She's been having thoughts of burning in hell, if she did not do the right things. She states she seen the stars move for her. She said the creator of the universe did it. She states her mom called 911, after coming to her house and "started crap". She does not believe she should be here. She states that she used to take medication, but she was able to stop. She states that her mood has ups and downs. She states that she sleeps well, and her appetite is well. She states her stressors include, "something came from somewhere" She states that there has been great things build, by something creating that. She states it's weird to her, and that it's all in her head and her heart. She thinks she hears God's voice. She has very loose associations, she is thought blocking, and tangential. Her thought process is disorganized. She gets increasingly irritated during the interview. Patient denies any suicidal or homicidal ideations intent or plan. At this time patient denies any auditory or visual hallucinations. Patient is having flight of ideas, racing thoughts and very tangential. Patient denies using recreational drugs. she has a discheleveld appearance, poor hygiene and grooming. PAST PSYCHIATRIC HISTORY: Patient has previous diagnoses of major depressive disorder, PTSD, bipolar disorder, and polysubstance abuse. She has not received her Abelino Sanchez MATHEW since 06/05/23. She was last hospitalized on this psychiatric unit on 12/16/22 for 3 days. She is nonadherent with her outpatient follow-up with [facility]. She does have a history of prior attempts at suicide by overdose. PMH:As per ER note ALLERGIES: as per EMR CHEMICAL DEPENDENCY HISTORY: as per HPI FAMILY PSYCHIATRIC/SUBSTANCE USE HISTORY: [denies] SOCIAL HISTORY: Patient was born and raised in [place], [place]. She currently lives in [place], alone in an apartment, she has 2 sons. She graduated from high school. She is currently unemployed. Receives [facility] MENTAL STATUS EXAM: General Appearance: Patient appears to be stated age is alert, [directable, and attempts to cooperate]. Patient appears to have [poor] hygiene and grooming. Wearing a hospital gown. Behavior: Patient is seated with mildly agitated behavior. tangential, flight of ideas, aggressive at times. Speech: Patient's speech is [fluent and nonpressured.] Mood/Affect: Patient reports their mood is "fine", affect is congruent and constricted. visibly upset. Suicidality/Homicidality: Patient denies having any homicidal ideation intent or plan. [Denies any suicidal ideations intent or plan] Perceptions: Patient denies any visual hallucinations [and denies any auditory hallucinations] having delusions of hearing god. Though content/process: [There is evidence of any delusional thought content and disorganized, loose associations,thought blocking and tangential Memory and concentration: AOX3, grossly intact for the purposes of this session. Can spell "WORLD" backwards Judgment and insight: [poor] STRENGTHS/WEAKNESSES: strength is that patient is [resilient]. Weakness is that patient [has poor judgment and is impulsive] INTELLECT: [average] IMPRESSIONS: schizoaffective, bipolar type PLAN: -Patient is admitted under [involuntary] status to MHU for stabilization of psychiatric symptoms and safety. Patient has [not] signed [adult voluntary form or medication consent] and is placed in patient's chart. [A second certification was completed and along with petition will be filed for court. -Medications : Will start patient on Prolixin 3mg po bid for psychosis, trazodone 100mg po prn, for sleep -Ativan [and Haldol] PRN for agitation/aggression -Patient was counselled on substance abuse and desired to cut back on use -Patient was informed of the risks, benefits and side effects of the medication -Internal Medicine consult to perform medical evaluation and physical. -NRT - nonsmoker -SW on board for discharge planning. Encourage patient to participate in groups to work on coping skills. Will await deferral and court date. 11/13/23 11:04 11/13/23 11:31
--- NOTE | 2023-11-13 14:17 | P.MDCNMH ---
History of Present Illness H&P Date: 11/13/23 History of present illness; patient is a 38-year-old lady with past medical history significant for bipolar disorder, depression, PTSD, presented to the ER for psychiatric evaluation. Patient stated for the last few weeks she has been feeling depressed. Patient was very animated, and was unable to keep focused. Patient stated that she was hearing voices but could not describe them. Patient apparently was very unkept and had flight of ideas. Patient kept stating that " It's been my own my whole life...I probably won't here tonight....I don't know ". Patient does not have a plan but would keep on stating that I would rather not be here anymore. Patient also stated that she does not believe in motor but then would be making comments like hurting family members who had hurt her emotionally. Patient was worked up in the ER and was admitted to inpatient psych REVIEW OF SYSTEMS: CONSTITUTIONAL: No fever, no malaise, no fatigue. HEENT: No recent visual problems or hearing problems. Denied any sore throat. CARDIOVASCULAR: No chest pain, orthopnea, PND, no palpitations, no syncope. PULMONARY: No shortness of breath, no cough, no hemoptysis. GASTROINTESTINAL: No diarrhea, no nausea, no vomiting, no abdominal pain. NEUROLOGICAL: No headaches, no weakness, no numbness. HEMATOLOGICAL: Denies any bleeding or petechiae. GENITOURINARY: Denies any burning micturition, frequency, or urgency. MUSCULOSKELETAL/RHEUMATOLOGICAL: Denies any joint pain, swelling, or any muscle pain. ENDOCRINE: Denies any polyuria or polydipsia. The rest of the 14-point review of systems is negative. PHYSICAL EXAMINATION: GENERAL: The patient is alert and oriented x3, anxious, flight of ideas HEENT: Pupils are round and equally reacting to light. EOMI. No scleral icterus. No conjunctival pallor. Normocephalic, atraumatic. No pharyngeal erythema. No thyromegaly. CARDIOVASCULAR: S1 and S2 present. No murmurs, rubs, or gallops. PULMONARY: Chest is clear to auscultation, no wheezing or crackles. ABDOMEN: Soft, nontender, nondistended, normoactive bowel sounds. No palpable organomegaly. MUSCULOSKELETAL: No joint swelling or deformity. EXTREMITIES: No cyanosis, clubbing, or pedal edema. NEUROLOGICAL: Gross neurological examination did not reveal any focal deficits. SKIN: No rashes. Assessment and plan Acute psychosis Bipolar disorder Suicidal thoughts Homicidal ideations Monitor vital signs Elopement precautions Suicide precautions Continue psych meds per psychiatry team Labs and medication were reviewed.. Continue same treatment. Continue with symptomatic treatment. Resume home medication. Monitor labs and vitals. DVT and GI prophylaxis. Further recommendations as per clinical course of the patient Dictation was produced using JME[employer] dictation software. please excuse any grammatical, word or spelling errors. Past Medical History Past Medical History: No Reported History Additional Past Medical History / Comment(s): UMBILCAL HERNIA. MIGRAINES History of Any Multi-Drug Resistant Organisms: ESBL, Other MDRO Date of last positivie culture/infection: 11/13/18 MDRO Source:: ESBL URINE Past Surgical History: Section Smoking Status: Current every day smoker, Vaper - Past Family History family Family Medical History: No Reported History Medications and Allergies Home Medications Medication Instructions Recorded Confirmed Type Cyanocobalamin [Vitamin B-12 1,000 mcg SQ Q30D 11/12/23 11/12/23 History Injection] HYDROcodone/APAP 7.5-325MG [[place] 1 tab PO DAILY 11/12/23 11/12/23 History 7.5-325] Allergies Allergy/AdvReac Type Severity Reaction Status Date / Time No Known Allergies Allergy Verified 11/12/23 18:02 Physical Exam Vitals: Vital Signs Temp Pulse Pulse Resp BP BP Pulse Ox 11/12/23 20:24 97.4 F L 92 17 134/83 99 11/12/23 20:20 86 18 130/86 96 11/12/23 15:43 99.3 F 112 H 20 106/70 98 Intake and Output 11/12/23 11/13/23 11/13/23 22:59 06:59 14:59 Other: Weight 85.899 kg Cranial Nerve Examination - Cranial Nerves Cranial Nerve II- Optic: Intact (Cranial 2 through 12 intact) Cranial Nerve III- Oculomotor: Intact Cranial Nerve IV- Trochlear: Intact Cranial Nerve V- Trigeminal: Intact Cranial Nerve - Abducens: Intact Cranial Nerve VII- Facial: Intact Cranial Nerve VIII- Auditory: Intact Cranial Nerve IX- Glossopharyngeal: Intact Cranial Nerve X- Vagus: Intact Cranial Nerve XI- Accessory: Intact Cranial Nerve XII- Hypoglossal: Intact
[2023-11-13] MEDS: traZODone HCL 100 MG TAB PO PRN (20:02)
[2023-11-14] MEDS: LORazepam 1 MG TAB PO PRN (03:25)
[2023-11-14 09:23] LABS: Basophils % (A) 0 %; Eosinophils # (A) 0.2 k/uL (0-0.7); Eosinophils % (A) 2 %; HCT 39.5 % (34.0-46.0); Lymphocytes # (A) 2.6 k/uL (1.0-4.8); Lymphocytes % (A) 36 %; MCH 29.5 pg (25.0-35.0); MCHC 32.8 g/dL (31.0-37.0); MCV 89.8 fL (80.0-100.0); Mean Platelet Volume 7.7; Monocytes # (A) 0.3 k/uL (0-1.0); Monocytes % (A) 4 %; Neutrophils # (A) 3.9 k/uL (1.3-7.7); Neutrophils % (A) 55 %; Platelet Count 354 k/uL (150-450); RDW 12.7 % (11.5-15.5); WBC 7.1 k/uL (3.8-10.6)
[2023-11-14 09:40] LABS: ALT 14 U/L (4-34); AST 24 U/L (14-36); African American GFR (CKD) >90 (>60 ml/min/1.73 sqM); Alkaline Phosphatase 83 U/L (38-126); Anion Gap 4 mmol/L; Blood Urea Nitrogen 6 mg/dL (7-17); Calcium 9.3 mg/dL (8.4-10.2); Carbon Dioxide 28 mmol/L (22-30); Chloride 105 mmol/L (98-107); Glucose 138 mg/dL (74-99); Non-African American GFR(CKD) >90 (>60 ml/min/1.73 sqM); Potassium 4.2 mmol/L (3.5-5.1); Sodium 137 mmol/L (137-145); Total Bilirubin 0.6 mg/dL (0.2-1.3); Total Protein 6.7 g/dL (6.3-8.2)
--- NOTE | 2023-11-14 19:16 | P.PN ---
Progress Note - Text Progress Note Date: 11/14/23 Interval history: Patient was seen wandering the hallways and was directable and agreeable to speak with typewriter assembler. She has been knocking on the psychiatrists door throughout the day, eager to be seen. On my assessment, she appears cooperative, thoughts appear linear and goal-directed, and is focused on discharge on Thursday. She claims she has showered today and maintaining her hygiene. She does not appear to be attending to internal stimuli. She claims good mood, sleep and appetite. She slept for 6+ hours last night. She has received Ativan 1 mg x 3 so far today for anxiety. At this time, patient denies any suicidal or homicidal ideation, intent or plan. Denies any auditory or visual hallucinations. Patient denies any side effects from the medications and has been compliant with meds. Mental status exam: General Appearance: Patient appears to be stated age is alert, directable, and cooperative. Behavior: No agitated behavior. Patient is knocking on the psychiatrist's door throughout the day, eager to be seen, is discharge focused. Speech: Patient's speech is fluent and non-pressured. Mood/Affect: Mood is improving mildly, affect is congruent and constricted. Suicidality/Homicidality: Patient denies having any suicidal or homicidal ideation intent or plan. Perceptions: Patient denies any auditory or visual hallucinations. Though content/process: There is no evidence of any delusional thought content and thought process is linear. Memory and concentration: AOX3, grossly intact for the purposes of this session Judgment and insight: Improving mildly Assessment/Plan: Continue with current diagnosis. Patient continues to meet criteria for [facility] psychiatric admission for symptom stabilization and safety. Will continue Prolixin 3 mg BID for psychosis since she appears to be tolerating this well today. Decrease Ativan from 1 mg TID PRN to 0.5 mg TID PRN to minimize dependence or overuse. Monitor for medication compliance and for any psychotropic medication side effects. Will continue to monitor ongoing response to treatment. Encouraged participation in milieu. She is involuntary status and will await deferral or court date.
[2023-11-14] MEDS: IBUPROFEN 600 MG TAB PO PRN (19:51)
[2023-11-14] MEDS: LORazepam 0.5 MG TAB PO PRN (19:51)
--- NOTE | 2023-11-15 16:19 | P.PN ---
Progress Note - Text Progress Note Date: 11/15/23 Interval history: Patient was seen wandering the hallways and was directable and agreeable to speak with magazine writer. She is eager to be seen again today, and appears somewhat impulsive. On my assessment, she appears cooperative, thoughts appear linear and goal-directed, and is focused on discharge. We reviewed that she is an involuntary status and will need to await a visit from the court-appointed hander in for deferral or a court date. Insight into her mental illness continues to be limited since she does not appear to appreciate the consequences of noncompliance with outpatient treatment at [facility] and noncompliance with her outpatient meds, as well as the reasons for inpatient admission. She continues to be discharge focused. She does not appear to be attending to internal stimuli. She claims good mood, sleep and appetite. She showered this morning. She slept for 6+ hours last night. She has received Ativan 0.5 mg x 3 so far since last night. She has not been attending groups. At this time, patient denies any suicidal or homicidal ideation, intent or plan. Denies any auditory or visual hallucinations. Patient denies any side effects from the medications and has been compliant with meds so far. Mental status exam: General Appearance: Patient appears to be stated age is alert, directable, and cooperative. Behavior: No agitated behavior. Patient is knocking on the psychiatrist's door throughout the day, eager to be seen, is discharge focused. Speech: Patient's speech is fluent and non-pressured. Mood/Affect: Mood is improving mildly, affect is congruent and constricted. Suicidality/Homicidality: Patient denies having any suicidal or homicidal ideation intent or plan. Perceptions: Patient denies any auditory or visual hallucinations. Though content/process: There is no evidence of any delusional thought content and thought process is linear. Memory and concentration: AOX3, grossly intact for the purposes of this session Judgment and insight: poor/Improving mildly Assessment/Plan: Continue with current diagnosis. Patient continues to meet criteria for inpatient psychiatric admission for symptom stabilization and safety. Increasse Prolixin to 4 mg BID for psychosis/impulsivity. Decrease Ativan from 0.5 mg TID PRN to 0.5 mg BID PRN to minimize dependence or overuse. Monitor for medication compliance and for any psychotropic medication side effects. Will continue to monitor ongoing response to treatment. Encouraged participation in milieu. She is involuntary status and will await deferral or court date.
[2023-11-15] MEDS: LORazepam 0.5 MG TAB PO SCH (21:48)
[2023-11-16 11:25] LABS: Appearance,Urine Clear (Clear); Bilirubin,Urine Negative (Negative); Blood,Urine Negative (Negative); Color,Urine Colorless; Glucose,Urine (UA) Negative (Negative); Ketones,Urine Negative (Negative); Leukocyte Esterase,Urine Negative (Negative); Nitrite,Urine Negative (Negative); PH, Urine 6.5 (5.0-8.0); Protein,Urine Negative (Negative); Specific Gravity,Urine 1.002 (1.001-1.035); Urobilinogen,Urine <2.0 mg/dL (<2.0)
[2023-11-16 20:30] LABS: Urine Alcohol Negative (Negative); Urine Barbiturate Negative (Negative); Urine Cocaine Negative (Negative); Urine Methadone Negative (Negative); Urine Opiates Negative (Negative); Urine Phencyclidine Negative (Negative)
--- NOTE | 2023-11-16 20:32 | P.PN ---
Progress Note - Text Progress Note Date: 11/16/23 Interval history: Patient was seen wandering the hallways and was directable and agreeable to speak with staff writer. She appears somewhat more calm today, less anxious/eager. She did receive Haldol 5 mg po x 1 at around 10:30 am this morning and Ativan 1 mg po x 1 this evening around dinner time. Thoughts appear linear and goal- directed, and is focused on discharge. We reviewed that she is involuntary status and will need to await a visit from the court-appointed retail mortgage banker for dennis ferrer or a court date. She states she would like to sign the deferral in hopes of sooner discharge. She does not appear to be attending to internal stimuli. She claims good mood, sleep and appetite. Review of sleep log shows she slept 6+ hours last night. She is attending groups today. At this time, patient denies any suicidal or homicidal ideation, intent or plan. Denies any auditory or visual hallucinations. Patient denies any side effects from the medications and has been compliant with meds so far. Mental status exam: General Appearance: Patient appears to be stated age is alert, directable, and cooperative. Behavior: No agitated behavior. More calm today but is still requiring PRN Haldol/Ativan for "anxiety" Speech: Patient's speech is fluent and non-pressured. Mood/Affect: Mood is improving mildly, affect is congruent and constricted. Suicidality/Homicidality: Patient denies having any suicidal or homicidal ideation intent or plan. Perceptions: Patient denies any auditory or visual hallucinations. Though content/process: There is no evidence of any delusional thought content on my assessment and thought process is linear and goal-directed. Memory and concentration: AOX3, grossly intact for the purposes of this session Judgment and insight: Improving mildly Assessment/Plan: Continue with current diagnosis. Patient continues to meet criteria for inpatient psychiatric admission for symptom stabilization and safety. Increase Prolixin to 5 mg BID for psychosis/impulsivity starting tomorrow morning. She would benefit from MATHEW due to history of noncompliance with medications. Continue Ativan 0.5 mg BID PRN for anxiety with plan to discontinue prior to discharge. Monitor for medication compliance and for any psychotropic medication side effects. Will continue to monitor ongoing response to treatment. Encouraged participation in milieu. She is involuntary status and will await court-appointed retail mortgage banker; she plans to sign deferral.
[2023-11-17 04:39] VITALS: RESP 16
--- NOTE | 2023-11-17 13:03 | P.PN ---
Progress Note - Text Progress Note Date: 11/17/23 Interval History: Patient was seen after eagerly requesting to be seen this morning after her de ferral hearing. She was directable and agreeable to speak with scientific writer in the office. She reports feeling "hopeful" about the future and feels that the shame she previously experienced about engaging in mental health treatment had decreased. This is no longer a barrier for her. She identifies strongly with her role as a mother and shared that her 2 children both have sickle cell disease. She wants to be there for them and wants to continue to support them and take care of herself. She describes them as a significant motivation for her wanting to live and wanting to continue to improve her life. At this time patient denies any suicidal or homicidal ideations, intent or plan. Patient denies any auditory, visual hallucinations and denies any paranoia or delusions. Patient denies any side effects from the medications and has been compliant with meds. She is eager to discharge home and endorses willingness to engage in outpatient treatment through the [facility]. Mental Status Exam: General Appearance: [Patient appears to be stated age is alert, directable, and cooperative. Appropriate hygiene and grooming.] Behavior: [Patient is calmly seated without any agitated behavior. She was obser johana calmly participating in group.] Speech: Patient's speech is fluent and nonpressured. Mood/Affect: Mood is "hopeful", affect is congruent and euthymic. Suicidality/Homicidality: Patient denies having any suicidal or homicidal ideation intent or plan. Perceptions: Patient denies any visual hallucinations [and denies any auditory hallucinations] Though content/process: [There is no evidence of any delusional thought content and thought process is linear and goal-directed.] Memory and concentration: AOX3, grossly intact for the purposes of this session Judgment and insight: Improving, reasonable. Assessment Brandy Pena is a 38-year-old woman with a history of schizoaffective disorder, bipolar type and trauma who was admitted on 11/12/23. During this admission she has stabilized on Prolixin and is open to transition to a MATHEW on an outpatient basis due to prior difficulty with medication adherence. Her mood and affect have improved significantly; she's no longer as irritable and agitated as she had been. She has been taking lorazepam for anxiety the last two days; we discussed plans to discontinue this today, prior to anticipated discharge tomorrow. Plan: -Patient continues to meet criteria for inpatient psychiatric admission for symptom stabilization and safety. Patient has signed [adult voluntary form and] [medication consent] and was placed in patient's chart. -Medications: - Continue Prolixin 5 mg BID; will plan to initiate MATHEW on an outpatient basis - Discontinue Ativan 0.5 mg BID -When necessary Ativan and Haldol for agitation/aggression. -NRT - [nicotine patch] -SW on board for discharge planning. Encouraged the patient to participate in milieu. Anticipating discharge tomorrow.
[2023-11-18 07:03] VITALS: BP 109/76; PULSE 66; TEMP 97.1
--- NOTE | 2023-11-18 11:22 | P.DS ---
Providers Date of admission: 11/12/23 20:21 Expected date of discharge: 11/18/23 Attending physician: Omar Piña MD Consults: 11/12/23 20:25 Consult Physician Routine Consulting Provider: Jayson Nunes Consult Reason/Comments: H&P Do you want consulting provider notified?: Yes Primary care physician: Jayson Nunes - Discharge Diagnosis(es) (1) Schizoaffective disorder Current Visit: No Status: Chronic Priority: High Hospital Course: Admission HPI: Admission note was completed by Dr. Piña. "Patient presented to the hospital on 11/11. As per EPS note, "Upon assessment pt appears unkempt, disheleved. Pt was pacing the room and unable to sit still. Pt was very animated and has a louder tone and passion during conversation. Pt is disorganized, thought blocking, tangential, and has loose associations. Pt could not truly verbalize why she was brought to the ER. She would start to say that she got into a verbal altercation with her and then say, "can I ask you a question", and then speak about God. Pt believes that a witch kidnapped her a nd states that she was hearing voices but then would not start what they were or describe them in any way. She would carry to the next subject and lacks focus. Pt has an illogical train of thought. Pt would make statements during conversation like, "It's been my own my whole life...I probably won't here tonight....I don't know good versus evil". These would be out of context in conversation. Pt states that she has not slept in a few days, she could not state the last time she slept. She states she has a lack of motivation and not eating but was seen eating her lunch tray and drinking. Pt is religiously occupied during conversation. Pt would not give consent for RN to reach out to anyone to see what events took place prior to ER. Shannon RN in ER states that she was able to speak with her mother earlier and she was not willing to come to the hospital to petition, she was just calling to inform of her arrival and they feel she is not doing well. Pt admits to SI but pt would n ot verbalize a plan but states, "I'd rather not be here anymore". Pt was making Homicidal statements towards others. Pt states, "I don't believe in murder" but then was making hypothetical statements about killing her family members and those who have hurt he emotionally. "I could shot them, or hurt them real good". She states that her mother took her children away from her and "everyone thinks I am worthless and nothing, no one can fix me". Pt denies any medical issues, denies access to guns or weapons but RN is unable to confirm this. Pt denies the use of drugs. She does admit to occasionally etoh use. BAT today was 0.046. Pt does admit to taking Adderall 20mg QD that are not hers. Pt is closed with [facility] and has not received her Abilify Maintena 400mg since 06/05/23 per Tea." Upon todays assessment, she states that a higher power brought her in. She's been having thoughts of burning in hell, if she did not do the right things. She states she seen the [employer] move for her. She said the creator of [employer] did it. She states her mom called 911, after coming to her house and "started crap". She does not believe she should be here. She states that she used to take medication, but she was able to stop. She states that her mood has ups and downs. She states that she sleeps well, and her appetite is well. She states her stressors include, "something came from somewhere" She states that there has been great things build, by something creating that. She states it's weird to her, and that it's all in her head and her heart. She thinks she hears God's voice. She has very loose associations, she is thought blocking, and tangential. Her thought process is disorganized. She gets increasingly irritated during the interview. Patient denies any suicidal or homicidal ideations intent or plan. At this time patient denies any auditory or visual hallucinations. Patient is having flight of ideas, racing thoughts and very tangential. Patient denies using recreational drugs. she has a discheleveld appearance, poor hygiene and grooming." Hospital course: Upon admission to the unit patient was admitted involuntarily on a petition and certificate and a second certificate was completed and faxed to the courts. Patient ended up signing a deferral with the supervisor core shop and agreeing to treatment. Initially at time of admission patient was agitated and irritable and required redirection and eventually as needed medication to help promote safety. As patient's clinical condition improved, she was able to get along with other patients on the unit and follow unit protocol. She talked with staff about her stressors and engaged in therapy both group and individual. She identified with her role as a mother and felt increasingly motivated to engage in treatment. Patient was also seen by medical team for history and physical exam. Throughout the course of the hospitalization patient gradually improved with regards to mood, anxiety, sleep and became more future oriented with improved insight and judgment. On the day of discharge patient denied any suicidal or homicidal ideations intent or plan denied any auditory or visual hallucinations. Patient endorsed wanting to live for their health and family. The patient denied any access to guns or weapons. Patient denied any paranoia and did not endorse any delusions. Patient does not have a significant history of substance abuse and was counseled on abstaining from all substances including alcohol and marijuana. She endorsed a plan to continue decreasing nicotine use. Patient was also counseled on the medications and need for regular compliance and was encouraged to follow-up with their outpatient appointment for mental health and also for primary care. Mental status exam: General Appearance: Patient appears to be stated age is alert, pleasant, and cooperative. Patient is in no acute distress and has improved hygiene and grooming Behavior: Patient is calmly seated without any agitated behavior. Speech: Patient's speech is fluent and non-pressured. Mood/Affect: Patient reports their mood is "great", affect is congruent and euthymic. Brighter than prior. Suicidality/Homicidality: Patient denies having any suicidal or homicidal ideation intent or plan. Perceptions: Patient denies any auditory or visual hallucinations. Though content/process: There is no evidence of any delusional thought content and thought process is linear and goal-directed. More future oriented. Memory and concentration: AOX3, grossly intact for the purposes of this session. Judgment and insight: Chronically fair, however has improved with guarded prognosis Impression: Schizoaffective disorder, bipolar type Nicotine dependence Plan: -Continue with discharge today as patient has improved and stabilized psychiatrically and is not currently an imminent threat to themself and/or others. Poor adherence to treatment and substance misuse may contribute to increased risk of harm if these behaviors return. Protective factors include strong identity with role as a mother/caregiver to two children, decreasing shame re: mental health treatment, and hopeful outlook. -Continue medications: - Continue Prolixin 5 mg BID; will plan to initiate Prolixin MATHEW on an outpatient basis - Will also discharge with Nicotine patches at patient request to assist with cessation from vaping -Patient was counseled on the need for medication compliance and appropriate follow-up at mental health and also primary care for medical issues. Patient verbalized understanding and agreed. -Social work to help coordinate patients discharge today and to ensure safe home environment that guns/weapons are either removed from the home or locked away. Social work also to arrange for patients follow up appointments with [facility] for psychiatric care along with follow up with primary care provider. -Patient counseled on abstaining from recreational drugs and marijuana and alcohol. Was informed/educated on the adverse effects on their physical and mental health. Patient verbally agreed and understood. -Patient was instructed to return to the hospital or seek immediate medical care if their psychiatric or medical symptoms do worsen or reoccur. INSERT DATA FORMATS Patient Condition at Discharge: Fair Plan - Discharge Summary Discharge Rx Participant: Yes New Discharge Prescriptions: New Nicotine 14Mg/24Hr Patch [Habitrol] 1 patch TRANSDERM DAILY 30 Days #30 patch Atorvastatin [Lipitor] 40 mg PO DAILY 30 Days #30 tab fluPHENAZine [Prolixin] 5 mg PO BID 30 Days #60 tab Continue Cyanocobalamin [Vitamin B-12 Injection] 1,000 mcg SQ Q30D HYDROcodone/APAP 7.5-325MG [[place] 7.5-325] 1 tab PO DAILY Discharge Medication List Cyanocobalamin [Vitamin B-12 Injection] 1,000 mcg SQ Q30D 11/12/23 [History] HYDROcodone/APAP 7.5-325MG [[place] 7.5-325] 1 tab PO DAILY 11/12/23 [History] Atorvastatin [Lipitor] 40 mg PO DAILY 30 Days #30 tab 11/18/23 [Rx] Nicotine 14Mg/24Hr Patch [Habitrol] 1 patch TRANSDERM DAILY 30 Days #30 patch 11/18/23 [Rx] fluPHENAZine [Prolixin] 5 mg PO BID 30 Days #60 tab 11/18/23 [Rx] Follow up Appointment(s)/Referral(s): Jayson Nunes MD [Primary Care Provider] - 1-2 days Activity/Diet/Wound Care/Special Instructions: Avoid the use of street drugs and alcohol. Take all medications as prescribed. When you are in need of refills on your medications, please contact your medical provider and/or outpatient psychiatrist/provider to have this done. Please go to your scheduled outpatient appointment for aftercare treatment. If symptoms return or become worse, call the crisis line at and/or go to the nearest emergency room for evaluation. National Suicide Hotline 341
== END 2023-11-18 12:52 | disposition home or self-care (01) | DRG 750 ==
LOC: EC 15:42 → 3MHU 20:21
PROVIDERS: ADMIT Psychiatry & Neurology Psychiatry; ATTEND Psychiatry & Neurology Psychiatry
DX: F25.0 Schizoaffective disorder, bipolar type (principal); R45.850 Homicidal ideations; R45.851 Suicidal ideations; F11.10 Opioid abuse, uncomplicated; F12.10 Cannabis abuse, uncomplicated; F41.9 Anxiety disorder, unspecified; Z11.52 Encounter for screening for COVID-19; Z28.310 Unvaccinated for COVID-19; Z91.148 Patient's other noncompliance with medication regimen for other reason; F43.10 Post-traumatic stress disorder, unspecified; U07.0 Vaping-related disorder; Z71.6 Tobacco abuse counseling; Z79.891 Long term (current) use of opiate analgesic; Z79.899 Other long term (current) drug therapy; Z63.8 Other specified problems related to primary support group; Z56.0 Unemployment, unspecified; Z86.19 Personal history of other infectious and parasitic diseases
CPT/HCPCS: 80053; 80306; 81003; 81025; 82075; 83036; 84443; 85025; 87635; 99285

== ENCOUNTER 2024-01-25 10:43 | Emergency (ER) | payer OTHER ==
[2024-01-25 10:49] VITALS: TEMP 98
--- NOTE | 2024-01-25 11:19 | ED ---
Headache HPI - General Chief Complaint: Headache Stated Complaint: headache Time Seen by Provider: 01/25/24 11:02 Source: patient, RN notes reviewed Mode of arrival: ambulatory Limitations: no limitations - History of Present Illness Initial Comments: 38-year-old female with a history of migraines presents emergency department chief complaint of a headache. Patient states that the headache started this morning and feels the same as when she has had migraines in the past. States that the pain is in the front of her head and radiates into the back of her skull. Denies blurry, double vision, nausea or vomiting. Endorses photophobia. Patient has a prescription for [place] 7.5 that is prescribed by her primary care provider and his request this medication for a 7-week supply and states that she does not have appointment with her primary care provider for another week. No other acute complaints at this time - Related Data Home Medications Medication Instructions Recorded Confirmed Cyanocobalamin [Vitamin B-12 1,000 mcg SQ Q30D 11/12/23 11/12/23 Injection] HYDROcodone/APAP 7.5-325MG [[place] 1 tab PO DAILY 11/12/23 11/12/23 7.5-325] Previous Rx's Medication Instructions Recorded Atorvastatin [Lipitor] 40 mg PO DAILY 30 Days #30 tab 11/18/23 Nicotine 14Mg/24Hr Patch [Habitrol] 1 patch TRANSDERM DAILY 30 Days 11/18/23 #30 patch fluPHENAZine [Prolixin] 5 mg PO BID 30 Days #60 tab 11/18/23 Allergies Allergy/AdvReac Type Severity Reaction Status Date / Time No Known Allergies Allergy Verified 01/25/24 10:49 Review of Systems ROS Statement: Those systems with pertinent positive or pertinent negative responses have been documented in the HPI. ROS Other: All systems not noted in ROS Statement are negative. Past Medical History Past Medical History: No Reported History Additional Past Medical History / Comment(s): UMBILCAL HERNIA. MIGRAINES History of Any Multi-Drug Resistant Organisms: ESBL, Other MDRO Date of last positivie culture/infection: 11/13/18 MDRO Source:: ESBL URINE Past Surgical History: Section Past Psychological History: Bipolar, Depression, PTSD, Schizoaffective Disorder Smoking Status: Current every day smoker Past Alcohol Use History: Rare Past Drug Use History: None Reported, Marijuana, Prescription Drug Abuse - Past Family History family Family Medical History: No Reported History General Exam Limitations: no limitations General appearance: alert, in no apparent distress Head exam: Present: atraumatic, normocephalic, normal inspection Eye exam: Present: normal appearance, PERRL, EOMI. Absent: scleral icterus, conjunctival injection, periorbital swelling ENT exam: Present: normal exam, mucous membranes moist Neck exam: Present: normal inspection. Absent: tenderness, meningismus, lymphadenopathy Respiratory exam: Present: normal lung sounds bilaterally. Absent: respiratory distress, wheezes, rales, rhonchi, stridor Cardiovascular Exam: Present: regular rate, normal rhythm, normal heart sounds. Absent: systolic murmur, diastolic murmur, rubs, gallop, clicks GI/Abdominal exam: Present: soft, normal bowel sounds. Absent: distended, tenderness, guarding, rebound, rigid Neurological exam: Present: alert, oriented X3, CN II-XII intact Course Vital Signs 01/25/24 01/25/24 10:45 12:13 Temperature 98 F Pulse Rate 89 72 Respiratory 18 16 Rate Blood Pressure 119/82 114/78 O2 Sat by Pulse 98 100 Oximetry Medical Decision Making - Medical Decision Making Was pt. sent in by a medical professional or institution (, PA, [employer], urgent care, hospital, or prison...) When possible be specific @ -No Did you speak to anyone other than the patient for history (EMS, parent, family, police, friend...)? What history was obtained from this source @ -No Did you review nursing and triage notes (agree or disagree)? Why? @ -I reviewed and agree with nursing and triage notes Were old charts reviewed (outside hosp., previous admission, EMS record, old EKG, old radiological studies, urgent care reports/EKG's, prison records)? Report findings @ -No old charts were reviewed Differential Diagnosis (chest pain, altered mental status, abdominal pain women, abdominal pain men, vaginal bleeding, weakness, fever, dyspnea, syncope, headache, dizziness, GI bleed, back pain, seizure, CVA, palpatations, mental health, musculoskeletal)? @ -Differential Headache: Migraine, tension, cluster, carbon monoxide, central venous thrombosis, pension karma temporal arteritis, acute closure glaucoma, intercranial hemorrhage, mastoiditis, sinusitis, head injury, this is not meant to be an all-inclusive list. EKG interpreted by me (3pts min.). @ -None X-rays interpreted by me (1pt min.). @ -None done CT interpreted by me (1pt min.). @ -None done U/S interpreted by me (1pt. min.). @ -None done What testing was considered but not performed or refused? (CT, X-rays, U/S, labs)? Why? @ -CT imaging of the brain was considered but deferred at this time. Patient states that this migraine feels the same as when she has had them in the past and there are no acute new symptoms. Patient declines CT imaging at this time and there is minimal clinical concern for intracranial abnormality at this time. What meds were considered but not given or refused? Why? @ -None Did you discuss the management of the patient with other professionals (professionals i.e. , PA, [employer] [facility], lab, RT, psych nurse, social service agency director, cement despatch operator, teacher, chief lending officer, case resolution specialist)? Give summary @ -No Was smoking cessation discussed for >3mins.? @ -No Was critical care preformed (if so, how long)? @ -No Were there social determinants of health that impacted care today? How? (Homelessness, low income, unemployed, alcoholism, drug addiction, transportation, low edu. Level, literacy, decrease access to med. care, senior care, rehab)? @ -No Was there de-escalation of care discussed even if they declined (Discuss DNR or withdrawal of care, Hospice)? DNR status @ -No What co-morbidities impacted this encounter? (DM, HTN, Smoking, COPD, CAD, Cancer, CVA, ARF, Chemo, Hep., AIDS, mental health diagnosis, sleep apnea, morbid obesity)? @ -None Was patient admitted / discharged? Hospital course, mention meds given and route, prescriptions, significant lab abnormalities, going to OR and other pertinent info. @ -Discharge. 38-year-old female with migraine headache. On evaluation patient is resting comfortably and on her phone. Vitals are stable. Neurological examination with no acute findings. Patient is requesting a 7-day prescription for [place] 7.5 that she normally sees her primary care provider. Patient is provided with medication in the emergency department however recommend that she contact her primary care provider for refill of this medication. She is also provided with a dose of Toradol. On reevaluation, patient states that her migraine is feeling much better and feels comfortable to go home at this time. All questions answered at bedside and strict return. Discussed with the patient she is verbalized understanding. Case discussed with Dr. Cavazos Undiagnosed new problem with uncertain prognosis? @ -No Drug Therapy requiring intensive monitoring for toxicity (Heparin, Nitro, Insulin, Cardizem)? @ -No Were any procedures done? @ -No Diagnosis/symptom? @ -migraine headache Acute, or Chronic, or Acute on Chronic? @ -Acute Uncomplicated (without systemic symptoms) or Complicated (systemic symptoms)? @ -uncomplicated Side effects of treatment? @ -No Exacerbation, Progression, or Severe Exacerbation? @ -No Poses a threat to life or bodily function? How? (Chest pain, [place], [place], pneumonia, PE, COPD, DKA, ARF, appy, cholecystitis, CVA, Diverticulitis, Homicidal, Suicidal, threat to staff... and all critical care pts) @ -No Disposition Clinical Impression: Migraine Disposition: HOME SELF-CARE Condition: Good Instructions (If sedation given, give patient instructions): Migraine Headache (ED) Additional Instructions: Return to the emergency department for any new or worsening symptoms. Recommend he follow-up with your primary care provider for further evaluation Is patient prescribed a controlled substance at d/c from ED?: No Referrals: Jayson Nunes MD [Primary Care Provider] - 1-2 days Time of Disposition: 11:51
[2024-01-25] MEDS: KETOROLAC 15 MG/ML 1 ML VIAL IM STA (11:25)
[2024-01-25] MEDS: HYDROcodone/APAP 7.5-325MG 1 EACH TAB PO ONE (11:26)
[2024-01-25 12:14] VITALS: BP 114/78; PULSE 72; RESP 16
== END 2024-01-25 12:14 | disposition home or self-care (01) ==
LOC: EC 10:43
CPT/HCPCS: 96372; 99284

== ENCOUNTER 2024-01-27 08:27 | Emergency (ER) | payer OTHER ==
[2024-01-27 08:35] VITALS: RESP 18
--- NOTE | 2024-01-27 09:34 | ED ---
Headache HPI - General Chief Complaint: Headache Stated Complaint: migraine Time Seen by Provider: 01/27/24 09:20 Source: patient, RN notes reviewed Mode of arrival: ambulatory Limitations: no limitations - History of Present Illness Initial Comments: This is a 38-year-old female who presents to the emergency department for a migraine. Patient has a longstanding history of migraines and was evaluated here for this 2 days ago as well. Reports pain behind her eyes. She has some associated nausea. States that she treats her migraines with Scotts 7.5 mg, but has not been able to get this refilled yet, as she has not been able to get in with her primary care provider. She does have an appointment with her primary care provider on Thursday and is trying to get by until then. MD Complaint: "migraine" - Related Data Home Medications Medication Instructions Recorded Confirmed Cyanocobalamin [Vitamin B-12 1,000 mcg SQ Q30D 11/12/23 11/12/23 Injection] HYDROcodone/APAP 7.5-325MG [[place] 1 tab PO DAILY 11/12/23 11/12/23 7.5-325] Previous Rx's Medication Instructions Recorded Atorvastatin [Lipitor] 40 mg PO DAILY 30 Days #30 tab 11/18/23 Nicotine 14Mg/24Hr Patch [Habitrol] 1 patch TRANSDERM DAILY 30 Days 11/18/23 #30 patch fluPHENAZine [Prolixin] 5 mg PO BID 30 Days #60 tab 11/18/23 HYDROcodone/APAP 7.5-325MG [[place] 1 tab PO Q6HR PRN 3 Days #12 tab 01/27/24 7.5-325] Ketorolac [Toradol] 10 mg PO Q6HR PRN #15 tab 01/27/24 Allergies Allergy/AdvReac Type Severity Reaction Status Date / Time No Known Allergies Allergy Verified 01/27/24 08:34 Review of Systems ROS Statement: Those systems with pertinent positive or pertinent negative responses have been documented in the HPI. ROS Other: All systems not noted in ROS Statement are negative. Past Medical History Past Medical History: No Reported History Additional Past Medical History / Comment(s): UMBILCAL HERNIA. MIGRAINES History of Any Multi-Drug Resistant Organisms: ESBL, Other MDRO Date of last positivie culture/infection: 11/13/18 MDRO Source:: ESBL URINE Past Surgical History: Section Past Psychological History: Bipolar, Depression, PTSD, Schizoaffective Disorder Smoking Status: Current every day smoker Past Alcohol Use History: Rare Past Drug Use History: None Reported, Marijuana, Prescription Drug Abuse - Past Family History family Family Medical History: No Reported History General Exam Limitations: no limitations General appearance: alert, in no apparent distress Head exam: Present: atraumatic, normocephalic, normal inspection Eye exam: Present: normal appearance, PERRL, EOMI. Absent: scleral icterus, conjunctival injection, periorbital swelling Respiratory exam: Present: normal lung sounds bilaterally. Absent: respiratory distress, wheezes, rales, rhonchi, stridor Cardiovascular Exam: Present: regular rate, normal rhythm, normal heart sounds. Absent: systolic murmur, diastolic murmur, rubs, gallop, clicks Neurological exam: Present: alert, oriented X3, CN II-XII intact Psychiatric exam: Present: normal affect, normal mood Skin exam: Present: warm, dry, intact, normal color. Absent: rash Course Vital Signs 01/27/24 01/27/24 08:32 12:19 Temperature 98.1 F 98.5 F Pulse Rate 88 72 Respiratory 18 18 Rate Blood Pressure 121/80 116/79 O2 Sat by Pulse 100 100 Oximetry Medical Decision Making - Medical Decision Making This is a 38-year-old female who presents to the emergency department for a migraine. Was pt. sent in by a medical professional or institution? @ -No Did you speak to anyone other than the patient for history? @ -No Did you review nursing and triage notes? @ -Yes, and I agree, it is accurate with regards to the patient's symptoms. Were old charts reviewed? @ -No Differential Diagnosis? @ -Differential Headache: Migraine, tension, cluster, carbon monoxide, central venous thrombosis, pension karma temporal arteritis, acute closure glaucoma, intercranial hemorrhage, mastoiditis, sinusitis, head injury, this is not meant to be an all-inclusive list. EKG interpreted by me (3pts min.)? @ -Not obtained X-rays interpreted by me (1pt min.)? @ -Not obtained CT interpreted by me (1pt min.)? @ -Not obtained U/S interpreted by me (1pt. min.)? @ -Not obtained What testing was considered but not performed? (CT, X-rays, U/S, labs)? Why? @ -None What meds were considered but not given? Why? @ -None Did you discuss the management of the patient with other professionals? @ -No Did you reconcile home meds? @ -No Was smoking cessation discussed for >3mins.? @ -No Was critical care preformed (if so, how long)? @ -No Were there social determinants of health that impacted care today? How? (Homelessness, low income, unemployed, alcoholism, drug addiction, transportation, low edu. Level, literacy, decrease access to med. care, retirement, rehab)? @ -No Was there de-escalation of care discussed even if they declined? (Discuss DNR or withdrawal of care, Hospice)? @ -No What co-morbidities impacted this encounter? (DM, HTN, Smoking, COPD, CAD, Cancer, CVA, Hep., AIDS, mental health diagnosis, sleep apnea, morbid obesity)? @ -Migraines Was patient admitted / discharged? @ -Discharged. Patient treated with a migraine cocktail consisting of Toradol, Decadron, and Reglan. She was given her home dose of Scotts 7.5 mg as well. Symptoms improved dramatically. Advised that I can give her a 3-day refill on the Scotts and she will need to follow-up with her primary care provider for the rest. Toradol prescribed as well for further management. Patient discharged home in stable condition. Case discussed with ED attending Dr. Cavazos. Return precautions reviewed in depth, the patient is instructed to return to the emergency department with any new, worsening, or concerning symptoms. Patient verbalized understanding. Undiagnosed new problem with uncertain prognosis? @ -None Drug Therapy requiring intensive monitoring for toxicity (Heparin, Nitro, Insulin, Cardizem)? @ -None Were any procedures done? @ -None Diagnosis/symptom? @ -Migraine Acute, or Chronic, or Acute on Chronic? @ -Acute Uncomplicated (without systemic symptoms) or Complicated (systemic symptoms)? @ -Uncomplicated Side effects of treatment? @ -None Exacerbation, Progression, or Severe Exacerbation] @ -Not applicable Poses a threat to life or bodily function? @ -No Disposition Clinical Impression: Migraine Disposition: HOME SELF-CARE Instructions (If sedation given, give patient instructions): Migraine Headache (ED) Additional Instructions: Return to the emergency department with any new, worsening, or concerning symptoms. Take the Toradol with Tylenol as needed for pain relief. If you choose to take the Toradol, do not take any other anti-inflammatories such as ibuprofen, take one or the other. Take the Scotts sparingly when your pain is the most severe. Follow up with your primary care provider in 1-2 days. Prescriptions: HYDROcodone/APAP 7.5-325MG [Scotts 7.5-325] 1 tab PO Q6HR PRN 3 Days #12 tab PRN Reason: Pain Ketorolac [Toradol] 10 mg PO Q6HR PRN #15 tab PRN Reason: Pain Is patient prescribed a controlled substance at d/c from ED?: Yes When asked, does pt state using other controlled substances?: Yes If prescribed controlled substance>3 days was MAPS reviewed?: Prescribed <3 Days Referrals: Jayson Nunes MD [Primary Care Provider] - 1-2 days
[2024-01-27] MEDS: KETOROLAC 15 MG/ML 1 ML VIAL IVP STA (10:12)
[2024-01-27] MEDS: SODIUM CHLORIDE 0.9% 1,000 ML IV STA (10:12)
[2024-01-27] MEDS: diphenhydrAMINE 50 MG/ML 1 ML VIAL IVP STA (10:13)
[2024-01-27] MEDS: DEXAMETHASONE SOD PHOSPHATE 10 MG/ML 1 ML VIAL IVP STA (10:14)
[2024-01-27] MEDS: METOCLOPRAMIDE 5 MG/ML 2 ML VIAL IVP STA (10:15)
[2024-01-27] MEDS: HYDROcodone/APAP 7.5-325MG 1 EACH TAB PO ONE (10:19)
[2024-01-27 12:20] VITALS: BP 116/79; PULSE 72; TEMP 98.5
== END 2024-01-27 12:20 | disposition home or self-care (01) ==
LOC: EC 08:27
CPT/HCPCS: 96361; 96374; 96375; 99283

== ENCOUNTER 2024-07-21 13:06 | Emergency (ER) | payer OTHER ==
--- NOTE | 2024-07-21 15:08 | ED ---
Headache HPI - General Chief Complaint: Headache Stated Complaint: headache Time Seen by Provider: 07/21/24 13:24 Source: patient, RN notes reviewed Mode of arrival: ambulatory Limitations: no limitations - History of Present Illness Initial Comments: This is a 39-year-old female presenting with migraine x 2 days. Endorses diffuse stabbing/pressure (10/10). Endorses associated nausea and dizziness. Endorses use of ibuprofen/Tylenol with minimal relief. Patient states she normally takes Gl[place] 7.5 but is at right now, stating that it normally helps with her migraines. Denies neck stiffness, vision changes, fever, AMS, ALOC, aura, photophobia, phonophobia. MD Complaint: "migraine" Onset/Timin -: days(s) Location: diffuse Severity scale (1-10): 10 Quality: throbbing, constant Consistency: constant Improves With: nothing Associated Symptoms: nausea Treatments Prior to Arrival: Acetaminophen, Ibuprofen - Related Data Home Medications Medication Instructions Recorded Confirmed Cyanocobalamin [Vitamin B-12 1,000 mcg SQ Q30D 11/12/23 11/12/23 Injection] HYDROcodone/APAP 7.5-325MG [[place] 1 tab PO DAILY 11/12/23 11/12/23 7.5-325] Previous Rx's Medication Instructions Recorded Atorvastatin [Lipitor] 40 mg PO DAILY 30 Days #30 tab 11/18/23 Nicotine 14Mg/24Hr Patch [Habitrol] 1 patch TRANSDERM DAILY 30 Days 11/18/23 #30 patch fluPHENAZine [Prolixin] 5 mg PO BID 30 Days #60 tab 11/18/23 HYDROcodone/APAP 7.5-325MG [[place] 1 tab PO Q6HR PRN 3 Days #12 tab 01/27/24 7.5-325] Ketorolac [Toradol] 10 mg PO Q6HR PRN #15 tab 01/27/24 SUMAtriptan succinate 100 mg PO DIRECTED PRN #10 07/22/24 tablet Allergies Allergy/AdvReac Type Severity Reaction Status Date / Time No Known Allergies Allergy Verified 07/22/24 08:44 Review of Systems ROS Statement: Those systems with pertinent positive or pertinent negative responses have been documented in the HPI. ROS Other: All systems not noted in ROS Statement are negative. Past Medical History Past Medical History: No Reported History Additional Past Medical History / Comment(s): UMBILCAL HERNIA. MIGRAINES History of Any Multi-Drug Resistant Organisms: ESBL, Other MDRO Date of last positivie culture/infection: 11/13/18 MDRO Source:: ESBL URINE Past Surgical History: Section Past Psychological History: Bipolar, Depression, PTSD, Schizoaffective Disorder Smoking Status: Current every day smoker Past Alcohol Use History: Rare Past Drug Use History: None Reported, Marijuana, Prescription Drug Abuse - Past Family History family Family Medical History: No Reported History General Exam Limitations: no limitations General appearance: alert, in no apparent distress Head exam: Present: atraumatic, normocephalic, normal inspection Eye exam: Present: normal appearance, PERRL, EOMI. Absent: scleral icterus, conjunctival injection, periorbital swelling ENT exam: Present: normal exam, mucous membranes moist Neck exam: Present: normal inspection. Absent: tenderness, meningismus, lymphadenopathy Respiratory exam: Present: normal lung sounds bilaterally. Absent: respiratory distress, wheezes, rales, rhonchi, stridor Cardiovascular Exam: Present: regular rate, normal rhythm, normal heart sounds. Absent: systolic murmur, diastolic murmur, rubs, gallop, clicks GI/Abdominal exam: Present: soft, normal bowel sounds. Absent: distended, tenderness, guarding, rebound, rigid Extremities exam: Present: normal inspection, full ROM, normal capillary refill. Absent: tenderness, pedal edema, joint swelling, calf tenderness Back exam: Present: normal inspection Neurological exam: Present: alert, oriented X3, CN II-XII intact Psychiatric exam: Present: normal affect, normal mood Skin exam: Present: warm, dry, intact, normal color. Absent: rash Course Vital Signs 07/21/24 07/21/24 13:07 16:45 Temperature 98.6 F 98.9 F Pulse Rate 88 75 Respiratory 16 18 Rate Blood Pressure 128/86 123/85 O2 Sat by Pulse 99 97 Oximetry Medical Decision Making - Medical Decision Making Was pt. sent in by a medical professional or institution (, PA, CLOTHES MODEL, urgent care, hospital, or fpc...) When possible be specific @ -No Did you speak to anyone other than the patient for history (EMS, parent, family, police, friend...)? What history was obtained from this source @ -No Did you review nursing and triage notes (agree or disagree)? Why? @ -I reviewed and agree with nursing and triage notes Were old charts reviewed (outside hosp., previous admission, EMS record, old EKG, old radiological studies, urgent care reports/EKG's, fpc records)? Report findings @ -No old charts were reviewed Differential Diagnosis (chest pain, altered mental status, abdominal pain women, abdominal pain men, vaginal bleeding, weakness, fever, dyspnea, syncope, headache, dizziness, GI bleed, back pain, seizure, CVA, palpatations, mental health, musculoskeletal)? @ -Differential Headache: Migraine, tension, cluster, carbon monoxide, central venous thrombosis, pension karma temporal arteritis, acute closure glaucoma, intercranial hemorrhage, mastoiditis, sinusitis, head injury, this is not meant to be an all-inclusive list. EKG interpreted by me (3pts min.). @ -Not done X-rays interpreted by me (1pt min.). @ -None done CT interpreted by me (1pt min.). @ -None done U/S interpreted by me (1pt. min.). @ -None done What testing was considered but not performed or refused? (CT, X-rays, U/S, labs)? Why? @ -None What meds were considered but not given or refused? Why? @ -None Did you discuss the management of the patient with other professionals (professionals i.e. , PA, CLOTHES MODEL, lab, RT, psych nurse, social human services assistants, service operator, teacher, postal sorting officer, pillowcase cutter)? Give summary @ -No Was smoking cessation discussed for >3mins.? @ -No Was critical care preformed (if so, how long)? @ -No Were there social determinants of health that impacted care today? How? (Homelessness, low income, unemployed, alcoholism, drug addiction, transportation, low edu. Level, literacy, decrease access to med. care, senior living, rehab)? @ -No Was there de-escalation of care discussed even if they declined (Discuss DNR or withdrawal of care, Hospice)? DNR status @ -No What co-morbidities impacted this encounter? (DM, HTN, Smoking, COPD, CAD, Cancer, CVA, ARF, Chemo, Hep., AIDS, mental health diagnosis, sleep apnea, morbid obesity)? @ -None Was patient admitted / discharged? Hospital course, mention meds given and route, prescriptions, significant lab abnormalities, going to OR and other pertinent info. @ -Patient initially provided IM Reglan, Toradol and Benadryl. Endorses some ongoing migraine pain (11/17). P.o. Glendo and IV Decadron provided and patient discharged with 2 additional tablets of Glendo after noting significant relief of pain. Advised follow-up with PCP/neurology and pain management clinic for ongoing long-term management of migraines and pain. Discussed patient with Dr. Fox. Undiagnosed new problem with uncertain prognosis? @ -No Drug Therapy requiring intensive monitoring for toxicity (Heparin, Nitro, Insulin, Cardizem)? @ -No Were any procedures done? @ -No Diagnosis/symptom? @ -Migraine Acute, or Chronic, or Acute on Chronic? @ -Acute Uncomplicated (without systemic symptoms) or Complicated (systemic symptoms)? @ -Uncomplicated Side effects of treatment? @ -No Exacerbation, Progression, or Severe Exacerbation? @ -No Poses a threat to life or bodily function? How? (Chest pain, [place], [place], pneumonia, PE, COPD, DKA, ARF, appy, cholecystitis, CVA, Diverticulitis, Homicidal, Suicid al, threat to staff... and all critical care pts) @ -No Disposition Clinical Impression: Migraine headache Disposition: HOME SELF-CARE Condition: Good Instructions (If sedation given, give patient instructions): Migraine Headache (ED) Additional Instructions: Follow-up with PCP/pain management clinic for ongoing management of narcotic pain medication Is patient prescribed a controlled substance at d/c from ED?: No Referrals: Jayson Nunes MD [Primary Care Provider] - 1-2 days Time of Disposition: 16:41
[2024-07-21] MEDS: diphenhydrAMINE 50 MG/ML 1 ML VIAL IM STA (15:24)
[2024-07-21] MEDS: KETOROLAC 15 MG/ML 1 ML VIAL IM STA (15:25)
[2024-07-21] MEDS: METOCLOPRAMIDE 5 MG/ML 2 ML VIAL IM STA (15:25)
[2024-07-21] MEDS: HYDROcodone/APAP 7.5-325MG 1 EACH TAB PO ONE ×2 (15:52→16:44)
[2024-07-21] MEDS: DEXAMETHASONE SOD PHOSPHATE 4 MG/ML 1 ML VIAL IVP STA (15:52)
[2024-07-21 16:47] VITALS: BP 123/85; PULSE 75; RESP 18; TEMP 98.9
== END 2024-07-21 16:52 | disposition home or self-care (01) ==
LOC: EC 13:06
DX: G43.909 Migraine, unspecified, not intractable, without status migrainosus (principal); F17.200 Nicotine dependence, unspecified, uncomplicated
CPT/HCPCS: 99283; 96374; 96372; J1200; J1100; J2765; J1885

== ENCOUNTER 2024-07-22 08:35 | Emergency (ER) | payer OTHER ==
[2024-07-22 08:44] VITALS: TEMP 97.4
[2024-07-22] MEDS: KETOROLAC 15 MG/ML 1 ML VIAL IVP STA (10:24)
[2024-07-22] MEDS: diphenhydrAMINE 50 MG/ML 1 ML VIAL IVP STA (10:25)
[2024-07-22] MEDS: METOCLOPRAMIDE 5 MG/ML 2 ML VIAL IVP STA (10:25)
--- NOTE | 2024-07-22 10:26 | ED ---
Headache HPI - General Chief Complaint: Headache Stated Complaint: headache Time Seen by Provider: 07/22/24 08:55 Source: patient, RN notes reviewed Mode of arrival: ambulatory Limitations: no limitations - History of Present Illness Initial Comments: This is a 39-year-old female with history of migraines presenting with migraine- like symptoms since 0200 this morning. Patient endorses diffuse headache (10/10), nausea and light sensitivity. Patient was seen yesterday in this ER for similar symptoms, stating migraine cocktail worked well for the remainder of the day before returning. Patient states she has not made an appointment with her PCP or pain management clinic for ongoing management of migraine and [place] refills. Patient denies fever, chills, neck stiffness, visual changes, aura, phonophobia, vomiting. MD Complaint: "migraine" Onset/Timin -: hour(s) Location: diffuse Severity scale (1-10): 10 Quality: throbbing Consistency: constant Associated Symptoms: nausea, photophobia Treatments Prior to Arrival: none - Related Data Home Medications Medication Instructions Recorded Confirmed Cyanocobalamin [Vitamin B-12 1,000 mcg SQ Q30D 11/12/23 11/12/23 Injection] HYDROcodone/APAP 7.5-325MG [[place] 1 tab PO DAILY 11/12/23 11/12/23 7.5-325] Previous Rx's Medication Instructions Recorded Atorvastatin [Lipitor] 40 mg PO DAILY 30 Days #30 tab 11/18/23 Nicotine 14Mg/24Hr Patch [Habitrol] 1 patch TRANSDERM DAILY 30 Days 11/18/23 #30 patch fluPHENAZine [Prolixin] 5 mg PO BID 30 Days #60 tab 11/18/23 HYDROcodone/APAP 7.5-325MG [[place] 1 tab PO Q6HR PRN 3 Days #12 tab 01/27/24 7.5-325] Ketorolac [Toradol] 10 mg PO Q6HR PRN #15 tab 01/27/24 SUMAtriptan succinate 100 mg PO DIRECTED PRN #10 07/22/24 tablet Allergies Allergy/AdvReac Type Severity Reaction Status Date / Time No Known Allergies Allergy Verified 07/22/24 08:44 Review of Systems ROS Statement: Those systems with pertinent positive or pertinent negative responses have been documented in the HPI. ROS Other: All systems not noted in ROS Statement are negative. Past Medical History Past Medical History: No Reported History Additional Past Medical History / Comment(s): UMBILCAL HERNIA. MIGRAINES History of Any Multi-Drug Resistant Organisms: ESBL, Other MDRO Date of last positivie culture/infection: 11/13/18 MDRO Source:: ESBL URINE Past Surgical History: Section Past Psychological History: Bipolar, Depression, PTSD, Schizoaffective Disorder Smoking Status: Current every day smoker Past Alcohol Use History: Rare Past Drug Use History: None Reported, Marijuana, Prescription Drug Abuse - Past Family History family Family Medical History: No Reported History General Exam Limitations: no limitations General appearance: alert, in no apparent distress Head exam: Present: atraumatic, normocephalic, normal inspection Eye exam: Present: normal appearance, PERRL, EOMI. Absent: scleral icterus, conjunctival injection, periorbital swelling ENT exam: Present: normal exam, mucous membranes moist Neck exam: Present: normal inspection. Absent: tenderness, meningismus, lymphadenopathy Respiratory exam: Present: normal lung sounds bilaterally. Absent: respiratory distress, wheezes, rales, rhonchi, stridor, accessory muscle use Cardiovascular Exam: Present: regular rate, normal rhythm, normal heart sounds. Absent: systolic murmur, diastolic murmur, rubs, gallop, clicks GI/Abdominal exam: Present: soft, normal bowel sounds. Absent: distended, tenderness, guarding, rebound, rigid Extremities exam: Present: normal inspection, full ROM, normal capillary refill. Absent: tenderness, pedal edema, joint swelling, calf tenderness Back exam: Present: normal inspection Neurological exam: Present: alert, oriented X3, CN II-XII intact Psychiatric exam: Present: normal affect, normal mood Skin exam: Present: warm, dry, intact, normal color. Absent: rash Course Vital Signs 07/22/24 08:41 Temperature 97.4 F L Pulse Rate 72 Respiratory 20 Rate Blood Pressure 118/83 O2 Sat by Pulse 100 Oximetry Medical Decision Making - Medical Decision Making Was pt. sent in by a medical professional or institution (, PA, FLIGHT OPERATIONS INSPECTOR, urgent care, hospital, or retirement...) When possible be specific @ -No Did you speak to anyone other than the patient for history (EMS, parent, family, police, friend...)? What history was obtained from this source @ -No Did you review nursing and triage notes (agree or disagree)? Why? @ -I reviewed and agree with nursing and triage notes Were old charts reviewed (outside hosp., previous admission, EMS record, old EKG, old radiological studies, urgent care reports/EKG's, retirement records)? Report findings @ -No old charts were reviewed Differential Diagnosis (chest pain, altered mental status, abdominal pain women, abdominal pain men, vaginal bleeding, weakness, fever, dyspnea, syncope, headache, dizziness, GI bleed, back pain, seizure, CVA, palpatations, mental health, musculoskeletal)? @ -Differential Headache: Migraine, tension, cluster, carbon monoxide, central venous thrombosis, pension karma temporal arteritis, acute closure glaucoma, intercranial hemorrhage, mastoiditis, sinusitis, head injury, this is not meant to be an all-inclusive list. EKG interpreted by me (3pts min.). @ -Not done X-rays interpreted by me (1pt min.). @ -None done CT interpreted by me (1pt min.). @ -None done U/S interpreted by me (1pt. min.). @ -None done What testing was considered but not performed or refused? (CT, X-rays, U/S, labs)? Why? @ -None What meds were considered but not given or refused? Why? @ -None Did you discuss the management of the patient with other professionals (professionals i.e. , PA, FLIGHT OPERATIONS INSPECTOR, lab, RT, psych nurse, high school social studies teacher, games dealer, teacher, personal banking officer, case folder)? Give summary @ -No Was smoking cessation discussed for >3mins.? @ -No Was critical care preformed (if so, how long)? @ -No Were there social determinants of health that impacted care today? How? (Homelessness, low income, unemployed, alcoholism, drug addiction, transportation, low edu. Level, literacy, decrease access to med. care, custodial, rehab)? @ -No Was there de-escalation of care discussed even if they declined (Discuss DNR or withdrawal of care, Hospice)? DNR status @ -No What co-morbidities impacted this encounter? (DM, HTN, Smoking, COPD, CAD, Cancer, CVA, ARF, Chemo, Hep., AIDS, mental health diagnosis, sleep apnea, morbid obesity)? @ -None Was patient admitted / discharged? Hospital course, mention meds given and route, prescriptions, significant lab abnormalities, going to OR and other pertinent info. @ -Patient received migraine cocktail of IV Toradol, Reglan and Benadryl, stating pain improved from 1010 to 3/10. IV Decadron provided prior to discharge. Sumatriptan sent to patient's pharmacy. Advised follow-up with PCP/pain management for ongoing management of pain/migraines. Discussed patient with Dr. Means. Undiagnosed new problem with uncertain prognosis? @ -No Drug Therapy requiring intensive monitoring for toxicity (Heparin, Nitro, Insulin, Cardizem)? @ -No Were any procedures done? @ -No Diagnosis/symptom? @ -Migraine Acute, or Chronic, or Acute on Chronic? @ -Acute Uncomplicated (without systemic symptoms) or Complicated (systemic symptoms)? @ -Uncomplicated Side effects of treatment? @ -No Exacerbation, Progression, or Severe Exacerbation? @ -No Poses a threat to life or bodily function? How? (Chest pain, [place], [place], pneumonia, PE, COPD, DKA, ARF, appy, cholecystitis, CVA, Diverticulitis, Homicidal, Suicidal, threat to staff... and all critical care pts) @ -No Disposition Clinical Impression: Migraine headache Disposition: HOME SELF-CARE Condition: Good Instructions (If sedation given, give patient instructions): Migraine Headache (ED) Additional Instructions: Follow-up with PCP/pain management clinic for ongoing management of migraines. Also attempt Motrin 800 and Tylenol 1000 simultaneously at start of migraine Prescriptions: SUMAtriptan succinate 100 mg PO DIRECTED PRN #10 tablet PRN Reason: Pain Is patient prescribed a controlled substance at d/c from ED?: No Referrals: Jayson Nunes MD [Primary Care Provider] - 1-2 days Time of Disposition: 11:25
[2024-07-22] MEDS: DEXAMETHASONE SOD PHOSPHATE 4 MG/ML 1 ML VIAL IVP STA (11:52)
[2024-07-22 12:12] VITALS: BP 118/82; PULSE 71; RESP 16
== END 2024-07-22 12:10 | disposition home or self-care (01) ==
LOC: EC 08:35
DX: G43.909 Migraine, unspecified, not intractable, without status migrainosus (principal); F17.200 Nicotine dependence, unspecified, uncomplicated
CPT/HCPCS: 99283; 96374; 96375 ×3; J1200; J1100; J2765; J1885

== ENCOUNTER 2024-07-25 08:37 | Emergency (ER) | payer OTHER ==
[2024-07-25 08:42] VITALS: BP 102/66; PULSE 93; RESP 20; TEMP 97.9
--- NOTE | 2024-07-25 09:47 | ED ---
Headache HPI - General Source: patient, RN notes reviewed Mode of arrival: ambulatory Limitations: no limitations <Zeny Leigh - Last Filed: 07/25/24 09:46> - General Source: patient, RN notes reviewed Mode of arrival: ambulatory Limitations: no limitations - History of Present Illness MD Complaint: "migraine" Onset/Timin -: days(s) Location: diffuse Severity scale (1-10): 10 Quality: similar to previous headaches Consistency: constant Improves With: nothing Associated Symptoms: nausea, photophobia, sensitivity to sound Treatments Prior to Arrival: migraine medication (Sumatriptan) <Isacc Luque - Last Filed: 07/25/24 12:17> - General Chief Complaint: Headache Stated Complaint: Headache Time Seen by Provider: 07/25/24 09:46 - History of Present Illness Initial Comments: Quick note: 39-year-old female presented the ER for evaluation of migraine. Patient states she has a history of this and pain feels similar. This been ongoing for the past week. Admits to dizziness and nausea. (Zeny Leigh) - Related Data Home Medications Medication Instructions Recorded Confirmed Cyanocobalamin [Vitamin B-12 1,000 mcg SQ Q30D 11/12/23 11/12/23 Injection] HYDROcodone/APAP 7.5-325MG [[place] 1 tab PO DAILY 11/12/23 11/12/23 7.5-325] Previous Rx's Medication Instructions Recorded Atorvastatin [Lipitor] 40 mg PO DAILY 30 Days #30 tab 11/18/23 Nicotine 14Mg/24Hr Patch [Habitrol] 1 patch TRANSDERM DAILY 30 Days 11/18/23 #30 patch fluPHENAZine [Prolixin] 5 mg PO BID 30 Days #60 tab 11/18/23 HYDROcodone/APAP 7.5-325MG [[place] 1 tab PO Q6HR PRN 3 Days #12 tab 01/27/24 7.5-325] Ketorolac [Toradol] 10 mg PO Q6HR PRN #15 tab 01/27/24 SUMAtriptan succinate 100 mg PO DIRECTED PRN #10 07/22/24 tablet Allergies Allergy/AdvReac Type Severity Reaction Status Date / Time No Known Allergies Allergy Verified 07/25/24 08:41 Review of Systems ROS Other: All systems not noted in ROS Statement are negative. <Zeny Leigh - Last Filed: 07/25/24 09:46> ROS Other: All systems not noted in ROS Statement are negative. <RebelIsacc - Last Filed: 07/25/24 12:17> ROS Statement: Those systems with pertinent positive or pertinent negative responses have been documented in the HPI. Past Medical History Past Medical History: No Reported History Additional Past Medical History / Comment(s): UMBILCAL HERNIA. MIGRAINES History of Any Multi-Drug Resistant Organisms: ESBL, Other MDRO Date of last positivie culture/infection: 11/13/18 MDRO Source:: ESBL URINE Past Surgical History: Section Past Psychological History: Bipolar, Depression, PTSD, Schizoaffective Disorder Smoking Status: Current every day smoker Past Alcohol Use History: Rare Past Drug Use History: None Reported, Marijuana, Prescription Drug Abuse - Past Family History family Family Medical History: No Reported History <Zeny Leigh Last Filed: 07/25/24 09:46> General Exam Limitations: no limitations <Zeny Leigh Last Filed: 07/25/24 09:46> Limitations: no limitations General appearance: alert, in no apparent distress Head exam: Present: atraumatic, normocephalic, normal inspection Eye exam: Present: normal appearance, PERRL, EOMI. Absent: scleral icterus, conjunctival injection, periorbital swelling ENT exam: Present: normal exam, mucous membranes moist Neck exam: Present: normal inspection. Absent: tenderness, meningismus, lymphadenopathy Respiratory exam: Present: normal lung sounds bilaterally. Absent: respiratory distress, wheezes, rales, rhonchi, stridor Cardiovascular Exam: Present: regular rate, normal rhythm, normal heart sounds. Absent: systolic murmur, diastolic murmur, rubs, gallop, clicks GI/Abdominal exam: Present: soft, normal bowel sounds. Absent: distended, tenderness, guarding, rebound, rigid Extremities exam: Present: normal inspection, full ROM, normal capillary refill. Absent: tenderness, pedal edema, joint swelling, calf tenderness Back exam: Present: normal inspection Neurological exam: Present: alert, oriented X3, CN II-XII intact Psychiatric exam: Present: normal affect, normal mood Skin exam: Present: warm, dry, intact, normal color. Absent: rash <Isacc Luque - Last Filed: 07/25/24 12:17> - General Exam Comments Initial Comments: Visual Physical Exam Vital signs reviewed General: Well-appearing, nontoxic, no acute distress. Head: Normocephalic, atraumatic Eyes: PERRLA, EOMI ENT: Airway patent Chest: Nonlabored breathing Skin: No visual rash, normal skin tone Neuro: Alert and oriented 3 Musculoskeletal: No gross abnormalities (Zeny Leigh) Course Vital Signs 07/25/24 08:40 Temperature 97.9 F Pulse Rate 93 Respiratory 20 Rate Blood Pressure 102/66 O2 Sat by Pulse 99 Oximetry Medical Decision Making <Zeny Leigh - Last Filed: 07/25/24 09:46> <Isacc Luque - Last Filed: 07/25/24 12:17> - Medical Decision Making I performed the quick note portion of this chart. Electronically signed by Zeny Leigh PA-C (Zeny Leigh) Was pt. sent in by a medical professional or institution (DENISE Hedrick, PSYCH SALES SPECIALIST, urgent care, hospital, or senior care...) When possible be specific @ -[No] Did you speak to anyone other than the patient for history (EMS, parent, family, police, friend...)? What history was obtained from this source @ -[No] Did you review nursing and triage notes (agree or disagree)? Why? @ -[I reviewed and agree with nursing and triage notes] Were old charts reviewed (outside hosp., previous admission, EMS record, old EKG, old radiological studies, urgent care reports/EKG's, senior care records)? Report findings @ -[No old charts were reviewed] Differential Diagnosis (chest pain, altered mental status, abdominal pain women, abdominal pain men, vaginal bleeding, weakness, fever, dyspnea, syncope, headache, dizziness, GI bleed, back pain, seizure, CVA, palpatations, mental health, musculoskeletal)? @ -Differential Headache: Migraine, tension, cluster, carbon monoxide, central venous thrombosis, pension karma temporal arteritis, acute closure glaucoma, intercranial hemorrhage, mastoiditis, sinusitis, head injury, this is not meant to be an all-inclusive list. EKG interpreted by me (3pts min.). @ -Not done X-rays interpreted by me (1pt min.). @ -[None done] CT interpreted by me (1pt min.). @ -[None done] U/S interpreted by me (1pt. min.). @ -[None done] What testing was considered but not performed or refused? (CT, X-rays, U/S, labs)? Why? @ -[None] What meds were considered but not given or refused? Why? @ -[None] Did you discuss the management of the patient with other professionals (professionals i.e. , PA, PSYCH SALES SPECIALIST, lab, RT, psych nurse, social worker aide, sales representative consultant, teacher, us customs and border officer, case packer and sealer)? Give summary @ -[No] Was smoking cessation discussed for >3mins.? @ -[No] Was critical care preformed (if so, how long)? @ -[No] Were there social determinants of health that impacted care today? How? (Homelessness, low income, unemployed, alcoholism, drug addiction, transportation, low edu. Level, literacy, decrease access to med. care, long term, rehab)? @ -[No] Was there de-escalation of care discussed even if they declined (Discuss DNR or withdrawal of care, Hospice)? DNR status @ -[No] What co-morbidities impacted this encounter? (DM, HTN, Smoking, COPD, CAD, Cancer, CVA, ARF, Chemo, Hep., AIDS, mental health diagnosis, sleep apnea, m orbid obesity)? @ -[None] Was patient admitted / discharged? Hospital course, mention meds given and route, prescriptions, significant lab abnormalities, going to OR and other pertinent info. @ -[hospital course] Undiagnosed new problem with uncertain prognosis? @ -[No] Drug Therapy requiring intensive monitoring for toxicity (Heparin, Nitro, Insulin, Cardizem)? @ -[No] Were any procedures done? @ -[No] Diagnosis/symptom? @ -[default] Acute, or Chronic, or Acute on Chronic? @ -Acute Uncomplicated (without systemic symptoms) or Complicated (systemic symptoms)? @ -Uncomplicated Side effects of treatment? @ -[No] Exacerbation, Progression, or Severe Exacerbation? @ -[No] Poses a threat to life or bodily function? How? (Chest pain, [place], [place], pneumonia, PE, COPD, DKA, ARF, appy, cholecystitis, CVA, Diverticulitis, Homicidal, Suicidal, threat to staff... and all critical care pts) @ -[No] (Isacc Luque) Disposition <Zeny Leigh - Last Filed: 07/25/24 09:46> Is patient prescribed a controlled substance at d/c from ED?: No Time of Disposition: 12:13 <Isacc Luque - Last Filed: 07/25/24 12:17> Clinical Impression: Migraine headache Disposition: HOME SELF-CARE Condition: Good Instructions (If sedation given, give patient instructions): Migraine Headache (ED) Additional Instructions: Follow-up with PCP this week for ongoing management of migraines Referrals: Jayson Nunes MD [Primary Care Provider] - 1-2 days Luis Munoz DO [STAFF PHYSICIAN] - 1-2 days
[2024-07-25] MEDS: METOCLOPRAMIDE 5 MG/ML 2 ML VIAL IVP STA (10:44)
[2024-07-25] MEDS: KETOROLAC 15 MG/ML 1 ML VIAL IVP STA (10:45)
[2024-07-25] MEDS: SODIUM CHLORIDE 0.9% 500 ML 500 ML IV STA (10:45)
[2024-07-25] MEDS: diphenhydrAMINE 50 MG/ML 1 ML VIAL IVP STA (10:45)
[2024-07-25] MEDS: HYDROcodone/APAP 7.5-325MG 1 EACH TAB PO ONE ×2 (11:44→12:46)
[2024-07-25] MEDS: DEXAMETHASONE SOD PHOSPHATE 4 MG/ML 1 ML VIAL IVP STA (11:45)
== END 2024-07-25 12:48 | disposition home or self-care (01) ==
LOC: EC 08:37
DX: G43.909 Migraine, unspecified, not intractable, without status migrainosus (principal); F17.200 Nicotine dependence, unspecified, uncomplicated
CPT/HCPCS: 99283; 96374; 96375; J1200; J1100; J2765; J1885

== ENCOUNTER 2024-11-01 13:05 | Emergency (ER) | payer OTHER ==
--- NOTE | 2024-11-01 14:23 | ED ---
General Adult HPI - General Chief complaint: Headache Stated complaint: Migraine Headache Time Seen by Provider: 11/01/24 14:18 Source: patient, RN notes reviewed, old records reviewed Mode of arrival: ambulatory Limitations: no limitations - History of Present Illness Initial comments: 39-year-old female with recurrent migraine history presenting with migraine headache. Patient states headache is typical of her usual migraine. She states she took [id number] Tylenol and Motrin without relief. Denies significant vomiting very mild nausea. No focal numbness or weakness. Headache was gradual in onset. - Related Data Home Medications Medication Instructions Recorded Confirmed Cyanocobalamin [Vitamin B-12 1,000 mcg SQ Q30D 11/12/23 11/12/23 Injection] HYDROcodone/APAP 7.5-325MG [[place] 1 tab PO DAILY 11/12/23 11/12/23 7.5-325] Previous Rx's Medication Instructions Recorded Atorvastatin [Lipitor] 40 mg PO DAILY 30 Days #30 tab 11/18/23 Nicotine 14Mg/24Hr Patch [Habitrol] 1 patch TRANSDERM DAILY 30 Days 11/18/23 #30 patch fluPHENAZine [Prolixin] 5 mg PO BID 30 Days #60 tab 11/18/23 HYDROcodone/APAP 7.5-325MG [[place] 1 tab PO Q6HR PRN 3 Days #12 tab 01/27/24 7.5-325] Ketorolac [Toradol] 10 mg PO Q6HR PRN #15 tab 01/27/24 SUMAtriptan succinate 100 mg PO DIRECTED PRN #10 07/22/24 tablet Allergies Allergy/AdvReac Type Severity Reaction Status Date / Time No Known Allergies Allergy Verified 11/01/24 13:38 Review of Systems ROS Statement: Those systems with pertinent positive or pertinent negative responses have been documented in the HPI. ROS Other: All systems not noted in ROS Statement are negative. Past Medical History Past Medical History: No Reported History Additional Past Medical History / Comment(s): UMBILCAL HERNIA. MIGRAINES History of Any Multi-Drug Resistant Organisms: ESBL, Other MDRO Date of last positivie culture/infection: 11/13/18 MDRO Source:: ESBL URINE Past Surgical History: Section Past Psychological History: Bipolar, Depression, PTSD, Schizoaffective Disorder Smoking Status: Current every day smoker Past Alcohol Use History: Rare Past Drug Use History: None Reported, Marijuana, Prescription Drug Abuse - Past Family History family Family Medical History: No Reported History General Exam Limitations: no limitations General appearance: alert, in no apparent distress Head exam: Present: atraumatic, normocephalic Eye exam: Present: normal appearance, PERRL ENT exam: Present: normal exam Neck exam: Present: normal inspection. Absent: tenderness Respiratory exam: Present: normal lung sounds bilaterally. Absent: respiratory distress, wheezes Cardiovascular Exam: Present: regular rate, normal rhythm GI/Abdominal exam: Present: soft. Absent: distended, tenderness Extremities exam: Present: normal inspection, normal capillary refill Neurological exam: Present: alert, oriented X3, CN II-XII intact. Absent: motor sensory deficit Psychiatric exam: Present: normal affect, normal mood Skin exam: Present: warm, dry, intact Course Vital Signs 11/01/24 13:34 Temperature 98.5 F Pulse Rate 85 Respiratory 22 Rate Blood Pressure 112/78 O2 Sat by Pulse 97 Oximetry Medical Decision Making - Medical Decision Making Was pt. sent in by a medical professional or institution (Dr. PA, CHIP MIXER, urgent care, hospital, or skilled nursing...) When possible be specific @ -No Did you speak to anyone other than the patient for history (EMS, parent, family, police, friend...)? What history was obtained from this source @ -No Did you review nursing and triage notes (agree or disagree)? Why? @ -I reviewed and agree with nursing and triage notes Were old charts reviewed (outside hosp., previous admission, EMS record, old EKG, old radiological studies, urgent care reports/EKG's, skilled nursing records)? Report findings @ -No old charts were reviewed Differential Headache: Migraine, tension, cluster, carbon monoxide, central venous thrombosis, pension karma temporal arteritis, acute closure glaucoma, intercranial hemorrhage, mastoiditis, sinusitis, head injury, this is not meant to be an all-inclusive list. EKG interpreted by me (3pts min.). @ -As above X-rays interpreted by me (1pt min.). @ -None done CT interpreted by me (1pt min.). @ -None done U/S interpreted by me (1pt. min.). @ -None done What testing was considered but not performed or refused? (CT, X-rays, U/S, labs)? Why? @ -None What meds were considered but not given or refused? Why? @ -None Did you discuss the management of the patient with other professionals (professionals i.e. , PA, CHIP MIXER, lab, RT, psych nurse, social media content specialist, criminal justice instructor, teacher, child support case officer, hospice case manager)? Give summary @ -No Was smoking cessation discussed for >3mins.? @ -No Was critical care preformed (if so, how long)? @ -No Were there social determinants of health that impacted care today? How? (Homelessness, low income, unemployed, alcoholism, drug addiction, transportation, low edu. Level, literacy, decrease access to med. care, [facility], rehab)? @ -No Was there de-escalation of care discussed even if they declined (Discuss DNR or withdrawal of care, Hospice)? DNR status @ -No What co-morbidities impacted this encounter? (DM, HTN, Smoking, COPD, CAD, Cancer, CVA, ARF, Chemo, Hep., AIDS, mental health diagnosis, sleep apnea, morbid obesity)? @ -[Recurrent migraine headache Was patient admitted / discharged? Hospital course, mention meds given and route, prescriptions, significant lab abnormalities, going to OR and other pertinent info. @39-year-old female this is a well-appearing patient with history of migraine with typical headache consistent with her previous headaches. Vital signs are stable. Patient requesting Toradol and Benadryl. These medications are administered in a patient will maintain hydration at home and follow-up with her primary care provider return parameters discussed. Undiagnosed new problem with uncertain prognosis? @ -No Drug Therapy requiring intensive monitoring for toxicity (Heparin, Nitro, Insulin, Cardizem)? @ -No Were any procedures done? @ -No Diagnosis/symptom? @ -[Headache Acute, or Chronic, or Acute on Chronic? @ -Acute on chronic Uncomplicated (without systemic symptoms) or Complicated (systemic symptoms)? @ -Default Side effects of treatment? @ -No Exacerbation, Progression, or Severe Exacerbation? @ -No Poses a threat to life or bodily function? How? (Chest pain, [place], [place], pneumonia, PE, COPD, DKA, ARF, appy, cholecystitis, CVA, Diverticulitis, Homicidal, Suicidal, threat to staff... and all critical care pts) @ -No Disposition Clinical Impression: Headache Disposition: HOME SELF-CARE Condition: Fair Instructions (If sedation given, give patient instructions): Acute Headache (ED) Is patient prescribed a controlled substance at d/c from ED?: No Referrals: Jayson Nunes MD [Primary Care Provider] - 1-2 days Time of Disposition: 14:23
[2024-11-01] MEDS: KETOROLAC 15 MG/ML 1 ML VIAL IVP STA (14:51)
[2024-11-01] MEDS: diphenhydrAMINE 50 MG/ML 1 ML VIAL IVP STA (14:52)
[2024-11-01 15:31] VITALS: BP 110/76; PULSE 80; RESP 20; TEMP 98.4
== END 2024-11-01 16:15 | disposition home or self-care (01) ==
LOC: EC 13:05
DX: G43.909 Migraine, unspecified, not intractable, without status migrainosus (principal); F17.200 Nicotine dependence, unspecified, uncomplicated
CPT/HCPCS: 99283; 96374; 96375; J1200; J1885

== ENCOUNTER 2024-11-15 11:28 | Emergency (ER) | payer OTHER ==
--- NOTE | 2024-11-15 12:15 | ED ---
General Adult HPI - General Chief complaint: Headache Stated complaint: Migraine Time Seen by Provider: 11/15/24 11:51 Source: patient, RN notes reviewed Mode of arrival: ambulatory Limitations: no limitations - History of Present Illness Initial comments: 39-year-old female presents to the emergency department for evaluation of migraine headache. Patient reports a history of migraines. She notes that the pain is in the frontal region. She states that this is typical of her migraines. She notes that the character is the same as what she has experienced in the past. She normally takes [place] at home but states that she has run out about a month ago. She denies any fever, chills, recent illness. Denies any visual changes. Denies worst headache of her life. She does report that she experiences nausea with her migraines. - Related Data Home Medications Medication Instructions Recorded Confirmed Cyanocobalamin [Vitamin B-12 1,000 mcg SQ Q30D 11/12/23 11/12/23 Injection] HYDROcodone/APAP 7.5-325MG [[place] 1 tab PO DAILY 11/12/23 11/12/23 7.5-325] Previous Rx's Medication Instructions Recorded Atorvastatin [Lipitor] 40 mg PO DAILY 30 Days #30 tab 11/18/23 Nicotine 14Mg/24Hr Patch [Habitrol] 1 patch TRANSDERM DAILY 30 Days 11/18/23 #30 patch fluPHENAZine [Prolixin] 5 mg PO BID 30 Days #60 tab 11/18/23 HYDROcodone/APAP 7.5-325MG [[place] 1 tab PO Q6HR PRN 3 Days #12 tab 01/27/24 7.5-325] Ketorolac [Toradol] 10 mg PO Q6HR PRN #15 tab 01/27/24 SUMAtriptan succinate 100 mg PO DIRECTED PRN #10 07/22/24 tablet Allergies Allergy/AdvReac Type Severity Reaction Status Date / Time No Known Allergies Allergy Verified 11/01/24 13:38 Review of Systems ROS Statement: Those systems with pertinent positive or pertinent negative responses have been documented in the HPI. ROS Other: All systems not noted in ROS Statement are negative. Past Medical History Past Medical History: No Reported History Additional Past Medical History / Comment(s): UMBILCAL HERNIA. MIGRAINES History of Any Multi-Drug Resistant Organisms: ESBL, Other MDRO Date of last positivie culture/infection: 11/13/18 MDRO Source:: ESBL URINE Past Surgical History: Section Past Psychological History: Bipolar, Depression, PTSD, Schizoaffective Disorder Smoking Status: Current every day smoker Past Alcohol Use History: Rare Past Drug Use History: None Reported, Marijuana, Prescription Drug Abuse - Past Family History family Family Medical History: No Reported History General Exam Limitations: no limitations General appearance: alert, in no apparent distress Head exam: Present: atraumatic, normocephalic, normal inspection Eye exam: Present: normal appearance, PERRL, EOMI. Absent: scleral icterus, conjunctival injection, periorbital swelling ENT exam: Present: normal exam, mucous membranes moist Neck exam: Present: normal inspection. Absent: tenderness, meningismus, lymphadenopathy Respiratory exam: Present: normal lung sounds bilaterally. Absent: respiratory distress, wheezes, rales, rhonchi, stridor Cardiovascular Exam: Present: regular rate, normal rhythm, normal heart sounds. Absent: systolic murmur, diastolic murmur, rubs, gallop, clicks Extremities exam: Present: normal inspection, full ROM, normal capillary refill. Absent: tenderness, pedal edema, joint swelling, calf tenderness Neurological exam: Present: alert, oriented X3, CN II-XII intact Psychiatric exam: Present: normal affect, normal mood Skin exam: Present: warm, dry, intact, normal color. Absent: rash Course Vital Signs 11/15/24 11:29 Temperature 97.9 F Pulse Rate 69 Respiratory 16 Rate Blood Pressure 131/84 O2 Sat by Pulse 98 Oximetry Medical Decision Making - Medical Decision Making Was pt. sent in by a medical professional or institution (DENISE Hedrick, PHYSICIAN RELATIONS SPECIALIST, urgent care, hospital, or jail...) When possible be specific @ -[No] Did you speak to anyone other than the patient for history (EMS, parent, family, police, friend...)? What history was obtained from this source @ -[No] Did you review nursing and triage notes (agree or disagree)? Why? @ -[I reviewed and agree with nursing and triage notes] Were old charts reviewed (outside hosp., previous admission, EMS record, old EKG, old radiological studies, urgent care reports/EKG's, jail records)? Report findings @ -[No old charts were reviewed] Differential Diagnosis (chest pain, altered mental status, abdominal pain women, abdominal pain men, vaginal bleeding, weakness, fever, dyspnea, syncope, headache, dizziness, GI bleed, back pain, seizure, CVA, palpatations, mental health, musculoskeletal)? @ -Differential Headache: Migraine, tension, cluster, carbon monoxide, central venous thrombosis, pension karma temporal arteritis, acute closure glaucoma, intercranial hemorrhage, mastoiditis, sinusitis, head injury, this is not meant to be an all-inclusive list. EKG interpreted by me (3pts min.). @ -None X-rays interpreted by me (1pt min.). @ -[None done] CT interpreted by me (1pt min.). @ -[None done] U/S interpreted by me (1pt. min.). @ -[None done] What testing was considered but not performed or refused? (CT, X-rays, U/S, labs)? Why? @ -[None] What meds were considered but not given or refused? Why? @ -[None] Did you discuss the management of the patient with other professionals (professionals i.e. , PA, PHYSICIAN RELATIONS SPECIALIST, lab, RT, psych nurse, social worker clinical, inspector and sorter, teacher, audit officer, counter caser)? Give summary @ -[No] Was smoking cessation discussed for >3mins.? @ -[No] Was critical care preformed (if so, how long)? @ -[No] Were there social determinants of health that impacted care today? How? (Homelessness, low income, unemployed, alcoholism, drug addiction, transportation, low edu. Level, literacy, decrease access to med. care, [facility], rehab)? @ -[No] Was there de-escalation of care discussed even if they declined (Discuss DNR or withdrawal of care, Hospice)? DNR status @ -[No] What co-morbidities impacted this encounter? (DM, HTN, Smoking, COPD, CAD, Cancer, CVA, ARF, Chemo, Hep., AIDS, mental health diagnosis, sleep apnea, morbid obesity)? @ -[None] Was patient admitted / discharged? Hospital course, mention meds given and route, prescriptions, significant lab abnormalities, going to OR and other pertinent info. @ -[hospital course] Undiagnosed new problem with uncertain prognosis? @ -[No] Drug Therapy requiring intensive monitoring for toxicity (Heparin, Nitro, Insulin, Cardizem)? @ -[No] Were any procedures done? @ -[No] Diagnosis/symptom? @ -[default] Acute, or Chronic, or Acute on Chronic? @ -[default] Uncomplicated (without systemic symptoms) or Complicated (systemic symptoms)? @ -[default] Side effects of treatment? @ -[No] Exacerbation, Progression, or Severe Exacerbation? @ -[No] Poses a threat to life or bodily function? How? (Chest pain, [place], [place], pneumonia, PE, COPD, DKA, ARF, appy, cholecystitis, CVA, Diverticulitis, Homicidal, Suicidal, threat to staff... and all critical care pts) @ -[No] Disposition Clinical Impression: Headache Disposition: HOME SELF-CARE Condition: Stable Instructions (If sedation given, give patient instructions): Acute Headache (ED) Additional Instructions: Please follow-up with your doctor. Return to the emergency department for new or worsening symptoms. Is patient prescribed a controlled substance at d/c from ED?: No Referrals: Jayson Nunes MD [Primary Care Provider] - 1-2 days
[2024-11-15] MEDS: HYDROcodone/APAP 7.5-325MG 1 EACH TAB PO ONE (12:19)
[2024-11-15] MEDS: SODIUM CHLORIDE 0.9% 1,000 ML IV ONE (12:24)
[2024-11-15] MEDS: KETOROLAC 15 MG/ML 1 ML VIAL IVP STA (12:25)
[2024-11-15] MEDS: diphenhydrAMINE 50 MG/ML 1 ML VIAL IVP STA (12:27)
[2024-11-15] MEDS: METOCLOPRAMIDE 5 MG/ML 2 ML VIAL IVP STA (12:27)
[2024-11-15] MEDS: ACET/COD 300 MG/30 MG STARTER PACK 6 TAB BTL PO STA (13:20)
[2024-11-15 13:23] VITALS: BP 122/73; PULSE 65; RESP 18; TEMP 98.3
== END 2024-11-15 13:23 | disposition home or self-care (01) ==
LOC: EC 11:28
DX: G43.909 Migraine, unspecified, not intractable, without status migrainosus (principal); F17.200 Nicotine dependence, unspecified, uncomplicated
CPT/HCPCS: 99283; 96374; 96375 ×2; 96361; J1200; J2765; J1885